=== PATIENT | female | born 1965 | race Caucasian/White ===

== ENCOUNTER → 2020-04-20 12:20 | Outpatient (CLI) | payer BC, SELFPAY ==
--- NOTE | ~2020-04-20 | MR_ITS ---
EXAMINATION: MR brain/brain stem wo/w con EXAM DATE: 04/20/2020 15:30 INDICATION: Multiple sclerosis. TECHNIQUE: Magnetic resonance imaging (MRI) of the brain/brain stem obtained without contrast. Sagit jorge T1, axial diffusion, gradient echo (T2*), T1, T2, FLAIR sequences obtained. Patient was then inj ected with 9 cc intravenous Multihance contrast. Axial and coronal postcontrast T1 weighted sequences obtained. Comparison is made to prior examination from 02/01/2018. FINDINGS: Again there are numerous white matter signal hyperintensities, some involving the corpus ca llosum, appearance consistent with multiple sclerosis. These do not appear significantly changed. The re are no enhancing lesions to suggest active disease. There are no areas of restricted diffusion to suggest acute infarction. There is no acute hemorrhage seen on the T2*, a hemosiderin sensitive sequ ence. No intraparenchymal brain mass. The ventricles are normal in size. There are no extra-axial c ollections. Flow voids are seen in the cerebral arteries on the T2-weighted sequences consistent wit h their expected patency. The orbits are unremarkable. Soft tissue is unremarkable. IMPRESSION: 1. Numerous white matter signal abnormalities consistent with quiescent multiple sclerosis, unchange d. Reviewed, dictated and finalized at location B. IMPRESSION: 1. Numerous white matter signal abnormalities consistent with quiescent multip le sclerosis, unchanged.
--- NOTE | ~2020-04-20 | MR_ITS ---
EXAMINATION: MR cervical spine wo/w con EXAM DATE: 04/20/2020 15:30 INDICATION: Multiple sclerosis follow-up. TECHNIQUE: Multi-sequential, multiplanar MR images of the cervical spine were obtained without contra st. Axial T2, axial T2 MERGE sequence. Sagittal T1, T2, T2 fat saturation images also obtained. Axi al T1 weighted sequence. Patient was then injected with 9 mL Multihance intravenous contrast and cy senthil. Postcontrast axial and sagittal T1-weighted fat saturation sequences were obtained. Compari son is made to prior examination from 02/01/2018. FINDINGS: Again there are several vague regions of increased T2 signal intensity within the cervical spinal cord, appearance and distribution not significantly changed. The most pronounced one is at th e C2-3 level, with small amount of decreased cord volume, chronic myelomalacia. Some limitations due to motion on the postcontrast sequences but no areas of abnormal enhancement suspected. There is moderate disc disease at C5-6 and 6-7, mild to moderate at C4-5. There is 2 mm retrolisthesi s C4 on C5 and C5 on C6. Slight progression in optimal moderate midcervical spondylosis. IMPRESSION: 1. Stable vague cervical spinal cord signal abnormalities consistent with quiescent multiple scleros is. 2. Overall moderate midcervical spondylosis and. Reviewed, dictated and finalized at location B. IMPRESSION: 1. Stable vague cervical spinal cord signal abnormalities consistent with quie scent multiple sclerosis. 2. Overall moderate midcervical spondylosis and.
[2020-04-20 13:12] LABS: Estimated Glomerular Filt Rate > 60
== END ==
PROVIDERS: Visit Provider Psychiatry & Neurology Neurology
DX: G35 Multiple sclerosis (principal); M47.892 Other spondylosis, cervical region; R93.0 Abnormal findings on diagnostic imaging of skull and head, not elsewhere classified
CPT/HCPCS: 70553; 72156; A9577

== ENCOUNTER 2020-11-08 11:14 | Observation (INO) | payer BC, SELFPAY ==
[2020-11-08] VITALS (10 sets, daily range): BP systolic 103–130; BP diastolic 47–81; PULSE 66–77; RESP 14–20; TEMP 36.3–37.1; O2SAT 95–98; BMI 18.8
--- NOTE | ~2020-11-08 | XR_ITS ---
EXAMINATION: XR abdomen/kub 1V DATE: 11/08/2020 22:31 INDICATION: Flank pain. Bladder infection. TECHNIQUE: A supine view of the abdomen on 2 radiographs was obtained. COMPARISON: None. FINDINGS: Moderate amount of gas and stool scattered throughout the colon. No dilated gas-filled loops of bowel to suggest obstruction. 2-3 mm calcific a comparison the left hemipelvis near the expected location of the left ureterovesicular junction which could represent a ureteral stone, phlebolith or atheroscl erotic calcification. Visualized lower lungs are clear. Heart size is normal. Chronic appearing avuls ion fracture of the cephalad tip of the right greater trochanter. IMPRESSION: 1. 2-3 mm possible distal left ureteral stone. Correlate with planned CT of the abdomen and pelvis. Reviewed, dictated and finalized at location A.
--- NOTE | ~2020-11-08 | US_ITS ---
US renal BI 11/09/2020 08:23 Procedure: Realtime transabdominal ultrasound of the kidneys and bladder. Indication: Evaluate for hydronephrosis. Comparison: CT dated 11/09/2020 Findings: Renal echotexture is normal bilaterally without hydronephrosis, contour deforming mass or r enal calculus. The right kidney measures 13.2 cm and left kidney measures 11.2 cm. Bilateral ureteral jets demonstrated. Butler catheter is not in the bladder. Impression: 1: Unremarkable renal ultrasound. No stones, masses or hydronephrosis. 2: Butler catheter demonstrated outside of the bladder, most likely in the vagina. Reviewed, dictated and finalized at location B. Impression: 1: Unremarkable renal ultrasound. No stones, masses or hydronephrosis. 2: Butler catheter demonstrated outside of the bladder, most likely in the vagin a.
--- NOTE | ~2020-11-08 | CT_ITS ---
EXAMINATION: CT abdomen pelvis wo con DATE: 11/09/2020 08:08 INDICATION: Flank pain TECHNIQUE: Computed tomography (CT) of the abdomen and pelvis was performed without intravenous contr ast. The dose-length product was 246.55 mGy-cm. Automated exposure control and iterative reconstructi on technique were employed. COMPARISON: None. FINDINGS: There is a Butler catheter in the vagina. The bladder is fairly distended. Heart size normal . Small pleural effusions. Bibasilar dependent atelectasis. The spleen, liver, pancreas, adrenal glands are unremarkable. There is bilateral perinephric edema. T here is mild bilateral hydronephrosis, although no definitive ureteral stone is identified. There are several pelvic phleboliths. There is atherosclerosis of the aorta without aneurysm. There is a punct ate amount of gas in the bladder, likely from instrumentation. Nonobstructive bowel gas pattern. No a cute osseous abnormality. IMPRESSION: 1. Butler catheter present in the vagina. Recommend repositioning. 2: Severely distended bladder containing a punctate focus of gas, likely from instrumentation. 3: Mild bilateral hydroureteronephrosis with perinephric edema. No definite obstructing stone is alejandra ntified. Cannot exclude ascending urinary tract infection. 4: Small pleural effusions with underlying compressive atelectasis. Reviewed, dictated and finalized at location B. IMPRESSION: 1. Butler catheter present in the vagina. Recommend repositioning. 2: Severely distended bladder containing a punctate focus of gas, likely from i nstrumentation. 3: Mild bilateral hydroureteronephrosis with perinephric edema. No definite ob structing stone is identified. Cannot exclude ascending urinary tract infection . 4: Small pleural effusions with underlying compressive atelectasis.
[2020-11-08 11:34] LABS: Basophils Absolute Auto 0.1 K/mm3 (0.0-0.1); Basophils Percent Auto 0.4 % (0.2-1.2); Eosinophils Percent Auto 0.1 % (0-4.4); Hematocrit 35.4 % (37.0-47.0); Hemoglobin 12.1 g/dL (12.0-15.0); Immature Granulocyte Absolute 0.26 K/mm3 (0.00-0.031); Immature Granulocyte Percent A 1.6 % (0-0.5); Lymphocytes Absolute Auto 0.73 K/mm3 (0.9-3.2); Lymphocytes Percent Auto 4.5 % (18.3-44.2); Mean Corpuscular HGB Conc 34.2 g/dl (32-36); Mean Corpuscular Hemoglobin 32.8 pg (26-34); Mean Corpuscular Volume 95.9 fl (80-100); Monocytes Absolute Auto 1.1 K/mm3 (0.1-0.6); Monocytes Percent Auto 6.9 % (2.6-8.5); Neutrophils Absolute Auto 14.1 K/mm3 (1.3-6.7); Neutrophils Percent Auto 86.5 % (45.5-73.1); Platelet Count Result 558 k/mm3 (150-375); Red Blood Count 3.69 M/mm3 (4.2-5.4); Red Cell Distribution Width 13.1 % (11.5-14.5); White Blood Count 16.3 K/mm3 (4.5-10.0)
[2020-11-08 11:48] LABS: Alanine Aminotransferase 17 U/L (4-35); Albumin Level 3.6 g/dL (3.5-5.1); Alkaline Phosphatase 95 U/L (38-126); Anion Gap 8 mmol/L (8-16); Aspartate Amino Transferase 26 U/L (14-36); Bilirubin,Total < 0.1 mg/dL (0.2-1.3); Blood Urea Nitrogen 39 mg/dL (7-17); Carbon Dioxide 20 mmol/L (22-30); Chloride 110 mmol/L (98-107); Estimated CRCL calculation 31 ml/min; Estimated Glomerular Filt Rate 39; Glucose 99 mg/dL (65-105); Potassium 3.1 mmol/L (3.4-5.0); Sodium 138 mmol/L (137-145)
--- NOTE | 2020-11-08 12:33 | ED.AMS ---
HPI - Altered Mental Status General Chief Complaint: Altered Mental Status Stated Complaint: weak Time Seen by Provider: 11/08/20 12:33 History of Present Illness HPI narrative: 55 yo female with h/o MS presents for weakness. Increasing weak and confused for the past few days. Started on PO antibiotics a few days ago for possible UTi. UA done today confirmed infection. She reports that she has mild abdominal and back pain. reports that he does not think that she has been eating. Related Data Home Medications Medication Instructions Recorded Confirmed acyclovir 400 mg PO DAILY 11/08/20 11/08/20 azelastine 1 spray INTRANASAL DAILY PRN 11/08/20 11/08/20 baclofen 10 mg PO HS 11/08/20 11/08/20 cholecalciferol (vitamin D3) 100 mcg PO DAILY 11/08/20 11/08/20 duloxetine 60 mg PO HS 11/08/20 11/08/20 fingolimod [Gilenya] 0.5 mg PO DAILY 11/08/20 11/08/20 lisinopril 10 mg PO DAILY 11/08/20 11/08/20 methylprednisolone 4 mg PO DAILY 11/08/20 11/08/20 Allergies Allergy/AdvReac Type Severity Reaction Status Date / Time Tetanus Vaccines and Toxoid Allergy Intermediate Rash Verified 11/08/20 16:28 codeine Allergy Mild Rash Verified 11/08/20 16:28 Review of Systems Review of Systems: All systems reviewed & are unremarkable except as noted in HPI and below Constitutional: Constitutional: Denies chills, Reports fatigue, Denies fever(s) and Reports weakness Eyes: Eyes: Reports no additional eye complaints ENT: Denies sore throat Cardiovascular: Cardiovascular: Denies chest pain Respiratory: Respiratory: Denies dyspnea Gastrointestinal: Gastrointestinal: Reports abdominal pain, Denies diarrhea, Reports nausea and Denies vomiting Genitourinary: Genitourinary: Denies hematuria and Reports nocturia Neurologic: Denies dizziness and Denies weakness [facility] Past Medical History Medical History (Updated 11/08/20 @ 21:05 by Demarco Palmer MD) Multiple sclerosis Social History Social History Smoking status: Never smoker Alcohol intake: current Drinks per week: 1 Substance use: never Spiritual care concerns: No Exam Const: General: no acute distress, alert and ill appearing Nutritional Appearance: thin Orientation/consciousness: patient oriented x3 HENMT: Head: normal to inspection Resp: Effort & Inspection: normal respiratory effort Auscultation: clear to auscultation bilaterally Cardio: Rate: regular rate Rhythm: regular rhythm GI: Inspection: non-distended GI Palp: Yes Soft to palpation, Yes Tenderness to palpation present (GI) (suprapubic), No Guarding due to palpation present (GI) and No Rebound tenderness present Back/Spine/Pelvis: Back: no CVA tenderness Skin: General skin exam: normal color Neuro: General: patient oriented x3, moves all extremities, no focal motor deficits and CN's II-XI intact bilaterally Speech: normal speech Extrem: General: normal to inspection Course Vital Signs Vital signs: Vital Signs Temperature 36.3 C L 11/08/20 11:18 Pulse Rate 71 11/08/20 11:18 Respiratory Rate 20 11/08/20 11:18 Blood Pressure 103/47 L 11/08/20 11:18 Pulse Oximetry 98 11/08/20 11:18 Temperature 36.3 C L 11/08/20 11:18 Pulse Rate 77 11/08/20 15:41 Respiratory Rate 18 11/08/20 15:41 Blood Pressure 130/77 11/08/20 15:41 Pulse Oximetry 97 11/08/20 15:41 MDM - Altered Mental Status MDM Narrative Medical decision making narrative: Will admit for UTI and ADRIÁN. Medical Records Attestation: I reviewed the patient's medical records. Lab Data Attestation: I reviewed the patient's lab results. Result diagrams: 11/08/20 11:23 11/08/20 11:23 Labs: Lab Results 11/08/20 11/08/20 11/08/20 Range/Units 11:23 11:23 12:40 WBC 16.3 H (4.5-10.0) K/mm3 RBC 3.69 L (4.2-5.4) M/mm3 Hgb 12.1 (12.0-15.0) g/dL Hct 35.4 L (37.0-47.0) % MCV 95.9 (80-100)
[2020-11-08 13:02] LABS: Add Urine Microscopic? YES; Appearance Urine Clear (Clear); Bilirubin Urine Negative (Negative); Color Urine Yellow (Yellow); Glucose Urine UA Negative (Negative); Ketones Urine Negative (Negative); Leukocyte Esterase Ur 1+ LEU/UL (Negative); Mucus Urine Rare /lpf; Nitrate Urine Negative (Negative); Protein Urine 1+ mg/dL (Negative); Specific Grav Ur 1.014 (1.001-1.035); Squamous Epithelial Cell Urine Rare /hpf (Few); Urobilinogen Urine Negative mg/dL (<2.0)
[2020-11-08 13:04] LABS: Blood Urine Negative (Negative)
[2020-11-08] MEDS: SODIUM CHLORIDE 0.9% IV 1,000 ML 999 ML IV CONT (13:50)
--- NOTE | 2020-11-08 15:50 | ADMGEN ---
This patient, Mary Cavanaugh, was admitted to [facility] Surg Room 331-01. Patient/family oriented to hospital policies and general routines including ID bracelet, bed and alarms, visiting hours, pain management, procedures, bathroom and other care routines, personal items, smoking policy, room service/diet, and visiting hours. Information on how to activate the Rapid Response Team has been discussed. Patient/Family are encouraged to report perceived risks to care and to ask questions if they do not understand what they are told or what they should do.
[2020-11-08] MEDS: LACTATED RINGERS 1,000 ML 125 ML IV CONT (17:05)
--- NOTE | 2020-11-08 18:10 | PM.IMHP ---
H&P: HPI History of Present Illness Date/Time: 11/08/20 18:10 CC:Urinary frequency HPI: 55 year old female admitted with urinary frequency and lower back pain. Pt has been nauseated at home. Not eating much, has been trying ibuprofen for back pain. Pt has a history of MS. Pt sees local PCP- , went to see her recently and was give oral steroids for a MS flare. Pt other doctors are Dr Garcia urology and DR Horner neurology in [facility]. Presently pt states her back pain is 10/10 and looks in distress from pain. Pt nose and hands are purplish blue, states she gets like that when she feels cold. Unsure if she is running a fever as she has been on ibuprofen. Denies diarrhea but has been constipated. Pt is having frequent urination and feels like it is burning when she passes urine. Chief Complaint: Urinary freqency Review of Systems Review of Systems: All systems reviewed & are unremarkable except as noted in HPI and below PMFSH Social History Social History Smoking status: Never smoker Alcohol intake: current Drinks per week: 1 Substance use: never Spiritual care concerns: No Meds Home Medications and Allergies Home Medications Medication Instructions Recorded Confirmed Type acyclovir 400 mg PO DAILY 11/08/20 11/08/20 History azelastine 1 spray INTRANASAL DAILY PRN 11/08/20 11/08/20 History baclofen 10 mg PO HS 11/08/20 11/08/20 History cholecalciferol (vitamin D3) 100 mcg PO DAILY 11/08/20 11/08/20 History duloxetine 60 mg PO HS 11/08/20 11/08/20 History fingolimod [Gilenya] 0.5 mg PO DAILY 11/08/20 11/08/20 History lisinopril 10 mg PO DAILY 11/08/20 11/08/20 History methylprednisolone 4 mg PO DAILY 11/08/20 11/08/20 History Allergies Allergy/AdvReac Type Severity Reaction Status Date / Time Tetanus Vaccines and Toxoid Allergy Intermediate Rash Verified 11/08/20 16:28 codeine Allergy Mild Rash Verified 11/08/20 16:28 Vital Signs Vital Signs - 24 hr 11/08/20 11:18 11/08/20 12:35 11/08/20 13:01 Temperature 36.3 C L Pulse Rate 71 71 67 Respiratory Rate 20 20 14 Blood Pressure 103/47 L 118/68 121/75 Pulse Oximetry 98 98 96 11/08/20 13:31 11/08/20 13:46 11/08/20 14:01 Temperature Pulse Rate 70 70 66 Respiratory Rate 14 17 15 Blood Pressure 122/75 130/81 123/72 Pulse Oximetry 95 98 96 11/08/20 14:16 11/08/20 14:46 11/08/20 15:41 Temperature Pulse Rate 71 69 77 Respiratory Rate 16 14 18 Blood Pressure 124/75 128/67 130/77 Pulse Oximetry 97 98 97 Exam Const: General: other (Thin appearing, tired and weak) HENMT: Head: normocephalic Eyes: General: appearance normal, both eyes and all related structures Pupils: Equal, round and reactive pupils present Neck: Neck: supple Chest: Chest palpation & inspection: normal inspection of the chest Resp: Effort & Inspection: normal respiratory effort Auscultation: clear to auscultation bilaterally Cardio: Jugular venous distension: no JVD Rhythm: regular rhythm Heart sounds: S1 normal heart sound present and S2 normal heart sound present GI: Inspection: normal to inspection GI Palp: No abdominal tenderness, Yes Soft to palpation and No Tenderness to palpation present (GI) Auscultation: normal bowel sounds Back/Spine/Pelvis: Back: CVA tenderness (Right more than left flank ) Skin: General skin exam: normal color and dry skin Neuro: Cranial nerves: Yes CN's II-XII intact bilaterally and Yes Equal, round and reactive pupils present Cognition (Neuro): normal cognition Speech: normal speech Motor exam (neuro): 5/5 motor strength present throughout Extrem: General: normal to inspection Psych: Appearance: grossly normal Mental Status: mental status grossly normal H&P: Results Labs Labs: Short CBC 11/08/20 Range/Units 11:23 WBC 16.3 H (4.5-10.0) K/mm3 Hgb 12.1 (12.0-15.0) g/dL Hct 35.4 L (37.0-47.0) % Plt Count 558 H (150-375) k/mm3
[2020-11-08] MEDS: KETOROLAC 10 MG TABLET PO (18:52)
--- NOTE | 2020-11-08 19:48 | PHAR ---
PT'S HOME MED CHALINO (FINGLOIMOD HCL) 0.5 MG VERIFIED BY PHARMACY
[2020-11-08] MEDS: BACLOFEN 10 MG TABLET PO (21:36)
[2020-11-08] MEDS: SENNA/DOCUSATE SODIUM TABLET 1 TAB PO (21:37)
[2020-11-09] MEDS: KETOROLAC 10 MG TABLET PO ×3 (02:17→13:37)
[2020-11-09 06:00] VITALS: BP 124/64; PULSE 69; RESP 18; TEMP 37.1; O2SAT 92
[2020-11-09 06:20] LABS: Hemoglobin 11.1 g/dL (12.0-15.0); Mean Corpuscular HGB Conc 34.7 g/dl (32-36); Mean Corpuscular Hemoglobin 32.6 pg (26-34); Mean Corpuscular Volume 94.1 fl (80-100); Mean Platelet Volume 9.1 fl (7.4-10.4); Platelet Count Result 554 k/mm3 (150-375); White Blood Count 11.2 K/mm3 (4.5-10.0)
[2020-11-09 06:47] LABS: Anion Gap 4 mmol/L (8-16); Blood Urea Nitrogen 28 mg/dL (7-17); Calcium 8.9 mg/dL (8.4-10.2); Carbon Dioxide 20 mmol/L (22-30); Chloride 115 mmol/L (98-107); Estimated CRCL calculation 43 ml/min; Estimated Glomerular Filt Rate 52; Glucose 92 mg/dL (65-105); Potassium 2.7 mmol/L (3.4-5.0); Sodium 139 mmol/L (137-145)
[2020-11-09 07:54] LABS: Potassium 2.7 mmol/L (3.4-5.0)
--- NOTE | 2020-11-09 08:24 | WPDURCON ---
Assessment and Plan Assessment and plan (1) UTI (urinary tract infection): Qualifiers: Encounter type: initial encounter Code(s): N39.0 - Urinary tract infection, site not specified Status: Acute Assessment and Plan: Await final cultures and treat appropriately. Does not require another cysto at this time. (2) Abdominal pain: Code(s): R10.9 - Unspecified abdominal pain Status: Acute Assessment and Plan: Stat renal CT KUB obtained. This is reviewed with Dr. Frost. Study limited due to no contrast but no obvious renal masses or hydro noted. No ureteral stones noted either. What is noted is a distended bladder with a Butler catheter that is in the vaginal vault. Have notified nursing staff to replace Butler into the bladder will see how she does clinically after that. Urology Consult Note HPI Date Seen: 11/09/20 Time Seen: 07:24 Requesting Physician: Karlie West PA-C Primary Care Provider: UNKNOWN,DOCTOR Consult Narrative Reason for consult: Abdominal pain and urinary tract infection with frequency Narrative: Mary Cavanaugh is a 55 year old female who had seen Dr. Garcia in October of 2019 with a normal cystoscopy. She then saw our nurse practitioner in July of this year for dysuria. Patient has MS and does do intermittent catheterization at home. She does state that she voids on her own. She denied any fever at home. She was admitted with weakness and abdominal pain and some frequency. [place] [address] with a creatinine of 1.4. Urinalysis had some leukocytes and 10-15 white cells present. Review of Systems Review of Systems: All systems reviewed & are unremarkable except as noted in HPI and below PMFSH Past Medical History Medical History Multiple sclerosis Social History Social History Smoking status: Never smoker Alcohol intake: current Drinks per week: 1 Substance use: never Spiritual care concerns: No Meds Home Medications and Allergies Home Medications Medication Instructions Recorded Confirmed Type acyclovir 400 mg PO DAILY 11/08/20 11/08/20 History azelastine 1 spray INTRANASAL DAILY PRN 11/08/20 11/08/20 History baclofen 10 mg PO HS 11/08/20 11/08/20 History cholecalciferol (vitamin D3) 100 mcg PO DAILY 11/08/20 11/08/20 History duloxetine 60 mg PO HS 11/08/20 11/08/20 History fingolimod [Gilenya] 0.5 mg PO DAILY 11/08/20 11/08/20 History lisinopril 10 mg PO DAILY 11/08/20 11/08/20 History methylprednisolone 4 mg PO DAILY 11/08/20 11/08/20 History Allergies Allergy/AdvReac Type Severity Reaction Status Date / Time Tetanus Vaccines and Toxoid Allergy Intermediate Rash Verified 11/08/20 16:28 codeine Allergy Mild Rash Verified 11/08/20 16:28 Vital Signs Vital Signs - 24 hr 11/08/20 11:18 11/08/20 12:35 11/08/20 13:01 Temperature 36.3 C L Pulse Rate 71 71 67 Respiratory Rate 20 20 14 Blood Pressure 103/47 L 118/68 121/75 Pulse Oximetry 98 98 96 11/08/20 13:31 11/08/20 13:46 11/08/20 14:01 Temperature Pulse Rate 70 70 66 Respiratory Rate 14 17 15 Blood Pressure 122/75 130/81 123/72 Pulse Oximetry 95 98 96 11/08/20 14:16 11/08/20 14:46 11/08/20 15:41 Temperature Pulse Rate 71 69 77 Respiratory Rate 16 14 18 Blood Pressure 124/75 128/67 130/77 Pulse Oximetry 97 98 97 11/08/20 21:35 11/09/20 06:00 Temperature 37.1 C 37.1 C Pulse Rate 77 69 Respiratory Rate 20 18 Blood Pressure 114/62 124/64 Pulse Oximetry 96 92 Exam Const: General: cooperative; No comfortable Resp: Effort & Inspection: normal respiratory effort GI: Inspection: distended GI Palp: Yes abdominal tenderness Urinary Catheter: Urinary Catheter: other (Catheter not draining) Results Labs CBC & Chem 7: 11/09/20 05:54 11/09/20 07:02 Labs: Short CB
[2020-11-09] MEDS: ACYCLOVIR 400 MG TABLET PO (08:52)
[2020-11-09] MEDS: POTASSIUM CHLORIDE 20 MEQ PACKET (FOR LIQUID) PO ×2 (08:52→16:50)
[2020-11-09] MEDS: POTASSIUM CHLORIDE 20 MEQ TABLET 40 MEQ PO (08:54)
[2020-11-09 10:15] VITALS: O2SAT 91
[2020-11-09] MEDS: LACTATED RINGERS 1,000 ML 125 ML IV CONT (10:24)
[2020-11-09 11:02] VITALS: BMI 18.8
--- NOTE | 2020-11-09 13:10 | PM.IMPN ---
Progress Note: A&P Assessment and Plan (1) Pyelonephritis: Code(s): N12 - Tubulo-interstitial nephritis, not specified as acute or chronic Status: Acute Assessment and Plan: Urinalysis grossly abnormal upon presentation. She does intermittent self catheterization at home due to MS. She presented with abdominal pain, flank pain and back pain with associated nausea and vomiting. White count was elevated at 16.3. She has remained afebrile. CT abdomen/pelvis showed mild bilateral hydroureteronephrosis with perinephric edema, concerning for ascending urinary tract infection. Leukocytosis is improving and her CVA tenderness and flank pain have alleviated. Continue IV ceftriaxone, started on 11/08/2020. Urine cultures pending. Await results and tailor antibiotics accordingly. Blood cultures pending. Continue gentle IV fluid hydration. Analgesics available as needed for pain Appreciate urology consultation and recommendations (2) Multiple sclerosis: Code(s): G35 - Multiple sclerosis Status: Chronic Assessment and Plan: She is established with neurologist Dr. Horner at [facility]. She was evaluated by per her PCP earlier this week for symptoms of acute MS flare and started on steroids. She was seen by her neurologist later in the week and steroids were continued. Her symptoms seem to be slowly improving. Neurology has been consulted for management of MS flare. Input is appreciated. Continue with PO Solu-Medrol pending further Neurology recommendations. (3) ARF (acute renal failure): Code(s): N17.9 - Acute kidney failure, unspecified Status: Acute Assessment and Plan: Creatinine was elevated upon presentation at 1.4. Baseline creatinine appears to be <1.0. Suspect multifactorial etiology to include prerenal cause from dehydration as well as obstructive etiology given urinary retention. It was noted on CT scan that Butler catheter was placed in the vagina and upon correction of this, she had >1000cc urine output. Renal ultrasound unremarkable without stones, masses, or hydronephrosis. Creatinine has improved at 1.1 today. Continue Butler catheter in appropriate position Continue gentle IV fluids as above Monitor urine output. Monitor renal function closely. (4) Acute hypokalemia: Code(s): E87.6 - Hypokalemia Status: Acute Assessment and Plan: Potassium low today at 2.7. Patient reports poor p.o. intake as well as nausea and vomiting. Total of 60 mEq given this morning with 20 mEq ordered this evening Repeat potassium this afternoon and supplement as needed (5) Constipation: Code(s): K59.00 - Constipation, unspecified Status: Acute Assessment and Plan: Reported constipation at presentation. Continue docusate-senna Consider suppository or enema if no improvement with above therapy (6) Malnutrition: Code(s): E46 - Unspecified protein-calorie malnutrition Status: Acute Assessment and Plan: She reports poor PO intake. Her BMI is 18. She noted minimal weight loss, likely due to poor intake. Protein and albumin levels sufficient. Appreciate RD eval. Continue dietary supplements. Subjective Date/time seen: 11/09/20 13:10 Interval history: Date of service: 11/09/2020 Mary Cavanaugh is a 55-year-old female with a history of multiple sclerosis in follow-up for urinary infection and management of MS flare. She is feeling much better today. She reports significant improvement in her weakness. She was able to ambulate using her walker today with much less difficulty. She is complaining of bilateral back and flank pain. No suprapubic pain. She felt bit nauseous this morning but this has improved and she has been able to tolerate her lunch. No episodes of emesis today. She reports overall a decreased appetite. Denies hematuria. Cannot state whether she has had dysuria as she
[2020-11-09 14:00] VITALS: BP 116/68; PULSE 69; RESP 16; TEMP 36.8; O2SAT 100
[2020-11-09 14:39] LABS: Potassium 3.3 mmol/L (3.4-5.0)
[2020-11-09] MEDS: methylPREDNISolone 4 MG TABLET PO ×3 (14:40→20:55)
[2020-11-09] MEDS: MORPHINE SULFATE (*CRX) 2 MG/ML INJ IV PUSH ×2 (16:50→21:10)
[2020-11-09 20:00] VITALS: PULSE 66; RESP 20; O2SAT 100
[2020-11-09] MEDS: SENNA/DOCUSATE SODIUM TABLET 1 TAB PO (20:53)
[2020-11-09] MEDS: BACLOFEN 10 MG TABLET PO (20:53)
[2020-11-09] MEDS: DULoxetine HCL 60 MG CAPSULE.DR PO (20:54)
[2020-11-09] MEDS: polyethylene glycoL 3350 17 GM POWD.PACK PO (21:19)
[2020-11-09 21:57] VITALS: BP 124/71; PULSE 66; RESP 20; TEMP 36.4; O2SAT 100
[2020-11-09] MEDS: LACTATED RINGERS 1,000 ML 60 ML IV CONT (23:13)
[2020-11-10 05:52] VITALS: BP 129/66; PULSE 70; RESP 20; TEMP 36.6; O2SAT 92
[2020-11-10 06:30] LABS: Hematocrit 33.5 % (37.0-47.0); Hemoglobin 11.3 g/dL (12.0-15.0); Mean Corpuscular HGB Conc 33.7 g/dl (32-36); Mean Corpuscular Hemoglobin 32.7 pg (26-34); Mean Corpuscular Volume 96.8 fl (80-100); Mean Platelet Volume 8.9 fl (7.4-10.4); Platelet Count Result 602 k/mm3 (150-375); Red Blood Count 3.46 M/mm3 (4.2-5.4); Red Cell Distribution Width 13.3 % (11.5-14.5); White Blood Count 12.5 K/mm3 (4.5-10.0)
[2020-11-10] MEDS: methylPREDNISolone 4 MG TABLET PO (06:33)
[2020-11-10 06:42] LABS: Anion Gap 4 mmol/L (8-16); Blood Urea Nitrogen 24 mg/dL (7-17); Carbon Dioxide 21 mmol/L (22-30); Chloride 115 mmol/L (98-107); Estimated CRCL calculation 52 ml/min; Estimated Glomerular Filt Rate > 60; Glucose 109 mg/dL (65-105); Potassium 3.9 mmol/L (3.4-5.0); Sodium 140 mmol/L (137-145)
[2020-11-10] MEDS: KETOROLAC 10 MG TABLET PO (09:20)
[2020-11-10] MEDS: ACYCLOVIR 400 MG TABLET PO (09:20)
[2020-11-10] MEDS: POTASSIUM CHLORIDE 20 MEQ PACKET (FOR LIQUID) PO (09:22)
[2020-11-10] MEDS: DOCUSATE SODIUM 100 MG CAPSULE PO (10:31)
[2020-11-10] MEDS: polyethylene glycoL 3350 17 GM POWD.PACK PO (10:31)
--- NOTE | 2020-11-10 12:28 | WPDUROPN2 ---
Progress Note: A&P Assessment and Plan (1) Pyelonephritis: Code(s): N12 - Tubulo-interstitial nephritis, not specified as acute or chronic Status: Acute Assessment and Plan: Urine Culture is negative, likely just hydronephrosis secondary to improper catheter placement. Patient will resume self catheterization when she is discharged home, remove calderon prior to discharge. No further evaluation needed. (2) Abdominal pain: Code(s): R10.9 - Unspecified abdominal pain Status: Acute Assessment and Plan: Resolved with correct catheter placement. (3) ADRIÁN (acute kidney injury): Code(s): N17.9 - Acute kidney failure, unspecified Status: Acute Assessment and Plan: Resolved, creatinine is now 0.90 and was secondary to improper catheter placement and known atonic bladder r/t MS. Subjective Subjective Date/Time Seen: 11/10/20 12:28 Patient was initially found to have her calderon placed in the vagina, which was causing hydronephrosis and abdominal pain for her. She normally self catheterizes. She was thought to have a UTI, however her urine culture came back negative. She is feeling much better since catheter was re-placed in the urethra. Review of Systems Cardiovascular: Cardiovascular: Denies chest pain Respiratory: Respiratory: Reports no additional respiratory complaints Gastrointestinal: Gastrointestinal: Denies abdominal pain, Denies nausea and Denies vomiting Genitourinary: Genitourinary: Denies hematuria Exam Resp: Effort & Inspection: normal respiratory effort Cardio: Rate: regular rate GI: GI Palp: Yes Soft to palpation and No Tenderness to palpation present (GI) : General: Yes no CVA tenderness Urinary Catheter: Urinary Catheter: patent and draining and urine clear Extrem: General: no edema Objective Data Vital Signs Vital Signs: Vital Signs - 24 hr 11/09/20 14:00 11/09/20 20:00 11/09/20 21:57 Temperature 98.2 F 97.6 F Pulse Rate 69 66 66 Respiratory Rate 16 20 20 Blood Pressure 116/68 124/71 Pulse Oximetry 100 100 100 11/10/20 05:52 Temperature 97.9 F Pulse Rate 70 Respiratory Rate 20 Blood Pressure 129/66 Pulse Oximetry 92 Intake/Output Intake/Output: Intake & Output 11/07/20 11/08/20 11/09/20 11/10/20 23:59 23:59 23:59 23:59 Intake Total 1840 3830 830 Output Total 3094 9910 1800 Balance -235 1380 -970 Meds/Results Medications: Active Medications Generic Name Dose Route Start Last Admin Trade Name Elvia PRN Reason Stop Dose Admin Acetaminophen 650 mg 11/09/20 13:20 Acetaminophen 325 Mg Tablet PO Q4H PRN Pain 1-3 Acyclovir 400 mg 11/09/20 09:00 11/10/20 09:20 Acyclovir 400 Mg Tablet PO 400 mg DAILY WARREN Administration Azelastine HCl 1 spray 11/08/20 18:27 Azelastine Hcl Nasal 0.1% 137 Mcg/Spr 30 Ml Btl NASAL DAILY PRN Congestion Baclofen 10 mg 11/08/20 21:00 11/09/20 20:53 Baclofen 10 Mg Tablet PO 10 mg HS WARREN Administration Docusate Sodium 100 mg 11/08/20 18:29 11/10/20 10:31 Docusate Sodium 100 Mg Capsule PO 100 mg Q12H PRN Administration Constipation Duloxetine HCl 60 mg 11/08/20 21:00 11/09/20 20:54 Duloxetine Hcl 60 Mg Capsule.Dr PO 60 mg HS WARREN Administration Lactated Ringer's 1,000 mls @ 60 mls/hr 11/08/20 14:25 11/09/20 23:13 Lr - Lactated Ringers Iv IV CONT 60 mls/hr .[id number] WARREN Administration Ceftriaxone Sodium/Dextrose 1 gm in 50 mls @ 100 mls/hr 11/09/20 14:00 11/09/20 09:20 Rocephin 1 Gm/D5w 50 Ml IVPB Infused Q24H WARREN Infusion Ketorolac Tromethamine 10 mg 11/08/20 18:30 11/10/20 09:20 Ketorolac 10 Mg Tablet PO 10 mg Q6H PRN Administration Pain Rated 4-6 Methylprednisolone 4 mg 11/10/20 06:30 11/10/20 06:33 Methylprednisolone 4 Mg Tablet PO 11/10/20 21:01 4 mg 0630,2100 WARREN Administration Methylprednisolone 4 mg 11/11/20 06:30 Methylprednisolone 4 Mg Tab
[2020-11-10 13:44] VITALS: BP 106/67; PULSE 72; RESP 18; TEMP 36.7; O2SAT 97
--- NOTE | 2020-11-10 13:49 | PC.NURSE ---
On 11/10/20, the student, [ Griselda Barajas], provided care and completed [facility] documentation on this patient. I have reviewed the student's documentation and agree with the findings.
--- NOTE | 2020-11-10 16:09 | PM.DS ---
DS: Admitting Diagnosis Admitting Diagnosis Admitting Diagnosis: UTI, MS flare DS: Discharge Diagnosis Discharge Diagnosis (1) Pyelonephritis: Code(s): N12 - Tubulo-interstitial nephritis, not specified as acute or chronic Status: Acute Assessment and Plan: Urinalysis grossly abnormal upon presentation. She does intermittent self catheterization at home due to MS. She presented with abdominal pain, flank pain and back pain with associated nausea and vomiting. White count was elevated at 16.3. She remained afebrile. CT abdomen/pelvis showed mild bilateral hydroureteronephrosis with perinephric edema, concerning for ascending urinary tract infection. She received IV Rocephin. Her leukocytosis improved and she had significant symptomatic improvement. Urine culture collected on 11/08 was negative. However, she had an outpatient urine culture collected at her neurologist office on 11/06 with growth of 50-100,000 CFU Klebsiella. She had been taking Bactrim as an outpatient. Unfortunately, sensitivities are not yet available. I have been in contact with [email or web address] and with the ordering provider's office (Dr. Horner, neurology). We will plan to continue her on the DS Bactrim until sensitivities are reviewed. I expect these to be back tomorrow (11/11) and I have informed the patient I will call her. We will tailor antibiotics accordingly. She and her are comfortable with this plan. She was seen in consultation by Urology and has been prescribed self start antibiotics for future symptoms of UTI. She has outpatient urology follow-up on 11/16/2020. Preliminary blood cultures negative to date. (2) Multiple sclerosis: Code(s): G35 - Multiple sclerosis Status: Chronic Assessment and Plan: She is established with neurologist Dr. Horner at [facility]. She was evaluated by per her PCP earlier this week for symptoms of acute MS flare and started on steroids. This was likely due to her urinary tract infection. She was seen by her neurologist later in the week and steroids were continued. Her symptoms slightly improved with Medrol Dosepak which was continued. She will complete her course of steroids on 11/11/2020. She will need to continue follow-up with her neurologist. (3) ARF (acute renal failure): Code(s): N17.9 - Acute kidney failure, unspecified Status: Acute Assessment and Plan: Resolved. Creatinine was elevated upon presentation at 1.4. Baseline creatinine appears to be <1.0. Suspect multifactorial etiology to include prerenal cause from dehydration in light of nausea/vomiting as well as obstructive etiology given urinary retention. It was noted on CT scan that Butler catheter was placed in the vagina and upon correction of this, she had >1000cc urine output. Renal ultrasound unremarkable without stones, masses, or hydronephrosis. Butler catheter was continued throughout admission and she was rehydrated with IV fluids. Renal function improving creatinine was 0.9 at time of discharge. (4) Acute hypokalemia: Code(s): E87.6 - Hypokalemia Status: Acute Assessment and Plan: Potassium was low at presentation, likely due to poor p.o. intake, nausea, and vomiting. Potassium was supplemented and serum potassium levels improved. (5) Constipation: Code(s): K59.00 - Constipation, unspecified Status: Acute Assessment and Plan: Reported constipation at presentation. No evidence of obstruction based on abdominal imaging. Improved with docusate-senna. Recommended MiraLax and Colace bowel regimen for constipation as an outpatient (6) Malnutrition: Code(s): E46 - Unspecified protein-calorie malnutrition Status: Acute Assessment and Plan: She reports poor PO intake. Her BMI is 18. She noted minimal weight loss, likely due to poor intake. Protein and albumin levels sufficient. She was evaluated by the registered dietitian
== END 2020-11-10 16:40 | disposition home or self-care (01) ==
LOC: ANHED 13:20 → ANH3MEDSUR 15:24
PROVIDERS: Family Medicine; Nurse Practitioner; Physician Assistant; Admitting Provider Internal Medicine; Emergency Provider Emergency Medicine; Visit Provider Family Medicine
DX: N12 Tubulo-interstitial nephritis, not specified as acute or chronic (principal); G35 Multiple sclerosis; E87.6 Hypokalemia; K59.00 Constipation, unspecified; E46 Unspecified protein-calorie malnutrition
CPT/HCPCS: 36415; 51701; 74018; 74176; 76775; 80048; 80053; 81001; 81025; 83735; 84132; 85025; 85027; 87040; 87086; 87088; 96361; 96365; 96375; 96376; 97110; 97116; 97161; 97165; 97535; 99285; A9270; G0378; J0696; J2270; J7030; J7120

== ENCOUNTER → 2021-02-15 11:47 | Outpatient (CLI) | payer BC, SELFPAY ==
--- NOTE | ~2021-02-15 | XR_ITS ---
XR chest 2V DATE: 02/15/2021 12:04 INDICATION: Cough TECHNIQUE: 2 views COMPARISON: None FINDINGS: Prominent bilateral hyperinflation and flattening of the diaphragm, consistent with COPD. Normal heart size. No hilar or mediastinal enlargement is evident. No pulmonary infiltrate or consolidation, pleural effusion or pulmonary vascular congestion or pneumo thorax. Diffuse osteopenia. IMPRESSION: Severe bilateral pulmonary hyperinflation consistent with COPD Reviewed, dictated and finalized at location B.
== END ==
PROVIDERS: PCP Internal Medicine; Visit Provider Internal Medicine
DX: R05 Cough (principal); R91.8 Other nonspecific abnormal finding of lung field
CPT/HCPCS: 71046

== ENCOUNTER → 2021-03-23 11:01 | Outpatient (CLI) | payer BC, SELFPAY ==
--- NOTE | ~2021-03-23 | MM_ITS ---
EXAMINATION: MM screening mojgan BI w natanael HISTORY: Screening mammogram TECHNIQUE: Craniocaudal and mediolateral oblique 3-D tomosynthesis images were obtained and synthetic 2-D images were generated. CAD analysis was submitted and interpreted. COMPARISON: 03/18/2019 and 08/20/2018 bilateral diagnostic digital mammogram examinations 06/27/2018, 07/20/2015 bilateral digital screening mammogram examinations. BREAST PARENCHYMAL COMPOSITION: The breasts are heterogeneously dense, which may obscure small masses . FINDINGS: Occasional punctate benign calcifications are again noted. There is no evidence of suspicio us mass, calcification, or architectural distortion to suggest malignancy in either breast. There has been no suspicious interval change. IMPRESSION: 1. No mammographic evidence of malignancy. 2. Recommend routine screening mammography in one year. BI-RADS Category 2: Benign finding(s). Reviewed, dictated and finalized at location A.
--- NOTE | ~2021-03-23 | XR_ITS ---
EXAMINATION: XR knee LT 3V DATE: 03/23/2021 11:21 INDICATION: Left knee pain. Fall. TECHNIQUE: 3 views of left knee including standing views were obtained. COMPARISON: None. FINDINGS: Bone alignment is normal. No fracture. Joint spaces are well maintained. There is no knee j oint effusion. IMPRESSION: 1. No fracture. Reviewed, dictated and finalized at location A. IMPRESSION: 1. No fracture.
== END ==
PROVIDERS: PCP Nurse Practitioner Family; Visit Provider Nurse Practitioner Family
DX: S89.92XA Unspecified injury of left lower leg, initial encounter (principal); Z12.31 Encounter for screening mammogram for malignant neoplasm of breast
CPT/HCPCS: 73562; 77063; 77067

== ENCOUNTER → 2021-06-14 11:10 | Outpatient (CLI) | payer BC, SELFPAY ==
--- NOTE | ~2021-06-14 | XR_ITS ---
EXAMINATION: XR shoulder RT min 2V DATE: 06/14/2021 11:59 INDICATION: Right shoulder pain post fall TECHNIQUE: AP internally and externally rotated, AP oblique externally rotated and axillary views of the affected shoulder were obtained. COMPARISON: None FINDINGS: Oblique fracture of the lateral right clavicle which extends to the inferior margin of but does not a ppear to definitively involve the articular surface at the acromioclavicular joint. There is 3 mm cep halad subluxation of the lateral sided fragment. No widening of the coracoclavicular interval. Minima lly displaced acute-appearing anterior right fifth rib fracture. Alignment remains otherwise normal w ith no other fractures identified. Glenohumeral and acromioclavicular joint spaces are normal. Visual is portions of the lungs are clear. No evident right sided pneumothorax. Right lower lung zone is ex cluded from the [id number]. IMPRESSION: 1. 3 mm displacement of a likely extra articular fracture at the lateral right clavicle. 2. Minimally displaced fracture of the anterior right fifth rib. No evident pneumothorax but could co nsider dedicated PA and lateral chest radiograph for more definitive determination for pneumothorax o r hemothorax. Reviewed, dictated and finalized at location A. RMATION BROKER IMPRESSION: 1. 3 mm displacement of a likely extra articular fracture at the lateral right clavicle. 2. Minimally displaced fracture of the anterior right fifth rib. No evident pne umothorax but could consider dedicated PA and lateral chest radiograph for more definitive determination for pneumothorax or hemothorax.
== END ==
PROVIDERS: PCP Nurse Practitioner Family; Visit Provider Nurse Practitioner Family
DX: T14.90XA Injury, unspecified, initial encounter (principal); S22.31XA Fracture of one rib, right side, initial encounter for closed fracture
CPT/HCPCS: 73030

== ENCOUNTER → 2021-09-06 14:31 | Outpatient (CLI) | payer BC, SELFPAY ==
--- NOTE | ~2021-09-06 | CT_ITS ---
EXAMINATION: CT abdomen pelvis wo con DATE: 09/06/2021 14:58 INDICATION: Duplicated urinary tract infection TECHNIQUE: Computed tomography (CT) of the abdomen and pelvis was performed without intravenous contr ast. The dose-length product (DLP) was 247.72 mGy-cm. Automated exposure control and iterative recons truction technique were employed. COMPARISON: 11/09/2020 FINDINGS: There is severe emphysema of the visualized lung bases. Within the limitations of noncontra st examination, the liver, spleen, pancreas, gallbladder, and adrenal glands are normal. The kidneys are unremarkable. No stones are identified in the kidneys, ureters, or bladder. There is no hydroneph rosis or hydroureter. Phleboliths are noted in the pelvis. No pathologically enlarged abdominal or pe lvic lymph nodes are identified. There is no free intraperitoneal gas or evidence of bowel obstructio n. A moderate volume of colonic stool is present. There is mild lumbar spondylosis. IMPRESSION: 1. No CT correlate for the patient's symptoms. Reviewed, dictated and finalized at location F. T HEALTH CARE TECHNICIAN
--- NOTE | ~2021-09-06 | XR_ITS ---
EXAMINATION: XR abdomen/kub 1V INDICATION: Complicated urinary tract infection TECHNIQUE: Supine views of the abdomen were obtained on 2 radiographs. COMPARISON: 11/08/2020 FINDINGS: There are phleboliths of the pelvis. No urolithiasis is identified. There is a moderate vol ume of colonic stool. Mild osteoarthritis is noted in the hips. IMPRESSION: 1. No urolithiasis identified. Reviewed, dictated and finalized at location F. OTIC FITTER
== END ==
PROVIDERS: Visit Provider Urology
DX: N39.0 Urinary tract infection, site not specified (principal)
CPT/HCPCS: 74018; 74176

== ENCOUNTER → 2021-10-28 14:15 | Outpatient (CLI) | payer BC, SELFPAY ==
--- NOTE | ~2021-10-28 | MR_ITS ---
EXAMINATION: MR cervical spine wo/w con DATE: 10/28/2021 15:48 INDICATION: Multiple sclerosis. TECHNIQUE: Magnetic resonance imaging (MRI) of the cervical spine was performed without and with 9 mL MultiHance intravenous contrast. Sequences included sagittal and axial T2-weighted FSE, sagittal T2- weighted FS FSE, and sagittal and axial T1-weighted FSE. Postcontrast sequences included sagittal and axial T1-weighted FS FSE. COMPARISON: Cervical spine MRI 04/20/2020 FINDINGS: There is 2 mm retrolisthesis of C4 on C5 and C5 on C6. Vertebral body heights are normal. T here is moderately decreased disc height at C4-C5, C5-C6, and C6-C7. There are multiple ill-defined l esions of increased T2-weighted signal intensity in the cervical spinal cord. No abnormal contrast en hancement. The following disc levels are specifically discussed: C2-C3: The disc does not extend beyond the endplate margin. There is no uncovertebral joint osteoarth ritis. There is moderate bilateral facet joint osteoarthritis. There is no neural foraminal stenosis. There is no central canal stenosis. C3-C4: There is a central protrusion. There is moderate right and severe left uncovertebral joint ost eoarthritis. There is no facet joint osteoarthritis. There is no neural foraminal stenosis. There is no central canal stenosis. C4-C5: The disc is bulging. There is mild bilateral uncovertebral joint osteoarthritis. There is mild bilateral facet joint osteoarthritis. There is no neural foraminal stenosis. There is mild central c anal stenosis. C5-C6: The disc is bulging. There is severe bilateral uncovertebral joint osteoarthritis. There is mi ld bilateral facet joint osteoarthritis. There is moderate right and mild left neural foraminal steno sis. There is mild central canal stenosis. C6-C7: The disc is bulging and has an annular fissure. There is severe bilateral uncovertebral joint osteoarthritis. There is moderate right and severe left facet joint osteoarthritis. There is mild vickie ateral neural foraminal stenosis. There is mild central canal stenosis. C7-T1: The disc does not extend beyond the endplate margin. There is no uncovertebral joint osteoarth ritis. There is mild bilateral facet joint osteoarthritis. There is no neural foraminal stenosis. The re is no central canal stenosis. IMPRESSION: 1. Stable spinal cord lesions, consistent with multiple sclerosis. 2. Stable moderate cervical spondylosis. Reviewed, dictated and finalized at location A.
--- NOTE | ~2021-10-28 | MR_ITS ---
EXAMINATION: MR brain/brain stem wo/w con DATE: 10/28/2021 15:48 INDICATION: Multiple sclerosis. TECHNIQUE: Multisequence magnetic resonance imaging (MRI) of the brain and brainstem was performed wi thout and with 9 mL MultiHance intravenous contrast. COMPARISON: Brain MRI 04/20/2022 FINDINGS: There are many lesions of increased T2-weighted signal intensity in the brain. Of these les ions, many are periventricular and confluent with areas of cystic encephalomalacia, a few are juxtaco rtical, and 3 are infratentorial. None of the lesions enhance. There is no acute ischemic infarct or intracranial hemorrhage. The ventricles are normal in size. The orbits are normal. The paranasal sinu ses are clear. There is a small left mastoid effusion. IMPRESSION: 1. Brain lesions with slight worsening in right frontal lobe, consistent with multiple sclerosis. Reviewed, dictated and finalized at location A. IMPRESSION: 1. Brain lesions with slight worsening in right frontal lobe, consistent with m ultiple sclerosis.
[2021-10-28 14:44] LABS: Estimated Glomerular Filt Rate 57
== END ==
PROVIDERS: PCP Nurse Practitioner Family
DX: G35 Multiple sclerosis (principal); M47.812 Spondylosis without myelopathy or radiculopathy, cervical region
CPT/HCPCS: 70553; 72156; A9577

== ENCOUNTER 2022-05-05 01:03 | Day surgery (SDC) | payer BC, SELFPAY ==
[2022-04-28 14:42] VITALS: BMI 18.6
--- NOTE | 2022-04-28 14:52 | PC.NURSE ---
Report to the Outpatient Waiting Room, entrance under the green pavilion located off [facility], at time 0700 on date 05/05/22. OR Time: 0900. Time changes happen often and if your time is changed the preop area will call you the afternoon before. - You and your visitor will be asked to self-screen and do not enter if you have any COVID symptoms. - We encourage only one visitor and NO visitors under age 16 are allowed at this time. Your visitor will receive communication by the phone number that is given day of service. - The patient visitor is requested to social distance or may leave the building when not with patient due to restrictions. - A mask is required within the hospital. Patients may have clear liquids (water, carbonated beverages, clear teas, apple juice) until 3 hours prior to surgery with a maximum of 20 ounces. - No food from midnight until time of surgery Take the following medications with a SIP of water the morning of surgery: ACYCLOVIR, DULOXETINE, GILENYA Medications to discontinue per physician: VITAMINS Date to take last dose: 05/01/22 Please no make-up, nail nepali, hairspray, perfume, deodorant, or body powder the day of surgery. No jewelry (including any body piercings) or valuables the day of surgery, leave them at home. Please take a shower or bath the night before, or the morning of, surgery with an antibacterial soap. Wear comfortable, loose fitting clothing. - Jewelry must be removed prior to entering the operating room. Rings and piercings that are not removed may be cut off. - The hospital will not accept responsibility for valuables. - Please leave all valuables, including medications, at home the day of surgery. If you are going home after surgery, a licensed local [place] truck driver must drive you home. - NO public transportation without another adult. - We recommend that an adult stay with you for 24 hours following discharge. - We also recommend that you do not drive, make important decision, drink alcoholic beverages, or take any drugs that were not prescribed by your health care provider for at least 24 hours after your discharge time. Follow any additional instructions given to you from your surgeon. If you or anyone in your household have experienced Covid symptoms in the past week, please notify your surgeon or the nurse liaison at the phone number below for possible testing. Telephone instructions given to RUBI HOWE and asked if any additional questions and then verbalized understanding. Patient advised to call surgeon office or pre surgery nurse liaison [phone] if any additional questions.
--- NOTE | 2022-05-04 13:50 | WPDANESEPPF ---
Anes - Initial Pre Proc Eval Procedure: Operation Date: 05/05/22 09:00 Proposed Procedures p Hammer Toe Repair Second Digit Right Foot - Nitin Spivey JR, MD Date/Time: 05/04/22 13:50 Surgeon: Nitin Spivey JR, MD Pre Op Diagnosis: hammer toe 2nd digit right foot Patient Data Age: 56 Gender: F Height: 1.65 m Weight: 50.8 kg Allergies Allergy/AdvReac Type Severity Reaction Status Date / Time Tetanus Vaccines and Toxoid Allergy Intermediate Rash Verified 04/28/22 14:40 codeine Allergy Mild Rash Verified 04/28/22 14:40 Home Medications Medication Instructions Recorded Confirmed Type acyclovir 400 mg tablet 400 mg PO DAILY 11/08/20 04/28/22 History azelastine 137 mcg (0.1 %) nasal 1 spray intranasal DAILY PRN 11/08/20 04/28/22 History spray aerosol Congestion baclofen 10 mg tablet 10 mg PO HS 11/08/20 04/28/22 History cholecalciferol (vitamin D3) 100 100 mcg PO DAILY 11/08/20 04/28/22 History mcg (4,000 unit) tablet fingolimod 0.5 mg capsule (Gilenya) 0.5 mg PO DAILY 11/08/20 04/28/22 History lisinopril 10 mg tablet 10 mg PO DAILY 11/08/20 04/28/22 History duloxetine 60 mg capsule,delayed 60 mg PO BID 04/28/22 04/28/22 History release Patient hx anesthesia problems: none Family hx anesthesia problems: none Results Review: All pre-operative results and documents have been reviewed as part of the pre-operative evaluation. [facility] Past Medical History Medical History (Updated 05/04/22 @ 13:51 by Kirby Almaraz DO) Anxiety Hypertension Multiple sclerosis Surgical History Surgical History (Updated 05/04/22 @ 13:51 by Kirby Almaraz DO) History of appendectomy Social History Social History Years smoked: 42 Smoking status: Former smoker Tobacco type: cigarettes and e-cigarettes/vaping Smoking end date: 10/14/21 Additional smoking assessment comments: QUIT CIGARETTES OCTOBER, THEN VAPING, SINCE QUIT Alcohol intake: current Drinks per week: 1 Substance use: current Substance use type: marijuana Living arrangements: with family Spiritual care concerns: No Anes - Eval Final PreProcedure Day of Procedure 05/04/22 13:50 Patient weight: normal Heart: regular rate and rhythm Lungs: clear to auscultation and normal air movement Airway: Mallampati scale class II Neurological: alert and oriented Last oral intake: >/= 8 hours ASA classification: III Emergent: no Anesthetic plan: proceed Anesthesia type and monitoring: general GIVS and standard monitoring Results Review: All pre-operative results and documents have been reviewed as part of the pre-operative evaluation. Informed Consent: The patient's anesthetic plan and its attendant risks and benefits were discussed with the patient/family/POA. Questions were solicited and answers provided to the satisfaction of the patient/family/POA.
--- NOTE | ~2022-05-05 | XR_ITS ---
EXAMINATION: XR surgery orthopedic DATE: 05/05/2022 08:42 INDICATION: Right second toe hammertoe repair TECHNIQUE: 2 fluoroscopic images of the right forefoot were obtained during procedure performed by Dr Shira Spivey. Radiologist was not present for the imaging or procedure. The amount of fluoroscopy time used during this procedure was 0.1 minutes. COMPARISON: None. FINDINGS: Initial image demonstrates the tip of a metallic instrument projecting over the central aspect of the distal tuft of the right second toe. There is also hallux valgus with a small bunion. Mild osteoarth ritis at the first metatarsophalangeal and a few interphalangeal joints. Subsequent image demonstrate s second proximal interphalangeal joint arthrodesis with osteotomies at both sides of the second prox imal interphalangeal joint space and placement of a compression screw with an axially directed percut aneous guide wire. No fractures. IMPRESSION: 1. Fluoroscopy utilized during second proximal interphalangeal joint arthrodesis. See procedure note for further detail. Reviewed, dictated and finalized at location A. IMPRESSION: 1. Fluoroscopy utilized during second proximal interphalangeal joint arthrodesi s. See procedure note for further detail.
--- NOTE | 2022-05-05 07:13 | WPDHPUPDATE1 ---
History and Physical Update Update Date/Time: 05/05/22 07:13 History and Physical has been reviewed, including an updated exam of the patient. There are NO changes in the patient's condition. Risks, benefits, and alternatives have been discussed and questions answered. Patient agrees to proceed with procedure.
[2022-05-05 07:18] VITALS: BP 120/65; PULSE 81; RESP 18; TEMP 36.5; O2SAT 99
[2022-05-05] MEDS: LACTATED RINGERS 1,000 ML 30 ML IV CONT (07:35)
[2022-05-05] MEDS: ceFAZolin 2 GM/D5W 50 ML 2 GM/50 ML BAG IVPB (07:44)
[2022-05-05] MEDS: LIDOCAINE HCL 2% PF INJ 5 ML VIAL 20 ML INFILTRATE (08:12)
[2022-05-05 08:40] VITALS: BP 132/71; PULSE 78; RESP 14; O2SAT 93
--- NOTE | 2022-05-05 08:46 | W.PM.PROC2 ---
Procedure Note - Detailed Date of Procedure 05/05/22 Pre-op Diagnosis Hammer toe 2nd digit right foot Post-op Diagnosis Same Procedure Performed Hammertoe repair 2nd digit right foot Surgeon Nitin Spivey JR, DPYovani Indications Painful 2nd digit hammertoe deformity with a recurrent hyperkeratotic lesion Description of Procedure Under mild sedation, the patient was brought in to the operating room, placed on the operating table in the supine position. A pneumatic ankle tourniquet was placed about the patient's ankle. Following monitored anesthesia care, local anesthesia was obtained about the foot utilizing 20 mL of a 1:1 mixture of 2% Lidocaine plain and 0.5% Marcaine plain with a modified proximal Lawrence block proximal to each corresponding digit. The foot was then scrubbed, prepped, and draped in the usual aseptic manner. An Esmarch bandage was then used to exsanguinate the patient's foot and the pneumatic ankle tourniquet was then inflated. Attention was directed to the second digit of the right foot where a 3cm incision was made from the distal interphlangeal joint extending to the 2nd metatarsal head. A transverse tenotomy was created dorsal to the proximal interphalangeal joint, next the head of the proximal phalanx was resected with an oscillating saw blade. I also made a transverse tenotomy at the distal interphalangeal joint and resected the head of the middle phalanx and cartilage from the base of the distal phalanx, the [employer] hammertoe planer was used to denude and prepare the joint for the hammertoe implant from the base of the middle phalanx and distal proximal phalanx. Next, I implanted the [employer] Phalinx size small hammertoe implant in a cannulated fashion using standard technique. Fluoroscopy was used to make sure that the digit and implant were appropriately positioned. I also used the K wire to hold the 2nd digit in a rectus position by driving the K wire into the 2nd metatarsal. I reapproximated the subcutaneous structures with 4.0 Vicryl and the skin with 4-0 Monocryl. Upon completion of the procedure, the incisions were dressed with Steri-Strips, Adaptic, 4x4s, Kerlix, and Coban. The pneumatic ankle tourniquet was then deflated and a prompt hyperemic response was noted to all digits of the right foot. A surgical shoe was then applied. The patient did very well with the procedure and the anesthesia. The patient was transferred to the recovery room with vital signs stable and vascular status intact to all toes of the right foot. Following a period of postoperative monitoring, the patient will be discharged home on the following written and oral postoperative instructions: 1. The patient should keep the dressing clean, dry, and intact. Use a cast protector bag with showers. 2. The patient will be protected with surgical shoe. 3. Patient should ice and elevate the affected foot when at rest. 4. The patient is to contact Dr. Spivey for all postop care and if any problems arise. 5. Prescriptions were written for Percocet 5/325 to be taken 1 p.o. q.4-6 hours as needed for severe pain. Implants [employer] size small hammertoe implant Estimated Blood Loss 1 Drains No Packing No Pathology None sent Complications No immediate complications Condition Stable
[2022-05-05 09:00] VITALS: BP 142/71; PULSE 74; RESP 16; O2SAT 96
[2022-05-05 09:10] VITALS: BP 142/71; PULSE 74; RESP 16
[2022-05-05 09:15] VITALS: BP 138/71; PULSE 73; RESP 16
== END 2022-05-05 09:37 | disposition home or self-care (01) ==
PROVIDERS: PCP Nurse Practitioner Family; Visit Provider Podiatrist Foot & Ankle Surgery
PROC: (CPT 28285; principal; 2022-05-05 09:00)
DX: M20.41 Other hammer toe(s) (acquired), right foot (principal); G35 Multiple sclerosis; F41.9 Anxiety disorder, unspecified; I10 Essential (primary) hypertension; F17.290 Nicotine dependence, other tobacco product, uncomplicated; F12.90 Cannabis use, unspecified, uncomplicated
CPT/HCPCS: 28285; 99199; C1713; J0690; J1100; J2250; J2405; J2704; J3010; J7120

== ENCOUNTER 2022-06-15 10:24 | Emergency (ER) | payer BC, SELFPAY ==
[2022-06-15 10:30] VITALS: O2SAT 84
[2022-06-15 10:37] VITALS: BP 124/69; PULSE 95; RESP 28; TEMP 36.6; O2SAT 84
--- NOTE | 2022-06-15 10:46 | ED.URI ---
HPI - URI/Sore Throat General Chief Complaint: Upper Respiratory Infection Stated Complaint: Shortness of Breath Time Seen by Provider: 06/15/22 10:30 Source: patient and family Mode of arrival: ambulatory Limitations: no limitations History of Present Illness HPI Narrative: Family presents patient today complaining of approximately 10 day history of cold symptoms with cough. Denies fever. Shortness of breath for the past 2 days. Patient started prednisone and azithromycin 6 days ago, and states it initially helped with her symptoms. She has been taking Mucinex as well. History of MS. States she has been around her grandchildren that have been ill with cold symptoms. Denies history of asthma or COPD. Related Data Home Medications Medication Instructions Recorded Confirmed azelastine 137 mcg (0.1 %) nasal 1 spray intranasal DAILY PRN 11/08/20 05/05/22 spray aerosol Congestion baclofen 10 mg tablet 10 mg PO HS 11/08/20 05/05/22 cholecalciferol (vitamin D3) 100 100 mcg PO DAILY 11/08/20 05/05/22 mcg (4,000 unit) tablet fingolimod 0.5 mg capsule (luma-idenZeto) 0.5 mg PO DAILY 11/08/20 05/05/22 lisinopril 10 mg tablet 10 mg PO DAILY 11/08/20 05/05/22 duloxetine 60 mg capsule,delayed 60 mg PO BID 04/28/22 05/05/22 release Allergies Allergy/AdvReac Type Severity Reaction Status Date / Time Tetanus Vaccines and Toxoid Allergy Intermediate Rash Verified 06/15/22 10:54 codeine Allergy Mild Rash Verified 06/15/22 10:54 Review of Systems Review of Systems: CONSTITUTIONAL: Denies body aches, fever, chills, or sweats. EYES: Denies visual changes, redness, or discharge. ENT: Denies rhinorrhea, sore throat, or otalgia.+ Congestion CARDIOVASCULAR: Denies chest pain, palpitations, or edema. RESPIRATORY: + cough, shortness of breath GASTROINTESTINAL: Denies abdominal pain, nausea, vomiting, or diarrhea. GENITOURINARY: Denies dysuria or hematuria. SKIN: Denies rash, itching, or wounds. MUSCULOSKELETAL: Denies back pain, joint pain, or myalgia. NEUROLOGIC: Denies headache, numbness, tingling, or weakness. PSYCH: Denies depression or anxiety. [facility] Past Medical History Medical History Anxiety Hypertension Multiple sclerosis Surgical History Surgical History History of appendectomy Social History Social History Years smoked: 42 Smoking status: Former smoker Tobacco type: cigarettes and e-cigarettes/vaping Smoking end date: 10/14/21 Additional smoking assessment comments: QUIT CIGARETTES OCTOBER, THEN VAPING, SINCE QUIT Alcohol intake: current Drinks per week: 1 Substance use: current Substance use type: marijuana Spiritual care concerns: No Comments At time of signature, I have reviewed and agree with nursing past medical, surgical, social and family history unless otherwise noted. Please see nursing chart for further information. There is no relevant family history pertinent to the presenting complaint Exam Narrative: GENERAL: ill-appearing, well-nourished HEAD: Normocephalic, atraumatic. EYES: EOMI. No redness or drainage. Conjunctivae normal. ENT: Mucous membranes pink and moist. Nares congested. NECK: Normal AROM. Supple. No lymphadenopathy. CHEST: labored breathing. Breath sounds coarse throughout. Diminished in bilateral bases. Patient's oxygen drops to the mid 70s when she speaks. HEART: Regular rate and rhythm. No murmur appreciated. Normal peripheral pulses. ABDOMEN: Soft, nontender, nondistended, normal active bowel sounds. MUSCULOSKELETAL: No bony tenderness. EXTREMITIES: Normal range of motion. No edema. SKIN: Warm, dry, no rash. Capillary refill normal. Normal skin turgor. NEURO: No focal deficits. Alert and oriented x3. Walks with cane. PSYCH: Normal affect. No signs of depression or a
[2022-06-15 11:09] VITALS: O2SAT 96
--- NOTE | 2022-06-15 11:56 | PC.NURSE ---
Patient presents with shortness of breath and labored breathing. Patient's spouse states that she needs a breathing treatment. Patient's O2 on arrival is 84 on Room air. Patient denies wearing oxygen at home. Patient was placed in triage room 1 and placed on 3 Liters of O2. After being on 3L NC the patient's O2 came up to 96. Patient's oxygen sats decrease with ambulation and talking. Patient consents to EMS transfer to [facility]. Report called to Jeaneth at [facility]. Report also given to EMS upon arrival. Patient's valuables sent with her spouse.
== END 2022-06-15 11:09 | disposition short-term general hospital (02) ==
PROVIDERS: Emergency Provider Nurse Practitioner; PCP Nurse Practitioner Family
DX: R09.02 Hypoxemia (principal); R06.02 Shortness of breath; I10 Essential (primary) hypertension; G35 Multiple sclerosis; Z87.891 Personal history of nicotine dependence
CPT/HCPCS: 99215; G0463

== ENCOUNTER 2022-06-15 11:29 | Inpatient (IN) | payer BC, SELFPAY ==
[2022-06-15] VITALS (66 sets, daily range): BP systolic 82–118; BP diastolic 58–88; PULSE 80–103; RESP 15–30; TEMP 36.9; O2SAT 62–100
--- NOTE | ~2022-06-15 | US_ITS ---
EXAMINATION:US venous doppler LE BI INDICATION:Left foot surgery. Hypoxia. TECHNIQUE: Multiple grayscale, color flow and Doppler images of the bilateral lower extremity deep ve nous systems were obtained and reviewed. COMPARISON:No prior studies for comparison. FINDINGS: The common femoral, superficial femoral and popliteal veins demonstrate normal respiratory variation, augmentation and compressibility. Color flow is also seen within the posterior tibial, pe roneal, greater saphenous and profunda veins. IMPRESSION: 1: No lower extremity deep venous thrombosis. Reviewed, dictated and finalized at location A. OBIOLOGY LAB ASSISTANT
--- NOTE | ~2022-06-15 | CT_ITS ---
EXAMINATION: CTA chest PE protocol DATE: 06/16/2022 14:10 PR[employer]ER COTTON [employer]NING INDICATION: Hypoxia. TECHNIQUE: Computed tomographic angiography (CTA) of the chest was performed with 100 mL Omnipaque-35 0 intravenous contrast. The dose-length product was 171.99 mGy-cm. Maximum intensity projection 3D-re constructions of the aorta and other arteries were constructed by the technologist on a separate work station. Automated exposure control and iterative reconstruction technique were employed. COMPARISON: CT dated 06/16/2022. FINDINGS: Heart size is normal. Study is technically inadequate for evaluation of pulmonary embolism, although filling defects are identified in right upper lobe segmental and subsegmental pulmonary art eries, consistent with pulmonary embolism. Trace left pleural effusion. Heart size normal. No thoraci c lymph node enlargement. There is atherosclerosis of the aorta and coronary arteries. Severe emphyse ma. There is patchy bilateral areas of consolidation, most confluent in the left lower lobe, consiste nt with pneumonia. There is a part solid nodule in the right upper lobe measuring up to 11 mm with a solid component measuring 7 mm. No endobronchial lesions. IMPRESSION: 1. Pulmonary embolism right upper lobe segmental and subsegmental arteries, small thrombus burden. St udy technically limited due to contrast bolus timing. 2: Patchy bilateral airspace consolidation and groundglass opacities, consistent with pneumonia. 3: Part solid right upper lobe nodule with solid component measuring 7 mm. This is suspicious for bro nchogenic carcinoma. Follow-up low dose CT chest or pet/CT recommended. Dr. Kody Mcgee discussed with Juanita Pereyra at 06/16/2022 14:18 [employer] COTTON [employer]. Reviewed, dictated and finalized at location A. SER COTTON GINNING IMPRESSION: 1. Pulmonary embolism right upper lobe segmental and subsegmental arteries, sma ll thrombus burden. Study technically limited due to contrast bolus timing. 2: Patchy bilateral airspace consolidation and groundglass opacities, consisten t with pneumonia. 3: Part solid right upper lobe nodule with solid component measuring 7 mm. This is suspicious for bronchogenic carcinoma. Follow-up low dose CT chest or pet/C T recommended. Dr. Kody Mcgee discussed with Juanita Pereyra at 06/16/2022 14:18 C .
--- NOTE | ~2022-06-15 | XR_ITS ---
XR chest 1V portable DATE: 06/15/2022 12:41 INDICATION: Shortness of breath. COPD TECHNIQUE: Portable upright AP chest on 06/15/2022 1237 hours COMPARISON: 02/15/2021 2 view chest FINDINGS: There is bilateral hyperinflation with relative flattening the diaphragm, consistent with C OPD. There is patchy consolidation at the left lung base suggesting pneumonia. The lung garland otherw ise appear clear of infiltrate or consolidation. Normal heart size. Mild aortic calcification. Diffuse osteopenia. IMPRESSION: Patchy consolidation of the left lung base suggesting pneumonia COPD Osteopenia Reviewed, dictated and finalized at location B. CLERK
--- NOTE | 2022-06-15 11:35 | PC.NURSE ---
edp called to room due to pts sob, use of accessory muscles and head bobbing. upd finished. placed 4 l nc. pulse ox 96%
--- NOTE | 2022-06-15 11:35 | ECG_ITS ---
Measurements Intervals [place] Rate: 95 P: 85 W[place]: 173 QRS: 91 QRSD: 81 T: 90 QT: 339 QTc: 427 Interpretive Statements SINUS RHYTHM LEFT ATRIAL ENLARGEMENT INCOMPLETE RIGHT BUNDLE BRANCH BLOCK ANTEROSEPTAL MYOCARDIAL INFARCTION , OF INDETERMINATE AGE [40+ ms Q WAVE IN V1-V4] NO PREVIOUS ECG AVAILABLE FOR COMPARISON Electronically Signed On 06-16-2022 10:16:57 CLINICAL INFORMATICS STRATEGIST by Rocio Escoto M.D.
[2022-06-15 11:59] LABS: Alveolar/Arterial O2 Gradient 156.1 mmHg; Base Excess ABG -3.3 mEq/l (+/-2.0); Carboxyhemoglobin 1.6 % THb (0-2.0); Fractional Inspired Oxygen 36 %; HCO3 ABG 21.1 mEq/l (22.0-26.0); Methemoglobin ABG 0.2 %THb (0-1.5); Oxygen Content ABG 17.4 %vol (16.0-22.0); Oxygen Saturation ABG 90.6 % (95.0-100.0); Oxyhemoglobin 88.4 % THb (90.0-100.0); PCO2 ABG 35.8 mmHg (35.0-45.0); PO2 ABG 59.1 mmHg (80.0-100.0); PO2 FiO2 Ratio Arterial Blood 1.64 %; Reduced Hemoglobin 9.8 %THb (0-5.0); pH ABG 7.388 (7.350-7.450)
[2022-06-15 12:00] LABS: Device NASAL CANNULA; Modified Allen's Test Pass; Site Drawn RIGHT RADIAL
--- NOTE | 2022-06-15 12:03 | PC.NURSE ---
pt tolerating bipap well. states is breathing better. pulse ox 100%. less use of accessory muscles noted. pt able to lay head back against stretcher.
[2022-06-15] MEDS: IPRATROPIUM BR 0.02% INH SOLN 0.5 MG/2.5 ML VIAL 1 MG INHALATION (12:08)
[2022-06-15] MEDS: ALBUTEROL SULFATE NEB 2.5 MG/3 ML INH 10 MG INHALATION (12:08)
[2022-06-15 12:28] LABS: Hematocrit 41.4 % (37.0-47.0); Hemoglobin 13.4 g/dL (12.0-15.0); Mean Corpuscular HGB Conc 32.4 g/dl (32-36); Mean Corpuscular Hemoglobin 32.4 pg (26-34); Mean Platelet Volume 9.5 fl (7.4-10.4); Platelet Count Result 442 k/mm3 (150-375); Red Blood Count 4.14 M/mm3 (4.2-5.4); Red Cell Distribution Width 13.5 % (11.5-14.5)
[2022-06-15 12:38] LABS: Alanine Aminotransferase 24 U/L (6-35); Albumin Level 4.5 g/dL (3.5-5.1); Alkaline Phosphatase 77 U/L (38-126); Anion Gap 8 mmol/L (8-16); Aspartate Amino Transferase 27 U/L (14-36); Bilirubin,Total 0.6 mg/dL (0.2-1.3); Blood Urea Nitrogen 27 mg/dL (7-17); Calcium 9.4 mg/dL (8.4-10.2); Carbon Dioxide 25 mmol/L (22-30); Chloride 99 mmol/L (98-107); Estimated CRCL calculation 43 ml/min; Estimated Glomerular Filt Rate 57; Glucose 113 mg/dL (65-110); Potassium 3.8 mmol/L (3.4-5.0); Sodium 132 mmol/L (137-145)
[2022-06-15 12:40] LABS: Anisocytosis 1+ (NORMAL); Atypical Lymphocytes Present; Band Neutrophils Percent 28 % (0-6); Monocytes Absolute Manual 1.02 K/mm3 (0.1-0.90); Monocytes Percent Manual 6 % (3-9); Neutrophils Absolute Manual 12.58 K/mm3 (1.7-7.2); Neutrophils Percent Manual 46 % (46-73); Platelet Estimate Adequate (Adequate); Schistocytes None Seen (NORMAL); Total Cells Counted 100
[2022-06-15 12:47] LABS: Influenza A QL RT-PCR Positive (Negative); Influenza B QL RT-PCR Negative (Negative); SARS-CoV-2 RNA PCR Negative
[2022-06-15 12:47] LABS: NT Pro B Type Natriuretic Pept 541 pg/mL (5-100)
[2022-06-15] MEDS: SODIUM CHLORIDE 0.9% IV 1,000 ML 999 ML IV CONT (13:14)
--- NOTE | 2022-06-15 13:21 | ED.SOB ---
HPI - SOB/Dyspnea General Chief Complaint: Shortness of Breath/Dyspnea Stated Complaint: SOB Time Seen by Provider: 06/15/22 11:37 History of Present Illness HPI Narrative: Patient is a 56-year-old female who presents ER with shortness of breath. Reports she has had cough and dyspnea for 2 weeks. She was placed on azithromycin as well as prednisone and is not improving. Hypoxic for EMS even on nasal cannula oxygen. Was satting 70% for PCP. No chest pain or chest pressure. Patient reports she quit smoking several years ago. Related Data Home Medications Medication Instructions Recorded Confirmed azelastine 137 mcg (0.1 %) nasal 1 spray intranasal DAILY PRN 11/08/20 06/15/22 spray aerosol Congestion baclofen 10 mg tablet 10 mg PO HS 11/08/20 06/15/22 cholecalciferol (vitamin D3) 100 100 mcg PO DAILY 11/08/20 06/15/22 mcg (4,000 unit) tablet fingolimod 0.5 mg capsule ([employer]) 0.5 mg PO DAILY 11/08/20 06/15/22 lisinopril 10 mg tablet 10 mg PO DAILY 11/08/20 06/15/22 duloxetine 60 mg capsule,delayed 60 mg PO BID 04/28/22 06/15/22 release Allergies Allergy/AdvReac Type Severity Reaction Status Date / Time Tetanus Vaccines and Toxoid Allergy Intermediate Rash Verified 06/15/22 10:54 codeine Allergy Mild Rash Verified 06/15/22 10:54 Review of Systems Review of Systems: All systems reviewed & are unremarkable except as noted in HPI and below Constitutional: Constitutional: Denies chills, Reports fatigue and Denies fever(s) ENT: Denies nasal congestion and Denies sore throat Cardiovascular: Cardiovascular: Denies chest pain, Denies rapid heart rate and Denies radiating jaw, neck or arm pain Respiratory: Respiratory: Reports cough, Reports dyspnea and Reports wheezing Gastrointestinal: Gastrointestinal: Denies abdominal pain, Denies nausea and Denies vomiting PMF Past Medical History Medical History Anxiety Hypertension Multiple sclerosis Surgical History Surgical History History of appendectomy Social History Social History (Updated 06/15/22 @ 18:01 by Yoselin Rodriguez PA-C) Social History: Surrogate medical decision maker: Ramu Cavanaugh, spouse. Code status: Full code. Years smoked: 42 Smoking status: Former smoker Tobacco type: cigarettes and e-cigarettes/vaping Smoking end date: 10/14/21 Additional smoking assessment comments: Vapes since quit smoking in October 2021. Alcohol intake: current Drinks per week: 1 Substance use: current Substance use type: marijuana Spiritual care concerns: No Exam Narrative: GENERAL: Ill-appearing, well-nourished, and in no acute distress. HEAD: Normocephalic, atraumatic. EYES: PERRL and EOMI. ENT: Mucous membranes moist. CHEST: Increased respiratory rate with diffuse instrument expiratory wheezing. HEART: Tachycardic and regular. Normal peripheral pulses. ABDOMEN: Soft, nontender, nondistended. EXTREMITIES: Normal range of motion. No edema. SKIN: Warm, dry, no rash. NEURO: Alert and oriented x3. PSYCH: Normal mood and affect. Course Course Emergency Course: Patient tolerating BiPAP well and feels improved. Admit to hospitalist service for further treatment evaluation. Antibiotics ordered for pneumonia and patient also received Tamiflu. Vital Signs Vital signs: Vital Signs Temperature 98.4 F 06/15/22 11:29 Pulse Rate 103 H 06/15/22 11:29 Respiratory Rate 24 H 06/15/22 11:29 Blood Pressure 104/61 06/15/22 11:29 Pulse Oximetry 97 06/15/22 11:29 Oxygen Delivery High Flow Therapy with Fa 06/15/22 11:29 Oxygen Flow Rate 10 06/15/22 11:29 Temperature 98.4 F 06/15/22 11:29 Pulse Rate 80 06/15/22 15:40 Respiratory Rate 28 H 06/15/22 15:40 Blood Pressure 102/65 06/15/22 14:31 Pulse Oximetry 96 06/15/22 16:36 Oxygen Delivery Nasal Cannula 06/15/22 16:36 Oxygen Flow R
--- NOTE | 2022-06-15 13:30 | PC.NURSE ---
pt tolerating bipap well. getting in line upd. waiting admission orders. at bedside.
[2022-06-15 14:07] LABS: Lactic Acid Reflex 1.6 mmol/L (0.7-2.0)
--- NOTE | 2022-06-15 16:00 | PM.IMHP ---
H&P: HPI History of Present Illness Date/Time: 06/15/22 18:00 Chief Complaint: Shortness of breath. Narrative: This is pleasant 56-year-old female with COPD, hypertension, and multiple sclerosis on immunotherapy (Gilenya) who presented to the emergency department from urgent care for evaluation of shortness of breath. She has not been feeling well for 10+ days with congestion, nonproductive cough, shortness of breath, and generalized malaise. She was prescribed a Z-Jones and short course of prednisone on 06/09/2022 and felt better for several days before her symptoms returned. More specifically she has had increasing shortness of breath and she presented to urgent care for evaluation. Due to work of breathing and hypoxia, emergency services were summoned and on EMS arrival her SpO2 was 88% on 4 liters nasal cannula. She was given a nebulizer in route to the hospital with improvement in her oxygen saturations. On arrival to the ED she was using accessory muscles and was immediately placed on BiPAP. She was afebrile and vital signs were stable. After a few hours, she felt better and was trialed off of BiPAP however within about 15 minutes she was put back on the BiPAP due to increasing shortness of breath and hypoxia. Her labs were significant for a WBC count of 17.0 (46 neutrophils, 28 bands, 20 lymphocytes, 6 monocytes), sodium 132, potassium 3.8, BUN 27, creatinine 1.00, lactic acid 1.6, proBNP 541. ABG showed a pH of 7.38 , pCO2 35.8, PO2 59.1, bicarb 21.1. She tested positive for influenza A and a chest x-ray showed patchy consolidation of the left lung base suggesting pneumonia. She has been started on Tamiflu and broad-spectrum antibiotics and is being admitted to the IMU. Review of Systems Review of Systems: Twelve systems were reviewed. She denies chest pain, pleuritic pain, palpitations, and sensations of racing heart. Appetite has been okay. No nausea, vomiting, or diarrhea. She does endorse dysuria and is worried that she may have a urinary tract infection as well. Except as documented, all other systems were reviewed and are negative. [facility] Past Medical History Medical History (Updated 06/15/22 @ 22:09 by Yoselin Rodriguez PA-C) Anxiety Chronic obstructive pulmonary disease Hypertension Immunosuppressed status Multiple sclerosis Nicotine dependence Surgical History Surgical History (Updated 06/15/22 @ 21:21 by Yoselin Rodriguez PA-C) History of appendectomy History of benign breast biopsy History of hammertoe correction (04/2022) History of tonsillectomy Family History Family History (Updated 06/15/22 @ 21:20 by Yoselin Rodriguez PA-C) Other Hypertension Social History Social History Social History: Surrogate medical decision maker: Ramu Cavanaugh, spouse. Code status: Full code. Years smoked: 42 Smoking status: Former smoker Tobacco type: cigarettes and e-cigarettes/vaping Smoking end date: 10/14/21 Additional smoking assessment comments: Vapes since quit smoking in October 2021. Alcohol intake: current Drinks per week: 1 Substance use: current Substance use type: marijuana Spiritual care concerns: No Meds Home Medications and Allergies Home Medications Medication Instructions Recorded Confirmed Type azelastine 137 mcg (0.1 %) nasal 1 spray intranasal DAILY PRN 11/08/20 06/15/22 History spray aerosol Congestion baclofen 10 mg tablet 10 mg PO HS 11/08/20 06/15/22 History cholecalciferol (vitamin D3) 100 100 mcg PO DAILY 11/08/20 06/15/22 History mcg (4,000 unit) tablet fingolimod 0.5 mg capsule ([employer]) 0.5 mg PO DAILY 11/08/20 06/15/22 History lisinopril 10 mg tablet 10 mg PO DAILY 11/08/20 06/15/22 History duloxetine 60 mg capsule,delayed 60 mg PO BID 04/28/22 06/15/22 History release Allergies Allergy/AdvReac Type Severity Reaction Status Date / Time Tetanus Vaccines and Toxoid Allergy Intermedia
[2022-06-15] MEDS: HYDROcodone/acetaminophen (*CRX) 5-325 MG TABLET 1 TAB PO (19:16)
[2022-06-15] MEDS: SODIUM CHLORIDE 0.9% IV 1,000 ML 125 ML IV CONT (19:19)
--- NOTE | 2022-06-15 20:32 | PC.NURSE ---
bipap removed so patient can eat patient is on6 l nasal canula oxygen saturation 97% resting comfortably
[2022-06-15] MEDS: IPRATROPIUM BR 0.02% INH SOLN 0.5 MG/2.5 ML VIAL INHALATION (20:36)
[2022-06-15] MEDS: ALBUTEROL SULFATE NEB 2.5 MG/3 ML INH 5 MG INHALATION (20:36)
--- NOTE | 2022-06-15 21:52 | PC.NURSE ---
patient remains off bipap with o2 sats 95-98% on 6 no sob no labored breathing
--- NOTE | 2022-06-15 22:55 | PC.NURSE ---
lovenox order clarified also updated on respiratory status and no longer on bipap
[2022-06-15] MEDS: ENOXAPARIN 60 MG/0.6 ML SYRINGE 50 MG SUB-Q (22:58)
[2022-06-15 23:24] LABS: Add Urine Microscopic? YES; Appearance Urine Clear (Clear); Bilirubin Urine Negative (Negative); Blood Urine Negative (Negative); Color Urine Yellow (Yellow); Glucose Urine UA Negative (Negative); Ketones Urine Negative (Negative); Leukocyte Esterase Ur Negative LEU/UL (Negative); Nitrate Urine Positive (Negative); Protein Urine 1+ mg/dL (Negative); Specific Grav Ur 1.015 (1.001-1.035); Urobilinogen Urine 0.2 mg/dL (<2.0); pH Urine 5.5 (5.0-9.0)
[2022-06-15 23:26] LABS: Bacteria Urine Trace /hpf; Mucus Urine Rare /lpf; RBC Urine 0-2 /hpf (0-2); Squamous Epithelial Cell Urine Rare /hpf (Few)
[2022-06-16] VITALS (20 sets, daily range): BP systolic 90–120; BP diastolic 51–64; PULSE 82–109; RESP 18–25; TEMP 36.3–37.1; O2SAT 93–100; BMI 17.9; BMI 17.6
--- NOTE | 2022-06-16 00:13 | ADMGEN ---
This patient, Mary Cavanaugh, was admitted to IMU Room 201-01. Patient/family oriented to hospital policies and general routines including ID bracelet, bed and alarms, visiting hours, pain management, procedures, bathroom and other care routines, personal items, smoking policy, room service/diet, and visiting hours. Information on how to activate the Rapid Response Team has been discussed. Patient/Family are encouraged to report perceived risks to care and to ask questions if they do not understand what they are told or what they should do.
[2022-06-16] MEDS: OSELTAMIVIR PHOSPHATE 30 MG CAPSULE PO ×3 (00:17→20:44)
[2022-06-16] MEDS: SODIUM CHLORIDE 0.9% IV 1,000 ML 75 ML IV CONT ×2 (00:18→18:49)
[2022-06-16 01:31] LABS: Hematocrit 38.4 % (37.0-47.0); Hemoglobin 12.5 g/dL (12.0-15.0); Mean Corpuscular HGB Conc 32.6 g/dl (32-36); Mean Corpuscular Hemoglobin 32.4 pg (26-34); Mean Corpuscular Volume 99.5 fl (80-100); Mean Platelet Volume 9.3 fl (7.4-10.4); Platelet Count Result 399 k/mm3 (150-375); Red Blood Count 3.86 M/mm3 (4.2-5.4); Red Cell Distribution Width 13.5 % (11.5-14.5); White Blood Count 10.5 K/mm3 (4.5-10.0)
[2022-06-16] MEDS: BACLOFEN 10 MG TABLET PO ×2 (01:42→20:43)
[2022-06-16 01:47] LABS: Band Neutrophils Percent 41 % (0-6); Neutrophils Percent Manual 39 % (46-73); Total Cells Counted 100
[2022-06-16 01:48] LABS: Atypical Lymphocytes Present; Lymphocytes Absolute Manual 1.57 K/mm3 (1.1-4.5); Lymphocytes Percent Manual 15 % (18-44); Monocytes Absolute Manual 0.52 K/mm3 (0.1-0.90); Monocytes Percent Manual 5 % (3-9); Schistocytes None Seen (NORMAL)
[2022-06-16] MEDS: ALBUTEROL SULFATE NEB 2.5 MG/3 ML INH INHALATION ×4 (01:59→19:40)
[2022-06-16] MEDS: IPRATROPIUM BR 0.02% INH SOLN 0.5 MG/2.5 ML VIAL INHALATION ×4 (01:59→19:40)
[2022-06-16 02:22] LABS: Anion Gap 9 mmol/L (8-16); Blood Urea Nitrogen 25 mg/dL (7-17); Calcium 9.1 mg/dL (8.4-10.2); Carbon Dioxide 24 mmol/L (22-30); Chloride 101 mmol/L (98-107); Estimated CRCL calculation 43 ml/min; Estimated Glomerular Filt Rate 57; Glucose 112 mg/dL (65-110); Magnesium 1.7 mg/dL (1.6-2.3); Potassium 3.8 mmol/L (3.4-5.0); Sodium 134 mmol/L (137-145)
[2022-06-16 02:59] LABS: Procalcitonin 3.5 ng/mL
[2022-06-16] MEDS: guaiFENesin 12 HR 600 MG TABCR PO ×2 (09:30→20:44)
[2022-06-16] MEDS: DULoxetine HCL 60 MG CAPSULE.DR PO ×2 (09:30→20:44)
[2022-06-16] MEDS: CHOLECALCIFEROL 1,000 UNITS TABLET 4000 UNITS PO (09:30)
[2022-06-16] MEDS: ENOXAPARIN 40 MG/0.4 ML SYRINGE SUB-Q (09:30)
[2022-06-16] MEDS: ACETAMINOPHEN 325 MG TABLET 650 MG PO ×2 (09:34→14:53)
[2022-06-16] MEDS: PERFLUTREN LIPID MICROSPHERES 1.5 ML VIAL DILUTED TO 10 ML TOTAL VOLUME IV PUSH (10:20)
--- NOTE | 2022-06-16 12:14 | PM.IMPN ---
Progress Note: A&P Assessment and Plan (1) Acute respiratory failure with hypoxia: Code(s): J96.01 - Acute respiratory failure with hypoxia Status: Acute Assessment and Plan: Multifactorial in etiology to include influenza, pneumonia, and COPD. Pulmonary embolism is a consideration as she had surgery (hammertoe correction) last month but seems somewhat less likely by history and exam. She has reportedly been using E cigarettes since quitting tobacco in October and EVALI is also a possibility. Currently on BiPAP Continue BiPAP p.r.n. Taper to oxygen supplementation via nasal cannula as needed Consider CTA Echo EF on 70% grade 1 diastolic dysfunction RVSP is normal no significant valvular disease BNP 541 Influenza positive COVID negative Check RSV CT and ultrasound legs pending (2) Left lower lobe pneumonia: Code(s): J18.9 - Pneumonia, unspecified organism Status: Acute Assessment and Plan: She has been started on broad-spectrum antibiotics including azithromycin, ceftriaxone, and vancomycin for presumed concomitant bacterial pneumonia in addition to influenza A. Sputum to be attempted for culture. Check urinary antigens. Procalcitonin is high WBC count improves with antibiotic therapy (3) Influenza A: Code(s): J10.1 - Influenza due to other identified influenza virus with other respiratory manifestations Status: Acute Assessment and Plan: She has been started on Tamiflu per CDC recommendations despite the fact that she has had symptoms for nearly 10 days. (4) Immunosuppressed status: Code(s): D84.9 - Immunodeficiency, unspecified Status: Acute Assessment and Plan: She is on immunotherapy (Gilenya). I spoke with her neurologist at [facility], Dr. Michael Horner ([phone]), and he would like the drug to be continued and uninterrupted. He requests that we keep him apprised of her hospital course and would like to be informed of any change in condition. (5) Chronic obstructive pulmonary disease: Code(s): J44.9 - Chronic obstructive pulmonary disease, unspecified Status: Acute Assessment and Plan: Continue scheduled bronchodilators. While she continues to have end expiratory wheezing, she has improved and steroids will not be initiated at this time as she is immunosuppressed on immunotherapy for her MS and she was on steroids last week. (6) Multiple sclerosis: Code(s): G35 - Multiple sclerosis Status: Chronic Assessment and Plan: Continue Gilenya as above. (7) Hypertension: Code(s): I10 - Essential (primary) hypertension Status: Acute Assessment and Plan: Blood pressures were reviewed and they have been stable aside from a brief period of time where she was in the high 80s to low 90 systolic. Antihypertensives on hold for now. Continue to monitor blood pressures closely. (8) Nicotine dependence: Code(s): F17.200 - Nicotine dependence, unspecified, uncomplicated Status: Acute Assessment and Plan: Patient reportedly quit smoking in October 2021 but is my understanding that she still vapes. Cessation of all nicotine products is imperative. No need for nicotine patch at this time. Plan influenza a on oseltamivir Subjective Date/time seen: 06/16/22 12:14 Interval history: This is pleasant 56-year-old female with COPD, hypertension, and multiple sclerosis on immunotherapy (Gilenya) who presented to the emergency department from urgent care for evaluation of shortness of breath. She has not been feeling well for 10+ days with congestion, nonproductive cough, shortness of breath, and generalized malaise. She was prescribed a Z-Jones and short course of prednisone on 06/09/2022 and felt better for several days before her symptoms returned. More specifically she has had increasing shortness of breath and she presented to urgent care for evaluation. Due to work
--- NOTE | 2022-06-16 12:31 | IVDEFINITY ---
Prior to administration of IV Definity the patient was educated on the risks and benefits of the imaging enhancing agent including potential adverse side effects. The patient verbalized understanding. Allergies were verified. No exclusion criteria were identified and at least one of the following inclusion criteria were met: 1) physician request, 2) patient technically difficult to image (per the [place] [employer] guidelines of two or more segments not discernable within the apical view), or 3) questionable left ventricular function. ?
[2022-06-16 13:06] LABS: RSV RNA, RT-PCR Negative (Negative)
--- NOTE | 2022-06-16 14:00 | PHAR ---
PT'S HOME MED GILENYA 0.5 MG CAPSULES VERIFIED BY PHARMACY
[2022-06-16] MEDS: ENOXAPARIN 60 MG/0.6 ML SYRINGE 10 MG SUB-Q (14:53)
[2022-06-16] MEDS: ENOXAPARIN 60 MG/0.6 ML SYRINGE 50 MG SUB-Q (20:43)
--- NOTE | 2022-06-16 22:24 | ECHO_ITS ---
Patient Info Name: Mary Cavanaugh Age: 56 years : 1965 Gender: Female Ht: 61 in Wt: 108 lbs BSA: 1.45 m2 HR: 88 bpm BP: 120 / 64 mmHg Heart Rhythm: Sinus Rhythm Technical Quality: Fair Exam Date: 06/16/2022 9:42 AM Exam Location: [facility] Patient Status: Inpatient Admit Date: 06/15/2022 Staff Ordering Physician: Yoselin Rodriguez PA-C Sleep Tech: Trinity Posadas RDCS Attending Provider: Milan Oliva MD Referring Physician: Jennifer VAZQUEZ; Exam Type: CA echo dop color flow w con Study Info Indications - htn - hypoxis, copd, Complete two-dimensional, color flow and Doppler transthoracic echocardiogram is performed with contrast to opacify the left ventricle and to improve the deliniation of the left ventricle endocardial borders. Contrast/Agitated Saline Contrast/Ag. Saline: Definity Amount: 3.00 ml Administered By: Trinity Posadas RDCS Existing IV Access: Yes IV Access Condition: patent with no signs of infiltration Summary 1. Left ventricular systolic function is hyperdynamic, estimated at >70%. 2. The left ventricular diastolic function is grade I diastolic dysfunction. 3. Right ventricular systolic function is normal. 4. Normal inferior vena cava with >50% collapse upon inspiration consistent with normal right atrial pressure, 3 mmHg. 5. No significant valvular disease. Left Ventricle Left ventricular chamber dimension is normal. Left ventricular systolic function is hyperdynamic, estimated at >70%. There is no increased left ventricular wall thickness. The left ventricular diastolic function is grade I diastolic dysfunction. Right Ventricle Right ventricular chamber dimension is normal. Right ventricular systolic function is normal. Left Atria Left atrial chamber dimension is normal. Right Atria Right atrial chamber dimension is normal. Atrial Septum Intact interatrial septum visualized by color flow imaging. Aortic Valve The aortic valve is not well visualized. There is no aortic valve stenosis. There is no aortic valve regurgitation. Pulmonic Valve The pulmonic valve is not well visualized. Mitral Valve There is no mitral valve stenosis. There is trace mitral valve regurgitation. Tricuspid Valve There is no significant tricuspid valve stenosis. There is trace tricuspid valve regurgitation. Pericardium/Pleural There is no pericardial effusion. Inferior Vena Cava Normal inferior vena cava with >50% collapse upon inspiration consistent with normal right atrial pressure, 3 mmHg. Aorta The aortic root size at the sinus of Valsalva is normal. Left Ventricular Outflow Tract Name Value Normal LVOT 2D LVOT Diameter 2.03 cm LVOT Doppler LVOT Peak Gradient 7 mmHg LVOT Mean Gradient 4 mmHg LVOT VTI 22.25 cm LVOT VTI/AV VTI Ratio 1.09 LVOT Stroke Volume 72.25 ml LVOT CO 6.35 l/min LV
[2022-06-17] VITALS (18 sets, daily range): BP systolic 100–174; BP diastolic 58–69; PULSE 76–97; RESP 16–21; TEMP 36.4–36.9; O2SAT 93–100
[2022-06-17] MEDS: ACETAMINOPHEN 325 MG TABLET 650 MG PO ×2 (00:58→08:30)
[2022-06-17] MEDS: IPRATROPIUM BR 0.02% INH SOLN 0.5 MG/2.5 ML VIAL INHALATION ×3 (02:07→20:32)
[2022-06-17] MEDS: ALBUTEROL SULFATE NEB 2.5 MG/3 ML INH INHALATION ×3 (02:07→20:34)
[2022-06-17 05:11] LABS: Hematocrit 31.7 % (37.0-47.0); Hemoglobin 10.5 g/dL (12.0-15.0); Mean Corpuscular HGB Conc 33.1 g/dl (32-36); Mean Corpuscular Hemoglobin 32.7 pg (26-34); Mean Corpuscular Volume 98.8 fl (80-100); Mean Platelet Volume 10.1 fl (7.4-10.4); Platelet Count Result 375 k/mm3 (150-375); Red Blood Count 3.21 M/mm3 (4.2-5.4); Red Cell Distribution Width 13.4 % (11.5-14.5); White Blood Count 14.4 K/mm3 (4.5-10.0)
[2022-06-17 05:28] LABS: Alanine Aminotransferase 17 U/L (6-35); Albumin Level 3.1 g/dL (3.5-5.1); Alkaline Phosphatase 67 U/L (38-126); Anion Gap 5 mmol/L (8-16); Aspartate Amino Transferase 24 U/L (14-36); Bilirubin,Total 0.3 mg/dL (0.2-1.3); Blood Urea Nitrogen 20 mg/dL (7-17); Calcium 8.8 mg/dL (8.4-10.2); Carbon Dioxide 24 mmol/L (22-30); Chloride 105 mmol/L (98-107); Estimated CRCL calculation 55 ml/min; Estimated Glomerular Filt Rate > 60; Glucose 102 mg/dL (65-110); Magnesium 1.8 mg/dL (1.6-2.3); Potassium 3.6 mmol/L (3.4-5.0); Sodium 134 mmol/L (137-145)
[2022-06-17 05:37] LABS: Band Neutrophils Percent 19 % (0-6); Lymphocytes Absolute Manual 0.57 K/mm3 (1.1-4.5); Monocytes Absolute Manual 0.72 K/mm3 (0.1-0.90); Monocytes Percent Manual 5 % (3-9); Neutrophils Percent Manual 72 % (46-73); Platelet Estimate Adequate (Adequate); Total Cells Counted 100
[2022-06-17] MEDS: ENOXAPARIN 60 MG/0.6 ML SYRINGE 50 MG SUB-Q ×2 (08:31→20:14)
[2022-06-17] MEDS: CHOLECALCIFEROL 1,000 UNITS TABLET 4000 UNITS PO (08:31)
[2022-06-17] MEDS: OSELTAMIVIR PHOSPHATE 30 MG CAPSULE PO (08:31)
[2022-06-17] MEDS: guaiFENesin 12 HR 600 MG TABCR PO ×2 (08:31→20:14)
[2022-06-17] MEDS: DULoxetine HCL 60 MG CAPSULE.DR PO ×2 (08:31→20:14)
--- NOTE | 2022-06-17 11:05 | PCRCNOTE ---
Window of time for administration has passed. See next scheduled administration.
--- NOTE | 2022-06-17 12:12 | PM.IMPN ---
Progress Note: A&P Assessment and Plan (1) Acute respiratory failure with hypoxia: Code(s): J96.01 - Acute respiratory failure with hypoxia Status: Acute Assessment and Plan: Multifactorial in etiology to include influenza, pneumonia, and COPD. CTA done yesterday positive for subsegmental PE as well. Started on Lovenox 1 milligram/kilogram b.i.d.. Required BiPAP on admission. Uses last night. She is more for workup breathing and hypoxia. Will switch BiPAP to p.r.n.. Continue oxygen supplementation via nasal cannula to keep SpO2 more than 90%. Echo EF on 70% grade 1 diastolic dysfunction RVSP is normal no significant valvular disease BNP 541 Influenza positive COVID negative RSV was negative ultrasound of legs venous duplex came back negative was (2) Left lower lobe pneumonia: Code(s): J18.9 - Pneumonia, unspecified organism Status: Acute Assessment and Plan: She has been started on broad-spectrum antibiotics including azithromycin, ceftriaxone, and vancomycin for presumed concomitant bacterial pneumonia in addition to influenza A. Sputum to be attempted for culture. Check urinary antigens. Procalcitonin is high WBC count improves with antibiotic therapy (3) Influenza A: Code(s): J10.1 - Influenza due to other identified influenza virus with other respiratory manifestations Status: Acute Assessment and Plan: She has been started on Tamiflu per CDC recommendations despite the fact that she has had symptoms for nearly 10 days. (4) Immunosuppressed status: Code(s): D84.9 - Immunodeficiency, unspecified Status: Acute Assessment and Plan: She is on immunotherapy (Gilenya). admitting provider spoke with her neurologist at [facility], Dr. Michael Horner ([phone]), and he would like the drug to be continued and uninterrupted. He requests that we keep him apprised of her hospital course and would like to be informed of any change in condition. (5) Chronic obstructive pulmonary disease: Code(s): J44.9 - Chronic obstructive pulmonary disease, unspecified Status: Acute Assessment and Plan: Continue scheduled bronchodilators. While she continues to have end expiratory wheezing, she has improved and steroids will not be initiated at this time as she is immunosuppressed on immunotherapy for her MS and she was on steroids last week. (6) Multiple sclerosis: Code(s): G35 - Multiple sclerosis Status: Chronic Assessment and Plan: Continue Gilenya as above. (7) Hypertension: Code(s): I10 - Essential (primary) hypertension Status: Acute Assessment and Plan: Blood pressures were reviewed and they have been stable aside from a brief period of time where she was in the high 80s to low 90 systolic. Antihypertensives on hold for now. Continue to monitor blood pressures closely. (8) Nicotine dependence: Code(s): F17.200 - Nicotine dependence, unspecified, uncomplicated Status: Acute Assessment and Plan: Patient reportedly quit smoking in October 2021 but is my understanding that she still vapes. Cessation of all nicotine products is imperative. No need for nicotine patch at this time. Plan influenza a on oseltamivir 06/17/2022 get off BiPAP and continue nasal cannula oxygen supplementation and wean as tolerated. Ambulate will order PT OT. Up to chair increase activity. Continue bronchodilators. Continue IV antibiotics follow cultures. Will stop her IV fluids. Will attempt to get sputum culture. Will remove catheter Subjective Date/time seen: 06/17/22 12:12 Interval history: This is pleasant 56-year-old female with COPD, hypertension, and multiple sclerosis on immunotherapy (Gilenya) who presented to the emergency department from urgent care for evaluation of shortness of breath. She has not been feeling well for 10+ days with congestion, nonproductive cou
[2022-06-17] MEDS: BACLOFEN 10 MG TABLET PO (20:14)
[2022-06-17] MEDS: OSELTAMIVIR PHOSPHATE ORAL SUSP 30 MG/5 ML SYRINGE PO (20:15)
[2022-06-18] VITALS (21 sets, daily range): BP systolic 95–155; BP diastolic 56–81; PULSE 77–106; RESP 14–20; TEMP 36.1–36.9; O2SAT 93–100
[2022-06-18] MEDS: ACETAMINOPHEN 325 MG TABLET 650 MG PO ×2 (02:13→08:37)
[2022-06-18] MEDS: ALBUTEROL SULFATE NEB 2.5 MG/3 ML INH INHALATION ×4 (03:05→20:30)
[2022-06-18] MEDS: IPRATROPIUM BR 0.02% INH SOLN 0.5 MG/2.5 ML VIAL INHALATION ×4 (03:05→20:30)
[2022-06-18 04:55] LABS: Basophils Percent Auto 0.2 % (0.2-1.2); Eosinophils Absolute Auto 0.1 K/mm3 (0-0.3); Eosinophils Percent Auto 0.6 % (0-4.4); Hematocrit 31.3 % (37.0-47.0); Hemoglobin 10.1 g/dL (12.0-15.0); Immature Granulocyte Absolute 0.05 K/mm3 (0.00-0.031); Immature Granulocyte Percent A 0.4 % (0-0.5); Lymphocytes Absolute Auto 1.02 K/mm3 (0.9-3.2); Lymphocytes Percent Auto 8.7 % (18.3-44.2); Mean Corpuscular HGB Conc 32.3 g/dl (32-36); Mean Corpuscular Hemoglobin 31.8 pg (26-34); Mean Corpuscular Volume 98.4 fl (80-100); Mean Platelet Volume 9.5 fl (7.4-10.4); Monocytes Absolute Auto 0.7 K/mm3 (0.1-0.6); Monocytes Percent Auto 6.2 % (2.6-8.5); Neutrophils Absolute Auto 9.9 K/mm3 (1.3-6.7); Neutrophils Percent Auto 83.9 % (45.5-73.1); Platelet Count Result 426 k/mm3 (150-375); Red Blood Count 3.18 M/mm3 (4.2-5.4); Red Cell Distribution Width 13.3 % (11.5-14.5); White Blood Count 11.7 K/mm3 (4.5-10.0)
[2022-06-18 05:08] LABS: Alanine Aminotransferase 15 U/L (6-35); Albumin Level 3.1 g/dL (3.5-5.1); Alkaline Phosphatase 68 U/L (38-126); Anion Gap 4 mmol/L (8-16); Aspartate Amino Transferase 19 U/L (14-36); Bilirubin,Total 0.2 mg/dL (0.2-1.3); Blood Urea Nitrogen 20 mg/dL (7-17); Calcium 8.7 mg/dL (8.4-10.2); Carbon Dioxide 26 mmol/L (22-30); Chloride 102 mmol/L (98-107); Estimated CRCL calculation 62 ml/min; Estimated Glomerular Filt Rate > 60; Glucose 97 mg/dL (65-110); Magnesium 1.8 mg/dL (1.6-2.3); Potassium 3.3 mmol/L (3.4-5.0); Sodium 132 mmol/L (137-145)
--- NOTE | 2022-06-18 07:43 | PM.IMPN ---
Progress Note: A&P Assessment and Plan (1) Acute respiratory failure with hypoxia: Code(s): J96.01 - Acute respiratory failure with hypoxia Status: Acute Assessment and Plan: Multifactorial in etiology to include influenza, pneumonia, and COPD. CTA done yesterday positive for subsegmental PE as well. Started on Lovenox 1 milligram/kilogram b.i.d.. Required BiPAP on admission. Now tapered off. She is more for workup breathing and hypoxia. Will switch BiPAP to p.r.n.. Continue oxygen supplementation via nasal cannula to keep SpO2 more than 90%. Echo EF on 70% grade 1 diastolic dysfunction RVSP is normal no significant valvular disease BNP 541 Influenza positive COVID negative RSV was negative ultrasound of legs venous duplex came back negative continue to taper oxygen. need home oxygen evaluation (2) Left lower lobe pneumonia: Code(s): J18.9 - Pneumonia, unspecified organism Status: Acute Assessment and Plan: She has been started on broad-spectrum antibiotics including azithromycin, ceftriaxone, and vancomycin for presumed concomitant bacterial pneumonia in addition to influenza A. Sputum to be attempted for culture. Check urinary antigens. Procalcitonin is high suggestive of concomitant bacterial pneumonia. Sputum culture has not been obtained WBC count improves with antibiotic therapy with ceftriaxone and azithromycin along with vancomycin. Will get MRSA screen. recheck procalcitonin (3) Influenza A: Code(s): J10.1 - Influenza due to other identified influenza virus with other respiratory manifestations Status: Acute Assessment and Plan: She has been started on Tamiflu per CDC recommendations despite the fact that she has had symptoms for nearly 10 days. (4) Immunosuppressed status: Code(s): D84.9 - Immunodeficiency, unspecified Status: Acute Assessment and Plan: She is on immunotherapy (Gilenya). admitting provider spoke with her neurologist at [facility], Dr. Michael Horner ([phone]), and he would like the drug to be continued and uninterrupted. He requests that we keep him apprised of her hospital course and would like to be informed of any change in condition. (5) Chronic obstructive pulmonary disease: Code(s): J44.9 - Chronic obstructive pulmonary disease, unspecified Status: Acute Assessment and Plan: Continue scheduled bronchodilators. While she continues to have end expiratory wheezing, she has improved and steroids will not be initiated at this time as she is immunosuppressed on immunotherapy for her MS and she was on steroids last week. (6) Multiple sclerosis: Code(s): G35 - Multiple sclerosis Status: Chronic Assessment and Plan: Continue Gilenya as above. (7) Hypertension: Code(s): I10 - Essential (primary) hypertension Status: Acute Assessment and Plan: Blood pressures were reviewed and they have been stable aside from a brief period of time where she was in the high 80s to low 90 systolic. Antihypertensives on hold for now. Continue to monitor blood pressures closely. (8) Nicotine dependence: Code(s): F17.200 - Nicotine dependence, unspecified, uncomplicated Status: Acute Assessment and Plan: Patient reportedly quit smoking in October 2021 but is my understanding that she still vapes. Cessation of all nicotine products is imperative. No need for nicotine patch at this time. Plan influenza a on oseltamivir 06/17/2022 get off BiPAP and continue nasal cannula oxygen supplementation and wean as tolerated. Ambulate will order PT OT. Up to chair increase activity. Continue bronchodilators. Continue IV antibiotics follow cultures. Will stop her IV fluids. Will attempt to get sputum culture. Will remove catheter Disposition: Continues to require oxygen supplementation. Have tapered off BiPAP which was primary for hypoxia and wo
[2022-06-18] MEDS: guaiFENesin 12 HR 600 MG TABCR PO ×2 (08:39→21:29)
[2022-06-18] MEDS: CHOLECALCIFEROL 1,000 UNITS TABLET 4000 UNITS PO (08:39)
[2022-06-18] MEDS: POTASSIUM CHLORIDE 20 MEQ TABLET 40 MEQ PO (08:39)
[2022-06-18] MEDS: DULoxetine HCL 60 MG CAPSULE.DR PO ×2 (08:39→21:31)
[2022-06-18] MEDS: ENOXAPARIN 60 MG/0.6 ML SYRINGE 50 MG SUB-Q ×2 (08:39→21:28)
[2022-06-18] MEDS: OSELTAMIVIR PHOSPHATE ORAL SUSP 30 MG/5 ML SYRINGE PO ×2 (10:10→21:27)
[2022-06-18 12:28] LABS: Procalcitonin 0.9 ng/mL
[2022-06-18] MEDS: IBUPROFEN 600 MG TABLET PO (15:51)
[2022-06-18 20:05] LABS: Vancomycin Trough < 5.0 ug/mL (10.0-20.0)
[2022-06-18] MEDS: BACLOFEN 10 MG TABLET PO (21:37)
[2022-06-19] VITALS (14 sets, daily range): BP systolic 109–116; BP diastolic 61–73; PULSE 78–90; RESP 12–20; TEMP 36.1–36.8; O2SAT 90–98
[2022-06-19] MEDS: IBUPROFEN 600 MG TABLET PO ×2 (01:24→13:06)
[2022-06-19] MEDS: IPRATROPIUM BR 0.02% INH SOLN 0.5 MG/2.5 ML VIAL INHALATION ×3 (01:35→20:37)
[2022-06-19] MEDS: ALBUTEROL SULFATE NEB 2.5 MG/3 ML INH INHALATION ×3 (01:35→20:37)
[2022-06-19 05:35] LABS: Basophils Percent Auto 0.3 % (0.2-1.2); Eosinophils Absolute Auto 0.2 K/mm3 (0-0.3); Eosinophils Percent Auto 1.7 % (0-4.4); Hematocrit 30.9 % (37.0-47.0); Hemoglobin 10.1 g/dL (12.0-15.0); Immature Granulocyte Absolute 0.07 K/mm3 (0.00-0.031); Immature Granulocyte Percent A 0.8 % (0-0.5); Lymphocytes Percent Auto 7.9 % (18.3-44.2); Mean Corpuscular HGB Conc 32.7 g/dl (32-36); Mean Corpuscular Volume 97.8 fl (80-100); Mean Platelet Volume 9.2 fl (7.4-10.4); Monocytes Absolute Auto 0.9 K/mm3 (0.1-0.6); Monocytes Percent Auto 10.5 % (2.6-8.5); Neutrophils Percent Auto 78.8 % (45.5-73.1); Platelet Count Result 420 k/mm3 (150-375); Red Blood Count 3.16 M/mm3 (4.2-5.4); Red Cell Distribution Width 13.4 % (11.5-14.5); White Blood Count 8.9 K/mm3 (4.5-10.0)
[2022-06-19 05:46] LABS: Alanine Aminotransferase 16 U/L (6-35); Albumin Level 3.1 g/dL (3.5-5.1); Alkaline Phosphatase 92 U/L (38-126); Anion Gap 5 mmol/L (8-16); Aspartate Amino Transferase 22 U/L (14-36); Bilirubin,Total 0.2 mg/dL (0.2-1.3); Blood Urea Nitrogen 17 mg/dL (7-17); Calcium 8.9 mg/dL (8.4-10.2); Carbon Dioxide 27 mmol/L (22-30); Chloride 101 mmol/L (98-107); Estimated CRCL calculation 62 ml/min; Estimated Glomerular Filt Rate > 60; Glucose 95 mg/dL (65-110); Magnesium 1.8 mg/dL (1.6-2.3); Potassium 3.6 mmol/L (3.4-5.0); Sodium 133 mmol/L (137-145)
[2022-06-19] MEDS: OSELTAMIVIR PHOSPHATE ORAL SUSP 30 MG/5 ML SYRINGE PO (09:13)
[2022-06-19] MEDS: CHOLECALCIFEROL 1,000 UNITS TABLET 4000 UNITS PO (09:14)
[2022-06-19] MEDS: guaiFENesin 12 HR 600 MG TABCR PO ×2 (09:14→21:01)
[2022-06-19] MEDS: DULoxetine HCL 60 MG CAPSULE.DR PO ×2 (09:14→21:01)
[2022-06-19] MEDS: ENOXAPARIN 60 MG/0.6 ML SYRINGE 50 MG SUB-Q (09:14)
--- NOTE | 2022-06-19 11:02 | P.CDI_ITS ---
CDI Query Clarified Diagnosis Clarified Diagnosis: Patient with scheduled nebulizer treatments Patient with noted expiratory wheezing Acute respiratory failure with hypoxia noted multifactorial in etiology to include influenza, Pneumonia and COPD Please specify status of COPD, if known. * Exacerbation of COPD * No exacerbation/stable COPD * Other * Unable to determine
[2022-06-19] MEDS: predniSONE 20 MG TABLET 40 MG PO (12:51)
[2022-06-19 13:56] LABS: Mycoplasma IgM Antibody Titer 105 U/mL (<770)
--- NOTE | 2022-06-19 18:08 | PM.IMPN ---
Progress Note: A&P Assessment and Plan (1) Acute respiratory failure with hypoxia: Code(s): J96.01 - Acute respiratory failure with hypoxia Status: Acute Assessment and Plan: Multifactorial in etiology to include influenza, pneumonia, and COPD. CTA done yesterday positive for subsegmental PE as well. Started on Lovenox 1 milligram/kilogram b.i.d.. Required BiPAP on admission. Now tapered off. She is more for workup breathing and hypoxia. Will switch BiPAP to p.r.n. Continue oxygen supplementation via nasal cannula to keep SpO2 more than 90%. Echo EF on 70% grade 1 diastolic dysfunction RVSP is normal no significant valvular disease BNP 541 Influenza positive COVID negative RSV was negative ultrasound of legs venous duplex came back negative continue to taper oxygen. need home oxygen evaluation (2) Left lower lobe pneumonia: Code(s): J18.9 - Pneumonia, unspecified organism Status: Acute Assessment and Plan: She has been started on broad-spectrum antibiotics including azithromycin, ceftriaxone, and vancomycin for presumed concomitant bacterial pneumonia in addition to influenza A. Sputum to be attempted for culture. Check urinary antigens. Procalcitonin is high suggestive of concomitant bacterial pneumonia. Sputum culture has not been obtained WBC count improves with antibiotic therapy with ceftriaxone and azithromycin along with vancomycin. Will get MRSA screen which is pending. recheck procalcitonin with improvement. will switch antiboics to oral. discussed ID pharmacist (3) Influenza A: Code(s): J10.1 - Influenza due to other identified influenza virus with other respiratory manifestations Status: Acute Assessment and Plan: She has been started on Tamiflu per CDC recommendations despite the fact that she has had symptoms for nearly 10 days. (4) Immunosuppressed status: Code(s): D84.9 - Immunodeficiency, unspecified Status: Acute Assessment and Plan: She is on immunotherapy (Gilenya). admitting provider spoke with her neurologist at [facility], Dr. Michael Horner ([phone]), and he would like the drug to be continued and uninterrupted. He requests that we keep him apprised of her hospital course and would like to be informed of any change in condition. (5) Chronic obstructive pulmonary disease: Code(s): J44.9 - Chronic obstructive pulmonary disease, unspecified Status: Acute Assessment and Plan: Continue scheduled bronchodilators. While she continues to have end expiratory wheezing, she has improved and steroids will not be initiated at this time as she is immunosuppressed on immunotherapy for her MS and she was on steroids last week. still quite coarse and rhonchorous. will add prednisone and see if we can get her off oxygen today. (6) Multiple sclerosis: Code(s): G35 - Multiple sclerosis Status: Chronic Assessment and Plan: Continue Gilenya as above. (7) Hypertension: Code(s): I10 - Essential (primary) hypertension Status: Acute Assessment and Plan: Blood pressures were reviewed and they have been stable aside from a brief period of time where she was in the high 80s to low 90 systolic. Antihypertensives on hold for now. Continue to monitor blood pressures closely. (8) Nicotine dependence: Code(s): F17.200 - Nicotine dependence, unspecified, uncomplicated Status: Acute Assessment and Plan: Patient reportedly quit smoking in October 2021 but is my understanding that she still vapes. Cessation of all nicotine products is imperative. No need for nicotine patch at this time. Plan influenza a on oseltamivir 06/17/2022 get off BiPAP and continue nasal cannula oxygen supplementation and wean as tolerated. Ambulate will order PT OT. Up to chair increase activity. Continue bronchodilators. Continue IV antibiotics follow cultures. Will stop her
[2022-06-19] MEDS: CEFDINIR 300 MG CAPSULE PO (21:00)
[2022-06-19] MEDS: OSELTAMIVIR PHOSPHATE 75 MG CAPSULE PO (21:00)
[2022-06-19] MEDS: BACLOFEN 10 MG TABLET PO (21:00)
[2022-06-19] MEDS: DOXYCYCLINE HYCLATE 100 MG TABLET PO (21:00)
[2022-06-19] MEDS: APIXABAN 5 MG TABLET 10 MG PO (21:01)
[2022-06-20] VITALS (15 sets, daily range): BP systolic 99–136; BP diastolic 50–76; PULSE 74–95; RESP 14–20; TEMP 36.3–36.7; O2SAT 84–100
[2022-06-20] MEDS: ALBUTEROL SULFATE NEB 2.5 MG/3 ML INH INHALATION ×3 (02:44→14:28)
[2022-06-20] MEDS: IPRATROPIUM BR 0.02% INH SOLN 0.5 MG/2.5 ML VIAL INHALATION ×3 (02:44→14:28)
[2022-06-20] MEDS: ACETAMINOPHEN 325 MG TABLET 650 MG PO ×2 (05:23→13:07)
[2022-06-20 06:41] LABS: Basophils Percent Auto 0.4 % (0.2-1.2); Eosinophils Percent Auto 0.3 % (0-4.4); Hematocrit 32.4 % (37.0-47.0); Hemoglobin 10.7 g/dL (12.0-15.0); Immature Granulocyte Absolute 0.15 K/mm3 (0.00-0.031); Immature Granulocyte Percent A 2.2 % (0-0.5); Lymphocytes Percent Auto 11.5 % (18.3-44.2); Mean Corpuscular Hemoglobin 31.5 pg (26-34); Mean Corpuscular Volume 95.3 fl (80-100); Mean Platelet Volume 9.1 fl (7.4-10.4); Monocytes Absolute Auto 0.9 K/mm3 (0.1-0.6); Monocytes Percent Auto 13.5 % (2.6-8.5); Neutrophils Percent Auto 72.1 % (45.5-73.1); Platelet Count Result 502 k/mm3 (150-375); Red Cell Distribution Width 13.5 % (11.5-14.5)
[2022-06-20 07:05] LABS: Alanine Aminotransferase 22 U/L (6-35); Albumin Level 3.3 g/dL (3.5-5.1); Alkaline Phosphatase 100 U/L (38-126); Anion Gap 5 mmol/L (8-16); Aspartate Amino Transferase 28 U/L (14-36); Bilirubin,Total 0.2 mg/dL (0.2-1.3); Blood Urea Nitrogen 16 mg/dL (7-17); Calcium 9.2 mg/dL (8.4-10.2); Carbon Dioxide 29 mmol/L (22-30); Chloride 104 mmol/L (98-107); Estimated CRCL calculation 60 ml/min; Estimated Glomerular Filt Rate > 60; Glucose 96 mg/dL (65-110); Magnesium 2.1 mg/dL (1.6-2.3); Potassium 3.9 mmol/L (3.4-5.0); Sodium 138 mmol/L (137-145)
[2022-06-20] MEDS: AZELASTINE HCL NASAL 0.1% 137 MCG/SPR 30 ML BTL 1 SPRAY NASAL (08:29)
[2022-06-20] MEDS: predniSONE 20 MG TABLET 40 MG PO (08:30)
[2022-06-20] MEDS: APIXABAN 5 MG TABLET 10 MG PO (08:30)
[2022-06-20] MEDS: guaiFENesin 12 HR 600 MG TABCR PO (08:31)
[2022-06-20] MEDS: CHOLECALCIFEROL 1,000 UNITS TABLET 4000 UNITS PO (08:31)
[2022-06-20] MEDS: DULoxetine HCL 60 MG CAPSULE.DR PO (08:31)
[2022-06-20] MEDS: DOXYCYCLINE HYCLATE 100 MG TABLET PO (09:15)
[2022-06-20] MEDS: OSELTAMIVIR PHOSPHATE 75 MG CAPSULE PO (09:15)
[2022-06-20] MEDS: CEFDINIR 300 MG CAPSULE PO (10:02)
--- NOTE | 2022-06-20 13:30 | PM.DS ---
DS: Admitting Diagnosis Discharge Date 06/20/2020 Admitting Diagnosis shortness of breath DS: Discharge Diagnosis Discharge Diagnosis (1) Acute respiratory failure with hypoxia: Code(s): J96.01 - Acute respiratory failure with hypoxia Status: Acute (2) Left lower lobe pneumonia: Code(s): J18.9 - Pneumonia, unspecified organism Status: Acute (3) Influenza A: Code(s): J10.1 - Influenza due to other identified influenza virus with other respiratory manifestations Status: Acute (4) Immunosuppressed status: Code(s): D84.9 - Immunodeficiency, unspecified Status: Acute (5) Chronic obstructive pulmonary disease: Code(s): J44.9 - Chronic obstructive pulmonary disease, unspecified Status: Acute (6) Multiple sclerosis: Code(s): G35 - Multiple sclerosis Status: Chronic (7) Hypertension: Code(s): I10 - Essential (primary) hypertension Status: Acute (8) Nicotine dependence: Code(s): F17.200 - Nicotine dependence, unspecified, uncomplicated Status: Acute DS: Summary Hospital Course Reason for hospitalization: This is pleasant 56-year-old female with COPD, hypertension, and multiple sclerosis on immunotherapy (Gilenya) who presented to the emergency department from urgent care for evaluation of shortness of breath. She has not been feeling well for 10+ days with congestion, nonproductive cough, shortness of breath, and generalized malaise. She was prescribed a Z-Jones and short course of prednisone on 06/09/2022 and felt better for several days before her symptoms returned. More specifically she has had increasing shortness of breath and she presented to urgent care for evaluation. Due to work of breathing and hypoxia, emergency services were summoned and on EMS arrival her SpO2 was 88% on 4 liters nasal cannula. She was given a nebulizer in route to the hospital with improvement in her oxygen saturations. On arrival to the ED she was using accessory muscles and was immediately placed on BiPAP. She was afebrile and vital signs were stable. After a few hours, she felt better and was trialed off of BiPAP however within about 15 minutes she was put back on the BiPAP due to increasing shortness of breath and hypoxia. Her labs were significant for a WBC count of 17.0 (46 neutrophils, 28 bands, 20 lymphocytes, 6 monocytes), sodium 132, potassium 3.8, BUN 27, creatinine 1.00, lactic acid 1.6, proBNP 541. ABG showed a pH of 7.38 , pCO2 35.8, PO2 59.1, bicarb 21.1. She tested positive for influenza A and a chest x-ray showed patchy consolidation of the left lung base suggesting pneumonia. She has been started on Tamiflu and broad-spectrum antibiotics and is being admitted to the IMU. Hospital Course: # Acute respiratory failure with hypoxia: Multifactorial in etiology to include influenza, pneumonia, and COPD.? CTA done on admission positive for subsegmental PE as well.? Started on Lovenox 1 milligram/kilogram b.i.d. she Required BiPAP on admission.? Now tapered off.? it was more for workup breathing and hypoxia.? was switched to BiPAP to p.r.n. which he did not require any further. She is continued on oxygen supplementation via nasal cannula on slowly tapered off. home oxygen evaluation was done at the time of discharge.And required oxygen with activity which was arranged at the time of discharge. Echo EF on 70% grade 1 diastolic dysfunction RVSP is normal no significant valvular disease ?BNP 541 Influenza positive COVID negative RSV was negative ultrasound of legs venous duplex came back negative # left lower lobe pneumonia: She has been started on broad-spectrum antibiotics including azithromycin, ceftriaxone, and vancomycin for presumed concomitant bacterial pneumonia in addition to influenza A. Sputum to be attempted for culture. Urinary antigens were also sent. Procalcitonin is high suggestive of concomitant bacterial pneumonia.? Sputum culture has not been
--- NOTE | 2022-06-20 15:00 | HOMEO2EVAL ---
Evaluation was performed at [facility] Home Oxygen Evaluation RC: Home Oxygen (O2) Evaluation Start: 06/20/22 12:07 Freq: ONCE Status: Active Protocol: RPE Activity Type Activity Date Activity User E-sign Co-sign Detail Recorded Client Recorded Date Recorded By Document 06/20/22 14:50 KRM [email or web address] 06/20/22 15:00 KRM Document 06/20/22 14:51 KRM [email or web address] 06/20/22 15:00 KRM Document 06/20/22 14:52 KRM [email or web address] 06/20/22 15:00 KRM Document 06/20/22 14:53 KRM [email or web address] 06/20/22 15:00 KRM Document 06/20/22 14:54 KRM [email or web address] 06/20/22 15:00 KRM 06/20/22 06/20/22 06/20/22 14:50 14:51 14:52 Home O2 Evaluation [Oxygen] -Test Phase Resting Exercise Exercise -Oxygen Delivery Room Air Room Air Nasal Cannula -Oxygen Flow Rate (L/min) 1 [Pulse Oximetry] -Pulse Oximetry (90-100 %) 90 84 L 86 L [Pulse Rate] -Pulse Rate (60-100 beats/min) 85 93 94 [Evaluation] -Activity Tolerance Good Good [Exercise] -Ambulation Distance (feet) -Ambulation Distance (meters) [Comments] -Home Oxygen Evaluation Comments [Charges] -Treatment Charges 06/20/22 06/20/22 14:53 14:54 Home O2 Evaluation [Oxygen] -Test Phase Exercise Exercise -Oxygen Delivery Nasal Cannula Nasal Cannula -Oxygen Flow Rate (L/min) 2 3 [Pulse Oximetry] -Pulse Oximetry (90-100 %) 87 L 90 [Pulse Rate] -Pulse Rate (60-100 beats/min) 95 94 [Evaluation] -Activity Tolerance Good Good [Exercise] -Ambulation Distance (feet) 100 -Ambulation Distance (meters) 30.47 [Comments] -Home Oxygen Evaluation Comments 3 WITH ACTIVITY . [Charges] -Treatment Charges O2 Evaluation - Inpatient
--- NOTE | 2022-06-20 15:07 | PCRCNOTE ---
PT. QUALIFIES FOR 3LPM O2 WITH ACTIVITY AT HOME. SET PT. UP WITH [facility]. PT. REQUESTED POC. TANK IN ROOM. JOSEF WILL HAVE POC DELIVERED DAO.
[2022-06-21 19:13] LABS: Legionella pneumophila Ag Ur Not Detected (Not Detected)
== END 2022-06-20 16:00 | disposition home health service (06) | DRG 193 ==
LOC: ANHED 18:45 → ANHIMU 23:18 → ANH3MEDSUR 06-19 17:05
PROVIDERS: Physician Assistant; Admitting Provider Internal Medicine; Emergency Provider Emergency Medicine; PCP Nurse Practitioner Family; Visit Provider Internal Medicine
DX: J10.00 Influenza due to other identified influenza virus with unspecified type of pneumonia (principal); J96.01 Acute respiratory failure with hypoxia; J44.0 Chronic obstructive pulmonary disease with (acute) lower respiratory infection; D84.9 Immunodeficiency, unspecified; G35 Multiple sclerosis; I10 Essential (primary) hypertension; F17.290 Nicotine dependence, other tobacco product, uncomplicated; F41.9 Anxiety disorder, unspecified; Z90.49 Acquired absence of other specified parts of digestive tract; Z20.822 Contact with and (suspected) exposure to COVID-19
CPT/HCPCS: 36415; 36600; 71045; 71275; 80048; 80053; 80202; 81001; 82375; 82805; 83050; 83605; 83735; 83880; 84145; 85025; 86140; 86738; 87040; 87070; 87081; 87205; 87449; 87634; 87636; 87899; 93005; 93970; 94002; 94003; 94618; 94640; 96361; 96365; 97110; 97161; 97165; 97530; 97535; 99215; 99291; A9270; C8929; G0463; J0456; J0696; J1650; J3370; J7030; J7512; Q9957; Q9967

== ENCOUNTER → 2022-07-11 09:16 | Outpatient (CLI) | payer BC, SELFPAY ==
--- NOTE | ~2022-07-11 | CT_ITS ---
EXAMINATION: CT diagnostic chest wo con DATE: 07/11/2022 09:39 INDICATION: Lung nodule TECHNIQUE: Computed tomography (CT) of the chest was performed without intravenous contrast. The dose -length product (DLP) was 37.66 mGy-cm. Automated exposure control and iterative reconstruction techn ique were employed. COMPARISON: 06/16/2022 FINDINGS: There is severe emphysema. An 11 mm x 8 mm nodule of the right upper lobe is stable. Airspa ce consolidation of the lower lobes has resolved. Bilateral dependent atelectasis has also resolved. No pleural effusion or pneumothorax. No pathologically enlarged thoracic lymph nodes are identified. The heart size is normal. Calcified coronary artery atherosclerosis is noted. IMPRESSION: 1. Stable right upper lobe nodule, possibly infectious or inflammatory. Follow-up low-dose CT in thre e months is recommended. 2. Resolved bilateral airspace opacities of the lungs, consistent with resolved pneumonia and atelect asis. Reviewed, dictated and finalized at location L. OMER SERVICE TECHNICIAN IMPRESSION: 1. Stable right upper lobe nodule, possibly infectious or inflammatory. Follow- up low-dose CT in three months is recommended. 2. Resolved bilateral airspace opacities of the lungs, consistent with resolved pneumonia and atelectasis.
== END ==
PROVIDERS: PCP Nurse Practitioner Family; Visit Provider Nurse Practitioner Family
DX: R91.1 Solitary pulmonary nodule (principal)
CPT/HCPCS: 71250

== ENCOUNTER 2022-12-05 11:22 | Outpatient (CLI) | payer BC, SELFPAY ==
--- NOTE | ~2022-12-05 | US_ITS ---
US thyroid INDICATION: Thyroid nodule. History of cancer. TECHNIQUE: Real-time sonographic images of the thyroid gland were obtained. COMPARISON: No prior studies for comparison. FINDINGS: The right thyroid lobe measures 4.9 x 1.5 x 1.4 cm. The left thyroid lobe measures 4.6 x 1 .5 x 1.6 cm. There is normal echotexture and echogenicity throughout the thyroid gland. There is a 5 mm cyst of the right thyroid lobe. No discrete nodules identified. Normal vascular flow is present. IMPRESSION: 1. Right thyroid cyst measuring 5 mm, benign. Reviewed, dictated and finalized at location L.
== END 2022-12-05 11:23 ==
PROVIDERS: PCP Nurse Practitioner Family; Visit Provider Nurse Practitioner Family
DX: E04.1 Nontoxic single thyroid nodule (principal)
CPT/HCPCS: 76536

== ENCOUNTER → 2023-08-09 13:38 | Outpatient (CLI) | payer BC, SELFPAY ==
--- NOTE | ~2023-08-09 | XR_ITS ---
XR chest 2V 08/09/2023 13:50 Indication: Cough Procedure: 2 view chest Comparison: 06/15/2022 Findings: The lungs are hyperinflated which is consistent with, but not diagnostic of chronic obstruc tive pulmonary disease. Heart size normal. There is bibasilar atelectasis/scarring. No focal pneumoni a, edema, significant effusion or pneumothorax. No acute osseous abnormality. Impression: 1: No acute cardiopulmonary disease. Reviewed, dictated and finalized at location L. TH CLINICIAN Impression: 1: No acute cardiopulmonary disease.
== END ==
PROVIDERS: PCP Nurse Practitioner Family; Visit Provider Nurse Practitioner Family
DX: R05.1 Acute cough (principal)
CPT/HCPCS: 71046

== ENCOUNTER 2025-01-22 20:47 | Emergency (ER) | payer BC, SELFPAY ==
--- NOTE | ~2025-01-22 | XR_ITS ---
XR chest 1V portable Ordering provider: Anna Pond MD History: 59 years Female with . syncope . Comparison: August 09, 2023 FINDINGS: MEDIASTINUM: The cardiac silhouette is not enlarged. LUNGS: No infiltrates, effusions or pneumothorax. OTHER: Multiple rib fractures seen in the left hemithorax involving the fifth, 6, seventh and eighth ribs. No free air under the diaphragm. Degenerative changes of the spine. Vertebroplasty seen in T12 and L1. Air seen in the subcutaneous tissues on the left hemithorax. IMPRESSION: Multiple left hemithorax fractures. No acute cardiopulmonary pathology. Reviewed, dictated and finalized at location A.
--- NOTE | ~2025-01-22 | CT_ITS ---
CT brain wo con Ordering provider: Anna Pond MD History: 59 years Female with . syncope vs seizure . Comparison: None. Technique: CT of the head without contrast. Radiation reduction technique utilized. The dose-length p roduct was 681 mGy-cm. FINDINGS: BRAIN PARENCHYMA AND CSF SPACES: 2 adjacent masses with hemorrhagic changes are seen in the right fro ntal lobe which measures 1.4 x 2.3x 3.2 cm and 0.9 x 2.5 x 1 cm. Surrounding vasogenic edema is noted . MRI with contrast is advised. Mild leukoaraiosis and diffuse cortical atrophy. Mild atheromatous di sease. No midline shift, or mass effect.. The brain parenchyma and CSF spaces are otherwise normal. VISUALIZED PARANASAL SINUSES: Well aerated. MASTOIDS: Well aerated. BONES: The bones appear intact. SOFT TISSUES: Visualized nasopharynx is normal. Superficial soft tissues are normal. IMPRESSION: Masses in the right upper frontal lobe with hemorrhagic changes and surrounding vasogenic edema. Cont rast-enhanced MRI is advised. Reviewed, dictated and finalized at location A. IMPRESSION: Masses in the right upper frontal lobe with hemorrhagic changes and surrounding vasogenic edema. Contrast-enhanced MRI is advised.
--- NOTE | ~2025-01-22 | CT_ITS ---
CTA chest PE protocol Ordering provider: Anna Pond MD History: 59 years Female with . syncope, hypoxia . Comparison: July 11, 2022 Technique: CT angiogram chest was performed following timed intravenous injection of contrast. Thin s lice axial images and reformatted coronal images were obtained. Three dimensional reformatted images of the chest were also obtained using a [employer] workstation. . Automated exposure control and iterati ve reconstruction technique were employed. The dose-length product was 176.07 mGy-cm. 100 mL Omnipaqu e 350 was given IV. Findings: PULMONARY ARTERIES: No pulmonary embolus. VISUALIZED THORACIC INLET: Normal. MEDIASTINUM: Aorta/coronary arteries: Mild atheromatous disease. Ascending aorta measures 3.5 cm. Heart/other: The heart is not enlarged. Lymph nodes: No mediastinal or hilar adenopathy. Fluid seen in the esophagus which may indicate reflux esophagitis. LUNGS: Dependent atelectatic changes. No pulmonary nodules or masses. No infiltrates or effusions. No pneumo thorax. Underlying emphysematous changes. Atelectatic changes seen in the right apical area. VISUALIZED UPPER ABDOMEN: Right adrenal mass is seen which is not demonstrated in the previous study measuring 1.7 x 2.8 cm. Further evaluation advised. Small adrenal nodule is seen in the left adrenal gland measuring 1.1 cm. Fecal material is loaded in the colon suggestive of constipation. Fullness of the left renal pelvis. Small left renal cyst. Otherwise, the visualized upper abdomen is normal. MUSCULOSKELETAL: Soft tissues: The superficial soft tissues are normal. Bones: Age appropriate degenerative changes of the spine. Nonunited fractures in the left sixth, alana nth and eighth ribs is seen. Vertebroplasty seen in T12 and L1. IMPRESSION: 1. No pulmonary embolism or aortic dissection. Ascending aorta measures 3.5 cm.. 2. No acute cardiopulmonary pathology. 3. Right adrenal mass. Further evaluation advised. Small left adrenal adenoma or metastatic lesion. 4. Fullness of the left renal pelvis. Further evaluation advised. Small left renal cyst. 5. Constipation. 6. Nonhealed rib fractures seen in the left hemithorax. 7. Possible reflux esophagitis. . Reviewed, dictated and finalized at location A. IMPRESSION: 1. No pulmonary embolism or aortic dissection. Ascending aorta measures 3.5 cm .. 2. No acute cardiopulmonary pathology. 3. Right adrenal mass. Further evaluation advised. Small left adrenal adenoma or metastatic lesion. 4. Fullness of the left renal pelvis. Further evaluation advised. Small left r enal cyst. 5. Constipation. 6. Nonhealed rib fractures seen in the left hemithorax. 7. Possible reflux esophagitis. .
--- NOTE | 2025-01-22 20:50 | ECG_ITS ---
Test Date: 2025-01-22 20:52:09 Measurements Intervals Hyrum Rate: 80 P: 57 CT: 168 QRS: 55 QRSD: 82 T: 55 QT: 361 QTc: 417 Interpretive Statements SINUS RHYTHM POSSIBLE RIGHT VENTRICULAR CONDUCTION DELAY [RSR (QR) IN V1/V2] No previous ECG available for comparison Electronically Signed On 01-23-2025 07:08:31 CDT by Lucian Mclaughlin M.D.
[2025-01-22 20:51] VITALS: BP 154/83; PULSE 81; RESP 14; TEMP 36.6; O2SAT 96
[2025-01-22 20:56] VITALS: PULSE 81; O2SAT 97
[2025-01-22 21:08] LABS: Hematocrit 37.2 % (37.0-47.0); Hemoglobin 11.7 g/dL (12.0-15.0); Immature Granulocyte Percent A 0.3 % (0-0.5); Lymphocytes Absolute Auto 1.78 K/mm3 (0.9-3.2); Mean Corpuscular HGB Conc 31.5 g/dl (32-36); Mean Corpuscular Hemoglobin 30.5 pg (26-34); Mean Corpuscular Volume 97.1 fl (80-100); Nucleated Red Blood Cells Absolute Auto 0.000 K/mm3 (0.0-0.012); Nucleated Red Blood Cells Perc 0.0 % (0.0-0.2); Platelet Count Result 384 k/mm3 (150-375); Red Blood Count 3.83 M/mm3 (4.2-5.4); White Blood Count 8.9 K/mm3 (4.5-10.0)
--- OUTSIDE RECORDS SUMMARY | 2025-01-22 21:09 | XMS_ITS | Encounter Summary ---
Author Organization [facility] Address [address] [place] [address] Phone Care Team Providers Care Top Bottom Attaching Machine Operator Name Role Phone Provider, Unknown Primary Care Provider Unavaila Sarah Mcdowell MD Unavailable + [phone] Pamela Cavanaugh APRN, BRICKLAYER'S ASSISTANT Unavailable + [phone] Michael Horner MD Unavailable [phone] Fazal Mcneal DO Unavailable [phone] Encounter Details Date Type Department Care Team (Late st Contact Info) Description 09/25/2023 Telephone [facility] [address] [place] [address] Fazal Mcneal, DO [address] [place] [address] Social History Tobacco Use Types Packs/Day Years Used Date Smoking Tobacco: Former Cigarettes Smokeless Tobacco: Never Alcohol Use Standard Drinks/Week Comments Yes 4 (1 standard drink = 0.6 oz pur e alcohol) Comments Unknown Sex and Gender Information Value Date Recorded Sex Assigned at Not on file Legal Sex Female 10:36 AM INSPECTOR EYEGLASS FRAMES Gender Identity Not on file Sexual Orientation Not on file documented as of this encounter Functional Status * Question Answer Date of Assessment Author Little interest or pleasure in doing things Not at all 09/25/2023 9:24 AM CDT Saima Mooney , SENIOR CUSTOMER SERVICE REPRESENTATIVE Feeling down, depressed, or hopeless Not at all 09/25/2023 9:24 AM CDT Saima Mooney CMA * Over the past 2 weeks, how often have you been bothered by any of the following problems? Question Answer Date of Assessment Author Patient Health Questionnaire -2 Score 0 09/25/2023 9:24 AM CDT Saima Mooney CMA documented as of this encounter Miscellaneous Notes * Telephone Encounter - Alyssa Elizalde - 09/25/2023 10:07 AM CDT Pt is scheduled with Dr Alvarenga 09/26 @ 10am documented in this encounter Plan of Treatment Upcoming Encounters Date Type Department Care Team (Late st Contact Info) Description 03/27/2025 9:00 AM CDT Office [facility] [address] [phone] Fazal Mcneal, [address] [place] [phone] 03/27/2025 9:00 AM CDT Lab [facility] [address] [phone] Lab, [facility]c [facility] 03/27/2025 9:30 AM CDT Ancillary Procedure [facility] [address] [phone] 03/27/2025 9:45 AM CDT Ancillary Procedure [facility] [address] [phone] documented as of this encounter Visit Diagnoses Not on filedocumented in this encounter Care Teams Top Bottom Attaching Machine Operator Relationship Specialty Start Date End Date Provider, Unknown UNKNOWN PCP - General 06/30/22 Sarah Rich MD UNKNOWN Pulmonary Disease 10/31/22 Pamela Cavanaugh, MOTOR COACH DRIVER, BRICKLAYER'S ASSISTANT UNKNOWN Internal Medicine 10/31/22 Michael Horner MD [address] [facility] [address] [place] [address] Neurology 10/31/22 Fazal Mcneal DO [address] [place] [phone] Consulting Physician Oncology 10/31/22 documented as of this encounter
--- OUTSIDE RECORDS SUMMARY | 2025-01-22 21:09 | XMS_ITS | Clinical Summary ---
Author Organization [facility] Address [address] [facility] [place] [address] Care Team Providers Care Supervisor Wash House Name Role Phone Unknown, Provider Primary Care Provider Unavaila ble Source Comments [facility],non-owned Affiliates and Associated Physician Practices is amultiple site organization consisting of ambulatory clinics and hospital sitesin [place], [place], [place] and [place]. This disclosure is being madepursuant to the Care Everywhere program and may not contain all information available regarding this patient. Last updated 18.[facility] Allergies No known active allergies Encounters Date Type Department Care Team Description 01/16/2025 11:00 AM CDT - 01/16/2025 11:59 PM CDT Hospital Encounter [facility] MRI [address] [place] [address] Arben Alvarenga MD Discharge Disposition: Home or Self Care from Last 3 Months Social History Tobacco Use Types Packs/Day Years Used Date Smoking Tobacco: Never Assessed Comments Unknown Sex and Gender Information Value Date Recorded Sex Assigned at Not on file Legal Sex Female 12:31 PM CDT Gender Identity Not on file Sexual Orientation Not on file Plan of Treatment Health Maintenance Due Date Last Done Comments COLOGUARD (AGES 45-75) - COLON CA SCREENING 1965 CT COLONOGRAPHY - COLON CA SCREENING 1965 FIT - COLON CA SCREENING 1965 FLEX SIG - COLON CA SCREENING 1965 LIPID TESTING 1965 MAMMOGRAM 1965 HIV SCREENING 1980 HEPATITIS C SCREENING 06/27/1983 DTAP/TDAP/TD VACCINES (1 - Tdap) 1984 HEPATITIS B VACCINE (1 of 3 - 19+ 3-dose series) 1984 PAP SMEAR 1986 PNEUMOCOCCAL VACCINE 50+ (1 of 1 - PCV) 2015 ZOSTER VACCINE (1 of 2) 2015 COVID-19 VACCINE ( season) 2024 10/04/2020, 09/14/2020 DEPRESSION SCREENING 07/16/2024 INFLUENZA VACCINE (#1) 2025 , 05/07/2023, 04/20/2022, Additional history exists COLON MONITORING 04/11/2029 04/11/2019 COLONOSCOPY - COLON CA SCREENING 04/11/2029 04/11/2019 Colorectal Cancer Screening 04/11/2029 HIB VACCINE Aged Out No longer eligi ble based on patient's age to complete this topic HPV VACCINE Aged Out No longer eligi ble based on patient's age to complete this topic MENINGOCOCCAL (Group B) VACCINE SHARED DECISION-MAKING Aged Out No longer eligible based on patient's age to complete this topic MENINGOCOCCAL GROUPS A/C/Y/W VACCINE Aged Out No longer eligible based on patient's age to complete this topic Procedures Procedure Name Priority Date/Time Associated Diagnosis Comments MRI BRAIN WWO CONTRAST Routine 01/16/2025 12:11 PM CDT Metastasis to brain (HCC) from Last 3 Months Results * MRI Brain Wwo Contrast (01/16/2025 12:11 PM CDT) Anatomical Region Laterality Modality Head Magnetic Resonan ce 01/20/2025 10:4 1 AM CDT Impressions 01/20/2025 12:01 PM CDT IMPRESSION: 1.Large, hemorrhagic lesion with subtle heterogenous enhancement located in the superior parasagittal right frontal lobe, measuring approximately 3.9 x 2.5 x 2.7 cm in the transaxial and craniocaudal dimensions, previously reported at 2.3 cm on the prior MRI from outside facility from 12/29/2024, perhaps mildly increased in size compared to the prior, however, direct comparison is not possible due to lack of the prior images at the time of interpretation. 2.The lesion abuts the superior frontal dura and adjacent falx and abuts the adjacent superior sagittal sinus without direct intraluminal invasion. 3.Extensive surrounding vasogenic edema and mild local mass effect as well as approximately 2-3 mm of nqsxg-fr-kkmj midline shift at the supraventricular level, as outlined. 4.Continued attention problems recommended. > Interpreting Provider: Lisa Heller MD on 01/20/2025 12:01 PM Narrative 01/20/2025 12:01 PM CDT PROCEDURE: MRI BRAIN WWO CONTRAST, DATE/TIME OF EXAM: 01/16/2025 12:11 PM, LOCATION [facility] INDICATION: C79.31: Metastasis to brain (HCC) ADDITIONAL CLINICAL INFORMATION: Ordering Provider Reason For Exam: Metastasis to brain Technologist Note: Order in Media Does the patient have a pacemaker or defibrillator?->No Does the patient have metal implants or stents?->No Additional: None. EXAMINATION: Magnetic resonance imaging (MRI) of the brain without and with contrast CONTRAST: GADOBUTROL 1 MMOL/ML IV SSM SO:5 mL TECHNIQUE: MRI of the brain was performed prior to and following the uneventful administration of 5 mL intravenous GADAVIST contrast according to a tumor protocol. COMPARISON: No prior study is available for comparison at the time of this dictation. Outside facility MRI of the brain report from 12/29/2024. No images are available on the digital archives at the time of interpretation for direct comparison. FINDINGS: Redemonstration of a large, heterogeneously enhancing lesion in the superior right frontal lobe measuring approximately 3.9 x 2.5 x 2.7 cm in the transaxial and craniocaudal dimensions, (series 15, image 142, and series 18, image 16), previously reported at 2.3 cm on the prior MRI from 12/29/2024, perhaps mildly increased compared to the prior, however, direct comparison is limited due to lack of image availability at the time of interpretation. Since satellite lesions abutting the above-mentioned main lesion appear similar to description on the prior report. There is extensive surrounding T2/FLAIR hyperintensity, compatible with vasogenic edema. There is local mass effect with effacement of the overlaying sulci and effacement of the right lateral ventricle as well as minimal, approximately 2-3 mm of kmget-jg-rpcr midline shift at the supraventricular level, (series 17, image 18). The lesion abuts the dura along the superior right frontal lobe and adjacent falx. The lesion also abuts the superior sagittal sinus without visible direct intraluminal invasion. There is associated susceptibility artifacts within the lesion, as well as intrinsic T1 hyperintensity compatible with evolving hemorrhage. The previously mentioned additional enhancing lesions are not well seen on the current study. There is however scattered areas of vasogenic edema in the supratentorial and infratentorial compartments, predominantly in the supratentorial periventricular white matter which are nonspecific. Continued attention on follow-up is recommended. Otherwise, no evidence of acute intracranial hemorrhage is identified. No evidence of acute cerebral infarction is seen. There is mild cerebral volume loss with associated ex vacuo ventricular dilatation. Periventricular, subcortical, and pontine white matter FLAIR hyperintensities likely represent sequelae of chronic small vessel ischemic disease. No additional enhancing lesions are identified. There is thinning and subtle foci of encephalomalacia involving the corpus callosum. The corpus callosum and sella appear otherwise grossly unremarkable. There is also mild cerebellar vermian volume loss. The posterior fossa, brainstem, and craniocervical junction appear otherwise grossly unremarkable. The visualized portions of the orbits appear grossly unremarkable. There is minimal paranasal sinus disease. There is mild opacification in the left mastoid air cells. Normal flow voids are demonstrated in the carotid arteries and basilar artery. The calvarium and visualized cervical spine appear grossly stable. Procedure Note Lisa Heller MD - 01/20/2025 PROCEDURE: MRI BRAIN WWO CONTRAST, DATE/TIME OF EXAM: 01/16/2025 12:11PM, LOCATION [facility] INDICATION: C79.31: Metastasis to brain (HCC) ADDITIONAL CLINICAL INFORMATION: Ordering Provider Reason For Exam: Metastasis to brain Technologist Note: Order in Media Does the patient have a pacemaker or defibrillator?->No Does the patient have metal implants or stents?->No Additional: None. EXAMINATION: Magnetic resonance imaging (MRI) of the brain without andwith contrast CONTRAST: GADOBUTROL 1 MMOL/ML IV SSM SO:5 mL TECHNIQUE: MRI of the brain was performed prior to and following the uneventful administration of 5 mL intravenous GADAVIST contrastaccording to a tumor protocol. COMPARISON: No prior study is available for comparison at the time ofthis dictation. Outside facility MRI of the brain report from 12/29/2024. No images are available on the digital archives at the time ofinterpretation for direct comparison. FINDINGS: Redemonstration of a large, heterogeneously enhancing lesion in the superior right frontal lobe measuring approximately 3.9 x 2.5 x 2.7 cmin the transaxial and craniocaudal dimensions, (series 15, image 142, and series 18, image 16), previously reported at 2.3 cm on the prior MRIfrom 12/29/2024, perhaps mildly increased compared to the prior, however,direct comparison is limited due to lack of image availability at the time of interpretation. Since satellite lesions abutting the above-mentionedmain lesion appear similar to description on the prior report. There is extensive surrounding T2/FLAIR hyperintensity, compatible with vasogenic edema. There is local mass effect with effacement of the overlayingsulci and effacement of the right lateral ventricle as well as minimal, approximately 2-3 mm of fwkua-ok-hbcf midline shift at thesupraventricular level, (series 17, image 18). The lesion abuts the dura along thesuperior right frontal lobe and adjacent falx. The lesion also abuts the superior sagittal sinus without visible direct intraluminal invasion. There is associated susceptibility artifacts within the lesion, as well asintrinsic T1 hyperintensity compatible with evolving hemorrhage. The previously mentioned additional enhancing lesions are not well seenon the current study. There is however scattered areas of vasogenic edemain the supratentorial and infratentorial compartments, predominantly in the supratentorial periventricular white matter which are nonspecific. Continued attention on follow-up is recommended. Otherwise, no evidence of acute intracranial hemorrhage is identified.No evidence of acute cerebral infarction is seen. There is mild cerebral volume loss with associated ex vacuo ventricular dilatation. Periventricular, subcortical, and pontine white matter FLAIR hyperintensities likely represent sequelae of chronic small vesselischemic disease. No additional enhancing lesions are identified. There isthinning and subtle foci of encephalomalacia involving the corpus callosum. The corpus callosum and sella appear otherwise grossly unremarkable. Thereis also mild cerebellar vermian volume loss. The posterior fossa,brainstem, and craniocervical junction appear otherwise grossly unremarkable. The visualized portions of the orbits appear grossly unremarkable. Thereis minimal paranasal sinus disease. There is mild opacification in the left mastoid air cells. Normal flow voids are demonstrated in the carotid arteries and basilar artery. The calvarium and visualized cervical spine appear grossly stable. IMPRESSION: 1.Large, hemorrhagic lesion with subtle heterogenous enhancement locatedin the superior parasagittal right frontal lobe, measuring approximately 3.9x 2.5 x 2.7 cm in the transaxial and craniocaudal dimensions, previously reported at 2.3 cm on the prior MRI from outside facility from12/29/2024, perhaps mildly increased in size compared to the prior, however, direct comparison is not possible due to lack of the prior images at the timeof interpretation. 2.The lesion abuts the superior frontal dura and adjacent falx and abuts the adjacent superior sagittal sinus without direct intraluminalinvasion. 3.Extensive surrounding vasogenic edema and mild local mass effect aswell as approximately 2-3 mm of qmlwx-ka-[id number] midline shift at the supraventricular level, as outlined. 4.Continued attention problems recommended. > Interpreting Provider: Lisa Heller MD on 01/20/2025 12:01 PM Arben Alvarenga MD MR ORDERABLES Final Result from Last 3 Months Insurance ANTHEM Care Teams Supervisor Wash House Relationship Specialty Start Date End Date Unknown, Provider PCP - General 01/15/25
--- OUTSIDE RECORDS SUMMARY | 2025-01-22 21:09 | XMS_ITS | Encounter Summary ---
Author Organization [facility] Address [address] [place] [address] Phone Care Team Providers Care System Technologist Name Role Phone Provider, Unknown Primary Care Provider Unavaila Sarah Mcdowell MD Unavailable [phone] Pamela Cavanaugh APRN, SALES PROJECT ENGINEER Unavailable [phone] Michael Horner MD Unavailable Fazal Mcneal DO Unavailable [phone] Reason for Visit * Reason Comments Medication Refill Encounter Details Date Type Department Care Team (Late st Contact Info) Description 06/09/2023 Refill [facility] [address] [place] [address] Belen Pham, SUPPORT ANALYST, SALES PROJECT ENGINEER [address] [place] [address] Medication Refill Social History Tobacco Use Types Packs/Day Years Used Date Smoking Tobacco: Some Days Cigarettes Smokeless Tobacco: Never Alcohol Use Standard Drinks/Week Comments Yes 4 (1 standard drink = 0.6 oz pur e alcohol) Comments Unknown Sex and Gender Information Value Date Recorded Sex Assigned at Not on file Legal Sex Female 10:36 AM TAX ASSOCIATE ATTORNEY Gender Identity Not on file Sexual Orientation Not on file documented as of this encounter Miscellaneous Notes * Telephone Encounter - Dana Quintana RN - 06/11/2023 7:56 AM CST Refill request from pharmacy. Please fill if appropriate. ASSOCIATE ATTORNEY documented in this encounter Plan of Treatment Upcoming Encounters Date Type Department Care Team (Late st Contact Info) Description 03/27/2025 9:00 AM CDT Office Visit [facility] [address] [phone] Fazal Mcneal DO [address] [place] [phone] 03/27/2025 9:00 AM CDT Lab [facility] [address] [phone] Lab, [facility]c [facility] 03/27/2025 9:30 AM CDT Ancillary Procedure [facility] [address] [phone] 03/27/2025 9:45 AM CDT Ancillary Procedure [facility] [address] [phone] documented as of this encounter Visit Diagnoses Not on filedocumented in this encounter Care Teams System Technologist Relationship Specialty Start Date End Date Provider, Unknown UNKNOWN PCP - General 06/30/22 Sarah Rich MD UNKNOWN Pulmonary Disease 10/31/22 Pamela Cavanaugh, SUPPORT ANALYST, SALES PROJECT ENGINEER UNKNOWN Internal Medicine 10/31/22 Michael Horner MD [address] [facility] [address] [place] [address] Neurology 10/31/22 Fazal Mcneal DO [address] [place] [phone] Consulting Physician Oncology 10/31/22 documented as of this encounter
--- OUTSIDE RECORDS SUMMARY | 2025-01-22 21:09 | XMS_ITS | Referral Summary ---
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 Unavailable [phone] Pamela Howe NP Primary Care Provider Fazal Mcneal DO Unavailable [phone] Naya Valdez MD Unavailable [phone] Sarah Rich MD Unavailable [phone] Arben Alvarenga MD Unavailable [phone] Lloyd Anderson MD Unavailable Encounters Date Type Department Care Team Description 01/13/2025 7:52 AM CDT - 01/13/2025 11:59 PM CDT Hospital Encounter [facility] Pain Mgmt [address] [place] [address] Lloyd Anderson MD Facet arthropathy, lumbar (Primary Dx); Pain of lumbar facet joint; Bulge of lumbar disc without myelopathy Discharge Disposition: Discharge to home or self care 01/08/2025 3:45 PM CDT Office Visit [facility] Infectious Disease [address] [place] [address] Spencer Oneill MD Dysuria (Primary Dx); Multiple sclerosis (HCC) 01/07/2025 Orders Only [facility] Medicine [address] [place] [address] Pamela Howe NP 12/30/2024 Results Follow-Up [facility] Medicine [address] [place] [address] Pamela Howe NP Urinalysis reflex to microscopic and culture Urine, clean voided, REFLEXIVE URINE CULTURE, Urine culture 12/26/2024 8:46 AM CDT - 12/26/2024 11:59 PM CDT Hospital Encounter [facility] Pain Mg[facility] [address] [address] Lloyd Anderson MD Compression fracture of T12 vertebra, initial encounter (HCC) (Primary Dx); Compression fracture of L1 vertebra, initial encounter (HCC); Age-related osteoporosis with current pathological fracture, initial encounter; Intractable back pain Discharge Disposition: Discharge to home or self care 12/23/2024 3:35 PM CDT Lab [facility] Lab [address] [place] [id number] Compression fracture of body of thoracic vertebra (HCC); Compression fracture of L1 vertebra, initial encounter ([facility]); Pre-op testing 12/19/2024 8:00 AM CDT Office Visit [facility] Obstetrics and Gynecology [address] [place] [address] Outpatient Health 7th Floor [address] [place] [address] Adeline Bennett NP Recurrent UTI (Primary Dx); Pelvic floor dysfunction in female; Vaginal atrophy 12/18/2024 Documentation [facility] Pain [facility] [address] [address] Marcela García RN 12/18/2024 Documentation [facility] Pain [facility] [address] [address] Marcela García RN 12/18/2024 Orders Only [facility] Pain [facility] [address] [address] Marcela García, FLOYD Compression fracture of T12 vertebra, initial encounter (HCC) (Primary Dx); Compression fracture of L1 vertebra, initial encounter (HCC) 12/18/2024 Orders Only [facility] Pain Mg[facility] [address] [address] Mary Hoffman, RN 12/18/2024 Orders Only [facility] Pain Mg[facility] [address] [address] Mary Hoffman RN 12/18/2024 Documentation [facility] Pain [facility] [address] [address] Marcela García, FLOYD 12/16/2024 Orders Only [address] [place] [phone] Pamela Howe NP Frequent UTI (Primary Dx) 12/15/2024 9:00 AM CDT Office Visit [facility] [address] [address] Michael Horner MD Multiple sclerosis (HCC) (Primary Dx); Paraparesis (HCC); Neurogenic bladder; Metastasis to brain (HCC); Wedge compression fracture of T11-T12 vertebra, initial encounter for closed fracture (HCC); Wedge compression fracture of first lumbar vertebra, initial encounter for closed fracture (HCC); Mild recurrent major depression 12/12/2024 Orders Only [address] [place] [phone] Pamela Howe NP Hypertension, essential 12/05/[address] [place] [address] Pamela Howe NP 12/03/2024 11:19 AM CDT - 12/03/2024 11:59 PM CDT Hospital Encounter [facility] Pain [facility] [address] [place] [address] Lloyd Anderson MD Age-related osteoporosis with current pathological fracture, initial encounter (Primary Dx); T12 compression fracture, initial encounter (HCC); Wedge compression fracture of first lumbar vertebra, initial encounter for closed fracture (HCC); Intractable back pain Discharge Disposition: Discharge to home or self care 12/01/2024 9:05 AM CDT - 12/01/2024 11:59 PM CDT Hospital Encounter [facility] Imaging [address] [place] [address] Closed wedge compression fracture of T12 vertebra, initial encounter (HCC); Closed wedge compression fracture of T11 vertebra, initial encounter (HCC); Closed wedge compression fracture of L1 vertebra, initial encounter (HCC) Discharge Disposition: Discharge to home or self care 12/01/2024 9:15 AM CDT Office Visit [facility] [address] [place] [address], [address] [place] [phone] Israel Chou PA Wedge compression fracture of T11-T12 vertebra, initial encounter for closed fracture (HCC) (Primary Dx); Wedge compression fracture of first lumbar vertebra, initial encounter for closed fracture (HCC) 11/26/2024 Telephone [facility] Pulmonology [address] [place] [phone] Spencer Oneill MD 11/21/2024 Telephone [facility] Obstetrics and Gynecology [address] [facility] Outpatient Health 7th Floor [address] [place] [address] Argenis Jacobson RN UTI 11/20/2024 9:45 AM CDT Office Visit [facility] Pulmonary [place] [address] [place] [address] Sarah Rich MD Single subsegmental pulmonary embolism without acute cor pulmonale (HCC) (Primary Dx); Mixed simple and mucopurulent chronic bronchitis (HCC); 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); Smoking greater than 20 pack years 11/19/2024 Orders Only [facility] Family Medicine [address] [place] [address] Pamela Howe NP 11/13/2024 3:15 PM CDT Office Visit [facility] Infectious Disease [address] [place] [address] Spencer Oneill MD Urinary tract infection without hematuria, site unspecified (Primary Dx); Metastasis to brain (HCC) 11/11/2024 Telephone [facility] Obstetrics and Gynecology [address] [facility] 7th [address] [place] [address] Dee Bergeron RN 11/11/2024 Telephone [facility] Pulmonology [address] [place] [address] Spencer Oneill MD 11/05/2024 Telephone [facility] Orthopedics and Sports Medicine [facility] [place] [address] Alyssa Ledezma NP 11/05/2024 Orders Only [facility] Orthopedics and Sports Medicine [address] [place] [address] [address] [place] [address] Marilia Cummings MD 11/04/2024 10:30 AM CDT Office Visit [facility] Internal Medicine at [place] [address] [facility] [address] [place] [address] Pamela Howe NP Single subsegmental pulmonary embolism without acute cor pulmonale (HCC) (Primary Dx); Body mass index (BMI) less than 18.5 10/31/2024 12:05 AM CDT - 10/31/2024 11:59 PM CDT Hospital Encounter [facility] [phone] Discharge Disposition: Discharge to home or self care 10/31/2024 - 10/31/2024 11:59 PM CDT Hospital Encounter [facility] [phone] Discharge Disposition: Discharge to home or self care 10/30/2024 Telephone [facility] Pulmonology [address] [place] [address] Spencer Oneill MD 10/27/2024 Orders Only [facility] Family Medicine [address] [facility] [address] [place] [address] Pamela Howe NP from Last 3 Months Allergies Active Allergy Reactions Criticality Noted Date Comments Codeine Rash Medium 04/04/2019 Tetanus Vaccines And Toxoid Medications cyanocobalamin (vitamin B-12) 1,000 mcg tablet 1,000 mcg. 0 0 02/18/20 14 Active guaiFENesin-pseud oephedrine (MUCINEX D) 600-60 mg per 12 hr tablet 1 tablet by oral route as needed 0 0 02/18/20 14 Active Additional Information Patient not taking.Reported on 01/13/2025 multivitamin tablet tablet take 1 tablet by oral route every day with food 0 0 02/18/20 14 Active cholecalciferol (VITAMIN D-3) 5,000 unit tablet Take 1 tablet (5,000 Units total) by mouth daily Active HYDROcodone-aceta minophen (NORCO) 5-325 mg per tablet Take 1 tablet by mouth every 6 (six) hours as needed for pain 04/30/20 23 Active guaiFENesin ER (MUCINEX) 600 mg 12 hr tablet Take 1 tablet (600 mg total) by mouth nightly Active ipratropium-albut Shanika (DUO-NEB) 0.5-2.5 mg/3 mL nebulizer solutionIndicatio ns:Chronic Obstructive Pulmonary Disease with Bronchospasms Take 3 mL by nebulization 4 (four) times a day as needed for wheezing or shortness of breath 90 mL 1 08/21/19 24 Active Eliquis 5 mg tabletIndications :Single subsegmental pulmonary embolism without acute cor pulmonale (HCC) TAKE 1 TABLET(5 MG) BY MOUTH TWICE DAILY 180 tablet 1 10/30/19 24 Active cyanocobalamin (Vitamin B-12) 1,000 mcg/mL injection Inject 1 mL (1,000 mcg total) under the skin every 30 (thirty) days Active azelastine (ASTELIN) 137 mcg (0.1 %) nasal spray Administer 1 spray into each nostril 2 (two) times a day Use in each nostril as directed 30 mL 02/06/20 24 Active Additional Information Patient taking differently:1 spray each nostril2 times daily PRN, Use in each nostril as directed, Reported on 01/13/2025 baclofen (LIORESAL) 10 mg tabletIndications :Multiple sclerosis (HCC) TAKE 1 TABLET(10 MG) BY MOUTH FOUR TIMES DAILY 360 tablet 3 07/07/20 24 Active Additional Information Patient not taking.Reported on 01/13/2025 estradioL (Estrace) 0.01 % (0.1 mg/gram) vaginal creamIndications: Recurrent UTI Insert one gram vaginally daily at bedtime for 2 weeks and then DECREASE to 2 times per week (such as Sunday/ ) 42.5 g 08/07/[address] (CYMBALTA) 60 mg capsuleIndication s:Multiple sclerosis (HCC),Moderate recurrent major depression (HCC) Take 1 capsule (60 mg total) by mouth 2 (two) times a day 60 capsule 5 11/06/19 25 Active budesonide-glycop yr-formoterol (Breztri Aerosphere) 160-9-4.8 mcg/actuation inhaler Inhale 2 puffs 2 (two) times a day 10.7 g 11/21/19 25 Active albuterol HFA (PROVENTIL HFA,VENTOLIN HFA,PROAIR HFA) 90 mcg/actuation inhalerIndication s:Mixed simple and mucopurulent chronic bronchitis (HCC) Inhale 2 puffs every 4 (four) hours as needed for wheezing or shortness of breath 8.5 g 11/21/19 25 Active acyclovir (ZOVIRAX) 800 mg tabletIndications :Herpes zoster without complication TAKE 1 TABLET(800 MG) BY MOUTH FIVE TIMES DAILY FOR 7 DAYS 35 tablet 11/26/19 25 Active Additional Information Patient not taking.Reported on 01/13/2025 teriflunomide (Aubagio) 14 mg tabletIndications :Multiple sclerosis (HCC) Take 1 tablet (14 mg total) by mouth daily 90 tablet 3 12/05/19 25 Active modafiniL (PROVIGIL) 200 mg tabletIndications :Multiple sclerosis (HCC) Take 1 tablet (200 mg total) by mouth daily TAKE 1/2 TO 1 TABLET BY MOUTH DAILY NEEDED 30 tablet 5 12/13/19 25 Active amLODIPine (NORVASC) 2.5 mg tabletIndications :Hypertension, essential Take 1 tablet (2.5 mg total) by mouth daily 90 tablet 1 12/13/19 25 Active ondansetron ODT (ZOFRAN-ODT) 4 mg disintegrating tablet Take 1 tablet (4 mg total) by mouth every 8 (eight) hours as needed for nausea 20 tablet 11 01/08/20 25 Active dexAMETHasone (DECADRON) 2 mg tablet 01/03/20 25 Active ondansetron ODT (ZOFRAN-ODT) 4 mg disintegrating tablet Take 1 tablet (4 mg total) by mouth every 8 (eight) hours as needed for nausea 20 tablet 11 11/20/19 25 025 Discontinu ed(Reorder ) sulfamethoxazole- trimethoprim (BACTRIM DS) 800-160 mg per tablet Take 1 tablet by mouth 2 (two) times a day for 7 days 14 tablet 01/09/20 25 025 Active Problems Problem Noted Date Diagnosed Date Wedge compression fracture o f first lumbar vertebra, initial encounter for closed fracture 12/01/2024 Wedge compression fracture o f T11-T12 vertebra, initial encounter for closed fracture 12/01/2024 Multiple sclerosis 11/13/2024 Chronic pain syndrome 05/06/2024 Herpes zoster without complication 05/06/2024 Dysuria 05/06/2024 BMI 20.0-20.9, adult 01/01/2024 Metastasis to brain 12/07/2023 Assessment & Plan (06/05/2024 9:18 AM SIX PACK PACKER): 3 right frontal brain metastases Treated with stereotactic radiosurgery Follow-up with radiation oncologist Dr. Arben Alvarenga Assessment & Plan (12/07/2023 7:52 AM CDT): Right frontal brain metastasis. Solitary radiation treatment earlier today Follow-up with Radiation oncologist Dr. Arben Alvarenga November 2023 MRI of the brain requested. Neck pain 11/08/2023 History of left shoulder fracture 11/08/2023 COPD exacerbation 08/17/2023 History of pulmonary embolism 08/17/2023 Hypoxia 08/17/2023 Shortness of breath 08/15/2023 Acute cough 08/09/2023 Primary osteoarthritis of left shoulder 07/06/20 23 Body mass index (BMI) less than 18.5 06/20/2023 Acute cystitis without hematuria 06/20/2023 Simple chronic bronchitis 02/23/2023 Thyroid nodule 11/28/2022 Malignant neoplasm metastati c to rib with unknown primary site 10/11/2022 Assessment & Plan (06/05/2024 9:08 AM SIX PACK PACKER): Diagnosed with poorly differentiated adenocarcinoma consistent with lung primary based on rib biopsy in October 2022. PET/CT demonstrated hypermetabolic destructive left 7th rib lesion and 1 cm nodule density in the right upper lobe non PET avid. Completed radiation to her left 7th rib and right adrenal gland. Oncology follow-up with Dr. Fazal Mcneal Assessment & Plan (12/07/2023 7:49 AM CDT): Diagnosed with poorly differentiated adenocarcinoma consistent with lung primary based on rib biopsy in October 2022. PET/CT demonstrated hypermetabolic destructive left 7th rib lesion and 1 cm nodule density in the right upper lobe non PET avid. Completed radiation to her left 7th rib and right adrenal gland. Oncology follow-up with Dr. Fazal Mcneal Assessment & Plan (03/28/2023 7:46 AM CDT): Diagnosed with poorly differentiated adenocarcinoma consistent with lung primary based on rib biopsy in October 2022. PET/CT demonstrated hypermetabolic destructive left 7th rib lesion and 1 cm nodule density in the right upper lobe non PET avid. Completed radiation to her left 7th rib. Repeat PET scan scheduled in a week. Repeat MRI scan of the brain May 2023 with 1 mm cuts on 3 leeann magnet. Oncology follow-up with Dr. Fazal Mcneal Radiation oncology follow-up with Dr. 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 PET/CT demonstrated hypermetabolic destructive left 7th rib lesion and 1 cm nodule density in the right upper lobe non PET avid. Completed radiation to her left 7th rib. Oncology follow-up with Dr. Fazal Mcneal Smoking greater than 20 pack years 08/06/2022 Mixed hyperlipidemia 08/01/2022 Centrilobular emphysema 07/31/2022 Lung nodule, solitary 06/30/2022 Single subsegmental pulmonar y embolism without acute cor pulmonale 06/30/2022 Statin intolerance 05/23/2022 Paraparesis 11/19/2021 Assessment & Plan (06/05/2024 9:12 AM SIX PACK PACKER): Exercise encouraged Fall prevention discussed Baclofen 10 mg at night regularly and 5 mg 1-2 times per day as needed Will avoid dalfampridine due to seizure risk. Assessment & Plan (12/07/2023 7:50 AM CDT): Exercise encouraged: Yoga video Fall prevention discussed Option dalfampridine previously reviewed including the potential risk of seizures. Assessment & Plan (03/28/2023 7:46 AM CDT): Exercise encouraged: Yoga video Fall prevention discussed Option dalfampridine previously reviewed including the potential risk of seizures. Assessment & Plan (12/04/2022 8:38 AM CDT): Exercise encouraged: Yoga video Fall prevention discussed Option dalfampridine previously reviewed including the potential risk of seizures. Assessment & Plan (05/23/2022 9:50 AM SIX PACK PACKER): Exercise encouraged: Yoga video Fall prevention discussed Option dalfampridine previously reviewed including the potential risk of seizures. Assessment & Plan (11/19/2021 9:13 AM CDT): Con't exercise: Yoga video Fall prevention discussed Option dalfampridine reviewed the potential risk of seizures. B12 deficiency 11/04/2021 Physical exam, annual 11/04/2021 Hypertension, essential 09/23/2020 Elevated cholesterol 09/23/2020 Osteopenia 04/22/2019 Osteoarthritis of lower back 03/25/2018 Osteoarthritis of sacroiliac joint 03/25/2018 High risk medication use 01/22/2018 Neurogenic bladder 07/10/2017 Assessment & Plan (06/05/2024 9:12 AM SIX PACK PACKER): Straight cath 3-4 times a day Follow-up with Dr. Kendrick Garcia Assessment & Plan (12/07/2023 7:50 AM CDT): Straight cath TID or QID Follow-up with Dr. Kendrick Garcia Assessment & Plan (03/28/2023 7:46 AM CDT): Straight cath TID or QID Follow-up with Dr. Kendrick Garcia Assessment & Plan (12/04/2022 8:38 AM CDT): Straight cath TID or QID Follow-up with Dr. Kendrick Garcia Assessment & Plan (05/23/2022 9:51 AM SIX PACK PACKER): Straight cath TID or QID Follow-up with Dr. Kendrick Garcia Assessment & Plan (11/19/2021 9:14 AM CDT): Straight cath TID or QID Keflex nightly for recurrent UTIs. Scheduled for cystoscopy with Dr. Kendrick Garcia Assessment & Plan (10/13/2020 7:03 AM CDT): Straight cath TID or QID Follow-up with urologist Dr. Kendrick Garcia Assessment & Plan (02/17/2020 9:07 AM CDT): Straight cath TID or QID Follow-up with urologist Dr. Kendrick Garcia Assessment & Plan (08/15/2019 9:08 AM SIX PACK PACKER): Straight cath TID or QID Urology follow-up. Current urologist now out of network so will refer to Dr. Kendrick Garcia. Assessment & Plan (02/07/2019 9:03 AM CDT): Straight cath TID or QID Assessment & Plan (08/01/2018 9:23 AM SIX PACK PACKER): Straight cath TID or QID Assessment & Plan (01/22/2018 9:30 AM CDT): Straight cath and monitor UTI's. Recommended to call us if urologist needed Assessment & Plan (07/10/2017 5:38 PM SIX PACK PACKER): Straight cath TID or QID Mild recurrent major depression 07/10/2017 Assessment & Plan (06/05/2024 9:13 AM SIX PACK PACKER): Duloxetine 60 mg twice a day Assessment & Plan (12/07/2023 7:32 AM CDT): Cymbalta 60 mg twice a day Assessment & Plan (03/28/2023 7:47 AM CDT): Cymbalta 60 mg twice a day Assessment & Plan (12/04/2022 8:39 AM CDT): Cymbalta 60 mg twice a day Assessment & Plan (05/23/2022 9:53 AM SIX PACK PACKER): Cymbalta 60 mg twice a day Assessment & Plan (11/19/2021 9:14 AM CDT): Cymbalta 60 mg twice a day Assessment & Plan (10/13/2020 7:03 AM CDT): Cymbalta 60 mg daily Assessment & Plan (02/17/2020 9:08 AM CDT): Increase Cymbalta 60 mg twice a day. Moderate depression on sertraline 100 mg daily Assessment & Plan (08/15/2019 9:08 AM SIX PACK PACKER): Sertraline 100 mg daily not controlling depression. Will start Cymbalta 30 mg at night for 1 week, then 60 mg at night. Risks discussed including nausea and drowsiness. Decrease sertraline to 50 mg at night for 1 week, then discontinue. 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 Teriflunomide 14 mg daily. Risks and benefits of teriflunomide were discussed again with the patient and her including hypertension, hepatotoxicity and potential serious infection. Potential impact of teriflunomide on immunosurveillance discussed. Increased risk of serious complications including pneumonia and possibly if she develops COVID-19 infection discussed. Last COVID-19 vaccine 1 month ago. She understands teriflunomide may reduce the efficacy of a COVID-19 vaccine and potentially she may not be protected. Molnupiravir advised if she develops COVID-19 again; avoid Paxlovid on Eliquis. Vitamin D3 5000 IU daily No longer smoking. 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 Teriflunomide 14 mg daily. Risks and benefits of teriflunomide were discussed again with the patient and her including hypertension, hepatotoxicity and potential serious infection. Potential impact of teriflunomide on immunosurveillance discussed. Increased risk of serious complications including pneumonia and possibly if develops COVID-19 infection discussed. Last COVID-19 vaccine May 15, 2023. She understands teriflunomide may reduce the efficacy of a COVID-19 vaccine and potentially she may not be protected. Paxlovid advised if she develops COVID-19. Baclofen 10 mg at night regularly and 5 mg 1-2 times per day as needed Vitamin D3 5000 IU daily No longer smoking. 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 Never started teriflunomide due to insurance issues as planned. Risk of rebound disease activity off Gilenya reviewed. She will enroll in [email or web address] [facility] website so teriflunomide can be prescribed immediately. Risks and benefits of teriflunomide were discussed again with the patient and her including low white count/potential serious infection, hypertension, hepatotoxicity, alopecia and diarrhea. Potential impact of teriflunomide on immunosurveillance discussed. Monthly liver function tests for 6 months on teriflunomide. Increased risk of serious complications including pneumonia and possibly if develops COVID-19 infection discussed. She received her last COVID-19 on February 09, 2022. Booster vaccination advised. She understands Gilenya and teriflunomide may reduce the efficacy of a COVID-19 vaccine and potentially she may not be protected. Paxlovid advised if she develops COVID-19. Baclofen 10 mg at night regularly and 5 mg 1-2 times per day as needed Vitamin D3 5000 IU daily No longer smoking. Provigil 100 mg once a day as needed Persistently enhancing right thalamic since October 2022 (1st visualized on Gilenya) and new right cerebellar vermis lesion concerning for metastatic disease and atypical for multiple sclerosis, despite off disease-modifying therapy now. Repeat MRI scan of the brain with contrast May 2023 with 1 mm cuts on 3 leeann magnet. 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 After discussing options, will switch to teriflunomide 14 mg daily in 3 weeks if her absolute lymphocyte count remains 0.7 or higher. Risks and benefits of teriflunomide were discussed with the patient and her including low white count/potential serious infection, hypertension, hepatotoxicity, alopecia and diarrhea. Potential impact of teriflunomide on immunosurveillance discussed. Risk of rebound activity off Gilenya discussed. Will treat with 2 days of intravenous Solu-Medrol 4 weeks off Gilenya. Increased risk of serious complications including pneumonia and possibly if develops COVID-19 infection discussed. She received her last COVID-19 on February 09, 2022. Bivalent booster vaccination advised. She understands Gilenya and teriflunomide may reduce the efficacy of a COVID-19 vaccine and potentially she may not be protected. Paxlovid advised if she develops COVID-19. Baclofen 10 mg at night regularly and 5 mg 1-2 times per day as needed Vit D3 5000 IU daily No longer smoking. Provigil 100 mg once a day as needed Repeat MRI scan of the brain the 1st week in January to reassess right thalamic lesion. Right thalamus is an unusual location for a multiple sclerosis lesion and metastasis concerning. If the lesion is due to multiple sclerosis, the lesion should not be enhancing in January. Assessment & Plan (05/23/2022 9:56 AM SIX PACK PACKER): Gilenya. Risks discussed including cryptococcal meningitis and PML. Increased risk of serious complications if develops coronavirus infection (COVID-19) discussed including pneumonia and possible reviewed. Patient wants to continue Gilenya. She received her 4th COVID-19 on February 09, 2022. She understands Gilenya may reduce the efficacy of a COVID-19 vaccine and potentially she may not be protected. Paxlovid advised if she develops COVID-19. Baclofen 10 mg at night regularly and 5 mg 1-2 times per day as needed Vit D3 5000 IU daily Stopped smoking and vaping. Provigil 100 mg once a day as needed MRI brain and cervical spine October 2023 Assessment & Plan (11/19/2021 9:12 AM CDT): Gilenya. Risks discussed including cryptococcal meningitis and PML. Increased risk of serious complications if develops coronavirus infection (COVID-19) discussed including pneumonia and possible reviewed. Patient wants to continue Gilenya. She received her 2nd COVID-19 Pfizer vaccine on October 09, 2020 and a Moderna booster May 12, 2021. A 2nd booster vaccination was recommended. She understands Gilenya may reduce the efficacy of a COVID-19 vaccine and potentially she may not be protected. Paxlovid advised if she develops COVID-19. Baclofen 10 mg at night regularly and 5 mg 1-2 times per day as needed Vit D3 5000 IU daily Stopped smoking and vaping. Provigil 100 mg once a day as needed Assessment & Plan (10/13/2020 7:03 AM CDT): Gilenya. Risks discussed including cryptococcal meningitis and PML Increased risk of serious complications if develops coronavirus infection (COVID-19) discussed including pneumonia and possible reviewed. Patient wants to continue Gilenya. She is maintaining social distancing and wearing a mask. She received her 2nd COVID-19 Pfizer vaccine on October 09, 2020. She understands Gilenya may reduce the efficacy of a COVID-19 vaccine and potentially she may not be protected. Baclofen 10 mg at night regularly and 5 mg 1-2 times per day as needed Con't exercise: Yoga video Vit D3 5000 IU daily Fall prevention discussed Stopped smoking and vaping. Provigil 100 mg daily Assessment & Plan (02/17/2020 9:07 AM CDT): Gilenya. Risks discussed including bronchitis/pneumonia, cryptococcal meningitis and PML Increased risk of serious complications if develops coronavirus infection (COVID-19) discussed including pneumonia and possible reviewed. Patient wants to continue Gilenya. She is maintaining social distancing and wearing a mask. Baclofen 10 mg at night Con't exercise: Yoga video Vit D3 5000 IU daily Fall prevention discussed Using occasional vaping pen Provigil 100 mg daily Assessment & Plan (08/15/2019 9:06 AM SIX PACK PACKER): Viji. Risks discussed including bronchitis/pneumonia, cryptococcal meningitis and PML (28 cases; likely higher risk based on age over 50). Pt wants to continue. Baclofen 10 mg at night Con't exercise Vit D3 5000 IU daily Fall prevention discussed Discontinue minimal tobacco use Provigil 100 mg daily MRI of the brain and cervical spine January 2020 Assessment & Plan (02/07/2019 9:20 AM CDT): Viji. Risks discussed including bronchitis/pneumonia, cryptococcal meningitis and PML (26 cases; likely higher risk based on age over 50). Pt wants to continue. Baclofen prn Con't exercise Vit D3 4000 IU daily Fall prevention discussed Discontinue minimal tobacco use Start Provigil 100-200 mg for fatigue. Risks discussed including headache. MRI of the brain and cervical spine January 2020 Assessment & Plan (08/01/2018 9:22 AM SIX PACK PACKER): Viji. Risks discussed including bronchitis/pneumonia, cryptococcal meningitis and PML (21 cases; likely higher risk based on age over 50). Pt wants to continue. Baclofen prn Con't exercise Vit D3 4000 IU daily Fall prevention discussed Assessment & Plan (01/22/2018 9:31 AM CDT): Continue Arjunenya. Risks reviewed including PML and hepatotoxicity. Lab work orders given. Discussed Vitamin D and importance in MS. Suggested to try the oral drops and to take about 4,000IU daily, will recheck level at next visit. MRI of brain and cspine ordered, if you don't hear from someone regarding scheduling in the next week please contact us Follow up with Dr. Horner in 6 months, or contact us sooner if needed. Assessment & Plan (07/10/2017 5:42 PM SIX PACK PACKER): Viji. Risks discussed including bronchitis/pneumonia, cryptococcal meningitis and PML (13 cases; likely higher risk based on age over 50). Pt wants to continue. Baclofen prn Con't exercise Vit D3 1000 IU daily MRI brain and cervical spine Mar 2018 Pain of foot 11/21/2013 Resolved Problems Problem Noted Date Diagnosed Date Resolved Date Adult body mass index less than 19 11/28/2022 01/01/2024 Adult BMI <19 kg/sq m 06/30/20222022 BMI less than 19,adult 11/04/202112/31 Elevated MCV 10/13/2020 12/15/2024 Assessment & Plan (06/05/2024 9:13 AM SIX PACK PACKER): 04/09/20 hemoglobin 12.2, MCV 101.3 12/01/20 B12 1487 12/06/21 folate 20.2 Assessment & Plan (12/07/2023 7:32 AM CDT): 04/09/20 hemoglobin 12.2, MCV 101.3 12/01/20 B12 1487 12/06/21 folate 20.2 Assessment & Plan (03/28/2023 7:47 AM CDT): 04/09/20 hemoglobin 12.2, MCV 101.3 12/01/20 B12 1487 12/06/21 folate 20.2 Assessment & Plan (12/04/2022 8:39 AM CDT): 04/09/20 hemoglobin 12.2, MCV 101.3 12/01/20 B12 1487 12/06/21 folate 20.2 Assessment & Plan (05/23/2022 9:54 AM SIX PACK PACKER): 04/09/20 hemoglobin 12.2, MCV 101.3 12/01/20 B12 1487 12/06/21 folate 20.2 Assessment & Plan (11/19/2021 9:15 AM CDT): 04/09/20 hemoglobin 12.2, MCV 101.3 12/01/20 B12 1487, folate 23 Assessment & Plan (10/13/2020 7:12 AM CDT): 04/09/20 hemoglobin 12.2, MCV 101.3 Will check B12 and folate levels. Multiple sclerosis 11/29/2013 11/28/2022 3 Overview (11/28/2022): MULTIPLE SCLEROSIS DMT history Rebif 22 mcg 01/2011-03/2011, elevated LFTs Copaxone [id number] stopped due to out of pocket costs Gilenya 03/03/2014- Last Assessment & Plan: Gilenya. Risks discussed including cryptococcal meningitis and PML. Increased risk of serious complications if develops coronavirus infection (COVID-19) discussed including pneumonia and possible reviewed. Patient wants to continue Gilenya. She received her 4th COVID-19 on February 09, 2022. She understands Gilenya may reduce the efficacy of a COVID-19 vaccine and potentially she may not be protected. Paxlovid advised if she develops COVID-19. Baclofen 10 mg at night regularly and 5 mg 1-2 times per day as needed Vit D3 5000 IU daily Stopped smoking and vaping. Provigil 100 mg once a day as needed MRI brain and cervical spine October 2023 Immunizations Immunization Administration Dates Next Due COVID-19 MRNA (MODERNA) .5 M L (50 MCG) VACCINE (12 YEARS AND UP) 05/15/2023 Influenza, Quadrivalent, Laura l Culture-based MDCK, Preservative Free, Antibiotic Free, Intramuscular 05/07/2023,04/20/2022 Influenza, Quadrivalent, Spl it, Preservative Free, Intramuscular 05/12/2021,04/13/2020,05/21/2019 Influenza, Trivalent, Cell C ulture-based MDCK, Preservative Free, Antibiotic Free, Intramuscular 04/20/2022 Influenza, Unspecified 05/02/2024 Pfizer SARS-CoV-2 Monovalent Vaccination (12+ Yrs) PURPLE 10/04/2020,09/14/2020 Pneumococcal Conjugate Pcv20 04/20/2022 Sars-CoV-2, Unspecified 05/02/2024 Social History Tobacco Use Types Packs/Day Years Used Date Smoking Tobacco: Former Cigarettes 0.6 30 1 08/14/1988 - 06/14/2019 Vaping Smokeless Tobacco: Never Tobacco Cessation:Counseling Given: Not Answered Alcohol Use Standard Drinks/Week Comments Yes 0 (1 standard drink = 0.6 oz pur e alcohol) [facility] Utilities Answer Date Recorded In the past 12 months has th e electric, gas, oil, or water company threatened to shut off services in your home? No 08/20/2023 Social Connection and Isolat ion Panel [NHANES] Answer Date Recorded In a typical week, how many times do you talk on the phone with family, friends, or neighbors? Three times a week 08/20/2023 How often do you get togethe r with friends or relatives? Once a week 08/20/2023 How often do you attend chur ch or episcopalian services? More than 4 times per year 08/20/2023 Do you belong to any clubs o r organizations such as religious groups, unions, fraternal or athletic groups, or school groups? Yes 08/20/2023 How often do you attend meet ings of the clubs or organizations you belong to? 1 to 4 times per year 08/20/2023 Are you , , di vorced, , never , or living with a partner? 08/20/2023 AUDIT-C Answer Date Recorded Q1: How often do you have a drink containing alc ohol? 2-4 times a month 12/01/2024 Q2: How many drinks containi ng alcohol do you have on a typical day when you are drinking? 1 or 2 12/01/2024 Q3: How often do you have si x or more drinks on one occasion? Never 12/01/2024 Overall Financial Resource Strain (CARDIA) Answe r Date Recorded How hard is it for you to pa y for the very basics like food, housing, medical care, and heating? Not hard at all 08/20/2023 PHQ-2 Answer Date Recorded PHQ-2 Total Score (If total score is 3 or more points, staff should administer the PHQ-9) 0 11/04/2024 Hunger Vital Sign Answer Date Recorded Within the past 12 months, y ou worried that your food would run out before you got the money to buy more. Never true 08/20/19 24 Within the past 12 months, t he food you bought just didn't last and you didn't have money to get more. Never true 08/20/2023 PRAPARE - Transportation Answer Date Re corded In the past 12 months, has l ack of transportation kept you from medical appointments or from getting medications? No 11/2023 In the past 12 months, has l ack of transportation kept you from meetings, work, or from getting things needed for daily living? No 08/20/2023 Housing Stability Vital Sign Answer Teofilo e Recorded In the last 12 months, was t here a time when you were not able to pay the mortgage or rent on time? No 08/20/2023 In the last 12 months, how many places have you lived? 1 08/20/2023 In the last 12 months, was t here a time when you did not have a steady place to sleep or slept in a snf (including now)? No 08/20/2023 Personal Safety Answer Date Recorded Have you ever been in or are you currently in a harmful physical or emotional relationship or is someone making you feel afraid or unsafe? 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 Sex Female 10:02 AM SIX PACK PACKER Gender Identity Female 10/11/2020 12:34 PM CDT Sexual Orientation Not on file Occupation Industry Job Start Date Job End Date [employer] Not on file Not on file Not on file Last Filed Vital Signs Vital Sign Reading Time Taken Comments Blood Pressure 129/79 01/13/2025 8:02 AM CDT Pulse 80 01/13/2025 8:02 AM CDT Temperature 36.5 C (97.7 F) 01/13/2025 8:02 AM CDT Respiratory Rate 18 01/13/2025 8:02 AM CDT Oxygen Saturation 95% 01/13/2025 8:02 AM CDT Inhaled Oxygen Concentration - - Weight 49.5 kg (109 lb 3.2 oz) 01/13/2025 8:02 A M CDT Height 165.1 cm (5' 5) 01/13/2025 8:02 AM CDT Body Mass Index 18.17 01/13/2025 8:02 AM CDT Plan of Treatment Not on file Medical Devices Implanted Type Area Basin Cleaner Device Identifier Shelf Expiration Date Model / Serial / Lot Screw Screw Right: Toes Description:Rt foot 2nd toe BristolCryptonator Avamax Od13 Ga L10 Mm Balloon Tray Bone Cement [id number] - [id number] - [id number] Implanted:Qty: 1 on 12/26/2024 by Lloyd Anderson MD at [facility] Tod[employer]onator 03/15/2025 [id number] / [id number] / Description:Vertaplex HV hig h viscosity radiopaque bone cement Procedures Procedure Name Priority Date/Time Associated Diagnosis Comments PAIN MGMT IMAGING VEREBROPLASTY (VTP) THORACIC Schedule Routine, Read Routine (OP Routine) 12/26/2024 11:45 AM CDT Compression fracture of L1 vertebra, initial encounter ([facility]) APTT Routine 12/23/2024 3:40 PM CDT Compression fracture of body of thoracic vertebra (HCC) Compression fracture of L1 vertebra, initial encounter ([facility]) Pre-op testing PROTIME-INR Routine 12/23/2024 3:40 PM CDT Compression fracture of body of thoracic vertebra (HCC) Compression fracture of L1 vertebra, initial encounter ([facility]) Pre-op testing CBC WITHOUT DIFFERENTIAL Routine 12/23/2024 3:40 PM CDT Compression fracture of body of thoracic vertebra (HCC) Compression fracture of L1 vertebra, initial encounter ([facility]) Pre-op testing URINE CULTURE Routine 12/18/2024 7:34 AM CDT REFLEXIVE URINE CULTURE Routine 12/18/2024 7:34 AM CDT URINALYSIS AND REFLEX TO MICROSCOPIC AND CULTURE Routine 12/18/2024 7:34 AM CDT Frequent UTI XR SPINE THORACOLUMBAR JUNCTION 2 OR MORE VIEWS Schedule Routine, Read Routine (OP Routine) 12/01/2024 9:14 AM CDT Closed wedge compression fracture of T12 vertebra, initial encounter (HCC) Closed wedge compression fracture of T11 vertebra, initial encounter (HCC) Closed wedge compression fracture of L1 vertebra, initial encounter ([facility]) CT LUMBAR SPINE W WO CONTRAST Schedule Routine, Read Routine (OP Routine) 11/05/2024 11:[address] THORACIC SPINE W WO CONTRAST Schedule Routine, Read Routine (OP Routine) 11/05/2024 11:33 AM CDT NEURO MR OUTSIDE REFERENCE Routine 10/31/2024 12:05 AM CDT NEURO MR OUTSIDE REFERENCE Routine 10/31/2024 12:00 AM CDT SCREENING MAMMOGRAM Schedule Routine, Read Routine (OP Routine) 03/23/2021 HEPATITIS C ANTIBODY Routine 12/02/2020 7:15 AM CDT Encounter for hepatitis C screening test for low risk patient COLONOSCOPY Routine 04/11/2019 from Last 3 Months or Most Recently Relevant to Health Maintenance Results * Imaging Fluoro Vertebroplasty (VTP) Thoracic (75395) (12/26/2024 11:45 AM CDT) Narrative JACOB_DAT_SYLVIE_MHE - 12/26/2024 1:35 PM CDT The images from this study are not interpreted by Radiology. Please refer to the physician's procedure / OR operative note. Lloyd Anderson MD IMG PAIN MGMT PROCEDURES Final R esult RAD_CLARIO_MHB_MHE * aPTT (12/23/2024 3:40 PM CDT) aPTT 33 22 - 37 sec Comment: Interpretive data aPTT test has not been evaluated for monitoring heparin therapy. The anti-Xa is the preferred test. Current interpretive data was last revised on 2019. Testing performed by: [facility], [address] [place] [address]., [address] Blood 12/23/2024 3:40 PM CDT 12/23/2024 3:46 PM CDT Lloyd Anderson MD LAB BLOOD ORDERABLES Final Resul t Performing Organization Address [facility] de Phone Number [address] [address] * Protime-INR (12/23/2024 3:40 PM CDT) Pathologist [facility] [place] PT 13.6 12.0 - 14.6 sec Comment:Testing performed by : [address] [address] INR 1.1 0.9 - 1.2 TETE RODRÍGUEZ Comment: Ref Range High Interpretive data Oral anticoagulant therapeutic ranges: Venous thromboembolism prophylaxis or treatment: 2.0-3.0 CARDIOLOGY Standard range: 2.0-3.0 High-intensity range: 2.5-3.5 Refer to indication-specific guidelines for appropriate target ranges for prosthetic heart valve replacement. Current interpretive data was last revised on 2019. Testing performed by: [address] [address] Blood 12/23/2024 3:40 PM CDT 12/23/2024 3:46 PM CDT Lloyd Anderson MD LAB BLOOD ORDERABLES Final Resul t Performing Organization Address [facility] de Phone Number [address] [address] * (ABNORMAL) CBC without differential (12/23/2024 3:40 PM CDT) [facility] WBC 5.50 3.80 - 9.90 K/cumm Comment:Testing performed by : [address] [address] Hgb 12.4 11.9 - 15.5 g/dL TETE RODRÍGUEZ Comment:Testing performed by : [address] [address] Hct 38.6 35.6 - 45.5 % TETE Comment:Testing performed by : [address] [address] Plt 480(H) 150 - 400 K/cumm TETE RODRÍGUEZ Comment:Testing performed by : [address] [address] MPV 8.6(L) 9.1 - 12.3 fL TETE RODRÍGUEZ Comment:Testing performed by : [address] [address] RBC 4.05 3.90 - 5.20 M/cumm TETE RODRÍGUEZ Comment:Testing performed by : [address] [address] MCV 95.3 81.3 - 96.4 fL TETE Comment:Testing performed by : [address] [address] MCH 30.6 27.1 - 33.3 pg TETE Comment:Testing performed by : [address] [address] MCHC 32.1(L) 32.3 - 35.7 g/dL TETE Comment:Testing performed by : [address], [address] RDW CV 14.6 11.1 - 14.9 % TETE Comment:Testing performed by : [address], [address] RDW SD 50.9(H) 35.7 - 48.1 fL TETE Comment:Testing performed by : [address] [address] NRBC abs 0.00 0.00 - 0.01 K/cumm TETE Comment:Testing performed by : [address] [address] Blood 12/23/2024 3:40 PM CDT 12/23/2024 3:46 PM CDT us Llyod Anderson MD LAB BLOOD ORDERABLES Final Resul t TETE [address] [facility] [place] [address] * REFLEXIVE URINE CULTURE (12/18/2024 7:34 AM CDT) Urine culture [facility] Comment:CULTURE INDICATED - RESULTS TO FOLLOW 12/18/2024 7:34 AM CDT 12/18/2024 7:35 AM CDT Pamela Howe NP LAB MICROBIOLOGY - GENERAL OR DERABLES Final Result Performing Organization Address City/State/[facility] Co de Phone Number QUEST [facility] [address] [place] [address] * (ABNORMAL) Urinalysis reflex to microscopic and culture Urine, clean voided (12/18/2024 7:34 AM CDT) Color, ur YELLOW YELLOW [facility] Appearance, ur CLEAR CLEAR [facility] Specific gravity 1.017 1.001 - 1.035 [facility] pH, ur 6.5 5.0 - 8.0 [facility] Glucose, ur NEGATIVE NEGATIVE [facility] Bilirubin, ur NEGATIVE NEGATIVE [facility] Ketones, ur NEGATIVE NEGATIVE [facility] Blood, ur NEGATIVE NEGATIVE [facility] Protein, ur, quant NEGATIVE NEGATIVE [facility] Nitrites, ur NEGATIVE NEGATIVE [facility] Leukocyte esterase, ur 1+(A) NEGATIVE [facility] WBC, ur 0-5 < OR = 5 /HPF [facility] RBC, ur NONE SEEN < OR = 2 /HPF [facility] Epithelial cells, squamous, ur 0-5 < OR = 5 /HPF [facility] Bacteria, ur, quant NONE SEEN NONE SEEN /HPF [facility] Hyaline cast NONE SEEN NONE SEEN /LPF [facility] Note [facility] Comment: This urine was analyzed for the presence of WBC, RBC, bacteria, casts, and other formed elements. Only those elements seen were reported. Urine, clean voided 12/18/2024 7:34 AM CDT 12/18/2024 7:35 AM CDT Pamela Howe NP LAB MICROBIOLOGY - GENERAL OR DERABLES Final Result Performing Organization Address City/[facility] Co de Phone Number [facility] [address] [place] [address] * Urine culture (12/18/2024 7:34 AM CDT) [facility]rine [facility] Comment: CULTURE, URINE, ROUTINE Micro Number: [id number] Test Status: Final Specimen Source: Urine Specimen Quality: Adequate Result: No Growth 12/18/2024 7:34 AM CDT 12/18/2024 7:35 AM CDT Pamela Howe NP LAB MICROBIOLOGY - GENERAL OR DERABLES Final Result Performing Organization Address [facility] Co de Phone Number [facility] [address] [place] [address] * XR Spine Thoracic/Lumbar 2 View (12/01/2024 9:14 AM CDT) Anatomical Region Laterality Modality Spine N/A Computed Radiogr aphy 12/03/2024 3:45 PM CDT Narrative 12/03/2024 3:47 PM CDT EXAM DESCRIPTION: XR SPINE THORACOLUMBAR JUNCTION 2 OR MORE VIEWS REASON FOR STUDY: WEDGE COMPRESSION FRACTURE T-11-T12 VERTEBRA WEDGE COMPRESSION FRACTURE FINDINGS: Two views thoracolumbar spine submitted with comparison 10/14/2024. Redemonstrated are moderate T12 and L1 compression deformities. Associated kyphosis is present. No new fractures identified. Long segment dextroscoliosis of the thoracolumbar junction is noted. There is multilevel thoracic degenerative disc disease. IMPRESSION: Unchanged moderate T12 and L1 compression deformities with associated kyphosis. THIS IS AN ELECTRONICALLY VERIFIED FINAL REPORT 12/03/2024 3:47 PM - Electronically signed by Nam Michele M.D. T: Report ID: [id number] Reading Location: [id number] Procedure Note Nam Michele MD - 12/03/2024 EXAM DESCRIPTION: XR SPINE THORACOLUMBAR JUNCTION 2 OR MORE VIEWS REASON FOR STUDY: WEDGE COMPRESSION FRACTURE T-11-T12 VERTEBRA WEDGE COMPRESSION FRACTURE FINDINGS: Two views thoracolumbar spine submitted with helmdyouan05/01/2025. Redemonstrated are moderate T12 and L1 compression deformities.Associated kyphosis is present. No new fractures identified. Long segment dextroscoliosis of the thoracolumbar junction is noted. There ismultilevel thoracic degenerative disc disease. IMPRESSION: Unchanged moderate T12 and L1 compression deformities with associated kyphosis. THIS IS AN ELECTRONICALLY VERIFIED FINAL REPORT 12/03/2024 3:47 PM - Electronically signed by Nam Michele M.D. T: Report ID: [id number] Reading Location: [place] [address] Enrico Barragan MD IMG XR PROCEDURES Final Result * CT Lumbar Spine W WO Contrast (11/05/2024 11:34 AM CDT) Anatomical Region Laterality Modality Spine N/A Computed Tomogra phy Historical Provider MD IMG CT PROCEDURES Final R esult * CT Thoracic Spine W WO Contrast (11/05/2024 11:33 AM CDT) Anatomical Region Laterality Modality Spine N/A Computed Tomogra phy Result [facility] Historical Provider IMG CT PROCEDURES Final R esult * Neuro MR Outside Reference (10/31/2024 12:05 AM CDT) Narrative RAD_PACS_OUTSIDE_FILM_[facility] - 12/15/2024 9:57 AM CDT This order has been auto-finalized and does not contain a result. Provider Transcribed Order IMG MRI PROCEDURES Fi nal Result RAD_PACS_OUTSIDE_FILM_[facility] * Neuro MR Outside Reference (10/31/2024 12:00 AM CDT) Narrative RAD_PACS_OUTSIDE_FILM_[facility] - 12/15/2024 9:57 AM CDT This order has been auto-finalized and does not contain a result. Provider Transcribed Order IMG MRI PROCEDURES Fi nal Result RAD_PACS_OUTSIDE_FILM_[facility] * Screening Mammogram (03/23/2021) Anatomical Region Laterality Modality Breast N/A Mammography Historical Provider IMG MAMMO PROCEDURES Mariah l Result * Hepatitis C antibody (12/02/2020 7:15 AM CDT) Hep C Ab NON-REACTI VE NON-REACT CHET [facility] SIGNAL TO CUT-OFF 0.01 <1.00 [facility] Comment: HCV antibody was non-reactive. There is no laboratory evidence of HCV infection. In most cases, no further action is required. However, if recent HCV exposure is suspected, a test for HCV RNA (test code 73322) is suggested. For additional information please refer to http://education.Apiary/faq/RTD53k2 (This link is being provided for informational/ educational purposes only.) Blood specimen (specimen) 12/02/2020 7:15 AM CDT 12/02/2020 7:16 AM CDT Narrative [facility] - 12/03/2020 12:18 PM CDT FASTING:YES FASTING: YES Pamela Howe AUTOMOTIVE SERVICE TECHNICIAN LAB MICROBIOLOGY - GENERAL OR DERABLES Final Result [facility] [address] [id number] * Colonoscopy (04/11/2019) Anatomical Region Laterality Modality Other Impressions 04/11/2019 Repeat 5 years Historical Provider ENDOSCOPY PROCEDURES Mariah l Result from Last 3 Months or Most Recently Relevant to Health Maintenance [place] For more information, please contact: [phone] * Full Code (Latest Code Status on File) Date Activated Date Inactivated Comments 08/17/2023 5:22 PM 08/21/2023 5:09 PM * Full Code Date Activated Date Inactivated Comments 10/20/2022 10:50 AM 10/21/2022 5:00 AM Care Teams Combination Man Relationship Specialty Start Date End Date Pamela Howe, DAVID [address] [facility] [address] [place], [place] [id number] PCP - General Internal Medicine 11/21/22 Vicki Bearden, DAVID Nurse Practitioner Urology 11/15/20 Fazal Mcneal DO [address] [place] [address] Referring Physician Medical Oncology 11/27/22 Naya Valdez MD [address] [place] [address] Radiation Oncology 11/27/22 Sarah Rich MD [address] [place] [phone] Consulting Physician Pulmonary Disease 11/27/22 Arben Alvarenga MD [address] [place] [phone] Radiation Oncology 12/07/23 Lloyd Anderson MD [address] [address] Consulting Physician Pain Management 12/26/24
--- OUTSIDE RECORDS SUMMARY | 2025-01-22 21:09 | XMS_ITS | Encounter Summary ---
Author Organization [facility] Healthcare Address [address] [place] [address] Care Team Providers Care Vat Washer Name Role Phone Pamela Cavanaugh NP Primary Care Provider [phone] Vciki Bearden NP Unavailable [phone] Pamela Cavanaugh NP Primary Care Provider [phone] Fazal Mcneal DO Unavailable [phone] Naya Valdez MD Unavailable [phone] Sarah Rich MD Unavailable [phone] Arben Alvarenga MD Unavailable [phone] Lloyd Anderson MD Unavailable Encounter Details Date Type Department Care Team (Late st Contact Info) Description 10/23/2022 Telephone [facility] [address] [place] [address] Rula Ramos, FLOYD Social History Tobacco Use Types Packs/Day Years Used Date Smoking Tobacco: Former Cigarettes 0.6 30 1 08/14/1988 - 06/14/2019 Vaping Smokeless Tobacco: Never Alcohol Use Standard Drinks/Week Comments Yes 0 (1 standard drink = 0.6 oz pur e alcohol) AUDIT-C Answer Date Recorded Q1: How often do you have a drink containing alc ohol? 2-4 times a month 10/20/2022 Q2: How many drinks containi ng alcohol do you have on a typical day when you are drinking? 1 or 2 10/20/2022 Q3: How often do you have si x or more drinks on one occasion? 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 Not on file Not on file Not on file documented as of this encounter Plan of Treatment Not on file documented as of this encounter Visit Diagnoses Not on filedocumented in this encounter Additional Health Concerns Infection Onset Date Last Indicated Resolved Time COVID: Suspected 08/09/2023 08/09/2023 08/09/2023 10:20 AM [employer]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 COVID: Suspected 08/17/2023 08/17/2023 08/17/2023 1:59 PM [employer]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 documented as of this encounter Care Teams Vat Washer Relationship Specialty Start Date End Date Pamela Cavanaugh NP PCP - General Internal Medicine 09/22/20 11/20/22 [place] [address] [place] [address] PCP - General Internal Medicine 11/21/22 Vikci Bearden NP Nurse Practitioner Urology 11/15/20 Fazal Mcneal DO [address] [place] [phone] Referring Physician Medical Oncology 11/27/22 Naya Valdez MD [address] [place] [address] Radiation Oncology 11/27/22 Sarah Rcih MD [address] [place] [phone] Consulting Physician Pulmonary Disease 11/27/22 Arben Alvarenga MD [address] [place] [phone] Radiation Oncology 12/07/23 [place] [address] [place] [phone] Consulting Physician Pain Management 12/26/24 documented as of this encounter
--- OUTSIDE RECORDS SUMMARY | 2025-01-22 21:09 | XMS_ITS ---
Author Organization [facility] [address] Address [address] [place] [address] Care Team Providers Care Federal Judge Name Role Phone Vicki Bearden MORTGAGE CLOSER Unavailable Pamela Cavanaugh NP Primary Care Provider Fazal Mcneal DO Unavailable [phone] Naya Valdez MD Unavailable [phone] Sarah Rich MD Unavailable Arben Alvarenga MD Unavailable [phone] Lloyd Anderson MD Unavailable Active Problems Problem Noted Date Diagnosed Date Wedge compression fracture o f first lumbar vertebra, initial encounter for closed fracture 12/01/2024 Wedge compression fracture o f T11-T12 vertebra, initial encounter for closed fracture 12/01/2024 Multiple sclerosis 11/13/2024 Chronic pain syndrome 05/06/2024 Herpes zoster without complication 05/06/2024 Dysuria 05/06/2024 BMI 20.0-20.9, adult 01/01/2024 Metastasis to brain 12/07/2023 Assessment & Plan (06/05/2024 9:18 AM SWATCH CHECKER): 3 right frontal brain metastases Treated with [...] 08/09/2023 Primary osteoarthritis of left shoulder 07/06/20 Body mass index (BMI) less than 18.5 06/20/2023 Acute cystitis without hematuria 06/20/2023 Simple chronic bronchitis 02/23/2023 Thyroid nodule 11/28/2022 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 Assessment & Plan (05/23/2022 9:50 AM SWATCH CHECKER): Exercise encouraged: Yoga video Fall prevention discussed [...] 07/10/2017 Assessment & Plan (06/05/2024 9:12 AM SWATCH CHECKER): Straight cath 3-4 times a day Follow-up [...] Garcia Assessment & Plan (05/23/2022 9:51 AM SWATCH CHECKER): Straight cath TID or QID Follow-up with [...] Garcia Assessment & Plan (08/15/2019 9:08 AM SWATCH CHECKER): Straight cath TID or QID Urology follow-up. Current urologist now out of network so will refer to Dr. Kendrick Garcia. Assessment & Plan (02/07/2019 9:03 AM CDT): Straight cath TID or QID Assessment & Plan (08/01/2018 9:23 AM SWATCH CHECKER): Straight cath TID or QID Assessment & Plan (01/22/2018 9:30 AM CDT): Straight cath and monitor UTI's. Recommended to call us if urologist needed Assessment & Plan (07/10/2017 5:38 PM SWATCH CHECKER): Straight cath TID or QID Mild recurrent major depression 07/10/2017 Assessment & Plan (06/05/2024 9:13 AM SWATCH CHECKER): Duloxetine 60 mg twice a day Assessment & Plan (12/07/2023 7:32 AM CDT): Cymbalta 60 mg twice a day Assessment & Plan (03/28/2023 7:47 AM CDT): Cymbalta 60 mg twice a day Assessment & Plan (12/04/2022 8:39 AM CDT): Cymbalta 60 mg twice a day Assessment & Plan (05/23/2022 9:53 AM SWATCH CHECKER): Cymbalta 60 mg twice a day Assessment & Plan (11/19/2021 9:14 AM CDT): Cymbalta 60 mg twice a day Assessment & Plan (10/13/2020 7:03 AM CDT): Cymbalta 60 mg daily Assessment & Plan (02/17/2020 9:08 AM CDT): Increase Cymbalta 60 mg twice a day. Moderate depression on sertraline 100 mg daily Assessment & Plan (08/15/2019 9:08 AM SWATCH CHECKER): Sertraline 100 mg daily not controlling depression. Will start Cymbalta 30 mg at night for 1 week, then 60 mg at night. Risks discussed including nausea and drowsiness. Decrease sertraline to 50 mg at night for 1 week, then discontinue. Assessment & Plan (02/07/2019 9:03 AM CDT): Sertraline 100 mg daily Assessment & Plan (08/01/2018 9:23 AM SWATCH CHECKER): Sertraline 100 mg daily Assessment & Plan (01/22/2018 9:30 AM CDT): Sertraline 100mg HS Assessment & Plan (07/10/2017 5:39 PM SWATCH CHECKER): Sertraline 50 mg daily Pain in shoulder 04/17/2016 Multiple sclerosis 11/29/2013 Overview (01/27/2021): MULTIPLE SCLEROSIS DMT history Rebif 22 mcg 01/2011-03/2011, elevated LFTs Copaxone [id number] stopped due to out of pocket costs Gilenya 03/03/2014- Assessment & Plan (06/05/2024 9:11 AM SWATCH CHECKER): Since diagnosed with poorly differentiated adenocarcinoma of [...] off Gilenya reviewed. She will enroll in [employer] [facility] website so teriflunomide can be prescribed [...] pulmonary origin, alternative disease-modifying therapies discussed since may affect immunosurveillance. After discussing options, will [...] January. Assessment & Plan (05/23/2022 9:56 AM SWATCH CHECKER): Gilenya. Risks discussed including cryptococcal meningitis and [...] Assessment & Plan (02/17/2020 9:07 AM CDT): Gilpuneetya. Risks discussed including bronchitis/pneumonia, cryptococcal meningitis and [...] daily Assessment & Plan (08/15/2019 9:06 AM SWATCH CHECKER): Gilpuneetya. Risks discussed including bronchitis/pneumonia, cryptococcal meningitis and PML (28 cases; likely higher risk based on age over 50). Pt wants to continue. Baclofen 10 mg at night Con't exercise Vit D3 5000 IU daily Fall prevention discussed Discontinue minimal tobacco use Provigil 100 mg daily MRI of the brain and cervical spine January 2020 Assessment & Plan (02/07/2019 9:20 AM CDT): Gilpuneetya. Risks discussed including bronchitis/pneumonia, cryptococcal meningitis and PML (26 cases; likely higher risk based on age over 50). Pt wants to continue. Baclofen prn Con't exercise Vit D3 4000 IU daily Fall prevention discussed Discontinue minimal tobacco use Start Provigil 100-200 mg for fatigue. Risks discussed including headache. MRI of the brain and cervical spine January 2020 Assessment & Plan (08/01/2018 9:22 AM SWATCH CHECKER): Gilpuneetya. Risks discussed including bronchitis/pneumonia, cryptococcal meningitis and PML (21 cases; likely higher risk based on age over 50). Pt wants to continue. Baclofen prn Con't exercise Vit D3 4000 IU daily Fall prevention discussed Assessment & Plan (01/22/2018 9:31 AM CDT): Continue Gilenya. Risks reviewed including PML and hepatotoxicity. Lab [...] needed. Assessment & Plan (07/10/2017 5:42 PM SWATCH CHECKER): Viji. Risks discussed including bronchitis/pneumonia, cryptococcal meningitis and PML (13 cases; likely higher risk based on age over 50). Pt wants to continue. Baclofen prn Con't exercise Vit D3 1000 IU daily MRI brain and cervical spine Mar 2018 Pain of foot 11/21/2013 Current Treatment and Therapy Plans No current plan information found. Past Treatment and Therapy Plans No past plan information found. Lifetime Dose Tracking * Chemical Lifetime Dose Automatic Entry Manual Entr y Fluoro Time 2.8 minutes 2.8 minutes 0 minutes Air kerma at the reference point (Ka,r) 36.09 mGy 3 6.09 mGy 0 mGy Resolved Problems Problem Noted Date Diagnosed Date Resolved Date Adult body mass index less than 19 11/28/2022 01/01/2024 Adult BMI <19 kg/sq m 06/30/20222022 BMI less than 19,adult 11/04/202112/31 Elevated MCV 10/13/2020 12/15/2024 Assessment & Plan (06/05/2024 9:13 AM SWATCH CHECKER): 04/09/20 hemoglobin 12.2, MCV 101.3 12/01/20 B12 [...] 20.2 Assessment & Plan (05/23/2022 9:54 AM SWATCH CHECKER): 04/09/20 hemoglobin 12.2, MCV 101.3 12/01/20 B12 [...] Rebif 22 mcg 01/2011-03/2011, elevated LFTs Copaxone [id number] stopped due to out of pocket costs [...]
--- OUTSIDE RECORDS SUMMARY | 2025-01-22 21:09 | XMS_ITS | Encounter Summary ---
Author Organization [facility] Address [facility] [place] [address] Care Team Providers Care Varnisher Plasticoater Name Role Phone Pamela Cavanaugh [facility] Primary Care Provider [phone] Arben Alvarenga MD Unavailable Encounter Details Date Type Department Care Team (Late st Contact Info) Description 12/05/[address] [facility] [address] [place] [address] Michael Horner MD [address] [facility] [address] [address] Social History Tobacco Use Types Packs/Day Years Used Date Smoking Tobacco: Some Days Cigarettes 0.5 30 Smokeless Tobacco: Never Alcohol Use Standard Drinks/Week Comments Yes 1.7 (1 standard drink = 0.6 oz p ure alcohol) OCCAS AUDIT-C Answer Date Recorded Frequency of Alcohol Consumption Never 04/04/2019 Average Number of Drinks Not on file 019 Frequency of Binge Drinking Not on file 03/17 Comments No Sex and Gender Information Value Date Recorded Sex Assigned at Female 12/03/2024 2:48 PM CDT Legal Sex Female 5:40 PM CDT Gender Identity Not on file Sexual Orientation Not on file COVID-19 Exposure Response Date Recorded In the last 10 days, have yo u been in contact with someone who was confirmed or suspected to have Coronavirus/COVID-19? No / Unsure 11/15/2022 3:51 PM CDT documented as of this encounter Plan of Treatment Not on file documented as of this encounter Visit Diagnoses Diagnosis MS (multiple sclerosis) ([facility])- Primary Multiple sclerosis documented in this encounter Care Teams Varnisher Plasticoater Relationship Specialty Start Date End Date [facility] - General 11/02/22 Arben Alvarenga MD [address] [place] [address] Consulting Physician RADIATION ONCOLOGY 09/27/23 documented as of this encounter
--- OUTSIDE RECORDS SUMMARY | 2025-01-22 21:09 | XMS_ITS | Clinical Summary ---
Author Organization [facility] Address [facility] [place] [address] Care Team Providers Care Mental Health Specialist Name Role Phone Pamela Cavanaugh [facility] Primary Care Provider [phone] Arben Boswell MD Unavailable Allergies Active Allergy Reactions Criticality Noted Date Comments Codeine Rash Low 04/04/2019 Tetanus Immune Globulin Rash Low 06/23/2019 Medications acyclovir 400 MG tablet TK 1 TABLET PO DAILY 2 9 Active PROAIR HFA 108 (90 Base) MCG/ACT inhaler Inhale 2 puffs into the lungs every 4 (four) hours as needed. 5 9 Active azelastine 0.1 % nasal spray U 1 TO 2 SPRAYS IEN BID 6 9 Active baclofen 10 MG tablet DAILY 1 9 Active modafinil 200 MG tablet TK 1/2 TO 1 T PO D PRN 4 9 Active Cholecalciferol 50 MCG (1999 UT) Tab take 1 tablet by oral route every day 7 Active mulitvitamin tablet Take 1 tablet by mouth daily. Active Cyanocobalamin (VITAMIN B 12) 500 MCG Tab Take 5,000 mcg by mouth daily. Active cyanocobalamin 1000 MCG/ML injection Inject into the muscle monthly. Active HYDROcodone-howard taminophen (NORCO) 5-325 MG tabletIndicatio ns:Acute Pain < 7 Day Supply Take 1 tablet by mouth every 6 (six) hours as needed. Indications: Acute Pain < 7 Day Supply 20 tablet 3 Active dexamethasone (DECADRON) 2 MG tablet Take 2 tablets (4 mg total) by mouth daily with breakfast for 30 days. 15 tablet 1 5 02/09/20 25 Active dexamethasone (DECADRON) 2 MG tablet Take 1 tablet (2 mg total) by mouth daily with breakfast for 30 days. 15 tablet 1 5 01/10/20 25 Discontinu ed(Reorder ) Active Problems Problem Noted Date Diagnosed Date MS (multiple sclerosis) ([facility]) 2022 Encounters Date Type Department Care Team Description 01/09/2025 Orders Only [facility] Radiation Oncology [address] [place] [address] [place] [address] Arben Boswell MD 01/09/2025 Telephone [facility] Radiation Oncology [address] [place] [address] [place] [address] Arben Boswell MD Medication 01/01/2025 9:15 AM CDT - 01/01/2025 11:59 PM CDT Hospital Encounter [facility]iation Oncology [address] [place] [address] [place] [address] Arben Boswell MD Consult Discharge Disposition: Home or Self Care (Routine Discharge) 01/01/2025 Travel 12/29/2024 7:49 AM CDT - 12/29/2024 11:59 PM CDT Hospital Encounter [address] [address] Arben Boswell MD Discharge Disposition: Home or Self Care (Routine Discharge) 12/29/2024 Travel 12/03/2024 2:45 PM CDT - 12/03/2024 5:16 PM CDT Emergency [facility] Emergency Room [address] [place] [id number] Michelle Rodriguez MD Urinary Symptoms Discharge Disposition: Home or Self Care (Routine Discharge) 12/03/2024 Travel 10/31/2024 7:48 AM CDT - 10/31/2024 11:59 PM CDT Hospital Encounter [address] [address] Bernardo Cox NP Discharge Disposition: Home or Self Care (Routine Discharge) 10/31/2024 Travel 10/29/2024 Telephone [facility]iation [facility]cology [address] [place] [address] [place] [address] Arben Boswell MD Medication (Patient called asking about supplement that dr boswell recommended. She stated she could not find 1500 mg, only 1200 or 5000. He stated for her to take 1200 mg four times per day instead of 1500 three times per day. ABB) 10/28/2024 9:00 AM CDT - 10/28/2024 11:59 PM CDT Hospital Encounter [facility] Radiation [facility]cology [address] [place] [address] [place] [address] Arben Boswell MD Follow Up Discharge Disposition: Home or Self Care (Routine Discharge) 10/28/2024 Travel from Last 3 Months Family History Medical History Relation Comments Hypertension Father Diabetes Mother Relation Status Comments Father Mother Social History Tobacco Use Types Packs/Day Years Used Date Smoking Tobacco: Some Days Cigarettes 0.5 30 Smokeless Tobacco: Never Tobacco Cessation:Ready to Q uit: Not Asked; Counseling Given: Not Answered Alcohol Use Standard Drinks/Week Comments Yes 1.7 [...] on file Sexual Orientation Not on file Last Filed Vital Signs Vital Sign Reading Time Taken Comments Blood Pressure 143/71 01/01/2025 10:25 AM CDT Pulse 88 01/01/2025 10:25 AM CDT Temperature 37.2 C (99 F) 12/03/2024 5:15 PM CDT Respiratory Rate 16 12/03/2024 5:15 PM CDT Oxygen Saturation 94% 01/01/2025 10:25 AM CDT Inhaled Oxygen Concentration - - Weight 49 kg (108 lb) 01/01/2025 10:25 AM CDT Height 165.1 cm (5' 5) 12/03/2024 2:49 PM CDT Body Mass Index 17.97 12/03/2024 2:49 PM CDT Plan of Treatment Health Maintenance Due Date Last Done Comments Cervical Cancer Screening Pap Smear (Age 30 to 64) Every 3 Years 1965 Annual Physical 1968 Hepatitis C 1983 DTaP, Tdap and Td Vaccines (1 - Tdap) 1984 Cervical Cancer Screening Pap with HPV Testing (Age 30 to 64) Every 5 Years 1995 Cervical Cancer Screening with HPV 1995 Mammogram Screening 2005 Zoster Vaccines (1 of 2) 2015 Colorectal Cancer Screening Colonoscopy (10 Years) 04/11/2029 04/11/2019 Pneumococcal Vaccine: 50+ Years Completed 04/20/2022 COVID-19 Vaccine Completed 05/02/2024, , 02/09/2022, Additional history exists Meningococcal B Vaccine Aged Out No l onger eligible based on patient's age to complete this topic Meningococcal Vaccine Aged Out No guzman fred eligible based on patient's age to complete this topic RSV Immunizations Under 20 Months Aged Out No longer eligible based on patient's age to complete this topic Procedures Procedure Name Priority Date/Time Associated Diagnosis Comments MRI BRAIN WWO CON Routine 12/29/2024 9:3 9 AM CDT Metastasis to brain ([facility]) URINE BACTERIA CULTURE STAT 12/03/2024 3:12 PM CDT URINALYSIS, AUTO, COMPLETE STAT 12/03/2024 3:12 PM CDT MRI THOR SPINE WWO CON Routine 10/31/2024 9:35 AM CDT Closed wedge compression fracture of T12 vertebra, initial encounter ([facility]) MRI LUMB SPINE WWO CON Routine 10/31/2024 9:34 AM CDT Compression fracture of L1 vertebra, initial encounter ([facility]) from Last 3 Months Results * MRI BRAIN WWO CON (12/29/2024 9:39 AM CDT) Anatomical Region Laterality Modality Head Magnetic Resonan ce 01/02/2025 8:11 AM CDT Impressions 01/02/2025 8:22 AM CDT IMPRESSION: 1. 2.3 cm peripherally enhancing intra-axial lesion within the upper paramedian right frontal lobe, increased in size compared to the prior MRI 10/21/2024, compatible with metastasis. The lesion demonstrates hyperintense T1 signal and prominent susceptibility artifact compatible with mineralization and/or hemosiderin staining from prior hemorrhage. An 8 mm peripherally enhancing satellite nodule along the lateral margin of the mass within the upper right frontal lobe is also mildly increased in size. There is a larger surrounding area nonenhancing hyperintense T2/FLAIR signal within the upper right frontal and parietal lobes, increased in size compared to the prior MRI, compatible with a vasogenic edema and/or post therapeutic changes. No new enhancing lesions, mass effect or midline shift. 2. Moderate to severe nonspecific FLAIR signal abnormalities of the osmany and supratentorial white matter are similar to the prior MRI, compatible with chronic small vessel ischemic changes and/or post therapeutic changes. 3. Mild to moderate cerebral atrophy with concordant prominence of the ventricles. Referred By: Interpreted By: Aristides Velez MD, 01/02/2025 8:11 AM Narrative 01/02/2025 8:22 AM CDT [facility] [address] [facility] [place] [address] EXAMINATION:Brain MRI with and without contrast 12/29/2024 INDICATION:Metastasis, surveillance following radiation. The TECHNIQUE: Multiplanar multisequence MR imaging of the head was performed prior to and following the administration of the 10 mL of Dotarem contrast intravenously. COMPARISON: Brain MRI 10/21/2024 FINDINGS:There is a peripherally enhancing intra-axial lesion within the upper paramedian right frontal lobe measuring 1.6 x 2.2 x 2.3 cm in the CC, AP and transverse dimensions, increased in size compared to the prior MRI. This lesion demonstrates central increased in T2 and FLAIR signal with the peripheral increased T1 signal and prominent susceptibility artifact. Just lateral to this lesion is a smaller enhancing satellite nodule measuring 0.8 cm, increased in size. There is a larger surrounding area of nonenhancing hyperintense T2/FLAIR signal within the upper right frontal and parietal subcortical and periventricular white matter, increased in size compared to the prior MRI. No new areas of abnormal enhancement. No midline shift or extra-axial fluid collection There is a mild to moderate atrophy with concordant prominence of the ventricles. Moderate to severe patchy confluent areas of increased FLAIR signal within the osmany and periventricular white matter not significantly changed. Expected flow voids are noted within the intracranial internal carotid, vertebral basilar is. Cerebellopontine angles and internal auditory canals are unremarkable. The pituitary gland midline structures are unremarkable. Bone marrow signal is within normal limits. The orbits and globes are unremarkable. Expected sigmoids are seen within the paranasal sinuses. No restricted diffusion. Procedure Note Aristides Velez MD - 01/02/2025 [facility] [id number] [facility] [place] [place] [id number] EXAMINATION:Brain MRI with and without contrast 12/29/2024 INDICATION:Metastasis, surveillance following radiation. The TECHNIQUE: Multiplanar multisequence MR imaging of the head was performedprior to and following the administration of the 10 mL of Dotarem contrastintravenously. COMPARISON: Brain MRI 10/21/2024 FINDINGS:There is a peripherally enhancing intra-axial lesion within theupper paramedian right frontal lobe measuring 1.6 x 2.2 x 2.3 cm in theCC, AP and transverse dimensions, increased in size compared to the priorMRI. This lesion demonstrates central increased in T2 and FLAIR signalwith the peripheral increased T1 signal and prominent susceptibilityartifact. Just lateral to this lesion is a smaller enhancing satellitenodule measuring 0.8 cm, increased in size. There is a larger surroundingarea of nonenhancing hyperintense T2/FLAIR signal within the upper rightfrontal and parietal subcortical and periventricular white matter,increased in size compared to the prior MRI. No new areas of abnormal enhancement. No midline shift or extra-axialfluid collection There is a mild to moderate atrophy with concordant prominence of theventricles. Moderate to severe patchy confluent areas of increased FLAIRsignal within the osmany and periventricular white matter not significantlychanged. Expected flow voids are noted within the intracranial internal carotid,vertebral basilar is. Cerebellopontine angles and internal auditorycanals are unremarkable. The pituitary gland midline structures areunremarkable. Bone marrow signal is within normal limits. The orbits andglobes are unremarkable. Expected sigmoids are seen within the paranasalsinuses. No restricted diffusion. IMPRESSION: 1. 2.3 cm peripherally enhancing intra-axial lesion within the upperparamedian right frontal lobe, increased in size compared to the prior MRI10/21/2024, compatible with metastasis. The lesion demonstrateshyperintense T1 signal and prominent susceptibility artifact compatiblewith mineralization and/or hemosiderin staining from prior hemorrhage.An 8 mm peripherally enhancing satellite nodule along the lateral marginof the mass within the upper right frontal lobe is also mildly increasedin size. There is a larger surrounding area nonenhancing hyperintenseT2/FLAIR signal within the upper right frontal and parietal lobes,increased in size compared to the prior MRI, compatible with a vasogenicedema and/or post therapeutic changes. No new enhancing lesions, masseffect or midline shift. 2. Moderate to severe nonspecific FLAIR signal abnormalities of the ponsand supratentorial white matter are similar to the prior MRI, compatiblewith chronic small vessel ischemic changes and/or post therapeuticchanges. 3. Mild to moderate cerebral atrophy with concordant prominence of theventricles. Referred By: Interpreted By: Aristides Velez MD, 01/02/2025 8:11 AM Arben Boswell MD MRI Final Result * (ABNORMAL) URINE BACTERIA CULTURE (12/03/2024 3:12 PM CDT) SPEC DESCRIPTION URINE STRAIGHT CATH 12/03/2024 3:12 PM CDT [facility] SPECIAL REQUESTS NO SPECIAL REQUEST 12/03/2024 3:12 PM CDT [facility] CULTURE RESULT >100,000 COL/ML KLEBSIELLA PNEUMONIAE (A) 12/05/2024 7:45 AM CDT [facility] URINE SPECIMEN OBTAINED BY SINGLE CATHETERIZATION OF URINARY BLADDER / Unknown 12/03/2024 3:12 PM CDT 12/03/2024 3:19 PM CDT Narrative Organism Antibiotic Method Susceptibility Klebsiella pneumoniae AMPICILLIN AMAYA (VITEK) 16: Resistant Klebsiella pneumoniae AMPICILLIN/SULBACTAM AMAYA (VITEK) 4: Sensitive Klebsiella pneumoniae CEFTRIAXONE AMAYA (VITEK) <=1: Sensitive Klebsiella pneumoniae CEFTAZIDIME AMAYA (VITEK) <=1: Sensitive Klebsiella pneumoniae CEFAZOLIN AMAYA (VITEK) <=4: Sensitive Klebsiella pneumoniae ESBL AMAYA (VITEK) NEG: Sensitive Klebsiella pneumoniae NITROFURANTOIN AMAYA (VITEK) 64: Intermediate Comment:INTERMEDIATE Klebsiella pneumoniae GENTAMICIN AMAYA (VITEK) <=1: Sensitive Klebsiella pneumoniae LEVOFLOXACIN AMAYA (VITEK) <=0.12: Sensitive Klebsiella pneumoniae PIPRACIL/TAZO AMAYA (VITEK) <=4: Sensitive Klebsiella pneumoniae TRIMETH-SULFAMETH. AMAYA (VITEK) <=20: Sensitive Michelle Rodriguez MD MICROBIOLOGY - GENERAL ORDERABL ES Final Result [facility] [address] [place] [address], [place] [phone] [facility] [address] [place] [address], [place] [phone] * (ABNORMAL) URINALYSIS, AUTO, COMPLETE (12/03/2024 3:12 PM CDT) COLOR (U) YELLOW 12/03/2024 3:30 PM CDT [facility] TRANSPARENCY HAZY 12/03/2024 3:30 PM CDT [facility] SPECIFIC GRAVITY (U) 1.020 1.000 - 1.030 12/03/2024 3:30 PM CDT [facility] U PH 6.0 5.0 - 9.0 12/03/2024 3:30 PM CDT [facility] LEUKOCYTES (U) 1+(A) NEGATIVE 12/03/2024 3:30 PM CDT [facility] NITRITES NEGATIVE NEGATIVE 12/03/2024 3:30 PM CDT [facility] PROTEIN RANDOM (U) NEGATIVE NEGATIVE 12/03/2024 3:30 PM CDT [facility] GLUCOSE (U) NEGATIVE NEGATIVE 12/03/2024 3:30 PM CDT [facility] KETONES MG/DL (U) TRACE(A) NEGATIVE 12/03/2024 3:30 PM CDT [facility] BILIRUBIN (U) NEGATIVE NEGATIVE 12/03/2024 3:30 PM CDT [facility] BLOOD (U) NEGATIVE NEGATIVE 12/03/2024 3:30 PM CDT [facility] WBC/HPF 5-10 0 - 5 /HPF 12/03/2024 3:30 PM CDT [facility] RBC/HPF NONE SEEN 0 - 5 /HPF 12/03/2024 3:30 PM CDT [facility] EPI/HPF FEW /HPF 12/03/2024 3:30 PM CDT [facility] BACTERIA (U) MODERATE /HPF 12/03/2024 3:30 PM CDT [facility] URINE, STRAIGHT CATH 12/03/2024 3:12 PM CDT us Michelle Rodriguez MD URINE ORDERABLES Final Result [facility] [address] [place] [address], [place] [phone] * MRI THOR SPINE WWO CON (10/31/2024 9:35 AM CDT) Anatomical Region Laterality Modality Spine Magnetic Resonan ce 11/04/2024 4:03 PM CDT Impressions 11/04/2024 4:07 PM CDT IMPRESSION: 1) Mild superior endplate compression deformities at T12 and L1 have MRI appearance favoring benign traumatic or osteoporotic insufficiency fractures. There is no MRI evidence suggest metastatic disease to the thoracic spine. Ordered By: BERNARDO COX Interpreted By: Timo Batres MD, 11/04/2024 4:03 PM Narrative 11/04/2024 4:07 PM CDT [facility] [address] [place] [address] Examination: MRI THOR SPINE WWO CON Exam time: 10/31/2024 8:08 AM Clinical history: History of lung cancer, indeterminate mild fracture deformity at T12 and L1, further evaluation. Comparison: PET/CT 10/08/2024 Technique: Sagittal T1, T2 FSE and STIR images of the thoracic spine obtained. Axial T1 and T2 FSE images. Following intravenous injection of 10 mL Dotarem gadolinium contrast sagittal and axial T1-weighted images obtained. Findings: The images demonstrate mild superior endplate fracture deformities at T12 and L1. There is mild loss of height with minimal bony retropulsion of L1. There is minimal marrow signal abnormality along the superior endplates at these levels. Large amount of normal marrow noted in the vertebral bodies and posterior elements at both these levels. The MRI appearance favors benign traumatic or osteoporotic insufficiency fractures. Thoracic vertebral body heights are otherwise well-maintained. There are no marrow replacing mass lesions to suggest metastatic disease to the thoracic spine. There is no evidence of significant acute paraspinous soft tissue abnormality. The thoracic spinal cord and conus have normal morphology. No focal thoracic spinal cord lesions are demonstrated. There is no evidence of significant central stenosis nor cord compression. No significant abnormal enhancement is demonstrated in the thoracic spine. Right adrenal nodule again demonstrated similar to previous PET/CT. Procedure Note Timo Batres MD - 11/04/2024 [facility] [address] [place] [address] Examination: MRI THOR SPINE WWO CON Exam time: 10/31/2024 8:08 AM Clinical history: History of lung cancer, indeterminate mild fracturedeformity at T12 and L1, further evaluation. Comparison: PET/CT 10/08/2024 Technique: Sagittal T1, T2 FSE and STIR images of the thoracic spineobtained. Axial T1 and T2 FSE images. Following intravenous injection of10 mL Dotarem gadolinium contrast sagittal and axial T1-weighted imagesobtained. Findings: The images demonstrate mild superior endplate fracturedeformities at T12 and L1. There is mild loss of height with minimal bonyretropulsion of L1. There is minimal marrow signal abnormality along thesuperior endplates at these levels. Large amount of normal marrow noted inthe vertebral bodies and posterior elements at both these levels. The MRIappearance favors benign traumatic or osteoporotic insufficiencyfractures. Thoracic vertebral body heights are otherwise well-maintained. There areno marrow replacing mass lesions to suggest metastatic disease to thethoracic spine. There is no evidence of significant acute paraspinous softtissue abnormality. The thoracic spinal cord and conus have normalmorphology. No focal thoracic spinal cord lesions are demonstrated. Thereis no evidence of significant central stenosis nor cord compression. Nosignificant abnormal enhancement is demonstrated in the thoracic spine. Right adrenal nodule again demonstrated similar to previous PET/CT. IMPRESSION: 1) Mild superior endplate compression deformities at T12 and L1 have MRIappearance favoring benign traumatic or osteoporotic insufficiencyfractures. There is no MRI evidence suggest metastatic disease to thethoracic spine. Ordered By: BERNARDO COX Interpreted By: Timo Batres MD, 11/04/2024 4:03 PM Bernardo Cox [employer] MRI Final Result * MRI LUMB SPINE WWO CON (10/31/2024 9:34 AM CDT) Anatomical Region Laterality Modality Spine Magnetic Resonan ce 11/04/2024 3:57 PM CDT Impressions 11/04/2024 4:02 PM CDT IMPRESSION: 1) Mild superior endplate fracture deformities at T12 and L1 have an MRI appearance favoring benign traumatic or insufficiency fractures. There is no definite evidence of metastatic disease to bone involving lumbar spine. Ordered By: BERNARDO COX Interpreted By: Timo Batres MD, 11/04/2024 3:57 PM Narrative 11/04/2024 4:02 PM CDT [facility] [address] [place] [address] Examination: MRI LUMB SPINE WWO CON Exam time: 10/31/2024 8:08 AM Clinical history: History of lung cancer, indeterminate mild compression fractures at T12 and L1, further evaluation. Comparison: PET/CT 10/08/2024 Technique: Sagittal T1, T2 FSE and STIR images of the lumbar spine. Axial T1 and T2-weighted images. Following intravenous injection of 10 mL Dotarem gadolinium contrast sagittal and axial T1-weighted images were obtained along with sagittal fat-suppressed T1-weighted images. Findings: Lumbar vertebral bodies are in good alignment. There are mild superior endplate fracture deformities at T12 and L1. These are associated with some minimal marrow signal abnormality along the superior endplates, however there is a large amount of normal marrow signal within both vertebral bodies and posterior elements at both levels. There is mild loss of height with no significant bony retropulsion. The appearance of these superior endplate compression fractures favor benign insufficiency or traumatic fractures. There are no marrow replacing mass lesions noted in the lumbar spine to suggest metastatic disease. No significant spondylolisthesis. The conus is normal in appearance with the tip the conus at T12-L1. T12-L1 level demonstrates minimal diffuse disc bulge and minimal bony retropulsion from the superior endplate of L1. No significant central stenosis or foraminal narrowing. L1-2 disc level is unremarkable. L2-3 demonstrates diffuse disc bulge and facet degenerative change causing mild central stenosis and mild narrowing of left neural foramen. L3-4 demonstrates minimal disc bulge and facet degenerative change. No significant central stenosis or foraminal narrowing. L4-5 demonstrates chronic degenerative disc disease with diffuse disc bulge and facet degenerative change causing minimal central stenosis and minimal foraminal narrowing bilaterally. L5-S1 disc level is unremarkable. Following intravenous injection of gadolinium contrast there is no significant abnormal enhancement in the lumbar region. An indeterminate right adrenal nodule is again demonstrated similar to previous PET/CT. Minimal renal collecting system dilatation. Procedure Note Timo Batres MD - 11/04/2024 [facility] [address] [place] [address] Examination: MRI LUMB SPINE MISTY MCLEAN Exam time: 10/31/2024 8:08 AM Clinical history: History of lung cancer, indeterminate mild compressionfractures at T12 and L1, further evaluation. Comparison: PET/CT 10/08/2024 Technique: Sagittal T1, T2 FSE and STIR images of the lumbar spine. AxialT1 and T2-weighted images. Following intravenous injection of 10 mLDotarem gadolinium contrast sagittal and axial T1-weighted images wereobtained along with sagittal fat-suppressed T1-weighted images. Findings: Lumbar vertebral bodies are in good alignment. There are mildsuperior endplate fracture deformities at T12 and L1. These are associatedwith some minimal marrow signal abnormality along the superior endplates,however there is a large amount of normal marrow signal within bothvertebral bodies and posterior elements at both levels. There is mild lossof height with no significant bony retropulsion. The appearance of thesesuperior endplate compression fractures favor benign insufficiency ortraumatic fractures. There are no marrow replacing mass lesions noted in the lumbar spine tosuggest metastatic disease. No significant spondylolisthesis. The conus isnormal in appearance with the tip the conus at T12-L1. T12-L1 level demonstrates minimal diffuse disc bulge and minimal bonyretropulsion from the superior endplate of L1. No significant centralstenosis or foraminal narrowing. L1-2 disc level is unremarkable. L2-3 demonstrates diffuse disc bulge and facet degenerative change causingmild central stenosis and mild narrowing of left neural foramen. L3-4 demonstrates minimal disc bulge and facet degenerative change. Nosignificant central stenosis or foraminal narrowing. L4-5 demonstrates chronic degenerative disc disease with diffuse discbulge and facet degenerative change causing minimal central stenosis andminimal foraminal narrowing bilaterally. L5-S1 disc level is unremarkable. Following intravenous injection of gadolinium contrast there is nosignificant abnormal enhancement in the lumbar region. An indeterminateright adrenal nodule is again demonstrated similar to previous PET/CT.Minimal renal collecting system dilatation. IMPRESSION: 1) Mild superior endplate fracture deformities at T12 and L1 have an MRIappearance favoring benign traumatic or insufficiency fractures. There isno definite evidence of metastatic disease to bone involving lumbarspine. Ordered By: BERNARDO COX Interpreted By: Timo Batres MD, 11/04/2024 3:57 PM Bernardo Cox [employer] MRI Final Result from Last 3 Months Insurance [facility] Care Teams Mental Health Specialist Relationship Specialty Start Date End Date Pamela Cavanaugh, EDUCATION DIRECTOR- PCP - General 11/02/22 Arben Boswell MD [address] [place] [address] Consulting Physician RADIATION ONCOLOGY 09/27/23
--- OUTSIDE RECORDS SUMMARY | 2025-01-22 21:09 | XMS_ITS | Clinical Summary ---
Author Organization [facility] Building B Address [address] [place] [address] Care Team Providers Care Consultant Technology Name Role Phone Vicki Bearden NP Unavailable + [phone] Pamela Howe NP Primary Care Provider Fazal Mcneal DO Unavailable [phone] Naya Valdez MD Unavailable [phone] Sarah Rich MD Unavailable + [phone] Arben Alvarenga MD Unavailable [phone] Lloyd Anderson MD Unavailable Allergies Active Allergy Reactions Criticality [...] (six) hours as needed for pain 04/30/20 Active guaiFENesin ER (MUCINEX) 600 mg 12 [...] in each nostril as directed 30 mL 11 02/06/20 24 Active Additional Information Patient taking [...] week (such as Sunday/ ) 42.5 g 1 08/07/[address] (CYMBALTA) 60 [...] 12/07/2023 Assessment & Plan (06/05/2024 9:18 AM REMEDIAL TEACHER): 3 right frontal brain metastases Treated with [...] 10/11/2022 Assessment & Plan (06/05/2024 9:08 AM REMEDIAL TEACHER): Diagnosed with poorly differentiated adenocarcinoma consistent with [...] 11/19/2021 Assessment & Plan (06/05/2024 9:12 AM REMEDIAL TEACHER): Exercise encouraged Fall prevention discussed Baclofen 10 [...] seizures. Assessment & Plan (05/23/2022 9:50 AM REMEDIAL TEACHER): Exercise encouraged: Yoga video Fall prevention discussed [...] 07/10/2017 Assessment & Plan (06/05/2024 9:12 AM REMEDIAL TEACHER): Straight cath 3-4 times a day Follow-up [...] Garcia Assessment & Plan (05/23/2022 9:51 AM REMEDIAL TEACHER): Straight cath TID or QID Follow-up with [...] Garcia Assessment & Plan (08/15/2019 9:08 AM REMEDIAL TEACHER): Straight cath TID or QID Urology follow-up. Current urologist now out of network so will refer to Dr. Kendrick Garcia. Assessment & Plan (02/07/2019 9:03 AM CDT): Straight cath TID or QID Assessment & Plan (08/01/2018 9:23 AM REMEDIAL TEACHER): Straight cath TID or QID Assessment & Plan (01/22/2018 9:30 AM CDT): Straight cath and monitor UTI's. Recommended to call us if urologist needed Assessment & Plan (07/10/2017 5:38 PM REMEDIAL TEACHER): Straight cath TID or QID Mild recurrent major depression 07/10/2017 Assessment & Plan (06/05/2024 9:13 AM REMEDIAL TEACHER): Duloxetine 60 mg twice a day Assessment & Plan (12/07/2023 7:32 AM CDT): Cymbalta 60 mg twice a day Assessment & Plan (03/28/2023 7:47 AM CDT): Cymbalta 60 mg twice a day Assessment & Plan (12/04/2022 8:39 AM CDT): Cymbalta 60 mg twice a day Assessment & Plan (05/23/2022 9:53 AM REMEDIAL TEACHER): Cymbalta 60 mg twice a day Assessment & Plan (11/19/2021 9:14 AM CDT): Cymbalta 60 mg twice a day Assessment & Plan (10/13/2020 7:03 AM CDT): Cymbalta 60 mg daily Assessment & Plan (02/17/2020 9:08 AM CDT): Increase Cymbalta 60 mg twice a day. Moderate depression on sertraline 100 mg daily Assessment & Plan (08/15/2019 9:08 AM REMEDIAL TEACHER): Sertraline 100 mg daily not controlling depression. Will start Cymbalta 30 mg at night for 1 week, then 60 mg at night. Risks discussed including nausea and drowsiness. Decrease sertraline to 50 mg at night for 1 week, then discontinue. Assessment & Plan (02/07/2019 9:03 AM CDT): Sertraline 100 mg daily Assessment & Plan (08/01/2018 9:23 AM REMEDIAL TEACHER): Sertraline 100 mg daily Assessment & Plan (01/22/2018 9:30 AM CDT): Sertraline 100mg HS Assessment & Plan (07/10/2017 5:39 PM REMEDIAL TEACHER): Sertraline 50 mg daily Pain in shoulder 04/17/2016 Multiple sclerosis 11/29/2013 Overview (01/27/2021): MULTIPLE SCLEROSIS DMT history Rebif 22 mcg 01/2011-03/2011, elevated LFTs Copaxone [id number] stopped due to out of pocket costs Viji 03/03/2014- Assessment & Plan (06/05/2024 9:11 AM REMEDIAL TEACHER): Since diagnosed with poorly differentiated adenocarcinoma of [...] off Gilenya reviewed. She will enroll in [facility] website so teriflunomide can be prescribed [...] January. Assessment & Plan (05/23/2022 9:56 AM REMEDIAL TEACHER): Gilenya. Risks discussed including cryptococcal meningitis and [...] Assessment & Plan (10/13/2020 7:03 AM CDT): Viji. Risks discussed including cryptococcal meningitis and PML [...] Assessment & Plan (02/17/2020 9:07 AM CDT): Viji. Risks discussed including bronchitis/pneumonia, [...] daily Assessment & Plan (08/15/2019 9:06 AM REMEDIAL TEACHER): Viji. Risks discussed including bronchitis/pneumonia, cryptococcal meningitis [...] 2020 Assessment & Plan (08/01/2018 9:22 AM REMEDIAL TEACHER): Viji. Risks discussed including bronchitis/pneumonia, cryptococcal meningitis [...] needed. Assessment & Plan (07/10/2017 5:42 PM REMEDIAL TEACHER): Viji. Risks discussed including bronchitis/pneumonia, cryptococcal meningitis [...] 12/15/2024 Assessment & Plan (06/05/2024 9:13 AM REMEDIAL TEACHER): 04/09/20 hemoglobin 12.2, MCV 101.3 12/01/20 B12 [...] 20.2 Assessment & Plan (05/23/2022 9:54 AM REMEDIAL TEACHER): 04/09/20 hemoglobin 12.2, MCV 101.3 12/01/20 B12 [...] Rebif 22 mcg 01/2011-03/2011, elevated LFTs Copaxone [id number] stopped due to out of pocket costs [...] MRI brain and cervical spine October 2023 Encounters Date Type Department Care Team Description 01/13/2025 7:52 AM CDT - 01/13/2025 11:59 PM CDT Hospital Encounter [facility] [address] [place] [address] Lloyd Anderson MD Facet arthropathy, lumbar (Primary Dx); Pain of lumbar facet joint; Bulge of lumbar disc without myelopathy Discharge Disposition: Discharge to home or self care 01/08/2025 3:45 PM CDT Office Visit [facility] Infectious Disease [address] [place] [address] Spencer Oneill MD Dysuria (Primary Dx); Multiple sclerosis (HCC) 01/07/2025 Orders Only [facility] Family Medicine [address] [place] [address] [address] [place] [address] Pamela Howe NP 12/30/2024 Results Follow-Up [facility] Family Medicine [address] [place] [address] [address] [place] [address] Pamela Howe, DAVID Urinalysis reflex to microscopic and culture Urine, clean voided, REFLEXIVE URINE CULTURE, Urine culture 12/26/2024 8:46 AM CDT - 12/26/2024 11:59 PM CDT Hospital Encounter [facility] [address] [address] Lloyd Anderson MD Compression fracture of T12 vertebra, initial encounter (HCC) (Primary Dx); Compression fracture of L1 vertebra, initial encounter (HCC); Age-related osteoporosis with current pathological fracture, initial encounter; Intractable back pain Discharge Disposition: Discharge to home or self care 12/23/2024 3:35 PM CDT Lab [facility] [address] [place] [address] Compression fracture of body of thoracic vertebra (HCC); Compression fracture of L1 vertebra, initial encounter (HCC); Pre-op testing 12/19/2024 8:00 AM CDT Office Visit [facility] [address] 7th [address] [place] [address] Adeline Bennett NP Recurrent UTI (Primary Dx); Pelvic floor dysfunction in female; Vaginal atrophy 12/18/2024 Documentation [facility] [address] [address] Marcela García RN 12/18/2024 Documentation [facility] [address] [address] Marcela García RN 12/18/2024 Orders Only [facility] [address] [address] Marcela García RN Compression fracture of T12 vertebra, initial encounter ([facility]) (Primary Dx); Compression fracture of L1 vertebra, initial encounter ([facility]) 12/18/2024 Orders Only [facility] [address] [address] Mary Hoffman RN 12/18/2024 Orders Only [facility] [address] [address] Mary Hoffman RN 12/18/2024 Documentation [facility] [address] [address] Marcela García RN 12/16/2024 Orders Only [facility] Family Medicine [address] [place] [address] Pamela Howe NP Frequent UTI (Primary Dx) 12/15/2024 9:00 AM CDT Office Visit [facility] [address] [place] [address] Michael Horner MD Multiple sclerosis (HCC) (Primary Dx); Paraparesis (HCC); Neurogenic bladder; Metastasis to brain (HCC); Wedge compression fracture of T11-T12 vertebra, initial encounter for closed fracture (HCC); Wedge compression fracture of first lumbar vertebra, initial encounter for closed fracture (HCC); Mild recurrent major depression 12/12/2024 Orders Only [facility] [address] [place] [address] Pamela Howe NP Hypertension, essential 12/05/2024 Telephone [facility] [address] [place] [address] Pamela Howe NP 12/03/2024 11:19 AM CDT - 12/03/2024 11:59 PM CDT Hospital Encounter [facility] [address] [place] [address] [address] [place] [address] Lloyd Anderson MD Age-related osteoporosis with current pathological fracture, initial encounter (Primary Dx); T12 compression fracture, initial encounter (HCC); Wedge compression fracture of first lumbar vertebra, initial encounter for closed fracture (HCC); Intractable back pain Discharge Disposition: Discharge to home or self care 12/01/2024 9:15 AM CDT Office Visit [facility] [address] [place] [address] [address], [address] [place] [address] Israel Chou PA Wedge compression fracture of T11-T12 vertebra, initial encounter for closed fracture (HCC) (Primary Dx); Wedge compression fracture of first lumbar vertebra, initial encounter for closed fracture (HCC) 12/01/2024 9:05 AM CDT - 12/01/2024 11:59 PM CDT Hospital Encounter [facility] Di[facility] Imaging [address] [place] [address] Closed wedge compression fracture of T12 vertebra, initial encounter (HCC); Closed wedge compression fracture of T11 vertebra, initial encounter (HCC); Closed wedge compression fracture of L1 vertebra, initial encounter (HCC) Discharge Disposition: Discharge to home or self care 11/26/2024 Telephone [facility] Pulmonology [address] [place] [address] Spencer Oneill MD 11/21/[address] 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 [address] 7[address] [place] [address] Dee Bergeron RN 11/11/2024 Telephone [facility] Pulmonology [address] [place] [address] Spencer Oneill MD 11/05/2024 Telephone [facility] Orthopedics and Sports Medicine [facility] [place] [address] Alyssa Ledezma NP 11/05/2024 Orders Only [facility] Sports Medicine [facility] [place] [address] Marilia Cummings MD 11/04/2024 10:30 AM CDT Office Visit [facility] Internal Medicine at [place] [address] [facility] [address] [place] [address] Pamela Howe NP Single subsegmental pulmonary embolism without acute cor pulmonale (HCC) (Primary Dx); Body mass index (BMI) less than 18.5 10/31/2024 12:05 AM CDT - 10/31/2024 11:59 PM CDT Hospital Encounter [facility] [phone] Discharge Disposition: Discharge to home or self care 10/31/2024 - 10/31/2024 11:59 PM CDT Hospital Encounter [facility] [phone] Discharge Disposition: Discharge to home or self care 10/30/2024 Telephone [facility] Pulmonology [address] [place] [address] Spencer Oneill MD 10/27/2024 Orders Only [facility] Family Medicine [address] [place] [address] Pamela Howe NP from Last 3 Months Immunizations Immunization Administration Dates Next Due COVID-19 [...] Pneumococcal Conjugate Pcv20 04/20/2022 Sars-CoV-2, Unspecified 05/02/2024 Surgical History Surgery Date Site/Laterality Comments TONSILLECTOMY 07/16/1983 - 07/15/1984 APPENDECTOMY 07/16/1981 - 07/15/1982 BREAST LUMPECTOMY 07/16/1990 - 07/15/1991 Right TOE SURGERY 05/05/2022 Right hammertoe 2nd toe rt foot SUPERFICIAL BONE BIOPSY 10/20/2022 N/A FOOT SURGERY VERTEBRAL AUGMENTATION 12/26/2024 N/A T12,L1 Medical History Medical History Date Comments Hx Other Medical tonsilectomy Hx Other Medical Appendectomy Hx Other Medical r breast cyst r emoval MS (multiple sclerosis) (HCC) Anemia B12 anemia Hypertension Urinary tract infection Pneumonia PE (pulmonary thromboembolism) (HCC) Lung cancer (HCC) lung cancer le ft lung and rib COPD (chronic obstructive pulmonary disease) (HC C) Neuromuscular disorder (HCC) 1989 Depression 2018 Abnormal Pap smear of cervix 1993 Breast mass 1992 Family History Medical History Relation Name Comments Depression Brother Kristopher Mental illness Brother Kristopher Alcohol abuse Father Aly Hypertension Father Aly Hypertension; Stroke Father Aly Alzheimer's disease Maternal Grandfather Redd Memory loss Maternal Grandfather Redd Vision loss Maternal Grandfather Redd Diabetes Maternal Grandmother Kenzie Alcohol abuse Mother Miranda Depression Mother Miranda Diabetes Mother Miranda Diabetes mellit us; Hypertension Mother Miranda Diabetes Mother's Brother Aly Diabetes Mother's Sister Vickie Hypertension Paternal Grandfather Mickey Stroke Paternal Grandfather Mickey Arthritis Paternal Grandmother Kenzie Hypertension Paternal Grandmother Kenzie Diabetes Sister Mar Early Sister Mar Relation Name Status Comments Brother Kristopher Alive Father Aly Maternal Grandfather Redd Alive Maternal Grandmother Kenzie Alive Mother Miranda Mother's Brother Aly Alive Mother's Sister Vickie Alive Paternal Grandfather Mickey Alive Paternal Grandmother Kenzie Alive Sister Mar Social History Tobacco Use Types Packs/Day Years Used Date Smoking Tobacco: Former Cigarettes 0.6 30 1 08/14/1988 - 06/14/2019 Vaping Smokeless Tobacco: Never Tobacco Cessation:Counseling Given: Not Answered Alcohol Use Standard Drinks/Week Comments Yes 0 (1 standard drink = 0.6 oz pur e alcohol) [facility] Utilities Answer Date Recorded In the past 12 months has e electric, gas, oil, or water company [...] 08/20/2023 How often do you attend chur or adventism services? More than 4 times per year 08/20/2023 Do you belong to any clubs o r organizations such as taoism groups, unions, fraternal or athletic groups, or [...] place to sleep or slept in a long-term (including now)? No 08/20/2023 Personal Safety Answer Date Recorded Have you ever been in or are you currently in a harmful physical or emotional relationship or is someone making you feel afraid or unsafe? 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 Not on file Not on file Obstetrics History Last Filed Vital Signs Vital Sign Reading [...] 01/13/2025 8:02 AM CDT Plan of Treatment Health Maintenance Due Date Last Done Comments Cervical Cancer Screening 1965 DTaP/Tdap/Td Vaccine (1 - Tdap) 1976 Hepatitis B Screening 1983 Zoster Vaccine (1 of 2) 1984 Breast Cancer Screening-Mammogram 03/23/2022 021 Covid-19 Vaccine (8 - Mixed Product risk season) 2024 05/02/2024, 05/15/2023, 11/28/2022, Additional history exists Regular Well Visit/Exam 18-64 12/31/2024 01/01/2024, 05/23/2022 Influenza Vaccine (#1) 2025 , 05/07/2023, 04/20/2022, Additional history exists Depression Screening 11/04/2025 11/04/2024, 05/06/2024, 01/01/2024, Additional history exists Colon Cancer Screening-Colonoscopy 04/11/2029 04/11/2019 Colon Cancer Screening-CT Colonography Discontinued 04/11/2019 Colon Cancer Screening-DNA Stool Discontinued 04/11/20 Colon Cancer Screening-FIT Discontinued 04/11/2019 Colon Cancer Screening-Sigmoidoscopy Discontinued 04/11/2019 Hepatitis C Screening Completed 12/02/2020 Pneumococcal vaccine <65 Completed 04/20/2022 Medical Devices Implanted Type Area Radiology Resident Device Identifier Shelf Expiration Date Model / Serial / Lot Screw Screw Right: Toes Description:Rt foot 2nd toe [employer] Avamax Od13 Ga L10 Mm Balloon Tray Bone Cement [id number] - [id number] - [id number] Implanted:Qty: 1 on 12/26/2024 by Lloyd Anderson MD at [facility] [employer] 03/15/2025 [id number] / [id number] / Description:Vertaplex HV hig h viscosity radiopaque bone cement Procedures Procedure Name Priority Date/Time Associated Diagnosis Comments PAIN MGMT IMAGING VEREBROPLASTY (VTP) THORACIC Schedule Routine, Read Routine (OP Routine) 12/26/2024 11:45 AM CDT Compression fracture of L1 vertebra, initial encounter (HCC) APTT Routine 12/23/2024 3:40 PM CDT Compression fracture of body of thoracic vertebra (HCC) Compression fracture of L1 vertebra, initial encounter (HCC) Pre-op testing PROTIME-INR Routine 12/23/2024 3:40 PM CDT Compression fracture of body of thoracic vertebra (HCC) Compression fracture of L1 vertebra, initial encounter (HCC) Pre-op testing CBC WITHOUT DIFFERENTIAL Routine 12/23/2024 3:40 PM CDT Compression fracture of body of thoracic vertebra (HCC) Compression fracture of L1 vertebra, initial encounter (HCC) Pre-op testing URINE CULTURE Routine 12/18/2024 7:34 [...] fracture of L1 vertebra, initial encounter (HCC) CT LUMBAR SPINE W WO CONTRAST Schedule [...] Results * Imaging Fluoro Vertebroplasty (VTP) Thoracic (90259) (12/26/2024 11:45 AM CDT) Narrative [email or web address] - 12/26/2024 1:35 PM CDT The images from this study are not interpreted by Radiology. Please refer to the physician's procedure / OR operative note. Lloyd Anderson MD IMG PAIN MGMT PROCEDURES Final R esult Performing Organization Address [facility] Co de Phone Number [email or web address] * aPTT (12/23/2024 3:40 PM CDT) aPTT 33 22 - 37 sec Comment: Interpretive data aPTT test has not been evaluated for monitoring heparin therapy. The anti-Xa is the preferred test. Current interpretive data was last revised on 2019. Testing performed by: [address] [address] Blood 12/23/2024 3:40 PM CDT 12/23/2024 3:46 PM CDT Lloyd Anderson MD LAB BLOOD ORDERABLES Final Resul t Performing Organization Address [facility] de Phone Number [facility] [address] Department [place] [address] * Protime-INR (12/23/2024 3:40 PM CDT) PT 13.6 12.0 - 14.6 sec Comment:Testing performed by : [address] [address] INR 1.1 0.9 - 1.2 [facility] Comment: Ref Range High Interpretive data Oral anticoagulant therapeutic ranges: Venous thromboembolism prophylaxis or treatment: 2.0-3.0 CARDIOLOGY Standard range: 2.0-3.0 High-intensity range: 2.5-3.5 Refer to indication-specific guidelines for appropriate target ranges for prosthetic heart valve replacement. Current interpretive data was last revised on 2019. Testing performed by: [address] [address] Blood 12/23/2024 3:40 PM CDT 12/23/2024 3:46 PM CDT Lloyd Anderson MD LAB BLOOD ORDERABLES Final Resul t Performing Organization Address [facility] Co de Phone Number [facility] [address] [facility] Department [place] [address] * (ABNORMAL) CBC without differential (12/23/2024 3:40 PM CDT) [facility] WBC 5.50 3.80 - 9.90 K/cumm Comment:Testing performed by : [address] [address] Hgb 12.4 11.9 - 15.5 g/dL TETE Comment:Testing performed by : [address] [address] Hct 38.6 35.6 - 45.5 % TETE Comment:Testing performed by : [address] [address] Plt 480(H) 150 - 400 K/cumm TETE Comment:Testing performed by : [address] [address] MPV 8.6(L) 9.1 - 12.3 fL TETE Comment:Testing performed by : [address], [address] RBC 4.05 3.90 - 5.20 M/cumm TETE Comment:Testing performed by : [address] [address] MCV 95.3 81.3 - 96.4 fL TETE Comment:Testing performed by : [address] [address] MCH 30.6 27.1 - 33.3 pg TETE Comment:Testing performed by : [address] [address] MCHC 32.1(L) 32.3 - 35.7 g/dL TETE Comment:Testing performed by : [address] [address] RDW CV 14.6 11.1 - 14.9 % TETE Comment:Testing performed by : [address] [address] RDW SD 50.9(H) 35.7 - 48.1 fL TETE Comment:Testing performed by : [facility], [address] [place] [address]., [address] NRBC abs 0.00 0.00 - 0.01 K/cumm TETE Comment:Testing performed by : [facility], [address] [place] [address]., [address] Blood 12/23/2024 3:40 PM CDT 12/23/2024 3:46 PM CDT Lloyd Anderson MD LAB BLOOD ORDERABLES Final Resul t Performing Organization Address City/[facility]/ZIP Co de Phone Number [place] [phone] [facility] Department [place] [address] * REFLEXIVE URINE CULTURE (12/18/2024 7:34 AM CDT) Urine culture [employer] [facility] Comment:CULTURE INDICATED - RESULTS TO FOLLOW 12/18/2024 7:34 AM CDT 12/18/2024 7:35 AM CDT Pamela Howe NP LAB MICROBIOLOGY - GENERAL OR DERABLES Final Result Performing Organization Address City/[facility] Co de Phone Number [facility] [address] [place] [address] * (ABNORMAL) Urinalysis reflex to microscopic and [...] 0-5 < OR = 5 /HPF [facility] RBC, ur NONE SEEN < OR = 2 /HPF [facility] Epithelial cells, squamous, ur 0-5 < OR = 5 /HPF [facility] Bacteria, ur, quant NONE SEEN NONE SEEN /HPF [facility] Hyaline cast NONE SEEN NONE SEEN /LPF [facility] Note [facility] Comment: This urine was analyzed for the presence of WBC, RBC, bacteria, casts, and other formed elements. Only those elements seen were reported. Urine, clean voided 12/18/2024 7:34 AM CDT 12/18/2024 7:35 AM CDT Pamela Howe TRUCK CATERER LAB MICROBIOLOGY - GENERAL OR DERABLES Final Result Performing Organization Address [facility] de Phone Number [facility] [address] [place] [address] * Urine culture (12/18/2024 7:34 AM CDT) Urine culture [facility] Comment: CULTURE, URINE, ROUTINE Micro Number: [id number] Test Status: Final Specimen Source: Urine Specimen Quality: Adequate Result: No Growth 12/18/2024 7:34 AM CDT 12/18/2024 7:35 AM CDT Pamela Howe [employer] LAB MICROBIOLOGY - GENERAL OR DERABLES Final Result Performing Organization Address [facility] de Phone Number [facility] [address] [place] [address] * XR Spine Thoracic/Lumbar 2 View (12/01/2024 [...] by Nam Michele M.D. T: Report ID: [id number] Reading Location: [place] [address] Procedure Note Nam Michele MD - 12/03/2024 EXAM DESCRIPTION: XR SPINE THORACOLUMBAR JUNCTION 2 OR MORE VIEWS REASON FOR STUDY: WEDGE COMPRESSION FRACTURE T-11-T12 VERTEBRA WEDGE COMPRESSION FRACTURE FINDINGS: Two views thoracolumbar spine submitted with [id number]/01/2025. Redemonstrated are moderate T12 and L1 compression deformities.Associated kyphosis is present. No new fractures identified. Long segment dextroscoliosis of the thoracolumbar junction is noted. There ismultilevel thoracic degenerative disc disease. IMPRESSION: Unchanged moderate T12 and L1 compression deformities with associated kyphosis. THIS IS AN ELECTRONICALLY VERIFIED FINAL REPORT 12/03/2024 3:47 PM - Electronically signed by Nam Michele M.D. T: Report ID: [id number] Reading Location: [place] [address] Enrico Barragan MD IMG XR PROCEDURES Final Result * CT Lumbar Spine W WO Contrast (11/05/2024 11:34 AM CDT) Anatomical Region Laterality Modality Spine N/A Computed Tomogra phy Historical Provider MD MEJIA CT PROCEDURES Final R esult * CT Thoracic Spine W WO Contrast (11/05/2024 11:33 AM CDT) Anatomical Region Laterality Modality Spine N/A Computed Tomogra phy Historical Provider MD IMG CT PROCEDURES Final R esult * Neuro MR Outside Reference (10/31/2024 12:05 AM CDT) Narrative RAD_PACS_OUTSIDE_FILM_[facility] - 12/15/2024 9:57 AM CDT This order has been auto-finalized and does not contain a result. Provider Transcribed Order IMG MRI PROCEDURES Fi nal Result Performing Organization Address [facility] de Phone Number RAD_PACS_OUTSIDE_FILM_[facility] * Neuro MR Outside Reference (10/31/2024 12:00 AM CDT) Narrative RAD_PACS_OUTSIDE_FILM_[facility] - 12/15/2024 9:57 AM CDT This order has been auto-finalized and does not contain a result. Provider Transcribed Order IMG MRI PROCEDURES Fi nal Result Performing Organization Address [facility] de Phone Number RAD_PACS_OUTSIDE_FILM_[facility] * Screening Mammogram (03/23/2021) Anatomical Region Laterality Modality Breast N/A Mammography [facility] Provider IMG MAMMO PROCEDURES Mariah l Result [...] a test for HCV RNA (test code 11622) is suggested. For additional information please refer to http://education.Movaya/faq/LGP06f7 (This link is being provided for informational/ educational purposes only.) Blood specimen (specimen) 12/02/2020 7:15 AM CDT 12/02/2020 7:16 AM CDT Narrative [facility] - 12/03/2020 12:18 PM CDT FASTING:YES FASTING: YES Pamela Howe NP LAB MICROBIOLOGY - GENERAL OR DERABLES Final Result [facility] [address] [address] * Colonoscopy (04/11/2019) Anatomical Region Laterality Modality Other Impressions 04/11/2019 Repeat 5 years Historical Provider MD ENDOSCOPY PROCEDURES Mariah l Result from Last 3 Months or Most Recently Relevant to Health Maintenance [place] For more information, please contact: [phone] * Full Code (Latest Code Status on File) Date Activated Date Inactivated Comments 08/17/2023 5:22 PM 08/21/2023 5:09 PM * Full Code Date Activated Date Inactivated Comments 10/20/2022 10:50 AM 10/21/2022 5:00 AM Care Teams Consultant Technology Relationship Specialty Start Date End Date Pamela Howe NP [address] [facility] [address] [place], [place] [id number] PCP - General Internal Medicine 11/21/22 Vicki Bearden NP Nurse Practitioner Urology 11/15/20 Fazal Mcneal, [address] [place] [address] Referring Physician Medical Oncology 11/27/22 Naya Valdez MD [address] [place] [address] Radiation Oncology 11/27/22 Sarah Rich MD [address] [place] [address] Consulting Physician Pulmonary Disease 11/27/22 Arben Alvarenga MD [address] [address] Radiation Oncology 12/07/23 Lloyd Anderson MD [address] [address] Consulting Physician Pain Management 12/26/24
--- OUTSIDE RECORDS SUMMARY | 2025-01-22 21:10 | XMS_ITS | Clinical Summary ---
Author Organization [facility] Address [address], [address] [place] [address] Phone Care Team Providers Care Production Support Manager Name Role Phone Provider, Unknown Primary Care Provider Unavaila Sarah Mcdowell MD Unavailable [phone] Pamela Cavanaugh APRN, JIG HAND Unavailable [phone] Michael Horner MD Unavailable [phone] Fazal Mcneal DO Unavailable [phone] Allergies Active Allergy Reactions Criticality Noted Date Comments Codeine Rash Medium 04/04/2019 Tetanus Immune Globulin Rash Low 06/23/2019 Medications DULoxetine (CYMBALTA) [address] Particles 07/26/19 23 Active baclofen (LIORESAL) 10 MG Tablet 06/01/20 22 Active albuterol 108 (90 Base) MCG/ACT Aerosol Solution take 2 Puffs by inhalation every 4 hours as needed. 07/15/20 22 Active pseudoephedrine- guaiFENesin (MUCINEX D) 60-600 MG TABLET SR 12 HR 02/18/20 14 Active multi-vitamins Tablet Take 1 Tablet by mouth daily. Active Vitamin D3 (CHOLECALCIFEROL ) 125 MCG Tablet Take by mouth. Active TURMERIC CURCUMIN PO Take 1,500 Units by mouth daily. Active cyanocobalamin (VITAMIN B-12) 1000 MCG/ML Solution 1,000 mcg by Intramuscular route. 08/01/19 23 Active Breztri Aerosphere 160-9-4.8 MCG/ACT Aerosol 10/12/19 Active amLODIPine (NORVASC) 2.5 MG Tablet 03/06/20 23 Active Teriflunomide 14 MG Tablet Take 14 mg by mouth. 03/29/20 23 Active acyclovir (ZOVIRAX) 800 MG Tablet TAKE 1 TABLET(800 MG) BY MOUTH FIVE TIMES DAILY FOR 7 DAYS 12/11/19 24 Active dexamethasone (DECADRON) 2 MG Tablet 11/29/19 24 Active azelastine (ASTELIN) 0.1 % Solution 1 [place] by Nasal route. 02/06/20 24 Active modafinil (PROVIGIL) 200 MG Tablet Take 200 mg by mouth. 06/04/20 24 Active estradiol (ESTRACE) 0.1 MG/GM Cream Insert one gram vaginally daily at bedtime for 2 weeks and then DECREASE to 2 times per week (such as Sunday/) 08/07/19 25 Active Eliquis 5 MG TabletIndication s:Single subsegmental pulmonary embolism without acute cor pulmonale (HCC) TAKE 1 TABLET BY MOUTH TWICE DAILY FOR BLOOD CLOT IN VEINS 180 Tablet 12/05/19 25 Active HYDROcodone-acet aminophen (NORCO) 5-325 MG TabletIndication s:Malignant neoplasm of left lung, unspecified part of lung (HCC) Take 1 Tablet by mouth every 6 hours as needed for Moderate or more severe pain. 30 Tablet 01/16/20 25 Active gabapentin (NEURONTIN) 100 MG Capsule Take 1 Capsule by mouth 2 times daily. 60 Capsule 11/04/19 25 025 Discontin ued(Med List Clean Up) HYDROcodone-acet aminophen (NORCO) 5-325 MG TabletIndication s:Malignant neoplasm of left lung, unspecified part of lung (HCC) Take 1 Tablet by mouth every 6 hours as needed for Moderate or more severe pain. 30 Tablet 12/20/19 25 025 Discontin ued(Reord er) HYDROcodone-acet aminophen (NORCO) 5-325 MG TabletIndication s:Malignant neoplasm of left lung, unspecified part of lung (HCC) Take 1 Tablet by mouth every 6 hours as needed for Moderate or more severe pain. 30 Tablet 12/31/19 25 025 Discontin ued(Reord er) HYDROcodone-acet aminophen (NORCO) 5-325 MG TabletIndication s:Malignant neoplasm of left lung, unspecified part of lung (HCC) Take 1 Tablet by mouth every 6 hours as needed for Moderate or more severe pain. 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 Hypertension 09/23/2020 Elevated cholesterol 09/23/2020 Osteoarthritis of sacroiliac joint 03/25/2018 Osteoarthritis of lower back 03/25/2018 Mild recurrent major depression 07/10/2017 Overview (08/17/2022): Last Assessment & Plan: Cymbalta 60 mg twice a day Multiple sclerosis 11/29/2013 Overview (08/17/2022): MULTIPLE SCLEROSIS DMT history Rebif 22 mcg 01/2011-03/2011, elevated LFTs Copaxone 0401-5514 stopped due to out of pocket costs [...] Encounters Date Type Department Care Team Description 01/14/2025 Refill [facility] [address] [address] Fazal Mcneal, DO Medication Refill; canopy call/ med refill 01/07/2025 Refill [facility] [address] [address] Fazal Mcneal, DO 01/02/2025 9:45 AM CDT Office Visit [facility] [address] [address] Elena Dempsey, WEB SITE DESIGNER, JIG HAND Malignant neoplasm of left lung, unspecified part of lung (HCC) (Primary Dx); 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); 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; 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); Metastasis to brain (HCC); MS (multiple sclerosis) (HCC) 12/31/2024 8:30 AM CDT Ancillary Procedure [facility] [address] [address] Malignant neoplasm of left lung, unspecified part of lung (HCC) 12/31/2024 8:15 AM CDT Lab [facility] [address] [address] [facility] neoplasm of left lung, unspecified part of lung (HCC); 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) 12/31/2024 Travel 12/29/2024 Refill [facility] [address] [address] Fazal Mcneal, DO Medication Refill 12/19/2024 Refill [facility] [address] [address] Fazal Mcneal, DO Medication Refill 12/12/2024 9:00 AM CDT Office Visit [facility] [address] [phone] Fazal Mcneal, DO Malignant neoplasm of left lung, unspecified part of lung (HCC) (Primary Dx) 12/12/2024 Travel 12/11/2024 Refill [facility] [address] [address] Fazal Mcneal, DO Medication Refill 12/09/2024 Telephone [facility] [address] [address] Fazal Mcneal, DO 12/09/2024 Telephone [facility] [address] [address] Fazal Mcneal, DO 12/04/2024 Refill [facility] [address] [phone] Fazal Mcneal, DO Medication Refill 12/01/2024 Refill [facility] [address] [phone] Fazal Mcneal, DO Medication Refill 11/25/2024 Telephone [facility] [address] [address] Fazal Mcneal, DO Canopy Call / UTI 11/21/2024 Refill [facility] [address] [address] Fazal Mcneal, DO Medication Refill; canopy call/ refill medication 11/13/2024 Refill [facility] [address] [phone] Fazal Mcneal, DO Medication Refill 11/04/2024 Refill [facility] [address] [address] Fazal Mcneal, DO Medication Refill 10/31/2024 Refill [facility] [address] [address] Fazal Mcneal, DO Medication Refill 10/24/2024 Refill [facility] [address] [phone] Fazal Mcneal, DO Medication Refill from Last 3 Months Immunizations Immunization Administration Dates Next Due Influenza Vaccine, MDCK,quad rivalent, pres free 04/20/2022 Influenza Vaccine, Quadrivalent, PF 05/12/2021,0 04/13/2020,05/21/2019 Influenza,Split Virus,Trivalent,Injectable,PF 05/02/2024 Pneumococcal conjugate PCV20 , polysaccharide [id number] conjugate, adjuvant, PF 04/20/2022 Sars-cov-2 (Covid-19) Vaccine, Unspecified 05/02 Family History Medical History Relation Name Comments Diabetes Maternal Grandfather Hypertension Maternal Grandfather Diabetes Maternal Grandmother Hypertension Maternal Grandmother Diabetes Mother Diabetes Paternal Grandfather Hypertension Paternal Grandfather Diabetes Paternal Grandmother Hypertension Paternal Grandmother Diabetes Sister Relation Name Status Comments Maternal Grandfather Maternal Grandmother Mother Paternal Grandfather Paternal Grandmother Sister Social History Tobacco Use Types Packs/Day Years Used Date Smoking Tobacco: Former Cigarettes Smokeless Tobacco: Never Tobacco Cessation:Counseling Given: Not Answered Alcohol Use Standard Drinks/Week Comments Yes 4 (1 standard drink = 0.6 oz pur e alcohol) Comments Unknown Sex and Gender Information Value Date Recorded Sex Assigned at Not on file 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 Gender Identity Not on file Sexual Orientation Not on file Last Filed Vital Signs Vital Sign Reading Time Taken Comments Blood Pressure 126/86 01/02/2025 9:57 AM CDT Pulse 84 01/02/2025 9:57 AM CDT Temperature 36.8 C (98.3 F) 01/02/2025 9:57 AM CDT Respiratory Rate 18 01/02/2025 9:57 AM CDT Oxygen Saturation 94% 12/12/2024 9:05 AM CDT Inhaled Oxygen Concentration - - Weight 49 kg (108 lb) 01/02/2025 9:57 AM CDT Height 165.1 cm (5' 5) 01/02/2025 9:57 AM CDT Body Mass Index 17.97 01/02/2025 9:57 AM CDT Plan of Treatment Upcoming Encounters Date Type Department Care Team (Late st Contact Info) Description 03/27/2025 9:00 AM CDT Office Visit [facility] [address] [phone] Fazal Mcneal, [address] [place] [phone] 03/27/2025 9:00 AM CDT Lab [facility] [address] [address] Lab, Cc [facility] 03/27/2025 9:30 AM CDT Ancillary Procedure [facility] [address] [phone] 03/27/2025 9:45 AM CDT Ancillary Procedure [facility] [address] [phone] Health Maintenance Due Date Last Done Comments Hepatitis C Virus (HCV) Screening 1965 Mammogram 1965 TdaP Immunization 1965 Hepatitis B Immunization (1 of 3 - 19+ 3-dose series) 1984 Zoster Immunization (1 of 2) 1984 Pap Smear 1986 Cervical Cancer Screening (CCS) 1995 HPV/Cotest 1995 Cologuard 2010 Immunochemical Fecal Occult Blood 2010 SARS-COV-2 Immunization (8 - Mixed Product risk season) 2024 05/02/2024, 05/15/2023, 11/28/2022, Additional history exists Influenza Immunization (#1) 03/16/202504/15, 05/07/2023, 04/20/2022, Additional history exists Colonoscopy 04/11/2029 04/11/2019 Colorectal Cancer Screening 04/11/2029 Respiratory Syncytial Virus (RSV) Immunization (Adult) (1 - 1-dose 75+ series) 2040 Pneumococcal Immunization (50+ years) Completed 04/20/2022 Pneumococcal Immunization Combined Discontinued 04/20/2022 Human Papillomavirus (HPV) Immunization Aged Out No longer eligible based on patient's age to complete this topic Meningococcal Immunization (ACWY) Aged Out No longer eligible based on patient's age to complete this topic Rotavirus Immunization Aged Out No lo nger eligible based on patient's age to complete this topic Procedures Procedure Name Priority Date/Time Associated Diagnosis Comments CT CHEST ABDOMEN AND PELVIS W CONTRAST Routine 12/31/2024 8:57 AM CDT Malignant neoplasm of left lung, unspecified part of lung (HCC) CMP (COMPREHENSIVE METABOLIC PANEL) Routine 12/31/2024 8:24 AM CDT Malignant neoplasm of left lung, unspecified part of lung (HCC) 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 Patient has undergone treatment. Restaging. COMPARISON: Prior pertinent studies TECHNIQUE: Helical imaging of the chest abdomen and pelvis obtained with the intravenous administration of contrast. A dose lowering technique was used for this procedure, which may include, but is not limited to, dose reduction techniques, automated exposure controlled techniques, use of iterative reconstruction techniques, and ALARA or ALARA gently techniques. FINDINGS: CARDIOVASCULAR: Cardia is unchanged in size. No developing pericardial fluid is seen. The aorta is tortuous. No aneurysm is seen. The pulmonary vasculature is intact without evidence of pulmonary embolism. Coronary calcification:Severe LYMPHATICS: No developing lymphadenopathy is identified PULMONARY: Scarring and pleural thickening is seen along the lateral chest wall of the left lower lobe. Small nodular density in the right apex is demonstrated and is unchanged. No new pulmonary nodules are appreciated. Severe emphysema is present. Mild diffuse bronchial wall thickening is seen. No pleural fluid is appreciated MUSCULOSKELETAL: Compression fractures of the T12 and L1 vertebrae demonstrated status post vertebroplasty/kyphoplasty. The chest wall metastasis with rib destruction which has been treated is re-identified and is unchanged. No new fractures are identified. No new metastasis are seen. IMPRESSION: No significant change in the appearance of the chest RECOMMENDATION: NONE. FINDINGS: HEPATOBILIARY: The liver is homogeneous in attenuation. No suspicious hepatic lesions are seen. The pancreas is intact without pancreatic mass or peripancreatic inflammation. The gallbladder is distended. The extrahepatic bile duct is prominent :Adrenal glands reveal a left adrenal nodule unchanged from previous exams. This was mildly hypermetabolic on prior PET imaging. The left adrenal gland is borderline in size. These are unchanged. The kidneys are symmetric in size. They are unchanged. Diffuse bladder wall thickening is present. The uterus is unremarkable GI: No obstruction is seen. No free air or free fluid is identified. No fluid collections are seen. LYMPHATICS: The spleen is normal in size and morphology. No adenopathy is seen VASCULAR: Severe atherosclerotic calcific plaquing is present without aneurysm MUSCULOSKELETAL: No lytic or blastic lesions are seen. No destructive lesions identified IMPRESSION No significant change in the CT appearance of the abdomen and pelvis Electronically signed by: MICHOACANO ARGUETA MD Date of Signature: 12/31/2024 09:10:35 Procedure Note Michoacano Argueta MD - 12/31/2024 EXAMINATION: CT CHEST ABDOMEN AND PELVIS W CONTRAST 12/31/2024 HPI: 59-year-old female with [id number] lung carcinoma with bone metastasisand brain metastasis. Patient has undergone treatment. Restaging. COMPARISON: Prior pertinent studies TECHNIQUE: Helical imaging of the chest abdomen and pelvis obtained with theintravenous administration of contrast. A dose lowering technique was used for this procedure, which mayinclude, but is not limited to, dose reduction techniques, automatedexposure controlled techniques, use of iterative reconstructiontechniques, and ALARA or ALARA gently techniques. FINDINGS: CARDIOVASCULAR: Cardia is unchanged in size. No developing pericardialfluid is seen. The aorta is tortuous. No aneurysm is seen. Thepulmonary vasculature is intact without evidence of pulmonary embolism. Coronary calcification:Severe LYMPHATICS: No developing lymphadenopathy is identified PULMONARY: Scarring and pleural thickening is seen along the lateral chestwall of the left lower lobe. Small nodular density in the right apex isdemonstrated and is unchanged. No new pulmonary nodules are appreciated.Severe emphysema is present. Mild diffuse bronchial wall thickening isseen. No pleural fluid is appreciated MUSCULOSKELETAL: Compression fractures of the T12 and L1 vertebraedemonstrated status post vertebroplasty/kyphoplasty. The chest wallmetastasis with rib destruction which has been treated is re-identifiedand is unchanged. No new fractures are identified. No new metastasis areseen. IMPRESSION: No significant change in the appearance of the chest RECOMMENDATION: NONE. FINDINGS: HEPATOBILIARY: The liver is homogeneous in attenuation. No suspicioushepatic lesions are seen. The pancreas is intact without pancreatic massor peripancreatic inflammation. The gallbladder is distended. Theextrahepatic bile duct is prominent :Adrenal glands reveal a left adrenal nodule unchanged from previousexams. This was mildly hypermetabolic on prior PET imaging. The leftadrenal gland is borderline in size. These are unchanged. The kidneysare symmetric in size. They are unchanged. Diffuse bladder wallthickening is present. The uterus is unremarkable GI: No obstruction is seen. No free air or free fluid is identified. Nofluid collections are seen. LYMPHATICS: The spleen is normal in size and morphology. No adenopathy isseen VASCULAR: Severe atherosclerotic calcific plaquing is present withoutaneurysm MUSCULOSKELETAL: No lytic or blastic lesions are seen. No destructivelesions identified IMPRESSION No significant change in the CT appearance of the abdomen and pelvis Electronically signed by: MICHOACANO ARGUETA MD Date of Signature: 12/31/2024 09:10:35 us Belen Pham APRN, JIG HAND IMG CT ORDERABLES Fin al Result * LACTATE DEHYDROGENASE (LD) (12/31/2024 8:24 AM CDT) LDH 172 140 - 271 U/L [facility] Blood 12/31/2024 8:24 AM CDT Narrative [facility] - 12/31/2024 9:46 AM CDT Release to patient->Immediate Belen Pham APRN, CNP CHEMISTRY ORDERABLES Final Result [facility] [place] [address], * (ABNORMAL) CMP (COMPREHENSIVE METABOLIC PANEL) (12/31/2024 8:24 AM CDT) Glucose 93 70 - 105 mg/dL [facility] Blood Urea Nitrogen 18 7 - 25 mg/dL [facility] Creatinine 0.7 0.6 - 1.2 mg/dL [facility] Sodium 139 136 - 145 mEq/L [facility] Potassium 4.0 3.5 - 5.1 mEq/L [facility] Chloride 100 98 - 107 mEq/L [facility] Bicarbonate 33(H) 21 - 31 mEq/L [facility] Total Bilirubin 0.4 0.3 - 1.0 mg/dL [facility] Alk. Phosphatase 90 34 - 104 U/L [facility] Aspartate Aminotransferase 21 13 - 39 U/L [facility] Alanine Aminotransferase 16 7 - 52 U/L [facility] Total Protein 6.7 6.4 - 8.9 g/dL [facility] Albumin 4.5 3.5 - 5.7 g/dL [facility] Calcium 10.0 8.6 - 10.3 mg/dL [facility] Anion Gap 10.0 7.0 - 15.0 mEq/L [facility] Globulin 2.2 2.0 - 3.5 g/dL [facility] BAKE ROOM WORKER [facility] EGFR 99 >60 ml/min/1. 73m2 [facility] BAKE ROOM WORKER [facility] Comment: This eGFR is calculated using 2020 CKD-EPI Creatinine equation without race modifier based on the NKF-ASN task force recommendations Equation: vYMX=402*min(SCr/k,1)a*max(SCr/k,1)-1.200*0.9938Age*1.012 (if female), where SCr is serum creatinine, k is 0.7 for females and 0.9 for males, and a is -0.241 for females and -0.302 for males Blood 12/31/2024 8:24 AM CDT Narrative [facility] - 12/31/2024 9:46 AM CDT Release to patient->Immediate IS THE PATIENT REQUIRED TO BE FASTING FOR 8 HOURS?->No Belen Pham WEB SITE DESIGNER, JIG HAND CHEMISTRY ORDERABLES Final Result [facility] [place] [address], from Last 3 Months Insurance [facility] Care Teams Production Support Manager Relationship Specialty Start Date End Date Provider, Unknown UNKNOWN PCP - General 06/30/22 Sarah Rich MD UNKNOWN Pulmonary Disease 10/31/22 Pamela Cavanaugh APRN, JIG HAND UNKNOWN Internal Medicine 10/31/22 Michael Horner MD [address] [facility] [address] [address] Neurology 10/31/22 Fazal Mcneal DO [address] [place] [phone] Consulting Physician Oncology 10/31/22
--- OUTSIDE RECORDS SUMMARY | 2025-01-22 21:10 | XMS_ITS | Encounter Summary ---
Author Organization [facility] Address [address] [place] [address] Care Team Providers Care Pharmaceutical Sales Name Role Phone Vicki Bearden NP Unavailable [phone] Pamela Cavanaugh NP Primary Care Provider [phone] Fazal Mcneal DO Unavailable [phone] Naya Valdez MD Unavailable [phone] Sarah Rich MD Unavailable [phone] Arben Alvarenga MD Unavailable [phone] Lloyd Anderson MD Unavailable Encounter Details Date Type Department Care Team (Late st Contact Info) Description 12/30/2024 Results Follow-Up [facility] Family Medicine [address] [place] [address] Pamela Cavanaugh NP [address] [place] [address] Urinalysis reflex to microscopic and culture Urine, clean voided, REFLEXIVE URINE CULTURE, Urine culture Social History Tobacco Use Types Packs/Day Years Used Date Smoking Tobacco: Former Cigarettes 0.6 30 1 08/14/1988 - 06/14/2019 Vaping Smokeless Tobacco: Never Alcohol Use Standard Drinks/Week Comments Yes 0 (1 standard drink = 0.6 oz pur e alcohol) [facility] Utilities Answer Date Recorded In the [...] often do you attend chur ch or congregational services? More than 4 times per year 08/20/2023 Do you belong to any clubs o r organizations such as nondenominational groups, unions, fraternal or athletic groups, or [...] place to sleep or slept in a penitentiary (including now)? No 08/20/2023 Personal Safety Answer Date Recorded Have you ever been in or are you currently in a harmful physical or emotional relationship or is someone making you feel afraid or unsafe? 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 on file Not on file Not on file documented as of this encounter Plan of Treatment Not on file documented as of this encounter Visit Diagnoses Not on filedocumented in this encounter Care Teams Pharmaceutical Sales Relationship Specialty Start Date End Date Pamela Cavanaugh NP [address] [place] [address] PCP - General Internal Medicine 11/21/22 Vicki Bearden NP Nurse Practitioner Urology 11/15/20 Fazal Mcneal DO [address] [place] [address] Referring Physician Medical Oncology 11/27/22 Naya Valdez MD [address] [place] [address] Radiation Oncology 11/27/22 Sarah Rich MD [address] [place] [address] Consulting Physician Pulmonary Disease 11/27/22 Arben Alvarenga MD [address] [place] [address] Radiation Oncology 12/07/23 Lloyd Anderson MD [facility] [address] [address] Consulting Physician Pain Management 12/26/24 documented as of this encounter
--- OUTSIDE RECORDS SUMMARY | 2025-01-22 21:10 | XMS_ITS | Encounter Summary ---
Author Organization [facility] Facility Care Team Providers Care Telescope Maintenance Name Role Phone Justin Esposito DO Primary Care Provider [phone] Pamela Cavanaugh PRECISION MACHINE OPERATOR Primary Care Provider [phone] Vicki Bearden PRECISION MACHINE OPERATOR Unavailable + [phone] Pamela Cavanaugh PRECISION MACHINE OPERATOR Primary Care Provider [phone] Fazal Mcneal DO Unavailable [phone] Naya Valdez MD Unavailable +[phone] Sarah Rich MD Unavailable + [phone] Arben Alvarenga MD Unavailable +[phone] Lloyd Anderson MD Unavailable Encounter Details Date Type Department Care Team (Latest Contact Info) Description 04/04/2018 Orders Only [facility] ProviderMarilia MD [address] [place] [address] Social History Tobacco Use Types Packs/Day Years Used Date Smoking Tobacco: Former Smokeless Tobacco: Never Alcohol Use Standard Drinks/Week Comments Yes 0 (1 standard drink = 0.6 oz pur e alcohol) Comments Unknown Sex and Gender Information Value Date Recorded Sex Assigned at Not on file Legal Sex Female 10:02 AM PIZZAMAKER Gender Identity Female 10/11/2020 12:34 PM CDT Sexual Orientation Not on file documented as of this encounter Plan of Treatment Not on file documented as of this encounter Procedures Procedure Name Priority Date/Time Associated Diagnosis Comments SCAN - LABS 05/28/2018 12:00 AM PIZZAMAKER documented in this encounter Results * SCAN - LABS (05/28/2018 12:00 AM PIZZAMAKER) Narrative 05/28/2018 12:00 AM PIZZAMAKER Ordered by an unspecified provider. us Historical Provider Final Res ult documented in this encounter Visit Diagnoses Not on filedocumented in this encounter Additional Health Concerns Infection Onset Date Last Indicated Resolved Time COVID: Suspected 08/09/2023 08/09/2023 08/09/2023 10:20 AM PIZZAMAKER COVID: Suspected 08/17/2023 08/17/2023 08/17/2023 1:59 PM PIZZAMAKER documented as of this encounter Care Teams Telescope Maintenance Relationship Specialty Start Date End Date Justin Esposito DO [address] [place] [address] PCP - General 10/13/16 09/21/20 Pamela Cavanaugh, DAVID [address] [place] [address] PCP - General Internal Medicine 09/22/20 11/20/22 Pamela Cavanaugh, PRECISION MACHINE OPERATOR [address] [facility] [address] [place] [address] PCP - General Internal Medicine 11/21/22 Vicki Bearden NP [address] [place], [place] [address] Nurse Practitioner Urology 11/15/20 Fazal Mcneal DO [address] [place] [phone] Referring Physician Medical Oncology 11/27/22 Naya Valdez MD [address] [place] [id number] Radiation Oncology 11/27/22 Sarah Rich MD [address] [place] [address] [phone] Consulting Physician Pulmonary Disease 11/27/22 Arben Alvarenga MD [address] [place] [address] Radiation Oncology 12/07/23 Lloyd Anderson MD [address] [address] Consulting Physician Pain Management 12/26/24 documented as of this encounter
--- OUTSIDE RECORDS SUMMARY | 2025-01-22 21:10 | XMS_ITS | Encounter Summary ---
Author Organization [facility] Healthcare Address [address] [place] [address] Care Team Providers Care Occupational Therapy Professor Name Role Phone Vicki Bearden NP Unavailable + [phone] Pamela Cavanaugh NP Primary Care Provider [phone] Fazal Mcneal DO Unavailable [phone] Naya Valdez MD Unavailable +[phone] Sarah Rich MD Unavailable + [phone] Arben Alvarenga MD Unavailable +[phone] Lloyd Anderson MD Unavailable Encounter Details Date Type Department Care Team (Late st Contact Info) Description 12/18/2024 Documentation [facility] Pain Mgmt [address] [place] [address] Marcela García, FLOYD Social History Tobacco Use Types Packs/Day Years Used Date Smoking Tobacco: Former Cigarettes 0.6 30 1 08/14/1988 - 06/14/2019 Vaping Smokeless Tobacco: Never Alcohol Use Standard Drinks/Week Comments Yes 0 (1 standard drink = 0.6 oz pur e alcohol) [facility] Utilities Answer Date Recorded In the [...] often do you attend chur ch or mandaen services? More than 4 times per year 08/20/2023 Do you belong to any clubs o r organizations such as baptism groups, unions, fraternal or athletic groups, or [...] place to sleep or slept in a mcfp (including now)? No 08/20/2023 Personal Safety Answer Date Recorded Have you ever been in or are you currently in a harmful physical or emotional relationship or is someone making you feel afraid or unsafe? 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 file Not on file documented as of this encounter Plan of Treatment Not on file documented as of this encounter Results * (ABNORMAL) CBC without differential (12/23/2024 3:40 PM CDT) WBC 5.50 3.80 - 9.90 K/cumm Comment:Testing performed by : [address] [address] Hgb 12.4 11.9 - 15.5 g/dL TETE Comment:Testing performed by : [address] [address] Hct 38.6 35.6 - 45.5 % TETE Comment:Testing performed by : [address] [address] Plt 480(H) 150 - 400 K/cumm TETE Comment:Testing performed by : [address] [address] MPV 8.6(L) 9.1 - 12.3 fL TETE Comment:Testing performed by : [address] [address] RBC 4.05 3.90 - 5.20 M/cumm TETE Comment:Testing performed by : [address] [address] MCV 95.3 81.3 - 96.4 fL TETE Comment:Testing performed by : [address] [address] MCH 30.6 27.1 - 33.3 pg TETE RODRÍGUEZ Comment:Testing performed by : [address] [address] MCHC 32.1(L) 32.3 - 35.7 g/dL TETE Comment:Testing performed by : [address] [address] RDW CV 14.6 11.1 - 14.9 % TETE Comment:Testing performed by : [address] [address] RDW SD 50.9(H) 35.7 - 48.1 fL TETE RODRÍGUEZ Comment:Testing performed by : [address] [address] NRBC abs 0.00 0.00 - 0.01 K/cumm TETE Comment:Testing performed by : [address] [address] Blood 12/23/2024 3:40 PM CDT 12/23/2024 3:46 PM CDT us Lloyd Anderson MD LAB BLOOD ORDERABLES Final Resul t TETE [address] [facility] Department of Laboratories [place], [place] [id number] * Protime-INR (12/23/2024 3:40 PM CDT) PT 13.6 12.0 - 14.6 sec Comment:Testing performed by : [address] [address] INR 1.1 0.9 - 1.2 TETE Comment: Ref Range High Interpretive data Oral anticoagulant therapeutic ranges: Venous thromboembolism prophylaxis or treatment: 2.0-3.0 CARDIOLOGY Standard range: 2.0-3.0 High-intensity range: 2.5-3.5 Refer to indication-specific guidelines for appropriate target ranges for prosthetic heart valve replacement. Current interpretive data was last revised on 2019. Testing performed by: [address] [address] Blood 12/23/2024 3:40 PM CDT 12/23/2024 3:46 PM CDT Lloyd Anderson MD LAB BLOOD ORDERABLES Final Resul t Performing Organization Address [facility] Co de Phone Number TETE [address] [address] * aPTT (12/23/2024 3:40 PM CDT) aPTT 33 22 - 37 sec Comment: Interpretive data aPTT test has not been evaluated for monitoring heparin therapy. The anti-Xa is the preferred test. Current interpretive data was last revised on 2019. Testing performed by: [address] [address] Blood 12/23/2024 3:40 PM CDT 12/23/2024 3:46 PM CDT Lloyd Anderson MD LAB BLOOD ORDERABLES Final Resul t Performing Organization Address [facility] de Phone Number [address] [address] documented in this encounter Visit Diagnoses Diagnosis Compression fracture of body of thoracic vertebra (HCC)- Primary Compression fracture of L1 vertebra, initial encounter (HCC) Pre-op testing Unspecified pre-operative examination documented in this encounter Care Teams Occupational Therapy Professor Relationship Specialty Start Date End Date Pamela Cavanaugh NP [address] [facility] [address] [place] [address] PCP - General Internal Medicine 11/21/22 Vicki Bearden NP Nurse Practitioner Urology 11/15/20 Fazal Mcneal DO [address] [place] [phone] Referring Physician Medical Oncology 11/27/22 Naya Valdez MD [address] [place] [address] Radiation Oncology 11/27/22 Sarah Rich MD [facility] [address] Consulting Physician Pulmonary Disease 11/27/22 Arben Alvarenga MD [address] [address] Radiation Oncology 12/07/23 Lloyd Anderson MD [facility] [address] [address] Consulting Physician Pain Management 12/26/24 documented as of this encounter
--- OUTSIDE RECORDS SUMMARY | 2025-01-22 21:10 | XMS_ITS | Encounter Summary ---
Author Organization [facility] Healthcare Address [address] [place] [address] Care Team Providers Care Airborne Operations Superintendent Name Role Phone Vicki Bearden NP Unavailable + [phone] Pamela Cavanaugh NP Primary Care Provider [phone] Fazal Mcneal DO Unavailable [phone] Naya Valdez MD Unavailable +[phone] Sarah Rich MD Unavailable + [phone] Arben Alvarenga MD Unavailable [phone] Lloyd Anderson MD Unavailable Encounter Details Date Type Department Care Team (Late st Contact Info) Description 10/20/2024 Documentation [facility] Neuroscience Ctr Pain Mgmt [address] [place] [address] Belen Emerson, RN Social History Tobacco Use Types Packs/Day Years Used Date Smoking Tobacco: Former Cigarettes 0.6 30 1 08/14/1988 - 06/14/2019 Vaping Smokeless Tobacco: Never Alcohol Use Standard Drinks/Week Comments Yes 0 (1 standard drink = 0.6 oz pur e alcohol) [facility] Utilities Answer Date Recorded In the past [...] often do you attend chur ch or sabianism services? More than 4 times per year 08/20/2023 Do you belong to any clubs o r organizations such as hoahaoism groups, unions, fraternal or athletic groups, or school groups? Yes 08/20/2023 How often do you attend meet ings of the clubs or organizations you belong to? 1 to 4 times per year 08/20/2023 Are you , , di vorced, , never , or living with a partner? 08/20/2023 AUDIT-C Answer Date Recorded Q1: How often do you have a drink containing alc ohol? 2-3 times a week 06/20/2023 Q2: How many drinks containi ng alcohol do you have on a typical day when you are drinking? 1 or 2 06/20/2023 Q3: How often do you have si x or more drinks on one occasion? Never 06/20/2023 Overall Financial Resource Strain (CARDIA) Answe r Date Recorded How hard is it for you to pa y for the very basics like food, housing, medical care, and heating? Not hard at all 08/20/2023 PHQ-2 Answer Date Recorded PHQ-2 Total Score (If total score is 3 or more points, staff should administer the PHQ-9) 1 05/06/2024 Hunger Vital Sign Answer Date Recorded Within [...] place to sleep or slept in a longterm (including now)? No 08/20/2023 Personal Safety Answer Date Recorded Have you ever been in or are you currently in a harmful physical or emotional relationship or is someone making you feel afraid or unsafe? 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 Not on file Not on file documented as of this encounter Plan of Treatment Not on file documented as of this encounter Visit Diagnoses Not on filedocumented in this encounter Care Teams Airborne Operations Superintendent Relationship Specialty Start Date End Date Pamela Cavanaugh NP [address] [facility] [address] [place] [address] PCP - General Internal Medicine 11/21/22 Vicki Bearden NP Nurse Practitioner Urology 11/15/20 Fazal Mcneal DO [address] [place] [address] Referring Physician Medical Oncology 11/27/22 Naya Valdez MD [address] [place] [address] Radiation Oncology 11/27/22 Sarah Rich MD [address] [place] [address] Consulting Physician Pulmonary Disease 11/27/22 Arben Alvarenga MD [address] [address] Radiation Oncology 12/07/23 Lloyd Anderson MD [facility] [address] [address] Consulting Physician Pain Management 12/26/24 documented as of this encounter
--- OUTSIDE RECORDS SUMMARY | 2025-01-22 21:10 | XMS_ITS | Encounter Summary ---
Author Organization [facility] Healthcare Address [address] [place] [address] Care Team Providers Care Head Boys Golf Coach Name Role Phone Vicki Bearden NP Unavailable + [phone] Pamela Cavanaugh NP Primary Care Provider [phone] Fazal Mcenal DO Unavailable [phone] Naya Valdez MD Unavailable +[phone] Sarah Rich MD Unavailable + [phone] Arben Alvarenga MD Unavailable [phone] Lloyd Anderson MD Unavailable Encounter Details Date Type Department Care Team (Late st Contact Info) Description 12/18/2024 Documentation [facility] C[facility] Pain Mgmt [address] [place] [address] Marcela García, FLOYD Social History Tobacco Use Types Packs/Day Years Used Date Smoking Tobacco: Former Cigarettes 0.6 30 1 08/14/1988 - 06/14/2019 Vaping Smokeless Tobacco: Never Alcohol Use Standard Drinks/Week Comments Yes 0 (1 standard drink = 0.6 oz pur e alcohol) [facility] Utilities Answer Date Recorded In the past [...] often do you attend chur ch or confucianism services? More than 4 times per year 08/20/2023 Do you belong to any clubs o r organizations such as jain groups, unions, fraternal or athletic groups, or [...] place to sleep or slept in a care home (including now)? No 08/20/2023 Personal Safety Answer Date Recorded Have you ever been in or are you currently in a harmful physical or emotional relationship or is someone making you feel afraid or unsafe? 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 Not on file documented as of this encounter Plan of Treatment Not on file documented as of this encounter Visit Diagnoses Not on filedocumented in this encounter Care Teams Head Boys Golf Coach Relationship Specialty Start Date End Date Pamela Cavanaugh NP [address] [facility] [address] [place] [address] PCP - General Internal Medicine 11/21/22 Vicki Bearden NP Nurse Practitioner Urology 11/15/20 Fazal Mcneal DO [address] [place] [phone] Referring Physician Medical Oncology 11/27/22 Naya Valdez MD [address] [place] [address] Radiation Oncology 11/27/22 Sarah Rich MD [address] [place] [address] Consulting Physician Pulmonary Disease 11/27/22 Arben Alvarenga MD [address] [address] Radiation Oncology 12/07/23 Lloyd Anderson MD [address] [address] Consulting Physician Pain Management 12/26/24 documented as of this encounter
--- OUTSIDE RECORDS SUMMARY | 2025-01-22 21:10 | XMS_ITS | Encounter Summary ---
Author Organization [facility] Healthcare Address [address] [place] [address] Care Team Providers Care Jet Wiper Name Role Phone Vicki Bearden NP Unavailable + [phone] Pamela Cavanaugh NP Primary Care Provider [phone] Fazal Mcneal DO Unavailable [phone] Naya Valdez MD Unavailable [phone] Sarah Rich MD Unavailable + [phone] Arben Alvarenga MD Unavailable [phone] Lloyd Anderson MD Unavailable Encounter Details Date Type Department Care Team (Late st Contact Info) Description 12/18/2024 Documentation [facility] Neuroscience Ctr Pain Mgmt [address] [place] [address] Marcela García, FLOYD Social History Tobacco Use Types Packs/Day Years Used Date Smoking Tobacco: Former Cigarettes 0.6 30 1 08/14/1988 - 06/14/2019 Vaping Smokeless Tobacco: Never Alcohol Use Standard Drinks/Week Comments Yes 0 (1 standard drink = 0.6 oz pur e alcohol) [facility] Utilities Answer Date Recorded In the [...] any clubs o r organizations such as episcopalian groups, unions, fraternal or athletic groups, or [...] on file Legal Sex Female 10:02 AM MAIL CLERK Gender Identity Female 10/11/2020 12:34 PM CDT Sexual Orientation Not on file 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 Not on file documented as of this encounter Plan of Treatment Not on file documented as of this encounter Visit Diagnoses Diagnosis Closed compression fracture of L1 vertebra, initial encounter (HCC)- Primary Closed wedge compression fracture of T12 vertebra, initial encounter (HCC) documented in this encounter Care Teams Jet Wiper Relationship Specialty Start Date End Date Pamela Cavanaugh NP [address] [place] [id number] PCP - General Internal Medicine 11/21/22 Vicki Bearden NP Nurse Practitioner Urology 11/15/20 Fazal Mcneal DO [address] [place] [address] Referring Physician Medical Oncology 11/27/22 Naya Valdez MD [address] [place] [address] Radiation Oncology 11/27/22 Sarah Rich MD [address] [address] Consulting Physician Pulmonary Disease 11/27/22 Arben Alvarenga MD [address] [address] Radiation Oncology 12/07/23 Lloyd Anderson MD [address] [address] Consulting Physician Pain Management 12/26/24 documented as of this encounter
--- OUTSIDE RECORDS SUMMARY | 2025-01-22 21:10 | XMS_ITS | Encounter Summary ---
Author Organization [facility] Address [address] [place] [address] Phone Care Team Providers Care Machine Gun Mechanic Name Role Phone Provider, Unknown Primary Care Provider Unavaila Sarah Mcdowell MD Unavailable + [phone] Pamela Cavanaugh APRN, DIEING OUT MACHINE OPERATOR Unavailable + [phone] Michael Horner MD Unavailable [phone] Fazal Mcneal DO Unavailable [phone] Encounter Details Date Type Department Care Team (Late st Contact Info) Description 12/09/2024 Telephone [facility] [address] [place] [address] Fazal Mcneal, DO [address] [place] [address] Social History Tobacco Use Types Packs/Day Years Used Date Smoking Tobacco: Former Cigarettes Smokeless Tobacco: Never Alcohol Use Standard Drinks/Week Comments Yes 4 (1 standard drink = 0.6 oz pur e alcohol) Comments Unknown Sex and Gender Information Value Date Recorded Sex Assigned at Not on file Legal Sex Female 10:36 AM TELEVISION ENGINEERING TEACHER Gender Identity Not on file Sexual Orientation Not on file documented as of this encounter Functional Status * Question Answer Date of Assessment Author Little interest or pleasure in doing things Not at all 12/12/2024 9:10 AM CDT Radha Garcia, ELECTRONIC PUBLISHING SPECIALIST Feeling down, depressed, or hopeless Not at all 12/12/2024 9:10 AM CDT Radha Garcia CMA * Over the past 2 weeks, how often have you been bothered by any of the following problems? Question Answer Date of Assessment Author Patient Health Questionnaire -2 Score 0 12/12/2024 9:10 AM CDT Radha Garcia CMA documented as of this encounter Plan of Treatment Upcoming Encounters Date Type Department Care Team (Late st Contact Info) Description 03/27/2025 9:00 AM CDT Office Visit [facility] [address] [address] Fazal Mcneal, [address] [place] [address] 03/27/2025 9:00 AM CDT Lab [facility] [address] [address] Lab, [facility] 03/27/2025 9:30 AM CDT Ancillary Procedure [facility] [address] [address] 03/27/2025 9:45 AM CDT Ancillary Procedure [facility] [address] [address] documented as of this encounter Visit Diagnoses Not on filedocumented in this encounter Care Teams Machine Gun Mechanic Relationship Specialty Start Date End Date Provider, Unknown UNKNOWN PCP - General 06/30/22 Sarah Rich MD UNKNOWN Pulmonary Disease 10/31/22 Pamela Cavanaugh, HIGH SCHOOL SOCIAL STUDIES TEACHER, DIEING OUT MACHINE OPERATOR UNKNOWN Internal Medicine 10/31/22 Michael Horner MD [address] [facility] [address] [place] [address] Neurology 10/31/22 Fazal Mcneal DO [address] [place] [address] Consulting Physician Oncology 10/31/22 documented as of this encounter
[2025-01-22 21:18] LABS: Alanine Aminotransferase 32 U/L (6-35); Albumin Level 4.3 g/dL (3.5-5.1); Alkaline Phosphatase 57 U/L (38-126); Anion Gap 7 mmol/L (4-12); Aspartate Amino Transferase 45 U/L (14-36); Bilirubin,Total 0.2 mg/dL (0.2-1.3); Blood Urea Nitrogen 30 mg/dL (7-17); Calcium 9.4 mg/dL (8.4-10.2); Carbon Dioxide 27 mmol/L (22-30); Chloride 102 mmol/L (98-107); Creatine Kinase 144 U/L (30-135); Estimated CRCL calculation 43 ml/min; Estimated Glomerular Filt Rate 58; Glucose 80 mg/dL (65-110); Magnesium 2.0 mg/dL (1.6-2.3); Potassium 4.0 mmol/L (3.4-5.0); Sodium 136 mmol/L (137-145); Total Protein 7.0 g/dL (6.3-8.2)
[2025-01-22 21:28] LABS: INR 1.0; Prothrombin Time 12.8 Seconds (11.1-14.7)
[2025-01-22 21:29] LABS: Partial Thromboplastin Time 25.6 Seconds (22.3-36.8)
[2025-01-22 21:30] LABS: Troponin I < 0.012 ng/mL (0.000-0.034)
[2025-01-22 21:39] LABS: Add Urine Microscopic? YES; Appearance Urine Clear (Clear); Glucose Urine UA Negative (Negative); Leukocyte Esterase Ur 2+ LEU/UL (Negative); Nitrate Urine Positive (Negative); Non Pathogenic Casts 0-2; Specific Grav Ur 1.018 (1.001-1.035)
[2025-01-22] MEDS: SODIUM CHLORIDE 0.9% IV 1,000 ML 999 ML IV CONT (22:00)
[2025-01-22] MEDS: cefTRIAXone 1 GM in SODIUM CHLORIDE 0.9% IV 50 ML 100 ML IVPB (22:01)
--- NOTE | 2025-01-22 22:49 | ED_ITS ---
HPI - Dizziness General Chief Complaint: Syncope Stated Complaint: SYNCOPE Time Seen by Provider: 01/22/25 20:58 History of Present Illness HPI Narrative: Patient is a 59-year-old female who presents emergency department this evening status post a syncopal versus seizure episode. found the patient on the floor when she was initially on the couch. Patient does not know if she fell, passed out or had a seizure. She does have superficial tongue lacerations to the left side. Per , he believes the patient was unconscious for approximately 5 minutes she was breathing normally during this period. Which she regained consciousness she was disoriented x1, however, upon arrival to the emergency department patient is no alert and oriented to person, place, time and situation. Was she has past medical history of lung cancer with brain metastasis and adrenal metastasis, MS, and hypertension. States that she has never had any seizures or was told that she has a seizure disorder. Denies any new medications. States that she recently was taken off of steroids. Admits that she has been drinking tonight and had some wine. Denies any additional symptoms or concerns at this time. Related Data Home Medications ?Medication ?Instructions ?Recorded ?Confirmed ?Last Taken ?Type azelastine 137 mcg (0.1 %) nasal 1 spray intranasal DAILY PRN 11/08/20 06/16/22 Unknown History spray Congestion baclofen 10 mg tablet 10 mg PO HS 11/08/20 06/16/22 06/14/22 21:00 History cholecalciferol (vitamin D3) 100 100 mcg PO DAILY 11/08/20 06/16/22 06/15/22 09:00 History mcg (4,000 unit) tablet fingolimod 0.5 mg capsule ([employer]) 0.5 mg PO DAILY 11/08/20 06/16/22 06/15/22 09:00 History duloxetine 60 mg capsule,delayed 60 mg PO BID 04/28/22 06/16/22 06/15/22 09:00 History release Allergies Allergy/AdvReac Type Severity Reaction Status Date / Time Tetanus Vaccines and Toxoid Allergy Intermediate Rash Verified 01/22/25 20:50 codeine Allergy Mild Rash Verified 01/22/25 20:50 Review of Systems 2 Review of Systems: All systems are reviewed and are negative unless stated otherwise in the HPI. [facility] Past Medical History Medical History Immunosuppressed status Nicotine dependence Chronic obstructive pulmonary disease Anxiety Hypertension Multiple sclerosis Surgical History Surgical History History of hammertoe correction (04/2022) History of tonsillectomy History of benign breast biopsy History of appendectomy Family History Family History Other Hypertension Social History Social History Social History: Surrogate medical decision maker: Ramu Cavanaugh, spouse. Code status: Full code. Years smoked: 42 Smoking status: Former smoker Tobacco type: cigarettes and e-cigarettes/vaping Smoking end date: 10/14/21 Additional smoking assessment comments: Vapes since quit smoking in October 2021. Alcohol intake: current Drinks per week: 1 Substance use: current Substance use type: marijuana Other substance usage details: Uses for MS Last use: 06/04/22 Lack of Transportation: No Lack of Food: Never True Current Housing: I Have Housing Concerned About Future Housing: No Difficulty Paying Gas/Electric Bills: No Difficulty Paying for Meds: No Currently Unemployed: No Education: High School Diploma/GED Difficulty w/ Childcare or Family Care: No Living arrangements: with family Spiritual care concerns: No Exam 2 Narrative: General: Alert, awake, afebrile, in no acute distress. HEENT: PERRL, no rhinorrhea, no post nasal drip, oropharynx clear. Neck: Trachea midline, no JVD, no lymphadenopathy. Cardiovascular: Regular rate and rhythm, no murmurs, rubs or gallops, no peripheral edema. Respiratory: Clear to auscultation bilaterally, no tachypnea, no wheezing, no rhonchi, no rubs, no respiratory distress. Abdomen: Soft, nontender, nondistended, no rebound, no guarding, no peritoneal signs. Musculoskeletal: No joint swelling or deformity, normal muscle tone. Skin: No rashes or petechia, no signs of infection. Psychiatric: Alert and oriented, normal behavior and judgment for situation. Neurological: Alert and oriented to person, place, and time. Follows all commands. No focal deficits, speech is clear and fluent. Course Vital Signs Vital signs: Vital Signs Temperature 97.9 F 01/22/25 20:51 Pulse Rate 81 01/22/25 20:51 Respiratory Rate 14 01/22/25 20:51 Blood Pressure 154/83 H 01/22/25 20:51 Pulse Oximetry 96 01/22/25 20:51 Oxygen Delivery Room Air 01/22/25 20:51 Temperature 97.9 F 01/22/25 20:51 Pulse Rate 94 01/23/25 04:02 Respiratory Rate 18 01/23/25 04:02 Blood Pressure 151/95 H 01/23/25 04:02 Pulse Oximetry 97 01/23/25 04:02 Oxygen Delivery Room Air 01/22/25 20:56 MDM - Dizziness MDM Narrative Medical decision making narrative: The patient was evaluated by myself in the emergency department. History is obtained from patient who is an independent historian and physical exam was performed. External medical records were reviewed at this time. IV was established and pertinent tests were ordered. Patient was administered 1 L IV fluid bolus with normal saline. EKG was obtained which revealed sinus rhythm rate of 80 beats per minute. No ST changes, T wave inversions or evidence of acute ischemia. EKG was independently interpreted by me and is currently pending official cardiology read. Laboratory results obtained revealing CPK of 144, otherwise unremarkable. Urinalysis did reveal a nitrite positive UTI. At this time patient was administered 1 g of IV Rocephin. Imaging studies obtained included CXR which was independently interpreted by me revealing: IMPRESSION: Multiple left hemithorax fractures. No acute cardiopulmonary pathology. CT brain without IV contrast was also obtained at this time and blood interpreted by me: IMPRESSION: Masses in the right upper frontal lobe with hemorrhagic changes and surrounding vasogenic edema. Contrast-enhanced MRI is advised. CT angiogram chest PE protocol was also obtained at this time and bloody interpreted by me revealing: IMPRESSION: 1. No pulmonary embolism or aortic dissection. Ascending aorta measures 3.5 cm.. 2. No acute cardiopulmonary pathology. 3. Right adrenal mass. Further evaluation advised. Small left adrenal adenoma or metastatic lesion. 4. Fullness of the left renal pelvis. Further evaluation advised. Small left renal cyst. 5. Constipation. 6. Nonhealed rib fractures seen in the left hemithorax. 7. Possible reflux esophagitis. Patient was informed of these findings at bedside. She is aware of the adrenal metastasis . This time, case was discussed with the on-call neurosurgeon Dr. Reynaga at [phone] and although he is the on-call neurosurgeon at [place] were patient receives oncology care, he is concerned that the patient did out seizure episode and unfortunately did not have Neurology or capacity to perform EEGs at [place] and therefore recommending transferring the patient either to [facility] or [facility]. [facility] transfer line was contacted at this time and I did speak with the on-call neurosurgeon Dr. Mooney at 0021 who accepted transfer. Transfer was accepted by the on-call hospitalist Dr. Abrams at 0028. Patient was administered 1.5 g of IV Keppra for seizure prophylaxis. Differential diagnosis considerations include pulmonary emboli, seizure, syncopal episode, dehydration, electrolyte derangements. Comorbidities impacting this visit include history of lung cancer with metastasis. I have evaluated and discussed social determinants of health with the patient that could potentially impact subsequent diagnosis and treatment plans. On repeat assessment of the patient, reevaluation revealed that the patient is doing well and is in no acute distress. Patient symptoms have improved since she arrived to our emergency department. Repeat vital signs were all reviewed and noted to be stable. Differential diagnosis and treatment plan were discussed with the patient at bedside. Patient agrees with discussion and after shared medical decision making agrees with transfer. All questions were answered to the patient's satisfaction. Patient is resting comfortably currently pending bed placement and [facility]. Lab Data 01/22/25 21:01 01/22/25 21:04 Labs: Lab Results 01/22/25 01/22/25 01/22/25 Range/Units 21:01 21:04 21:26 WBC 8.9 (4.5-10.0) K/mm3 RBC 3.83 L (4.2-5.4) M/mm3 Hgb 11.7 L (12.0-15.0) g/dL Hct 37.2 (37.0-47.0) % MCV 97.1 (80-100) fl MCH 30.5 (26-34) pg MCHC 31.5 L (32-36) g/dl RDW 14.3 (11.5-14.5) % Plt Count 384 H (150-375) k/mm3 MPV 8.8 (7.4-10.4) fl Immature Gran % (Auto) 0.3 (0-0.5) % Neut % (Auto) 71.0 (45.5-73.1) % Lymph % (Auto) 20.0 (18.3-44.2) % [place] % (Auto) 7.4 (2.6-8.5) % Eos % (Auto) 0.7 (0-4.4) % Baso % (Auto) 0.6 (0.2-1.2) % Lymph # (Auto) 1.78 (0.9-3.2) K/mm3 [place]ford # (Auto) 0.7 H (0.1-0.6) K/mm3 Eos # (Auto) 0.1 (0-0.3) K/mm3 Baso # (Auto) 0.1 (0.0-0.1) K/mm3 Abs Immat Gran (auto) 0.03 (0.00-0.031) K/mm3 Absolute Neuts (auto) 6.3 (1.3-6.7) K/mm3 Absolute Nucleated RBC 0.000 (0.0-0.012) K/mm3 Nucleated RBC % 0.0 (0.0-0.2) % PT 12.8 (11.1-14.7) Seconds INR 1.0 APTT 25.6 (22.3-36.8) Seconds Sodium 136 L (137-145) mmol/L Potassium 4.0 (3.4-5.0) mmol/L Chloride 102 (98-107) mmol/L Carbon Dioxide 27 (22-30) mmol/L Anion Gap 7 (4-12) mmol/L BUN 30 H D (7-17) mg/dL Creatinine 0.98 (0.7-1.0) mg/dL Estim Creat Clear Calc 43 ml/min Estimated GFR 58 L (59 - ) Glucose 80 (65-110) mg/dL Calcium 9.4 (8.4-10.2) mg/dL Magnesium 2.0 (1.6-2.3) mg/dL Total Bilirubin 0.2 (0.2-1.3) mg/dL AST 45 H (14-36) U/L ALT 32 (6-35) U/L Alkaline Phosphatase 57 (38-126) U/L Total Creatine Kinase 144 H (30-135) U/L Troponin I < 0.012 (0.000-0.034) ng/mL Total Protein 7.0 (6.3-8.2) g/dL Albumin 4.3 (3.5-5.1) g/dL Urine Color Yellow (Yellow) Urine Appearance Clear (Clear) Urine pH 6.5 (5.0-9.0) Ur Specific Lawn 1.018 (1.001-1.035) Urine Protein Negative (Negative) mg/dL Urine Glucose (UA) Negative (Negative) mg/dL Urine Ketones Negative (Negative) mg/dL Ur Blood (Man) Negative (Negative) Urine Nitrate Positive H (Negative) Urine Bilirubin Negative (Negative) Urine Urobilinogen 0.2 (<2.0) mg/dL Leukocyte Esterase Rfl 2+ H (Negative) MICHAEL/UL Urine RBC 0-2 (0-2) /hpf Urine WBC 6-10 H (0-3) /hpf Ur Squamous Epith Cells None seen (Few) /hpf Urine Bacteria 4+ H /hpf Urine Casts 0-2 Discharge Plan Discharge Clinical Impression: Metastasis to brain, Vasogenic cerebral edema, Seizure Patient Disposition: Acute Care Hospital Condition: Stable Patient Language: Danish Prescriptions: No Action baclofen 10 mg tablet 10 mg PO HS azelastine 137 mcg (0.1 %) aerosol,spray 1 spray INTRANASAL DAILY PRN (Reason: Congestion) Patient Comments: Patient uses PRN fingolimod [Gilenya] 0.5 mg Capsule 0.5 mg PO DAILY cholecalciferol (vitamin D3) 100 mcg (4,000 unit) Tablet 100 mcg PO DAILY prednisone 20 mg Tablet 40 mg PO DAILY@0800 Qty: 3 0RF oseltamivir [Tamiflu] 75 mg Capsule 75 mg PO Q12HR Qty: 1 0RF cefdinir 300 mg Capsule 300 mg PO Q12HR Qty: 4 0RF doxycycline hyclate 100 mg Tablet 100 mg PO Q12HR Qty: 4 0RF Eliquis 5 mg Tablet 5 mg PO Q12HR Qty: 60 0RF Rx Instructions: take 10 mg b.i.d. for 6 days then 5 mg b.i.d. to continue after that guaifenesin [Mucus Relief ER] 600 mg Tablet Extended Release 12hr 600 mg PO Q12HR Qty: 30 0RF duloxetine 60 mg capsule,delayed release(DR/EC) 60 mg PO BID Follow-up/Referrals: Afshan,DAVID Santiago [Primary Care Provider] - Time of Disposition: 00:32
[2025-01-23] VITALS (22 sets, daily range): BP systolic 116–151; BP diastolic 67–98; PULSE 74–94; RESP 13–25; O2SAT 92–98
[2025-01-23] MEDS: levETIRAcetam 1500MG/NACL100ML 1,500 MG/100 ML BAG 400 MG IVPB (00:03)
--- NOTE | 2025-01-23 04:03 | PC.NURSE ---
Pt moved from stretcher to hospital bed at this time. New pure wick place and depend changed. Night meds ordered at this time per [facility] EDP Dr. Pond.
[2025-01-23] MEDS: HYDROcodone/acetaminophen (*CRX) 5-325 MG TABLET 1 TAB PO (04:10)
[2025-01-23] MEDS: BACLOFEN 10 MG TABLET PO (04:35)
--- NOTE | 2025-01-23 09:35 | PC.NURSE ---
per [facility], it will be days before a bed is given. they have many people who has been waiting multiple days EDP made aware
[2025-01-23] MEDS: HYDROcodone/acetaminophen (*CRX) 5-325 MG TABLET 1 TAB (11:16)
--- NOTE | 2025-01-23 13:04 | PC.NURSE ---
reg diet dinner tray ordered
--- NOTE | 2025-01-23 13:29 | PC.NURSE ---
pt asking if we can seek placement at other facilities, would like to start with [facility] EDP made aware
== END 2025-01-23 16:15 | disposition short-term general hospital (02) ==
PROVIDERS: Emergency Provider Emergency Medicine; PCP Nurse Practitioner Family
DX: C79.31 Secondary malignant neoplasm of brain (principal); G93.6 Cerebral edema; R56.9 Unspecified convulsions; C34.90 Malignant neoplasm of unspecified part of unspecified bronchus or lung; C79.72 Secondary malignant neoplasm of left adrenal gland; C79.71 Secondary malignant neoplasm of right adrenal gland; I10 Essential (primary) hypertension; J44.9 Chronic obstructive pulmonary disease, unspecified; G35 Multiple sclerosis; F41.9 Anxiety disorder, unspecified; F17.290 Nicotine dependence, other tobacco product, uncomplicated; Z79.01 Long term (current) use of anticoagulants; Z79.69 Long term (current) use of other immunomodulators and immunosuppressants; R94.31 Abnormal electrocardiogram [ECG] [EKG]; N28.1 Cyst of kidney, acquired; K59.00 Constipation, unspecified
CPT/HCPCS: 36415; 70450; 71045; 71275; 80053; 81001; 82550; 83735; 84484; 85025; 85610; 85730; 93005; 96365; 96367; 99285; A9270; J0696; J1953; J7030; Q9967

== ENCOUNTER 2025-02-04 20:38 | Emergency (ER) | payer BC, SELFPAY ==
--- NOTE | ~2025-02-04 | CT_ITS ---
EXAMINATION: CT abdomen pelvis w con DATE: 02/05/2025 07:16 INDICATION: Difficulty catheterizing self. History of multiple sclerosis. TECHNIQUE: Computed tomography (CT) of the abdomen and pelvis was performed with 100 cc Omnipaque 350 intravenous contrast. The dose-length product was 187.54 mGy-cm. Automated exposure control and iter ative reconstruction technique were employed. COMPARISON: CT dated 09/06/2021. FINDINGS: Lung bases unremarkable. Heart size normal. There is a heterogeneous enhancing 3.5 x 1.9 cm mass in the right adrenal gland. There are low-density lesions in both kidneys, most likely benign c ysts. Fatty infiltration of the liver. Spleen is atrophic. Pancreas and left adrenal gland are unrema rkable. Gallbladder is present. Nonobstructive bowel gas pattern. Bladder wall is mildly thickened, s uspicious for cystitis. No free air or free fluid. There are burst fractures of T12 and L1 with verte broplasty changes. There is disc narrowing at L4-5. IMPRESSION: 1. Mild diffuse bladder wall thickening, suspicious for cystitis. Clinically correlate. 2: Heterogeneously enhancing 3.5 cm right adrenal mass. Statistically this most likely represents an adenoma, although imaging is indeterminate. Recommend correlation with MRI abdomen without and with contrast. Reviewed, dictated and finalized at location A. IMPRESSION: 1. Mild diffuse bladder wall thickening, suspicious for cystitis. Clinically co rrelate. 2: Heterogeneously enhancing 3.5 cm right adrenal mass. Statistically this mos t likely represents an adenoma, although imaging is indeterminate. Recommend co rrelation with MRI abdomen without and with contrast.
[2025-02-04 20:40] VITALS: BP 154/93; PULSE 73; RESP 16; TEMP 36.3; O2SAT 97
--- OUTSIDE RECORDS SUMMARY | 2025-02-04 20:41 | XMS_ITS | Clinical Summary ---
Author Organization [facility] Address [facility] [place] [address] Care Team Providers Care Manager Salt Name Role Phone Pamela Cavanaugh [facility] Primary Care Provider [phone] Arben Alvarenga MD Unavailable Allergies Active Allergy Reactions Criticality [...] Noted Date Diagnosed Date MS (multiple sclerosis) ([facility]) 2022 Encounters Date Type Department Care Team Description 01/26/2025 Telephone [facility] Radiation Oncology [address] [place] [address] [place] [address] Arben Alvarenga MD Cancer (/) 01/09/2025 Orders Only [facility] Radiation Oncology [address] [place] [address] [place] [address] Arben Alvarenga MD 01/09/2025 Telephone [facility] Radiation Oncology [address] [place] [address] [place] [address] Arben Alvarenga MD Medication 01/01/2025 9:15 AM CDT - 01/01/2025 11:59 PM CDT Hospital Encounter [facility] Radiation Oncology [address] [place] [address] [place] [address] Arben Alvarenga MD Consult Discharge Disposition: Home or Self Care (Routine Discharge) 01/01/2025 Travel 12/29/2024 7:49 AM CDT - 12/29/2024 11:59 PM CDT Hospital Encounter [address] [address] Arben Alvarenga MD Discharge Disposition: Home or Self Care (Routine Discharge) 12/29/2024 Travel 12/03/2024 2:45 PM CDT - 12/03/2024 5:16 PM CDT Emergency [facility] Emergency Room [address] [place] [id number] Michelle Rodriguez MD Urinary Symptoms Discharge Disposition: Home or Self Care (Routine Discharge) 12/03/2024 Travel from Last 3 Months Family History [...] 12/03/2024 2:49 PM CDT Plan of Treatment Upcoming Encounters Date Type Department Care Team (Late st Contact Info) Description 04/02/2025 1:00 PM CDT Appointment [facility] Radiation Oncology [address] [place] [address] [place] [address] Arben Alvarenga MD [address] [place] [address] [place] [id number] Health Maintenance Due Date Last Done Comments [...] 9:3 9 AM CDT Metastasis to brain ([facility]) URINE BACTERIA CULTURE STAT 12/03/2024 3:12 PM CDT URINALYSIS, AUTO, COMPLETE STAT 12/03/2024 3:12 PM CDT from Last 3 Months Results * MRI [...] 8:11 AM Narrative 01/02/2025 8:22 AM CDT [facility] [address] [facility] [place] [id number] EXAMINATION:Brain MRI with and without contrast 12/29/2024 [...] Procedure Note Aristides Velez MD - 01/02/2025 [facility] [address] [place] [address] EXAMINATION:Brain MRI with and without contrast 12/29/2024 [...] Aristides Velez MD, 01/02/2025 8:11 AM Arben Alvarenga MD MRI Final Result * (ABNORMAL) URINE BACTERIA CULTURE (12/03/2024 3:12 PM CDT) SPEC DESCRIPTION URINE STRAIGHT CATH 12/03/2024 3:12 PM CDT [facility] SPECIAL REQUESTS NO SPECIAL REQUEST 12/03/2024 3:12 PM CDT [facility] CULTURE RESULT >100,000 COL/ML KLEBSIELLA PNEUMONIAE (A) 12/05/2024 7:45 AM CDT [facility] URINE SPECIMEN OBTAINED BY SINGLE CATHETERIZATION [...] Klebsiella pneumoniae TRIMETH-SULFAMETH. AMAYA (VITEK) <=20: Sensitive us Michelle Rodriguez MD MICROBIOLOGY - GENERAL ORDERABL ES Final Result [facility] [address] [place] [address], [place] [phone] [facility] [address] [place] [address], [place] [phone] * (ABNORMAL) URINALYSIS, AUTO, COMPLETE (12/03/2024 3:12 PM CDT) COLOR (U) YELLOW 12/03/2024 3:30 PM CDT [facility] TRANSPARENCY HAZY 12/03/2024 3:30 PM CDT [facility] SPECIFIC GRAVITY (U) 1.020 1.000 - 1.030 12/03/2024 3:30 PM CDT [facility] U PH 6.0 5.0 - 9.0 12/03/2024 3:30 PM CDT [facility] LEUKOCYTES (U) 1+(A) NEGATIVE 12/03/2024 3:30 PM CDT [facility] NITRITES NEGATIVE NEGATIVE 12/03/2024 3:30 PM CDT [facility] PROTEIN RANDOM (U) NEGATIVE NEGATIVE 12/03/2024 3:30 PM CDT [facility] GLUCOSE (U) NEGATIVE NEGATIVE 12/03/2024 3:30 PM CDT [facility] KETONES MG/DL (U) TRACE(A) NEGATIVE 12/03/2024 3:30 PM CDT [facility] BILIRUBIN (U) NEGATIVE NEGATIVE 12/03/2024 3:30 PM CDT [facility] BLOOD (U) NEGATIVE NEGATIVE 12/03/2024 3:30 PM CDT [facility] WBC/HPF 5-10 0 - 5 /HPF 12/03/2024 3:30 PM CDT [facility] RBC/HPF NONE SEEN 0 - 5 /HPF 12/03/2024 3:30 PM CDT [facility] EPI/HPF FEW /HPF 12/03/2024 3:30 PM CDT [facility] BACTERIA (U) MODERATE /HPF 12/03/2024 3:30 PM CDT [facility] URINE, STRAIGHT CATH 12/03/2024 3:12 PM CDT us Michelle Rodriguez MD URINE ORDERABLES Final Result [facility] [address] [place] [address], from Last 3 Months Insurance [facility] Care Teams Manager Salt Relationship Specialty Start Date End Date Pamela Cavanaugh FNP- PCP - General 11/02/22 Arben Alvarenga MD [address] [place] [address] Consulting Physician RADIATION ONCOLOGY 09/27/23
--- OUTSIDE RECORDS SUMMARY | 2025-02-04 20:41 | XMS_ITS | Encounter Summary ---
Author Organization [facility] Address [facility] [place] [address] Care Team Providers Care Box Car Washer Name Role Phone Pamela Cavanaugh [facility] Primary Care Provider [phone] Abren Alvarenga MD Unavailable Encounter Details Date Type Department Care Team (Late Contact Info) Description 12/05/2022 Therapy Plan [facility] [address] [place] [address] Michael Horner MD [address] [address] Social History Tobacco Use Types Packs/Day Years [...] Encounters Date Type Department Care Team (Late Contact Info) Description 04/02/2025 1:00 PM CDT Appointment [facility] Radiation Oncology [address] [place] [address] Arben Alvarenga MD [address] [place] [address] [address] [place] [address] documented as of this encounter Visit Diagnoses Diagnosis MS (multiple sclerosis) ([facility])- Primary Multiple sclerosis MS (multiple sclerosis) ([facility]) Multiple sclerosis documented in this encounter Care Teams Box Car Washer Relationship Specialty Start Date End Date [facility] PCP - General 11/02/22 Arben Alvarenga MD [address] [place] [address] Consulting Physician RADIATION ONCOLOGY 09/27/23 documented as of this encounter
--- OUTSIDE RECORDS SUMMARY | 2025-02-04 20:41 | XMS_ITS | Encounter Summary ---
Author Organization [facility] Address [address] [place] [address] Phone Care Team Providers Care Barn Boss Name Role Phone Provider, Unknown Primary Care Provider Unavaila Sarah Mcdowell MD Unavailable + [phone] Pamela Cavanaugh APRN, PILE FABRIC KNITTER Unavailable + [phone] Michael Horner MD Unavailable [phone] Fazal Mcneal DO Unavailable [phone] Encounter Details Date Type Department Care Team (Late st Contact Info) Description 09/25/2023 Telephone [facility] [address] [place] [address] Fazal Mcneal, DO [address] [place] [address] Social History Tobacco Use Types Packs/Day Years Used Date Smoking Tobacco: Former Cigarettes Smokeless Tobacco: Never Alcohol Use Standard Drinks/Week Comments Yes 4 (1 standard drink = 0.6 oz pur e alcohol) Comments Unknown Sex and Gender Information Value Date Recorded Sex Assigned at Not on file 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 Gender Identity Not on file Sexual Orientation Not on file documented as of this encounter Functional Status * Question Answer Date of Assessment Author Little interest or pleasure in doing things Not at all 09/25/2023 9:24 AM CDT Saima Mooney , CONVENTION SERVICES MANAGER Feeling down, depressed, or hopeless Not at [...] AM CDT Office Visit [facility] [address] [phone] Fazal Mcneal, [address] [place] [phone] 03/27/2025 9:00 AM CDT Lab [facility] [address] [phone] Lab, [facility] 03/27/2025 9:30 AM CDT Ancillary Procedure [facility] [address] [phone] 03/27/2025 9:45 AM CDT Ancillary Procedure [facility] [address] [phone] documented as of this encounter Visit Diagnoses Not on filedocumented in this encounter Care Teams Barn Boss Relationship Specialty Start Date End Date Provider, Unknown UNKNOWN PCP - General 06/30/22 Sarah Rich MD UNKNOWN Pulmonary Disease 10/31/22 Pamela Cavanaugh, MANAGER INTENSIVE CARE, PILE FABRIC KNITTER UNKNOWN Internal Medicine 10/31/22 Michael Horner MD [address] [facility] [address] [place] [address] Neurology 10/31/22 Fazal Mcneal DO [address] [place] [phone] Consulting Physician Oncology 10/31/22 documented as of this encounter
--- OUTSIDE RECORDS SUMMARY | 2025-02-04 20:41 | XMS_ITS | Encounter Summary ---
Author Organization [facility] Healthcare Address [address] [place] [address] Care Team Providers Care Claims Coordinator Name Role Phone Pamela Cavanaugh NP Primary Care Provider [phone] Vicki Bearden NP Unavailable + [phone] Pamela Cavanaugh NP Primary Care Provider [phone] Fazal Mcneal DO Unavailable [phone] Naya Valdez MD Unavailable [phone] Sarah Rich MD Unavailable + [phone] Arben Alvarenga MD Unavailable [phone] Lloyd Anderson MD Unavailable Encounter Details Date Type Department Care Team (Late st Contact Info) Description 10/23/2022 Telephone [facility] [address] [place] [address] Rula Ramos, FLOYD Social History [...] on file Legal Sex Female 10:02 AM HAND WINDER Gender Identity Female 10/11/2020 12:34 PM CDT Sexual Orientation Not on file 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 Not on file Not on file documented as of this encounter Plan of Treatment Not on file documented as of this encounter Visit Diagnoses Not on filedocumented in this encounter Additional Health Concerns Infection Onset Date Last Indicated Resolved Time COVID: Suspected 08/09/2023 08/09/2023 08/09/2023 10:20 AM HAND WINDER COVID: Suspected 08/17/2023 08/17/2023 08/17/2023 1:59 PM HAND WINDER documented as of this encounter Care Teams Claims Coordinator Relationship Specialty Start Date End Date Pamela Cavanaugh NP PCP - General Internal Medicine 09/22/20 11/20/22 [place] [address] [place] [id number] PCP - General Internal Medicine 11/21/22 Vicki Bearden NP Nurse Practitioner Urology 11/15/20 Fazal Mcneal DO [address] [place] [phone] Referring Physician Medical Oncology 11/27/22 Naya Valdez MD [address] [place] [address] Radiation Oncology 11/27/22 Sarah Rich MD [address] [place] [address] [phone] Consulting Physician Pulmonary Disease 11/27/22 Arben Alvarenga MD [address] [place] [address] [phone] Radiation Oncology 12/07/23 [place] [address] [place] [phone] Consulting Physician Pain Management 12/26/24 documented as of this encounter
--- OUTSIDE RECORDS SUMMARY | 2025-02-04 20:41 | XMS_ITS | Clinical Summary ---
Author Organization [facility] Building B Address [address] [place] [address] Care Team Providers Care Cistern Room Working Supervisor Name Role Phone Vicki Bearden NP Unavailable + [phone] Pamela Howe NP Primary Care Provider [phone] Fazal Mcneal DO Unavailable [phone] Naya Valdez MD Unavailable [phone] Sarah Rich MD Unavailable + [phone] Arben Alvarenga MD Unavailable [phone] Lloyd Anderson MD Unavailable Allergies Active Allergy [...] 12/07/2023 Assessment & Plan (06/05/2024 9:18 AM ROUTE SALES DELIVERY DRIVER): 3 right frontal brain metastases Treated with [...] 10/11/2022 Assessment & Plan (06/05/2024 9:08 AM ROUTE SALES DELIVERY DRIVER): Diagnosed with poorly differentiated adenocarcinoma consistent with [...] 3 leeann magnet. Oncology follow-up with Dr. aFzal Mcneal Radiation oncology follow-up with Dr. Naya [...] 11/19/2021 Assessment & Plan (06/05/2024 9:12 AM ROUTE SALES DELIVERY DRIVER): Exercise encouraged Fall prevention discussed Baclofen 10 [...] seizures. Assessment & Plan (05/23/2022 9:50 AM ROUTE SALES DELIVERY DRIVER): Exercise encouraged: Yoga video Fall prevention discussed [...] 07/10/2017 Assessment & Plan (06/05/2024 9:12 AM ROUTE SALES DELIVERY DRIVER): Straight cath 3-4 times a day Follow-up [...] Garcia Assessment & Plan (05/23/2022 9:51 AM ROUTE SALES DELIVERY DRIVER): Straight cath TID or QID Follow-up with [...] Garcia Assessment & Plan (08/15/2019 9:08 AM ROUTE SALES DELIVERY DRIVER): Straight cath TID or QID Urology follow-up. Current urologist now out of network so will refer to Dr. Kendrick Garcia. Assessment & Plan (02/07/2019 9:03 AM CDT): Straight cath TID or QID Assessment & Plan (08/01/2018 9:23 AM ROUTE SALES DELIVERY DRIVER): Straight cath TID or QID Assessment & Plan (01/22/2018 9:30 AM CDT): Straight cath and monitor UTI's. Recommended to call us if urologist needed Assessment & Plan (07/10/2017 5:38 PM ROUTE SALES DELIVERY DRIVER): Straight cath TID or QID Mild recurrent major depression 07/10/2017 Assessment & Plan (06/05/2024 9:13 AM ROUTE SALES DELIVERY DRIVER): Duloxetine 60 mg twice a day Assessment & Plan (12/07/2023 7:32 AM CDT): Cymbalta 60 mg twice a day Assessment & Plan (03/28/2023 7:47 AM CDT): Cymbalta 60 mg twice a day Assessment & Plan (12/04/2022 8:39 AM CDT): Cymbalta 60 mg twice a day Assessment & Plan (05/23/2022 9:53 AM ROUTE SALES DELIVERY DRIVER): Cymbalta 60 mg twice a day Assessment & Plan (11/19/2021 9:14 AM CDT): Cymbalta 60 mg twice a day Assessment & Plan (10/13/2020 7:03 AM CDT): Cymbalta 60 mg daily Assessment & Plan (02/17/2020 9:08 AM CDT): Increase Cymbalta 60 mg twice a day. Moderate depression on sertraline 100 mg daily Assessment & Plan (08/15/2019 9:08 AM ROUTE SALES DELIVERY DRIVER): Sertraline 100 mg daily not controlling depression. Will start Cymbalta 30 mg at night for 1 week, then 60 mg at night. Risks discussed including nausea and drowsiness. Decrease sertraline to 50 mg at night for 1 week, then discontinue. Assessment & Plan (02/07/2019 9:03 AM CDT): Sertraline 100 mg daily Assessment & Plan (08/01/2018 9:23 AM ROUTE SALES DELIVERY DRIVER): Sertraline 100 mg daily Assessment & Plan (01/22/2018 9:30 AM CDT): Sertraline 100mg HS Assessment & Plan (07/10/2017 5:39 PM ROUTE SALES DELIVERY DRIVER): Sertraline 50 mg daily Pain in shoulder 04/17/2016 Multiple sclerosis 11/29/2013 Overview (01/27/2021): MULTIPLE SCLEROSIS DMT history Rebif 22 mcg 01/2011-03/2011, elevated LFTs Copaxone [id number] stopped due to out of pocket costs Viji 03/03/2014- Assessment & Plan (06/05/2024 9:11 AM ROUTE SALES DELIVERY DRIVER): Since diagnosed with poorly differentiated adenocarcinoma of [...] off Gilenya reviewed. She will enroll in [facility] website so teriflunomide can be prescribed [...] January. Assessment & Plan (05/23/2022 9:56 AM ROUTE SALES DELIVERY DRIVER): Gilenya. Risks discussed including cryptococcal meningitis and [...] daily Assessment & Plan (08/15/2019 9:06 AM ROUTE SALES DELIVERY DRIVER): Viji. Risks discussed including bronchitis/pneumonia, cryptococcal meningitis [...] 2020 Assessment & Plan (08/01/2018 9:22 AM ROUTE SALES DELIVERY DRIVER): Viji. Risks discussed including bronchitis/pneumonia, cryptococcal meningitis [...] needed. Assessment & Plan (07/10/2017 5:42 PM ROUTE SALES DELIVERY DRIVER): Viji. Risks discussed including bronchitis/pneumonia, cryptococcal meningitis [...] 12/15/2024 Assessment & Plan (06/05/2024 9:13 AM ROUTE SALES DELIVERY DRIVER): 04/09/20 hemoglobin 12.2, MCV 101.3 12/01/20 B12 [...] 20.2 Assessment & Plan (05/23/2022 9:54 AM ROUTE SALES DELIVERY DRIVER): 04/09/20 hemoglobin 12.2, MCV 101.3 12/01/20 B12 [...] Rebif 22 mcg 01/2011-03/2011, elevated LFTs Copaxone 1237-1349 stopped due to out of pocket costs [...] Encounters Date Type Department Care Team Description 01/22/2025 Orders Only [facility] Health Information Management [address] [place] [address] Pamela Howe NP 01/13/2025 7:52 AM CDT - 01/13/2025 11:59 PM CDT Hospital Encounter [facility] Pain Mgmt [address] [facility] [address] [place] [address] Lloyd Anderson MD Facet arthropathy, lumbar (Primary Dx); Pain of lumbar facet joint; Bulge of lumbar disc without myelopathy Discharge Disposition: Discharge to home or self care 01/08/2025 3:45 PM CDT Office Visit [facility] Infectious Disease [address] [place] [address] Spencer Oneill MD Dysuria (Primary Dx); Multiple sclerosis (HCC) 01/07/2025 Orders Only [facility] Family Medicine [address] [place] [address] Pamela Howe NP 12/30/2024 Results Follow-Up [facility] Family Medicine [address] [place] [address] [address] [place] [address] Pamela Howe NP Urinalysis reflex to microscopic and culture Urine, clean voided, REFLEXIVE URINE CULTURE, Urine culture 12/26/2024 8:46 AM CDT - 12/26/2024 11:59 PM CDT Hospital Encounter [facility] Pain [facility] [address] [facility] [address] [place] [address] Lloyd Anderson MD Compression fracture of T12 vertebra, initial encounter (HCC) (Primary Dx); Compression fracture of L1 vertebra, initial encounter (HCC); Age-related osteoporosis with current pathological fracture, initial encounter; Intractable back pain Discharge Disposition: Discharge to home or self care 12/23/2024 3:35 PM CDT Lab [facility] Lab [address] [place] [address] Compression fracture of body of thoracic vertebra (HCC); Compression fracture of L1 vertebra, initial encounter (HCC); Pre-op testing 12/19/2024 8:00 AM CDT Office Visit [facility] Obstetrics and Gynecology [address] [facility] 7th [address] [place] [address] Adeline Bennett NP Recurrent UTI (Primary Dx); Pelvic floor dysfunction in female; Vaginal atrophy 12/18/2024 Documentation [facility] Pain [facility] [address] [address] Marcela García, FLOYD 12/18/2024 Documentation [facility] Pain [facility] [address] [address] Marcela García RN 12/18/2024 Orders Only [facility] Pain [facility] [address] [address] Marcela García RN Compression fracture of T12 vertebra, initial encounter (HCC) (Primary Dx); Compression fracture of L1 vertebra, initial encounter (HCC) 12/18/2024 Orders Only [facility] Pain Mgmt [address] [address] Mary Hoffman RN 12/18/2024 Orders Only [facility] Pain [facility]mt [address] [address] Mary Hoffman RN 12/18/2024 Documentation [facility] Pain [facility] [address] [address] Marcela García RN 12/16/2024 Orders Only [facility] Family Medicine [address] [place] [address] Pamela Howe NP Frequent UTI (Primary Dx) 12/15/2024 9:00 AM CDT Office Visit [facility] [address] [facility] [address] [place] [address] Michael Horner MD Multiple sclerosis (HCC) (Primary Dx); Paraparesis (HCC); Neurogenic bladder; Metastasis to brain (HCC); Wedge compression fracture of T11-T12 vertebra, initial encounter for closed fracture (HCC); Wedge compression fracture of first lumbar vertebra, initial encounter for closed fracture (HCC); Mild recurrent major depression 12/12/2024 Orders Only [facility] [address] [place] [address] Pamela Howe NP Hypertension, essential 12/05/2024 Telephone [facility] [address] [place] [address] Pamela Howe NP 12/03/2024 11:19 AM CDT - 12/03/2024 11:59 PM CDT Hospital Encounter [facility] Pain Mgmt [address] [place] [address] Lloyd Anderson MD Age-related osteoporosis with current pathological fracture, initial encounter (Primary Dx); T12 compression fracture, initial encounter (HCC); Wedge compression fracture of first lumbar vertebra, initial encounter for closed fracture (HCC); Intractable back pain Discharge Disposition: Discharge to home or self care 12/01/2024 9:15 AM CDT Office Visit [facility] [address] [place] [address] [address], [address] [place] [address] Israel Chou PA Wedge compression fracture of T11-T12 vertebra, initial encounter for closed fracture (HCC) (Primary Dx); Wedge compression fracture of first lumbar vertebra, initial encounter for closed fracture (HCC) 12/01/2024 9:05 AM CDT - 12/01/2024 11:59 PM CDT Hospital Encounter [facility] Diag Imaging [address] [place] [address] Closed wedge compression fracture of T12 vertebra, initial encounter (HCC); Closed wedge compression fracture of T11 vertebra, initial encounter (HCC); Closed wedge compression fracture of L1 vertebra, initial encounter (HCC) Discharge Disposition: Discharge to home or self care 11/26/2024 Telephone [facility] Pulmonology [address] [place] [address] Spencer Oneill MD 11/21/2024 Telephone [facility] Obstetrics and Gynecology [address] [facility] 7[address] [place] [address] Argenis Jacobson RN UTI 11/20/2024 9:45 AM CDT Office Visit [facility] Pulmonary [place] [address] [facility] [address] [place] [address] Sarah Rich MD Single subsegmental pulmonary embolism without acute cor pulmonale (HCC) (Primary Dx); Mixed simple and mucopurulent chronic bronchitis (HCC); 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); Smoking greater than 20 pack years 11/19/2024 Orders Only [facility] Family Medicine [address] [place] [address] Pamela Howe NP 11/13/2024 3:15 PM CDT Office Visit [facility] Infectious Disease [address] [place] [address] Spencer Oneill MD Urinary tract infection without hematuria, site unspecified (Primary Dx); Metastasis to brain (HCC) 11/11/2024 Telephone [facility] Obstetrics and Gynecology [address] [facility] 7[address] [place] [address] Dee Bergeron RN 11/11/2024 Telephone [facility] Pulmonology [address] [place] [address] Spencer Oneill MD 11/05/2024 Telephone [facility] Orthopedics and Sports Medicine [address] [place] [address] Alyssa Ledezma NP 11/05/2024 Orders Only [facility] Orthopedics and Sports Medicine [facility] [place] [address] Provider, MD Marilia from Last 3 Months Immunizations Immunization Administration [...] (HC C) Neuromuscular disorder (HCC) 1989 Depression 2017 Abnormal Pap smear of cervix 1994 Breast mass 1993 Family History Medical History Relation Name Comments [...] drink = 0.6 oz pur e alcohol) [facility] Secure Command Answer Date Recorded In the past 12 months has e [employer], gas, oil, or water [employer] threatened to shut off services in your [...] How often do you attend chur or presybeterian services? More than 4 times per year 08/20/2023 Do you belong to any clubs o r organizations such as amish groups, unions, fraternal or athletic groups, or [...] place to sleep or slept in a nursing home (including now)? No 08/20/2023 Personal Safety Answer Date Recorded Have you ever been in or are you currently in a harmful physical or emotional relationship or is someone making you feel afraid or unsafe? 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 Not on file Not [...] Covid-19 Vaccine (8 - Mixed Product risk ) 10/31/2024 05/02/2024, 05/15/2023, 11/28/2022, Additional history exists Regular [...] Completed 04/20/2022 Medical Devices Implanted Type Area Dessert Cup Machine Feeder Device Identifier Shelf Expiration Date Model / Serial / Lot Screw Screw Right: Toes Description:Rt foot 2nd toe TodPerosphere Avamax Od13 Ga L10 Mm Balloon Tray Bone Cement [id number] - [id number] - [id number] Implanted:Qty: 1 on 12/26/2024 by Lloyd Anderson MD at [facility] 03/15/2025 [id number] / [id number] / Description:Vertaplex HV hig h viscosity radiopaque bone cement Procedures Procedure Name Priority Date/Time Associated Diagnosis Comments SCAN - RADIOLOGY/IMAGING 01/22/2025 PAIN MGMT IMAGING VEREBROPLASTY (VTP) THORACIC Schedule Routine, Read Routine (OP Routine) 12/26/2024 11:45 AM CDT Compression fracture of L1 vertebra, initial encounter (HCC) APTT Routine 12/23/2024 3:40 PM CDT Compression fracture of body of thoracic vertebra (HCC) Compression fracture of L1 vertebra, initial encounter ([facility]) Pre-op testing PROTIME-INR Routine 12/23/2024 3:40 PM CDT Compression fracture of body of thoracic vertebra (HCC) Compression fracture of L1 vertebra, initial encounter ([facility]) Pre-op testing CBC WITHOUT DIFFERENTIAL Routine 12/23/2024 3:40 PM CDT Compression fracture of body of thoracic vertebra (HCC) Compression fracture of L1 vertebra, initial encounter ([facility]) Pre-op testing URINE CULTURE Routine 12/18/2024 7:34 [...] Routine (OP Routine) 11/05/2024 11:33 AM CDT SCREENING MAMMOGRAM Schedule Routine, Read Routine (OP Routine) 03/23/2021 HEPATITIS C ANTIBODY Routine 12/02/2020 7:15 AM CDT Encounter for hepatitis C screening test for low risk patient COLONOSCOPY Routine 04/11/2019 from Last 3 Months or Most Recently Relevant to Health Maintenance Results * SCAN - RADIOLOGY/IMAGING (01/22/2025) Anatomical Region Laterality Modality Other Pamela Howe NP Final Result * Imaging Fluoro Vertebroplasty (VTP) Thoracic (09367) (12/26/2024 11:45 AM CDT) Narrative [id number] - 12/26/2024 1:35 PM CDT The images from this study are not interpreted by Radiology. Please refer to the physician's procedure / OR operative note. Lloyd Anderson MD IMG PAIN MGMT PROCEDURES Final R esult Performing Organization Address City/[facility]/ZIP Co de Phone Number [email or web address] * aPTT (12/23/2024 3:40 PM CDT) aPTT 33 22 - 37 sec Comment: Interpretive data aPTT test has not been evaluated for monitoring heparin therapy. The anti-Xa is the preferred test. Current interpretive data was last revised on 2019. Testing performed by: [facility], [address] [place] [address]., [address] Blood 12/23/2024 3:40 PM CDT 12/23/2024 3:46 PM CDT Lloyd Anderson MD LAB BLOOD ORDERABLES Final Resul t TETE [address] Department [place] [address] * Protime-INR (12/23/2024 3:40 PM CDT) Pathologist [facility] PT 13.6 12.0 - 14.6 sec Comment:Testing performed by : [address] [address] INR 1.1 0.9 - 1.2 TETE Comment: Ref Range High Interpretive data Oral anticoagulant therapeutic ranges: Venous thromboembolism prophylaxis or treatment: 2.0-3.0 CARDIOLOGY Standard range: 2.0-3.0 High-intensity range: 2.5-3.5 Refer to indication-specific guidelines for appropriate target ranges for prosthetic heart valve replacement. Current interpretive data was last revised on 2019. Testing performed by: [address] [address] Blood 12/23/2024 3:40 PM CDT 12/23/2024 3:46 PM CDT Lloyd Anderson MD LAB BLOOD ORDERABLES Final Resul t [facility] [address] Department [place] [address] * (ABNORMAL) CBC without differential (12/23/2024 3:40 PM CDT) Pathologist [facility] WBC 5.50 3.80 - 9.90 K/cumm Comment:Testing performed by : [address] [address] Hgb 12.4 11.9 - 15.5 g/dL TETE Comment:Testing performed by : [address] [address] Hct 38.6 35.6 - 45.5 % TETE Comment:Testing performed by : [address] [address] Plt 480(H) 150 - 400 K/cumm TETE Comment:Testing performed by : [address] [address] MPV 8.6(L) 9.1 - 12.3 fL TETE RODRÍGUEZ Comment:Testing performed by : [facility], [address] [place] [address]., [address] RBC 4.05 3.90 - 5.20 M/cumm TETE Comment:Testing performed by : [address] [address] MCV 95.3 81.3 - 96.4 fL TETE Comment:Testing performed by : [address] [address] MCH 30.6 27.1 - 33.3 pg TETE Comment:Testing performed by : [address] [address] MCHC 32.1(L) 32.3 - 35.7 g/dL TETE Comment:Testing performed by : [address] [address] RDW CV 14.6 11.1 - 14.9 % TETE Comment:Testing performed by : [address], [address] RDW SD 50.9(H) 35.7 - 48.1 fL TETE Comment:Testing performed by : [address] [address] NRBC abs 0.00 0.00 - 0.01 K/cumm TETE Comment:Testing performed by : [address] [address] Blood 12/23/2024 3:40 PM CDT 12/23/2024 3:46 PM CDT us Lloyd Anderson MD LAB BLOOD ORDERABLES Final Resul t [facility] [address] Department [place] [address] * REFLEXIVE URINE CULTURE (12/18/2024 7:34 AM CDT) [facility] Urine culture [facility] Comment:CULTURE INDICATED - RESULTS TO FOLLOW 12/18/2024 7:34 AM CDT 12/18/2024 7:35 AM CDT Pamela Howe NP LAB MICROBIOLOGY - GENERAL OR DERABLES Final Result Performing Organization Address City/[facility]/ZIP Co de Phone Number [facility] [address] [place] [address] * (ABNORMAL) Urinalysis reflex to microscopic and [...] OR DERABLES Final Result Performing Organization Address [facility]/ZIP Co de Phone Number JOSE DANIEL [facility] [address] [place] [address] * Urine culture (12/18/2024 7:34 AM CDT) Urine culture [facility] Comment: CULTURE, URINE, ROUTINE Micro Number: [id number] Test Status: Final Specimen Source: Urine Specimen Quality: Adequate Result: No Growth 12/18/2024 7:34 AM CDT 12/18/2024 7:35 AM CDT Pamela Howe [employer]ERCIAL [employer]CE[employer] LAB MICROBIOLOGY - GENERAL OR DERABLES Final Result [facility] [address] [place] [address] * XR Spine Thoracic/Lumbar 2 View (12/01/2024 [...] by Nam Michele M.D. T: Report ID: [id number] Reading Location: [id number] Procedure Note Nam Michele MD - 12/03/2024 EXAM DESCRIPTION: XR SPINE THORACOLUMBAR JUNCTION 2 OR MORE VIEWS REASON FOR STUDY: WEDGE COMPRESSION FRACTURE T-11-T12 VERTEBRA WEDGE COMPRESSION FRACTURE FINDINGS: Two views thoracolumbar spine submitted with reikyhbukg16/01/2025. Redemonstrated are moderate T12 and L1 compression deformities.Associated kyphosis is present. No new fractures identified. Long segment dextroscoliosis of the thoracolumbar junction is noted. There ismultilevel thoracic degenerative disc disease. IMPRESSION: Unchanged moderate T12 and L1 compression deformities with associated kyphosis. THIS IS AN ELECTRONICALLY VERIFIED FINAL REPORT 12/03/2024 3:47 PM - Electronically signed by Nam Michele M.D. T: Report ID: [id number] Reading Location: [id number] Enrico Barragan MD IMG XR PROCEDURES Final Result * CT Lumbar Spine W WO Contrast (11/05/2024 11:34 AM CDT) Anatomical Region Laterality Modality Spine N/A Computed Tomogra phy Historical Provider IMG CT PROCEDURES Final R esult * CT Thoracic Spine W WO Contrast (11/05/2024 11:33 AM CDT) Anatomical Region Laterality Modality Spine N/A Computed Tomogra phy [facility] Provider IMG CT PROCEDURES Final R esult * Screening Mammogram (03/23/2021) Anatomical Region Laterality [...] a test for HCV RNA (test code 33315) is suggested. For additional information please refer to http://education.norin.tv/faq/XNP68o7 (This link is being provided for informational/ educational purposes only.) Blood specimen (specimen) 12/02/2020 7:15 AM CDT 12/02/2020 7:16 AM CDT Narrative [facility] - 12/03/2020 12:18 PM CDT FASTING:YES FASTING: YES Pamela Howe [employer] LAB MICROBIOLOGY - GENERAL OR DERABLES Final Result JOSE DANIEL [facility] [address] [facility] [place] [id number] * Colonoscopy (04/11/2019) Anatomical Region Laterality Modality Other Impressions 04/11/2019 Repeat 5 years Historical Provider ENDOSCOPY PROCEDURES Mariah l Result from Last 3 Months or Most Recently Relevant to Health Maintenance [place] For more information, please contact: [phone] * Full Code (Latest Code Status on File) Date Activated Date Inactivated Comments 08/17/2023 5:22 PM 08/21/2023 5:09 PM * Full Code Date Activated Date Inactivated Comments 10/20/2022 10:50 AM 10/21/2022 5:00 AM Care Teams Cistern Room Working Supervisor Relationship Specialty [place] [address] [place] [address] [address] [place], [place] [id number] PCP - General Internal Medicine 11/21/22 Vicki Bearden NP Nurse Practitioner Urology 11/15/20 Fazal Mcneal DO [address] [place] [address] Referring Physician Medical Oncology 11/27/22 Naya Valdez MD [address] [place], [place] [id number] Radiation Oncology 11/27/22 Sarah Rich MD [address] [place] [id number] Consulting Physician Pulmonary Disease 11/27/22 Arben Alvarenga MD [facility] [address] Radiation Oncology 12/07/23 Lloyd Anderson MD [facility] [address] [address] Consulting Physician Pain Management 12/26/24
--- OUTSIDE RECORDS SUMMARY | 2025-02-04 20:41 | XMS_ITS ---
Author Organization [facility] Building B Address [address] [place] [address] Care Team Providers Care Electrical Maintenance Man Name Role Phone Vicki Bearden TELLER MANAGER Unavailable Pamela Cavanaugh NP Primary Care Provider [phone] Fazal Mcneal DO Unavailable [phone] Naya Valdez MD Unavailable [phone] Sarah Rich MD Unavailable [phone] Arben Alvarenga MD Unavailable [phone] Lloyd Anderson MD Unavailable Active Problems Problem [...] 12/07/2023 Assessment & Plan (06/05/2024 9:18 AM SPORTS TRAINER): 3 right frontal brain metastases Treated with [...] 10/11/2022 Assessment & Plan (06/05/2024 9:08 AM SPORTS TRAINER): Diagnosed with poorly differentiated adenocarcinoma consistent with [...] 11/19/2021 Assessment & Plan (06/05/2024 9:12 AM SPORTS TRAINER): Exercise encouraged Fall prevention discussed Baclofen 10 [...] seizures. Assessment & Plan (05/23/2022 9:50 AM SPORTS TRAINER): Exercise encouraged: Yoga video Fall prevention discussed [...] 07/10/2017 Assessment & Plan (06/05/2024 9:12 AM SPORTS TRAINER): Straight cath 3-4 times a day Follow-up [...] Garcia Assessment & Plan (05/23/2022 9:51 AM SPORTS TRAINER): Straight cath TID or QID Follow-up with [...] Garcia Assessment & Plan (08/15/2019 9:08 AM SPORTS TRAINER): Straight cath TID or QID Urology follow-up. Current urologist now out of network so will refer to Dr. Kendrick Garcia. Assessment & Plan (02/07/2019 9:03 AM CDT): Straight cath TID or QID Assessment & Plan (08/01/2018 9:23 AM SPORTS TRAINER): Straight cath TID or QID Assessment & Plan (01/22/2018 9:30 AM CDT): Straight cath and monitor UTI's. Recommended to call us if urologist needed Assessment & Plan (07/10/2017 5:38 PM SPORTS TRAINER): Straight cath TID or QID Mild recurrent major depression 07/10/2017 Assessment & Plan (06/05/2024 9:13 AM SPORTS TRAINER): Duloxetine 60 mg twice a day Assessment & Plan (12/07/2023 7:32 AM CDT): Cymbalta 60 mg twice a day Assessment & Plan (03/28/2023 7:47 AM CDT): Cymbalta 60 mg twice a day Assessment & Plan (12/04/2022 8:39 AM CDT): Cymbalta 60 mg twice a day Assessment & Plan (05/23/2022 9:53 AM SPORTS TRAINER): Cymbalta 60 mg twice a day Assessment & Plan (11/19/2021 9:14 AM CDT): Cymbalta 60 mg twice a day Assessment & Plan (10/13/2020 7:03 AM CDT): Cymbalta 60 mg daily Assessment & Plan (02/17/2020 9:08 AM CDT): Increase Cymbalta 60 mg twice a day. Moderate depression on sertraline 100 mg daily Assessment & Plan (08/15/2019 9:08 AM SPORTS TRAINER): Sertraline 100 mg daily not controlling depression. Will start Cymbalta 30 mg at night for 1 week, then 60 mg at night. Risks discussed including nausea and drowsiness. Decrease sertraline to 50 mg at night for 1 week, then discontinue. Assessment & Plan (02/07/2019 9:03 AM CDT): Sertraline 100 mg daily Assessment & Plan (08/01/2018 9:23 AM SPORTS TRAINER): Sertraline 100 mg daily Assessment & Plan (01/22/2018 9:30 AM CDT): Sertraline 100mg HS Assessment & Plan (07/10/2017 5:39 PM SPORTS TRAINER): Sertraline 50 mg daily Pain in shoulder 04/17/2016 Multiple sclerosis 11/29/2013 Overview (01/27/2021): MULTIPLE SCLEROSIS DMT history Rebif 22 mcg 01/2011-03/2011, elevated LFTs Copaxone [id number] stopped due to out of pocket costs Gilenya 03/03/2014- Assessment & Plan (06/05/2024 9:11 AM SPORTS TRAINER): Since diagnosed with poorly differentiated adenocarcinoma of [...] off Gilenya reviewed. She will enroll in [employer] [facility] website so teriflunomide can [...] January. Assessment & Plan (05/23/2022 9:56 AM SPORTS TRAINER): Gilenya. Risks discussed including cryptococcal meningitis and [...] daily Assessment & Plan (08/15/2019 9:06 AM SPORTS TRAINER): Gilpuneetya. Risks discussed including bronchitis/pneumonia, cryptococcal meningitis [...] 2020 Assessment & Plan (08/01/2018 9:22 AM SPORTS TRAINER): Gilpuneetya. Risks discussed including bronchitis/pneumonia, cryptococcal meningitis [...] needed. Assessment & Plan (07/10/2017 5:42 PM SPORTS TRAINER): Viji. Risks discussed including bronchitis/pneumonia, cryptococcal meningitis [...] 12/15/2024 Assessment & Plan (06/05/2024 9:13 AM SPORTS TRAINER): 04/09/20 hemoglobin 12.2, MCV 101.3 12/01/20 B12 [...] 20.2 Assessment & Plan (05/23/2022 9:54 AM SPORTS TRAINER): 04/09/20 hemoglobin 12.2, MCV 101.3 12/01/20 B12 [...] Rebif 22 mcg 01/2011-03/2011, elevated LFTs Copaxone [id number] stopped due to out of pocket costs [...]
--- OUTSIDE RECORDS SUMMARY | 2025-02-04 20:41 | XMS_ITS | Encounter Summary ---
Author Organization [facility] Address [address] [place] [address] Phone Care Team Providers Care Driver Salesman Name Role Phone Provider, Unknown Primary Care Provider Unavaila Sarah Mcdowell MD Unavailable [phone] Pamela Cavanaugh APRN, PULVI MIXER OPERATOR Unavailable [phone] Michael Horner MD Unavailable [phone] Fazal Mcneal DO Unavailable [phone] Reason for Visit * Reason Comments Medication Refill Encounter Details Date Type Department Care Team (Late st Contact Info) Description 06/09/2023 Refill [facility] [address] [place] [address] Belen Pham, AUTOMATIC CENTRIFUGAL STATION OPERATOR, PULVI MIXER OPERATOR [address] [place] [address] Medication Refill Social History Tobacco Use Types Packs/Day Years Used Date Smoking Tobacco: Some Days Cigarettes Smokeless Tobacco: Never Alcohol Use Standard Drinks/Week Comments Yes 4 (1 standard drink = 0.6 oz pur e alcohol) Comments Unknown Sex and Gender Information Value Date Recorded Sex Assigned at Not on file Legal Sex Female 10:36 AM SONOGRAPHY TECHNOLOGIST Gender Identity Not on file Sexual Orientation Not on file documented as of this encounter Miscellaneous Notes * Telephone Encounter - Dana Quintana RN - 06/11/2023 7:56 AM CST Refill request from pharmacy. Please fill if appropriate. GRAPHY TECHNOLOGIST documented in this encounter Plan of Treatment Upcoming Encounters Date Type Department Care Team (Late st Contact Info) Description 03/27/2025 9:00 AM CDT Office Visit [facility] [address] [address] Fazal Mcneal DO [address] [place] [phone] 03/27/2025 9:00 AM CDT Lab [facility] [address] [address] Lab, [facility] 03/27/2025 9:30 AM CDT Ancillary Procedure [facility] [address] [id number] 03/27/2025 9:45 AM CDT Ancillary Procedure [facility] [address] [id number] documented as of this encounter Visit Diagnoses Not on filedocumented in this encounter Care Teams Driver Salesman Relationship Specialty Start Date End Date Provider, Unknown UNKNOWN PCP - General 06/30/22 Sarah Rich MD UNKNOWN Pulmonary Disease 10/31/22 Pamela Cavanaugh, AUTOMATIC CENTRIFUGAL STATION OPERATOR, PULVI MIXER OPERATOR UNKNOWN Internal Medicine 10/31/22 Michael Horner MD [address] [facility] [address] [place] [address] Neurology 10/31/22 Fazal Mcneal DO [address] [place] [phone] Consulting Physician Oncology 10/31/22 documented as of this encounter
--- OUTSIDE RECORDS SUMMARY | 2025-02-04 20:41 | XMS_ITS | Referral Summary ---
Author Organization [facility] B Address [address] [place] [address] Care Team Providers Care Websphere Architect Name Role Phone Vicki Bearden Indy EARLY CHILDHOOD TEACHER Unavailable [phone] Pamela Howe NP Primary Care Provider [phone] Fazal Mcneal DO Unavailable [phone] Naya Valdez MD Unavailable [phone] Sarah Rich MD Unavailable [phone] Arben Alvarenga MD Unavailable [phone] Lloyd Anderson MD Unavailable Encounters Date Type Department Care Team Description 01/22/2025 Orders Only [facility] Health Information Management [address] [place] [address] Pamela Howe NP 01/13/2025 7:52 AM CDT - 01/13/2025 11:59 PM CDT Hospital Encounter [facility] Pain Mgmt [address] [phone] Lloyd Anderson MD Facet arthropathy, lumbar (Primary Dx); Pain of lumbar facet joint; Bulge of lumbar disc without myelopathy Discharge Disposition: Discharge to home or self care 01/08/2025 3:45 PM CDT Office Visit [facility] Infectious Disease [address] [facility] [address] [place] [address] Spencer Oneill MD Dysuria (Primary Dx); Multiple sclerosis (HCC) 01/07/2025 Orders Only [facility] Family Medicine [address] [facility] [address] [place] [address] Pamela Howe NP 12/30/2024 Results Follow-Up [facility] Medicine [address] [facility] [address] [place] [address] Pamela Howe NP Urinalysis reflex to microscopic and culture Urine, clean voided, REFLEXIVE URINE CULTURE, Urine culture 12/26/2024 8:46 AM CDT - 12/26/2024 11:59 PM CDT Hospital Encounter [facility] Pain [facility]mt [address] [address] Lloyd Anderson MD Compression fracture of T12 vertebra, initial encounter (HCC) (Primary Dx); Compression fracture of L1 vertebra, initial encounter (HCC); Age-related osteoporosis with current pathological fracture, initial encounter; Intractable back pain Discharge Disposition: Discharge to home or self care 12/23/2024 3:35 PM CDT Lab [facility] Lab [address] [place] [address] Compression fracture of body of thoracic vertebra (HCC); Compression fracture of L1 vertebra, initial encounter ([facility]); Pre-op testing 12/19/2024 8:00 AM CDT Office Visit [facility] Obstetrics and Gynecology [address] [place] [address] Outpatient Health 7th Floor [address] [place] [address] Adeline Bennett NP Recurrent UTI (Primary Dx); Pelvic floor dysfunction in female; Vaginal atrophy 12/18/2024 Documentation [facility] Pain [facility] [address] [address] Marcela García RN 12/18/2024 Documentation [facility] Pain [facility] [address] [address] Marcela García, FLOYD 12/18/2024 Orders Only [facility] Pain [facility] [address] [address] Marcela García, FLOYD Compression fracture of T12 vertebra, initial encounter (HCC) (Primary Dx); Compression fracture of L1 vertebra, initial encounter (HCC) 12/18/2024 Orders Only [facility] Pain Mgmt [address] [address] Mary Hoffman RN 12/18/2024 Orders Only [facility] Pain Mgmt [address] [address] Mary Hoffman RN 12/18/2024 Documentation [facility] Pain [facility]mt [address] [address] Marcela García, FLOYD 12/16/2024 Orders Only [address] [place] [address] Pamela Howe NP Frequent UTI (Primary Dx) 12/15/2024 9:00 AM CDT Office Visit [facility] [address] [address] Michael Horner MD Multiple sclerosis (HCC) (Primary Dx); Paraparesis (HCC); Neurogenic bladder; Metastasis to brain (HCC); Wedge compression fracture of T11-T12 vertebra, initial encounter for closed fracture (HCC); Wedge compression fracture of first lumbar vertebra, initial encounter for closed fracture (HCC); Mild recurrent major depression 12/12/2024 Orders Only [address] [place] [phone] Pamela Howe NP Hypertension, essential 12/05/[address] [place] [address] Pamela Howe NP 12/03/2024 11:19 AM CDT - 12/03/2024 11:59 PM CDT Hospital Encounter [facility] Pain Mgmt [address] [place] [address] [address] [place] [address] Lloyd Anderson MD Age-related osteoporosis with current pathological fracture, initial encounter (Primary Dx); T12 compression fracture, initial encounter (HCC); Wedge compression fracture of first lumbar vertebra, initial encounter for closed fracture (HCC); Intractable back pain Discharge Disposition: Discharge to home or self care 12/01/2024 9:05 AM CDT - 12/01/2024 11:59 PM CDT Hospital Encounter [facility] Diag Imaging [address] [place] [address] Closed wedge compression fracture of T12 vertebra, initial encounter (HCC); Closed wedge compression fracture of T11 vertebra, initial encounter (HCC); Closed wedge compression fracture of L1 vertebra, initial encounter (HCC) Discharge Disposition: Discharge to home or self care 12/01/2024 9:15 AM CDT Office Visit [facility] [address] [place] [address] [address] [place] [phone] Israel Chuo PA Wedge compression fracture of T11-T12 vertebra, initial encounter for closed fracture (HCC) (Primary Dx); Wedge compression fracture of first lumbar vertebra, initial encounter for closed fracture (HCC) 11/26/2024 Telephone [facility] Pulmonology [address] [place] [phone] Spencer Oneill MD 11/21/2024 Telephone [facility] Obstetrics and Gynecology [address] [facility] Outpatient Health 7th Floor [address] [place] [address] Argenis Jacobson RN UTI 11/20/2024 9:45 AM CDT Office Visit [facility] Pulmonary [place] [address] [place] [address] [address] [place] [address] Sarah Rich MD Single subsegmental pulmonary embolism without acute cor pulmonale (HCC) (Primary Dx); Mixed simple and mucopurulent chronic bronchitis (HCC); 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); Smoking greater than 20 pack years 11/19/2024 Orders Only [facility] Family Medicine [address] [place] [address] Pamela Howe NP 11/13/2024 3:15 PM CDT Office Visit [facility] Infectious Disease [address] [place] [address] Spencer Oneill MD Urinary tract infection without hematuria, site unspecified (Primary Dx); Metastasis to brain (HCC) 11/11/2024 Telephone [facility] Obstetrics and Gynecology [address] [facility] 7th Floor [address] [place] [address] Dee Bergeron RN 11/11/2024 Telephone [facility] Pulmonology [address] [place] [address] Spencer Oneill MD 11/05/2024 Telephone [facility] Orthopedics and Sports Medicine [address] [place] [address] [address] [place] [address] Alyssa Ledezma NP 11/05/2024 Orders Only [facility] Orthopedics and Sports Medicine [address] [place] [address] [address] [place] [address] ProviderMarilia MD from Last 3 Months Allergies Active Allergy [...] a day for 7 days 14 tablet 06/ 025 Active Problems Problem Noted Date Diagnosed Date Wedge compression fracture o f first lumbar vertebra, initial encounter for closed fracture 12/01/2024 Wedge compression fracture o f T11-T12 vertebra, initial encounter for closed fracture 12/01/2024 Multiple sclerosis 11/13/2024 Chronic pain syndrome 05/06/2024 Herpes zoster without complication 05/06/2024 Dysuria 05/06/2024 BMI 20.0-20.9, adult 01/01/2024 Metastasis to brain 12/07/2023 Assessment & Plan (06/05/2024 9:18 AM ACADEMIC AFFAIRS COORDINATOR): 3 right frontal brain metastases Treated with [...] 10/11/2022 Assessment & Plan (06/05/2024 9:08 AM ACADEMIC AFFAIRS COORDINATOR): Diagnosed with poorly differentiated adenocarcinoma consistent with [...] 11/19/2021 Assessment & Plan (06/05/2024 9:12 AM ACADEMIC AFFAIRS COORDINATOR): Exercise encouraged Fall prevention discussed Baclofen 10 [...] seizures. Assessment & Plan (05/23/2022 9:50 AM ACADEMIC AFFAIRS COORDINATOR): Exercise encouraged: Yoga video Fall prevention discussed [...] 07/10/2017 Assessment & Plan (06/05/2024 9:12 AM ACADEMIC AFFAIRS COORDINATOR): Straight cath 3-4 times a day Follow-up [...] Garcia Assessment & Plan (05/23/2022 9:51 AM ACADEMIC AFFAIRS COORDINATOR): Straight cath TID or QID Follow-up with [...] Garcia Assessment & Plan (08/15/2019 9:08 AM ACADEMIC AFFAIRS COORDINATOR): Straight cath TID or QID Urology follow-up. Current urologist now out of network so will refer to Dr. Kendrick Garcia. Assessment & Plan (02/07/2019 9:03 AM CDT): Straight cath TID or QID Assessment & Plan (08/01/2018 9:23 AM ACADEMIC AFFAIRS COORDINATOR): Straight cath TID or QID Assessment & Plan (01/22/2018 9:30 AM CDT): Straight cath and monitor UTI's. Recommended to call us if urologist needed Assessment & Plan (07/10/2017 5:38 PM ACADEMIC AFFAIRS COORDINATOR): Straight cath TID or QID Mild recurrent major depression 07/10/2017 Assessment & Plan (06/05/2024 9:13 AM ACADEMIC AFFAIRS COORDINATOR): Duloxetine 60 mg twice a day Assessment & Plan (12/07/2023 7:32 AM CDT): Cymbalta 60 mg twice a day Assessment & Plan (03/28/2023 7:47 AM CDT): Cymbalta 60 mg twice a day Assessment & Plan (12/04/2022 8:39 AM CDT): Cymbalta 60 mg twice a day Assessment & Plan (05/23/2022 9:53 AM ACADEMIC AFFAIRS COORDINATOR): Cymbalta 60 mg twice a day Assessment & Plan (11/19/2021 9:14 AM CDT): Cymbalta 60 mg twice a day Assessment & Plan (10/13/2020 7:03 AM CDT): Cymbalta 60 mg daily Assessment & Plan (02/17/2020 9:08 AM CDT): Increase Cymbalta 60 mg twice a day. Moderate depression on sertraline 100 mg daily Assessment & Plan (08/15/2019 9:08 AM ACADEMIC AFFAIRS COORDINATOR): Sertraline 100 mg daily not controlling depression. Will start Cymbalta 30 mg at night for 1 week, then 60 mg at night. Risks discussed including nausea and drowsiness. Decrease sertraline to 50 mg at night for 1 week, then discontinue. Assessment & Plan (02/07/2019 9:03 AM CDT): Sertraline 100 mg daily Assessment & Plan (08/01/2018 9:23 AM ACADEMIC AFFAIRS COORDINATOR): Sertraline 100 mg daily Assessment & Plan (01/22/2018 9:30 AM CDT): Sertraline 100mg HS Assessment & Plan (07/10/2017 5:39 PM ACADEMIC AFFAIRS COORDINATOR): Sertraline 50 mg daily Pain in shoulder 04/17/2016 Multiple sclerosis 11/29/2013 Overview (01/27/2021): MULTIPLE SCLEROSIS DMT history Rebif 22 mcg 01/2011-03/2011, elevated LFTs Copaxone [id number] stopped due to out of pocket costs Viji 03/03/2014- Assessment & Plan (06/05/2024 9:11 AM ACADEMIC AFFAIRS COORDINATOR): 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 Teriflunomide 14 mg [...] left 7th rib of likely pulmonary origin, Viji discontinued November 27, 2022. Teriflunomide 14 mg [...] left 7th rib of likely pulmonary origin, Viji discontinued November 27, 2022. Never started teriflunomide due to insurance issues as planned. Risk of rebound disease activity off Gilenya reviewed. She will enroll in [employer] website so teriflunomide can be prescribed immediately. [...] January. Assessment & Plan (05/23/2022 9:56 AM ACADEMIC AFFAIRS COORDINATOR): Gilenya. Risks discussed including cryptococcal meningitis and [...] daily Assessment & Plan (08/15/2019 9:06 AM ACADEMIC AFFAIRS COORDINATOR): Viji. Risks discussed including bronchitis/pneumonia, cryptococcal meningitis [...] 2020 Assessment & Plan (08/01/2018 9:22 AM ACADEMIC AFFAIRS COORDINATOR): Viji. Risks discussed including bronchitis/pneumonia, cryptococcal meningitis [...] needed. Assessment & Plan (07/10/2017 5:42 PM ACADEMIC AFFAIRS COORDINATOR): Viji. Risks discussed including bronchitis/pneumonia, cryptococcal meningitis [...] 12/15/2024 Assessment & Plan (06/05/2024 9:13 AM ACADEMIC AFFAIRS COORDINATOR): 04/09/20 hemoglobin 12.2, MCV 101.3 12/01/20 B12 [...] 20.2 Assessment & Plan (05/23/2022 9:54 AM ACADEMIC AFFAIRS COORDINATOR): 04/09/20 hemoglobin 12.2, MCV 101.3 12/01/20 B12 [...] Rebif 22 mcg 01/2011-03/2011, elevated LFTs Copaxone [id number] stopped due to out of pocket costs [...] drink = 0.6 oz pur e alcohol) [facility] [employer] Answer Date Recorded In the past 12 months has [employer], gas, oil, or water [employer] threatened to shut off services in your [...] How often do you attend chur or christianity services? More than 4 times per year 08/20/2023 Do you belong to any clubs o r organizations such as yazidi groups, unions, fraternal or athletic groups, or [...] place to sleep or slept in a prison (including now)? No 08/20/2023 Personal Safety Answer Date Recorded Have you ever been in or are you currently in a harmful physical or emotional relationship or is someone making you feel afraid or unsafe? 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 Not on file Not on file Not [...] on file Medical Devices Implanted Type Area Supervisor Prepress Device Identifier Shelf Expiration Date Model / Serial / Lot Screw Screw Right: Toes Description:Rt foot 2nd toe TodTempo AI Avamax Od13 Ga L10 Mm Balloon Tray Bone Cement [id number] - [id number] - [id number] Implanted:Qty: 1 on 12/26/2024 by Lloyd Anderson MD at [facility] [employer] 03/15/2025 [id number] / [id number] / Description:Vertaplex HV hig h viscosity radiopaque [...] Compression fracture of L1 vertebra, initial encounter ([facility]) Pre-op testing PROTIME-INR Routine 12/23/2024 3:40 PM [...] Result * Imaging Fluoro Vertebroplasty (VTP) Thoracic (12355) (12/26/2024 11:45 AM CDT) Narrative [id number] - 12/26/2024 1:35 PM CDT The images from this study are not interpreted by Radiology. Please refer to the physician's procedure / OR operative note. Lloyd Anderson MD IMG PAIN MGMT PROCEDURES Final R esult Performing Organization Address City/[facility]/ZIP Co de Phone Number [email or web address] * aPTT (12/23/2024 3:40 PM CDT) aPTT 33 22 - 37 sec Comment: Interpretive data aPTT test has not been evaluated for monitoring heparin therapy. The anti-Xa is the preferred test. Current interpretive data was last revised on 2019. Testing performed by: [address] [address] Blood 12/23/2024 3:40 PM CDT 12/23/2024 3:46 PM CDT Lloyd Anderson MD LAB BLOOD ORDERABLES Final Resul t Performing Organization Address City/[facility] Co de Phone Number TETE [address] [facility] [facility] Department [place] [address] * Protime-INR (12/23/2024 3:40 PM CDT) PT 13.6 12.0 - 14.6 sec Comment:Testing performed by : [address] [address] INR 1.1 0.9 - 1.2 TETE Comment: Ref Range High Interpretive data Oral anticoagulant therapeutic ranges: Venous thromboembolism prophylaxis or treatment: 2.0-3.0 CARDIOLOGY Standard range: 2.0-3.0 High-intensity range: 2.5-3.5 Refer to indication-specific guidelines for appropriate target ranges for prosthetic heart valve replacement. Current interpretive data was last revised on 2019. Testing performed by: [address] [address] Blood 12/23/2024 3:40 PM CDT 12/23/2024 3:46 PM CDT us Lloyd Anderson MD LAB BLOOD ORDERABLES Final Resul t TETE [address] [facility] [facility] Department [place] [address] * (ABNORMAL) CBC without differential (12/23/2024 3:40 PM CDT) Pathologist [facility] WBC 5.50 3.80 - 9.90 K/cumm Comment:Testing performed by : [address], [address] Hgb 12.4 11.9 - 15.5 g/dL TETE Comment:Testing performed by : [address], [address] Hct 38.6 35.6 - 45.5 % TETE Comment:Testing performed by : [address], [address] Plt 480(H) 150 - 400 K/cumm TETE Comment:Testing performed by : [address], [address] MPV 8.6(L) 9.1 - 12.3 fL TETE Comment:Testing performed by : [address], [address] RBC 4.05 3.90 - 5.20 M/cumm TETE Comment:Testing performed by : [address], [address] MCV 95.3 81.3 - 96.4 fL TETE Comment:Testing performed by : [address], [address] MCH 30.6 27.1 - 33.3 pg TETE Comment:Testing performed by : [address] [address] MCHC 32.1(L) 32.3 - 35.7 g/dL TETE Comment:Testing performed by : [address], [address] RDW CV 14.6 11.1 - 14.9 % TETE Comment:Testing performed by : [facility], [address] [place] [address]., [address] RDW SD 50.9(H) 35.7 - 48.1 fL TETE Comment:Testing performed by : [facility], [address] [place] [address]., [address] NRBC abs 0.00 0.00 - 0.01 K/cumm TETE Comment:Testing performed by : [facility], [address] [place] [address]., [address] Blood 12/23/2024 3:40 PM CDT 12/23/2024 3:46 PM CDT Lloyd Anderson MD LAB BLOOD ORDERABLES Final Resul t Performing Organization Address City/[facility]/ZIP Co de Phone Number TETE [facility] Department of Laboratories [place], [place] [id number] * REFLEXIVE URINE CULTURE (12/18/2024 7:34 AM CDT) Urine culture [facility] Comment:CULTURE INDICATED - RESULTS TO FOLLOW 12/18/2024 7:34 AM CDT 12/18/2024 7:35 AM CDT Pamela Howe NP LAB MICROBIOLOGY - GENERAL OR DERABLES Final Result [facility] [address] [place] [address] * (ABNORMAL) Urinalysis reflex to microscopic and [...] Mitch Ketones, ur NEGATIVE NEGATIVE [facility] Blood, ur NEGATIVE NEGATIVE [facility] Protein, ur, quant NEGATIVE NEGATIVE [facility] Nitrites, ur NEGATIVE NEGATIVE [facility] Leukocyte esterase, ur 1+(A) NEGATIVE [facility] WBC, ur 0-5 < OR = 5 /HPF [facility] RBC, ur NONE SEEN < OR = 2 /HPF [facility] Epithelial cells, squamous, ur 0-5 < OR = 5 /HPF [facility] Bacteria, ur, quant NONE SEEN NONE SEEN /HPF [facility] Hyaline cast NONE SEEN NONE SEEN /LPF [facility] Note [facility] Comment: This urine was analyzed for the presence of WBC, RBC, bacteria, casts, and other formed elements. Only those elements seen were reported. Urine, clean voided 12/18/2024 7:34 AM CDT 12/18/2024 7:35 AM CDT Pamela Howe NP LAB MICROBIOLOGY - GENERAL OR DERABLES Final Result Performing Organization Address [facility] Co de Phone Number [facility] [address] [place] [address] * Urine culture (12/18/2024 7:34 AM CDT) Urine culture [facility] Comment: CULTURE, URINE, ROUTINE Micro Number: [id number] Test Status: Final Specimen Source: Urine Specimen Quality: Adequate Result: No Growth 12/18/2024 7:34 AM CDT 12/18/2024 7:35 AM CDT Pamela Howe NP LAB MICROBIOLOGY - GENERAL OR DERABLES Final Result Performing Organization Address [facility] Co de Phone Number [facility] [address] [place] [address] * XR Spine Thoracic/Lumbar 2 View (12/01/2024 [...] by Nam Michele M.D. T: Report ID: [id number] [place] Location: [id number] Procedure Note Nam Michele MD - 12/03/2024 EXAM DESCRIPTION: XR SPINE THORACOLUMBAR JUNCTION 2 OR MORE VIEWS REASON FOR STUDY: WEDGE COMPRESSION FRACTURE T-11-T12 VERTEBRA WEDGE COMPRESSION FRACTURE FINDINGS: Two views thoracolumbar spine submitted with acvfyqexhe48/01/2025. Redemonstrated are moderate T12 and L1 compression deformities.Associated kyphosis is present. No new fractures identified. Long segment dextroscoliosis of the thoracolumbar junction is noted. There ismultilevel thoracic degenerative disc disease. IMPRESSION: Unchanged moderate T12 and L1 compression deformities with associated kyphosis. THIS IS AN ELECTRONICALLY VERIFIED FINAL REPORT 12/03/2024 3:47 PM - Electronically signed by Nam Michele M.D. T: Report ID: [id number] [place] Location: [id number] Enrico Barragan MD IMG XR PROCEDURES Final Result * CT Lumbar Spine W WO Contrast (11/05/2024 11:34 AM CDT) Anatomical Region Laterality Modality Spine N/A Computed Tomogra phy Historical Provider IMG CT PROCEDURES Final R esult * CT Thoracic Spine W WO Contrast (11/05/2024 11:33 AM CDT) Anatomical Region Laterality Modality Spine N/A Computed Tomogra phy Result [facility] Historical Provider IMG CT PROCEDURES Final R [...] a test for HCV RNA (test code 05153) is suggested. For additional information please refer to http://education.[employer]hor[employer]re/faq/NMZ53r4 (This link is being provided for informational/ educational purposes only.) Blood specimen (specimen) 12/02/2020 7:15 AM CDT 12/02/2020 7:16 AM CDT Narrative [facility] - 12/03/2020 12:18 PM CDT FASTING:YES FASTING: YES Pamela Howe EARLY CHILDHOOD TEACHER LAB MICROBIOLOGY - GENERAL OR DERABLES Final Result [facility] [address] [address] * Colonoscopy (04/11/2019) Anatomical Region Laterality Modality Other Impressions 04/11/2019 Repeat 5 years Result [facility] Historical Provider ENDOSCOPY PROCEDURES Mariah l Result from Last 3 Months or Most Recently Relevant to Health Maintenance [place] For more information, please contact: [phone] * Full Code (Latest Code Status on File) Date Activated Date Inactivated Comments 08/17/2023 5:22 PM 08/21/2023 5:09 PM * Full Code Date Activated Date Inactivated Comments 10/20/2022 10:50 AM 10/21/2022 5:00 AM Care Teams Websphere Architect Relationship Specialty Start Date End Date Pamela Howe, DAVID [address] [facility] [address] [place] [address] PCP - General Internal Medicine 11/21/22 Vicki Bearden NP Nurse Practitioner Urology 11/15/20 Fazal Mcneal, [address] [place] [address] Referring Physician Medical Oncology 11/27/22 Naya Valdez MD [address] [place], [place] [id number] Radiation Oncology 11/27/22 Sarah Rich MD [address] [place] [phone] Consulting Physician Pulmonary Disease 11/27/22 Arben Alvarenga MD [address] [place] [id number] Radiation Oncology 12/07/[address] [facility] [address] [address] Consulting Physician Pain Management 12/26/24
--- OUTSIDE RECORDS SUMMARY | 2025-02-04 20:41 | XMS_ITS | Clinical Summary ---
Author Organization [facility] Address 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 This disclosure is being madepursuant to the Care Everywhere program and may not contain all information available regarding this patient. Last updated 18.[facility] Allergies Active Allergy Reactions Criticality Noted Date Comments Codeine Rash Medium 01/30/2025 Tetanus Toxoid Rash Medium 01/30/2025 Medications * Be aware that medications may not be up to date on this document. Alwaysverify current medications with the patient. amLODIPine (Norvasc) 2.5 MG tablet Take 1 (one) tablet by mouth once daily Active apixaban (Eliquis) 5 MG tablet Take 1 (one) tablet by mouth 2 times daily Active azelastine (Astelin) 0.1 % nasal spray [place]appells 1 (one) spray into each nostril once daily as needed (congestion) Active baclofen (Lioresal) 10 MG tablet Take 1 (one) tablet to 2 (two) tablets by mouth at bedtime May cause drowsiness. Active budeson-glycop yrrol-formoter ol (Breztri Aerosphere) 160-9-4.8 MCG/ACT inhaler Inhale 2 (two) puffs by mouth 2 times daily Active DULoxetine (Cymbalta) 60 MG capsule Take 1 (one) capsule by mouth 2 times daily Active HYDROcodone-ac etaminophen (Bernie) 5-325 MG tablet Take 1 (one) tablet by mouth every 6 hours as needed for Pain Active modafinil (Provigil) 100 MG tablet Take 1 (one) tablet to 2 (two) tablets by mouth every morning Active TERIFLUNOMIDE PO Active acetaminophen (Tylenol) 325 MG tablet Take 2 (two) tablets by mouth every 6 hours as needed Maximum allowable Acetaminophen amount = 4 Grams (4000 mg) / 24 hours. 5 Active levETIRAcetam (Keppra) 500 MG tablet Take 1 (one) tablet by mouth 2 times daily 60 tablet 2 02/02/2025 10:38 AM CDT 5 Active dexAMETHasone (Decadron) 2 MG tablet Take 2 (two) tablets by mouth every 6 hours for 2 days, THEN 2 (two) tablets every 8 hours for 4 days, THEN 1 (one) tablet every 8 hours for 4 days, THEN 1 (one) tablet every 12 hours for 4 days. 60 tablet 02/02/2025 10:38 AM CDT 5 02/17/20 25 Active Active Problems Problem Noted Date Diagnosed Date Metabolic acidosis, normal anion gap (NAG) 01/28 Assessment & Plan (01/31/2025 6:03 PM CDT): -Continue to trend on labs, normal on today's BMP Assessment & Plan (01/30/2025 7:41 AM CDT): -Continue to trend on labs, normal on today's BMP Assessment & Plan (01/29/2025 11:28 AM CDT): -Continue to trend on labs, normal on today's BMP Assessment & Plan (01/28/2025 11:26 AM CDT): -Continue to trend on labs Preoperative cardiovascular examination 01/27/20 25 Assessment & Plan (01/30/2025 7:41 AM CDT): -See separate note for preop cardiac risk stratification Assessment & Plan (01/29/2025 7:29 AM CDT): -See separate note for preop cardiac risk stratification Assessment & Plan (01/28/2025 7:56 AM CDT): -See separate note for preop cardiac risk stratification Assessment & Plan (01/27/2025 2:15 PM CDT): -See separate note for preop cardiac risk stratification Seizure with provoking factor 01/24/2025 Assessment & Plan (02/02/2025 3:58 PM CDT): S/p right frontal craniotomy for tumor resection and gammatile placement 7/18 - Keppra 500 BID until f/u w/ NSGY - Decadron wean - 4mg q6h - 4mg q8h 7/23 - 2mg q8h 7/27 - 2mg q6h 02/12 - HOLD therapeutic anticoagulation and antiplatelets until f/u appointment with NSGY - OP appointment with Oncology Assessment & Plan (02/01/2025 1:19 PM CDT): S/p right frontal craniotomy for tumor resection and gammatile placement 7/18 - Keppra 500 BID until f/u - Decadron wean - 4mg q6h - 4mg q8h 7/23 - 2mg q8h 7/27 - 2mg q6h 02/12 - hold therapeutic anticoagulation and antiplatelets - rad onc c/s, following - oncology c/s, OP oncology - PT/OT eval Assessment & Plan (01/31/2025 6:38 PM CDT): S/p right frontal craniotomy for tumor resection and gammatile placement 7/18 - Keppra 500 BID until f/u - Decadron wean - 4mg q6h - 4mg q8h 7/23 - 2mg q8h 7/27 - 2mg q6h 02/12 - hold therapeutic anticoagulation and antiplatelets - rad onc c/s following - oncology c/s, recs appreciated - fall + seizure precautions Assessment & Plan (01/30/2025 10:47 AM CDT): - presenting to [facility] for further evaluation in the setting of a syncopal episode versus seizure in the setting of known brain metastasis with hemorrhagic component - CTH at [facility] notable for 2 adjacent masses with hemorrhagic changes in the right frontal lobe measuring 1.4 x 2.3 x 3.2 cm and 0.9 x 2.5 x 1.0 cm with surrounding vasogenic edema; no comparison on report to MRI performed 1 week prior - presentation concerning for either syncope or episode of seizure in setting of her brain metastasis; of note had been on dexamethasone up until the past week when medication was stopped, although she had not been having any issues prior to this episode - very likely did experience seizure given description of event, tongue bite lesions on exam, and witnessed post-ictal state PLAN: - neurosurgery consulted on arrival; appreciate assistance - OR today for right frontal craniotomy for tumor resection likely with gamma tile placement, will be transferred to ICU post-operatively - Decadron 4 mg every 6 hours - neurochecks every 4 hours - hold therapeutic anticoagulation and antiplatelets - rad onc c/s following - seizure ppx keppra 500mg BID - oncology c/s, recs appreciated - fall + seizure precautions - continue home Bernie and baclofen nightly for pain; per patient she has been told she can take 20 mg of baclofen at night if needed, we will start with 10 mg here and can give additional dose if needed - SSI while on steroids - miralax and senna qd Assessment & Plan (01/29/2025 11:27 AM CDT): - presenting to [facility] for further evaluation in the setting of a syncopal episode versus seizure in the setting of known brain metastasis with hemorrhagic component - CTH at [facility] notable for 2 adjacent masses with hemorrhagic changes in the right frontal lobe measuring 1.4 x 2.3 x 3.2 cm and 0.9 x 2.5 x 1.0 cm with surrounding vasogenic edema; no comparison on report to MRI performed 1 week prior - presentation concerning for either syncope or episode of seizure in setting of her brain metastasis; of note had been on dexamethasone up until the past week when medication was stopped, although she had not been having any issues prior to this episode - very likely did experience seizure given description of event, tongue bite lesions on exam, and witnessed post-ictal state PLAN: - neurosurgery consulted on arrival; appreciate assistance - OR on Sunday01/30/25 for right frontal craniotomy for tumor resection likely with gamma tile placement, will be transferred to ICU post-operatively - Decadron 4 mg every 6 hours - neurochecks every 4 hours - hold therapeutic anticoagulation and antiplatelets - rad onc c/s following - seizure ppx keppra 500mg BID - oncology c/s, recs appreciated - fall + seizure precautions - continue home Bernie and baclofen nightly for pain; per patient she has been told she can take 20 mg of baclofen at night if needed, we will start with 10 mg here and can give additional dose if needed - SSI while on steroids - miralax and senna qd Assessment & Plan (01/28/2025 7:56 AM CDT): - presenting to [facility] for further evaluation in the setting of a syncopal episode versus seizure in the setting of known brain metastasis with hemorrhagic component - CTH at [facility] notable for 2 adjacent masses with hemorrhagic changes in the right frontal lobe measuring 1.4 x 2.3 x 3.2 cm and 0.9 x 2.5 x 1.0 cm with surrounding vasogenic edema; no comparison on report to MRI performed 1 week prior - presentation concerning for either syncope or episode of seizure in setting of her brain metastasis; of note had been on dexamethasone up until the past week when medication was stopped, although she had not been having any issues prior to this episode - very likely did experience seizure given description of event, tongue bite lesions on exam, and witnessed post-ictal state PLAN: - neurosurgery consulted on arrival; appreciate assistance - OR on Sunday01/30/25 for right frontal craniotomy for tumor resection likely with gamma tile placement - Decadron 4 mg every 6 hours - neurochecks every 4 hours - hold therapeutic anticoagulation and antiplatelets - rad onc c/s following - seizure ppx keppra 500mg BID - oncology c/s, recs appreciated - fall + seizure precautions - continue home Bernie and baclofen nightly for pain; per patient she has been told she can take 20 mg of baclofen at night if needed, we will start with 10 mg here and can give additional dose if needed - SSI while on steroids - miralax and senna qd Assessment & Plan (01/27/2025 2:15 PM CDT): - [facility] in the setting of a syncopal episode versus seizure in the setting of known brain metastasis with hemorrhagic component - CTH at [facility] notable for 2 adjacent masses with hemorrhagic changes in the right frontal lobe measuring 1.4 x 2.3 x 3.2 cm and 0.9 x 2.5 x 1.0 cm with surrounding vasogenic edema; no comparison on report to MRI performed 1 week prior - presentation concerning for either syncope or episode of seizure in setting of her brain metastasis; of note had been on dexamethasone up until the past week when medication was stopped, although she had not been having any issues prior to this episode - very likely did experience seizure given description of event, tongue bite lesions on exam, and witnessed post-ictal state PLAN: - neurosurgery consulted on arrival; appreciate assistance - OR on Sunday01/30/25 for right frontal craniotomy for tumor resection likely with gamma tile placement - Decadron 4 mg every 6 hours - neurochecks every 4 hours - hold therapeutic anticoagulation and antiplatelets - rad onc c/s following - seizure ppx keppra 500mg BID - oncology c/s, recs appreciated - fall + seizure precautions - continue home Bernie and baclofen nightly for pain; per patient she has been told she can take 20 mg of baclofen at night if needed, we will start with 10 mg here and can give additional dose if needed - SSI while on steroids - miralax and senna qd Assessment & Plan (01/26/2025 2:14 PM CDT): - [facility] evaluation in the setting of a syncopal episode versus seizure in the setting of known brain metastasis with hemorrhagic component - CTH at [facility] notable for 2 adjacent masses with hemorrhagic changes in the right frontal lobe measuring 1.4 x 2.3 x 3.2 cm and 0.9 x 2.5 x 1.0 cm with surrounding vasogenic edema; no comparison on report to MRI performed 1 week prior - presentation concerning for either syncope or episode of seizure in setting of her brain metastasis; of note had been on dexamethasone up until the past week when medication was stopped, although she had not been having any issues prior to this episode - very likely did experience seizure given description of event, tongue bite lesions on exam, and witnessed post-ictal state PLAN: - neurosurgery consulted on arrival; appreciate assistance - OR on Sunday01/30/25 for right frontal craniotomy for tumor resection likely with gamma tile placement - Decadron 4 mg every 6 hours - neurochecks every 4 hours - hold therapeutic anticoagulation and antiplatelets - rad onc c/s following - seizure ppx keppra 500mg BID - oncology c/s, recs appreciated - discontinue tele monitoring s/p 72 hours as no evidence of arrhythmias - fall + seizure precautions - continue home Bernie and baclofen nightly for pain; per patient she has been told she can take 20 mg of baclofen at night if needed, we will start with 10 mg here and can give additional dose if needed - SSI while on steroids - miralax and senna qd Assessment & Plan (01/25/2025 1:24 PM CDT): - presenting to [facility] for further evaluation in the setting of a syncopal episode versus seizure in the setting of known brain metastasis with hemorrhagic component - CTH at [facility] notable for 2 adjacent masses with hemorrhagic changes in the right frontal lobe measuring 1.4 x 2.3 x 3.2 cm and 0.9 x 2.5 x 1.0 cm with surrounding vasogenic edema; no comparison on report to MRI performed 1 week prior - presentation concerning for either syncope or episode of seizure in setting of her brain metastasis; of note had been on dexamethasone up until the past week when medication was stopped, although she had not been having any issues prior to this episode - very likely did experience seizure given description of event, tongue bite lesions on exam, and witnessed post-ictal state PLAN: - neurosurgery consulted on arrival; appreciate assistance - Decadron 4 mg every 6 hours - neurochecks every 4 hours - hold therapeutic anticoagulation and antiplatelets - seizure ppx keppra 500mg BID - oncology c/s, recs appreciated - will need palliative c/s on Sunday - rad/onc c/s on Sunday - monitor on telemetry - fall + seizure precautions - continue home Bernie and baclofen nightly for pain; per patient she has been told she can take 20 mg of baclofen at night if needed, we will start with 10 mg here and can give additional dose if needed - SSI while on steroids - miralax and senna qd Assessment & Plan (01/24/2025 1:30 PM CDT): - presenting to [facility] for further evaluation in the setting of a syncopal episode versus seizure in the setting of known brain metastasis with hemorrhagic component - CTH at [facility] notable for 2 adjacent masses with hemorrhagic changes in the right frontal lobe measuring 1.4 x 2.3 x 3.2 cm and 0.9 x 2.5 x 1.0 cm with surrounding vasogenic edema; no comparison on report to MRI performed 1 week prior - presentation concerning for either syncope or episode of seizure in setting of her brain metastasis; of note had been on dexamethasone up until the past week when medication was stopped, although she had not been having any issues prior to this episode - very likely did experience seizure given description of event, tongue bite lesions on exam, and witnessed post-ictal state PLAN: - neurosurgery consulted on arrival; appreciate assistance - Decadron 4 mg every 6 hours - neurochecks every 4 hours - hold therapeutic anticoagulation and antiplatelets - pending nsgy recs on keppra ppx - oncology c/s, recs appreciated - will need palliative c/s on Sunday - monitor on telemetry - fall + seizure precautions - continue home Bernie and baclofen nightly for pain; per patient she has been told she can take 20 mg of baclofen at night if needed, we will start with 10 mg here and can give additional dose if needed Cerebral metastasis 01/23/2025 Assessment & Plan (02/02/2025 3:58 PM CDT): S/p right frontal craniotomy for tumor resection and gammatile placement 01/30 - Keppra 500 BID until f/u w/ NSGY - Decadron wean - 4mg q6h - 4mg q8h 02/04 - 2mg q8h 02/08 - 2mg q6h 02/12 - HOLD therapeutic anticoagulation and antiplatelets until f/u appointment with NSGY - OP appointment with Oncology Assessment & Plan (02/01/2025 1:19 PM CDT): S/p right frontal craniotomy for tumor resection and gammatile placement 01/30 - Keppra 500 BID until f/u - Decadron wean - 4mg q6h - 4mg q8h 02/04 - 2mg q8h 02/08 - 2mg q6h 02/12 - hold therapeutic anticoagulation and antiplatelets - rad onc c/s, following - oncology c/s, OP oncology - PT/OT eval Assessment & Plan (01/31/2025 6:38 PM CDT): S/p right frontal craniotomy for tumor resection and gammatile placement 01/30 - Keppra 500 BID until f/u - Decadron wean - 4mg q6h - 4mg q8h 02/04 - 2mg q8h 02/08 - 2mg q6h 02/12 - hold therapeutic anticoagulation and antiplatelets - rad onc c/s following - oncology c/s, recs appreciated - fall + seizure precautions Assessment & Plan (01/30/2025 10:47 AM CDT): - presenting to [facility] for further evaluation in the setting of a syncopal episode versus seizure in the setting of known brain metastasis with hemorrhagic component - CTH at [facility] notable for 2 adjacent masses with hemorrhagic changes in the right frontal lobe measuring 1.4 x 2.3 x 3.2 cm and 0.9 x 2.5 x 1.0 cm with surrounding vasogenic edema; no comparison on report to MRI performed 1 week prior - presentation concerning for either syncope or episode of seizure in setting of her brain metastasis; of note had been on dexamethasone up until the past week when medication was stopped, although she had not been having any issues prior to this episode - very likely did experience seizure given description of event, tongue bite lesions on exam, and witnessed post-ictal state PLAN: - neurosurgery consulted on arrival; appreciate assistance - OR today for right frontal craniotomy for tumor resection likely with gamma tile placement, will be transferred to ICU post-operatively - Decadron 4 mg every 6 hours - neurochecks every 4 hours - hold therapeutic anticoagulation and antiplatelets - rad onc c/s following - seizure ppx keppra 500mg BID - oncology c/s, recs appreciated - fall + seizure precautions - continue home Bernie and baclofen nightly for pain; per patient she has been told she can take 20 mg of baclofen at night if needed, we will start with 10 mg here and can give additional dose if needed - SSI while on steroids - miralax and senna qd Assessment & Plan (01/29/2025 11:27 AM CDT): - presenting to [facility] for further evaluation in the setting of a syncopal episode versus seizure in the setting of known brain metastasis with hemorrhagic component - CTH at [facility] notable for 2 adjacent masses with hemorrhagic changes in the right frontal lobe measuring 1.4 x 2.3 x 3.2 cm and 0.9 x 2.5 x 1.0 cm with surrounding vasogenic edema; no comparison on report to MRI performed 1 week prior - presentation concerning for either syncope or episode of seizure in setting of her brain metastasis; of note had been on dexamethasone up until the past week when medication was stopped, although she had not been having any issues prior to this episode - very likely did experience seizure given description of event, tongue bite lesions on exam, and witnessed post-ictal state PLAN: - neurosurgery consulted on arrival; appreciate assistance - OR on Sunday01/30/25 for right frontal craniotomy for tumor resection likely with gamma tile placement, will be transferred to ICU post-operatively - Decadron 4 mg every 6 hours - neurochecks every 4 hours - hold therapeutic anticoagulation and antiplatelets - rad onc c/s following - seizure ppx keppra 500mg BID - oncology c/s, recs appreciated - fall + seizure precautions - continue home Bernie and baclofen nightly for pain; per patient she has been told she can take 20 mg of baclofen at night if needed, we will start with 10 mg here and can give additional dose if needed - SSI while on steroids - miralax and senna qd Assessment & Plan (01/28/2025 7:56 AM CDT): - presenting to [facility] for further evaluation in the setting of a syncopal episode versus seizure in the setting of known brain metastasis with hemorrhagic component - CTH at [facility] notable for 2 adjacent masses with hemorrhagic changes in the right frontal lobe measuring 1.4 x 2.3 x 3.2 cm and 0.9 x 2.5 x 1.0 cm with surrounding vasogenic edema; no comparison on report to MRI performed 1 week prior - presentation concerning for either syncope or episode of seizure in setting of her brain metastasis; of note had been on dexamethasone up until the past week when medication was stopped, although she had not been having any issues prior to this episode - very likely did experience seizure given description of event, tongue bite lesions on exam, and witnessed post-ictal state PLAN: - neurosurgery consulted on arrival; appreciate assistance - OR on Sunday01/30/25 for right frontal craniotomy for tumor resection likely with gamma tile placement - Decadron 4 mg every 6 hours - neurochecks every 4 hours - hold therapeutic anticoagulation and antiplatelets - rad onc c/s following - seizure ppx keppra 500mg BID - oncology c/s, recs appreciated - fall + seizure precautions - continue home Bernie and baclofen nightly for pain; per patient she has been told she can take 20 mg of baclofen at night if needed, we will start with 10 mg here and can give additional dose if needed - SSI while on steroids - miralax and senna qd Assessment & Plan (01/27/2025 2:15 PM CDT): - presenting to [facility] for further evaluation in the setting of a syncopal episode versus seizure in the setting of known brain metastasis with hemorrhagic component - CTH at [facility] notable for 2 adjacent masses with hemorrhagic changes in the right frontal lobe measuring 1.4 x 2.3 x 3.2 cm and 0.9 x 2.5 x 1.0 cm with surrounding vasogenic edema; no comparison on report to MRI performed 1 week prior - presentation concerning for either syncope or episode of seizure in setting of her brain metastasis; of note had been on dexamethasone up until the past week when medication was stopped, although she had not been having any issues prior to this episode - very likely did experience seizure given description of event, tongue bite lesions on exam, and witnessed post-ictal state PLAN: - neurosurgery consulted on arrival; appreciate assistance - OR on Sunday01/30/25 for right frontal craniotomy for tumor resection likely with gamma tile placement - Decadron 4 mg every 6 hours - neurochecks every 4 hours - hold therapeutic anticoagulation and antiplatelets - rad onc c/s following - seizure ppx keppra 500mg BID - oncology c/s, recs appreciated - fall + seizure precautions - continue home Bernie and baclofen nightly for pain; per patient she has been told she can take 20 mg of baclofen at night if needed, we will start with 10 mg here and can give additional dose if needed - SSI while on steroids - miralax and senna qd Assessment & Plan (01/26/2025 2:14 PM CDT): - presenting to [facility] for further evaluation in the setting of a syncopal episode versus seizure in the setting of known brain metastasis with hemorrhagic component - CTH at [facility] notable for 2 adjacent masses with hemorrhagic changes in the right frontal lobe measuring 1.4 x 2.3 x 3.2 cm and 0.9 x 2.5 x 1.0 cm with surrounding vasogenic edema; no comparison on report to MRI performed 1 week prior - presentation concerning for either syncope or episode of seizure in setting of her brain metastasis; of note had been on dexamethasone up until the past week when medication was stopped, although she had not been having any issues prior to this episode - very likely did experience seizure given description of event, tongue bite lesions on exam, and witnessed post-ictal state PLAN: - neurosurgery consulted on arrival; appreciate assistance - OR on Sunday01/30/25 for right frontal craniotomy for tumor resection likely with gamma tile placement - Decadron 4 mg every 6 hours - neurochecks every 4 hours - hold therapeutic anticoagulation and antiplatelets - rad onc c/s following - seizure ppx keppra 500mg BID - oncology c/s, recs appreciated - discontinue tele monitoring s/p 72 hours as no evidence of arrhythmias - fall + seizure precautions - continue home Bernie and baclofen nightly for pain; per patient she has been told she can take 20 mg of baclofen at night if needed, we will start with 10 mg here and can give additional dose if needed - SSI while on steroids - miralax and senna qd Assessment & Plan (01/25/2025 1:24 PM CDT): - presenting to [facility] for further evaluation in the setting of a syncopal episode versus seizure in the setting of known brain metastasis with hemorrhagic component - CTH at [facility] notable for 2 adjacent masses with hemorrhagic changes in the right frontal lobe measuring 1.4 x 2.3 x 3.2 cm and 0.9 x 2.5 x 1.0 cm with surrounding vasogenic edema; no comparison on report to MRI performed 1 week prior - presentation concerning for either syncope or episode of seizure in setting of her brain metastasis; of note had been on dexamethasone up until the past week when medication was stopped, although she had not been having any issues prior to this episode - very likely did experience seizure given description of event, tongue bite lesions on exam, and witnessed post-ictal state PLAN: - neurosurgery consulted on arrival; appreciate assistance - Decadron 4 mg every 6 hours - neurochecks every 4 hours - hold therapeutic anticoagulation and antiplatelets - seizure ppx keppra 500mg BID - oncology c/s, recs appreciated - will need palliative c/s on Sunday - rad/onc c/s on Sunday - monitor on telemetry - fall + seizure precautions - continue home Bernie and baclofen nightly for pain; per patient she has been told she can take 20 mg of baclofen at night if needed, we will start with 10 mg here and can give additional dose if needed - SSI while on steroids - miralax and senna qd Assessment & Plan (01/24/2025 1:30 PM CDT): - presenting to [facility] for further evaluation in the setting of a syncopal episode versus seizure in the setting of known brain metastasis with hemorrhagic component - CTH at [facility] notable for 2 adjacent masses with hemorrhagic changes in the right frontal lobe measuring 1.4 x 2.3 x 3.2 cm and 0.9 x 2.5 x 1.0 cm with surrounding vasogenic edema; no comparison on report to MRI performed 1 week prior - presentation concerning for either syncope or episode of seizure in setting of her brain metastasis; of note had been on dexamethasone up until the past week when medication was stopped, although she had not been having any issues prior to this episode - very likely did experience seizure given description of event, tongue bite lesions on exam, and witnessed post-ictal state PLAN: - neurosurgery consulted on arrival; appreciate assistance - Decadron 4 mg every 6 hours - neurochecks every 4 hours - hold therapeutic anticoagulation and antiplatelets - pending nsgy recs on keppra ppx - oncology c/s, recs appreciated - will need palliative c/s on Sunday - monitor on telemetry - fall + seizure precautions - continue home Bernie and baclofen nightly for pain; per patient she has been told she can take 20 mg of baclofen at night if needed, we will start with 10 mg here and can give additional dose if needed Assessment & Plan (01/23/2025 10:36 PM CDT): - presenting to [facility] for further evaluation in the setting of a syncopal episode versus seizure in the setting of known brain metastasis with hemorrhagic component - CTH at [facility] notable for 2 adjacent masses with hemorrhagic changes in the right frontal lobe measuring 1.4 x 2.3 x 3.2 cm and 0.9 x 2.5 x 1.0 cm with surrounding vasogenic edema; no comparison on report to MRI performed 1 week prior - presentation concerning for either syncope or episode of seizure in setting of her brain metastasis; of note had been on dexamethasone up until the past week when medication was stopped, although she had not been having any issues prior to this episode PLAN: - neurosurgery consulted on arrival; appreciate assistance - Decadron 4 mg every 6 hours - neurochecks every 4 hours - hold therapeutic anticoagulation and antiplatelets - monitor on telemetry - fall + seizure precautions - continue home Bernie and baclofen nightly for pain; per patient she has been told she can take 20 mg of baclofen at night if needed, we will start with 10 mg here and can give additional dose if needed Primary lung adenocarcinoma 01/23/2025 Assessment & Plan (02/02/2025 3:58 PM CDT): S/p right frontal craniotomy for tumor resection and gammatile placement 7/18 - Keppra 500 BID until f/u w/ NSGY - Decadron wean - 4mg q6h - 4mg q8h 02/04 - 2mg q8h 02/08 - 2mg q6h 02/12 - HOLD therapeutic anticoagulation and antiplatelets until f/u appointment with NSGY - OP appointment with Oncology Assessment & Plan (02/01/2025 1:19 PM CDT): S/p right frontal craniotomy for tumor resection and gammatile placement 7/18 - Keppra 500 BID until f/u - Decadron wean - 4mg q6h - 4mg q8h 02/04 - 2mg q8h 02/08 - 2mg q6h 02/12 - hold therapeutic anticoagulation and antiplatelets - rad onc c/s, following - oncology c/s, OP oncology - PT/OT eval Assessment & Plan (01/31/2025 6:38 PM CDT): S/p right frontal craniotomy for tumor resection and gammatile placement 01/30 - Keppra 500 BID until f/u - Decadron wean - 4mg q6h - 4mg q8h 02/04 - 2mg q8h 02/08 - 2mg q6h 02/12 - hold therapeutic anticoagulation and antiplatelets - rad onc c/s following - oncology c/s, recs appreciated - fall + seizure precautions Assessment & Plan (01/30/2025 10:47 AM CDT): - presenting to [facility] for further evaluation in the setting of a syncopal episode versus seizure in the setting of known brain metastasis with hemorrhagic component - CTH at [facility] notable for 2 adjacent masses with hemorrhagic changes in the right frontal lobe measuring 1.4 x 2.3 x 3.2 cm and 0.9 x 2.5 x 1.0 cm with surrounding vasogenic edema; no comparison on report to MRI performed 1 week prior - presentation concerning for either syncope or episode of seizure in setting of her brain metastasis; of note had been on dexamethasone up until the past week when medication was stopped, although she had not been having any issues prior to this episode - very likely did experience seizure given description of event, tongue bite lesions on exam, and witnessed post-ictal state PLAN: - neurosurgery consulted on arrival; appreciate assistance - OR today for right frontal craniotomy for tumor resection likely with gamma tile placement, will be transferred to ICU post-operatively - Decadron 4 mg every 6 hours - neurochecks every 4 hours - hold therapeutic anticoagulation and antiplatelets - rad onc c/s following - seizure ppx keppra 500mg BID - oncology c/s, recs appreciated - fall + seizure precautions - continue home Bernie and baclofen nightly for pain; per patient she has been told she can take 20 mg of baclofen at night if needed, we will start with 10 mg here and can give additional dose if needed - SSI while on steroids - miralax and senna qd Assessment & Plan (01/29/2025 11:27 AM CDT): - presenting to [facility] for further evaluation in the setting of a syncopal episode versus seizure in the setting of known brain metastasis with hemorrhagic component - CTH at [facility] notable for 2 adjacent masses with hemorrhagic changes in the right frontal lobe measuring 1.4 x 2.3 x 3.2 cm and 0.9 x 2.5 x 1.0 cm with surrounding vasogenic edema; no comparison on report to MRI performed 1 week prior - presentation concerning for either syncope or episode of seizure in setting of her brain metastasis; of note had been on dexamethasone up until the past week when medication was stopped, although she had not been having any issues prior to this episode - very likely did experience seizure given description of event, tongue bite lesions on exam, and witnessed post-ictal state PLAN: - neurosurgery consulted on arrival; appreciate assistance - OR on Sunday01/30/25 for right frontal craniotomy for tumor resection likely with gamma tile placement, will be transferred to ICU post-operatively - Decadron 4 mg every 6 hours - neurochecks every 4 hours - hold therapeutic anticoagulation and antiplatelets - rad onc c/s following - seizure ppx keppra 500mg BID - oncology c/s, recs appreciated - fall + seizure precautions - continue home Bernie and baclofen nightly for pain; per patient she has been told she can take 20 mg of baclofen at night if needed, we will start with 10 mg here and can give additional dose if needed - SSI while on steroids - miralax and senna qd Assessment & Plan (01/28/2025 7:56 AM CDT): - presenting to [facility] for further evaluation in the setting of a syncopal episode versus seizure in the setting of known brain metastasis with hemorrhagic component - CTH at [facility] notable for 2 adjacent masses with hemorrhagic changes in the right frontal lobe measuring 1.4 x 2.3 x 3.2 cm and 0.9 x 2.5 x 1.0 cm with surrounding vasogenic edema; no comparison on report to MRI performed 1 week prior - presentation concerning for either syncope or episode of seizure in setting of her brain metastasis; of note had been on dexamethasone up until the past week when medication was stopped, although she had not been having any issues prior to this episode - very likely did experience seizure given description of event, tongue bite lesions on exam, and witnessed post-ictal state PLAN: - neurosurgery consulted on arrival; appreciate assistance - OR on Sunday01/30/25 for right frontal craniotomy for tumor resection likely with gamma tile placement - Decadron 4 mg every 6 hours - neurochecks every 4 hours - hold therapeutic anticoagulation and antiplatelets - rad onc c/s following - seizure ppx keppra 500mg BID - oncology c/s, recs appreciated - fall + seizure precautions - continue home Bernie and baclofen nightly for pain; per patient she has been told she can take 20 mg of baclofen at night if needed, we will start with 10 mg here and can give additional dose if needed - SSI while on steroids - miralax and senna qd Assessment & Plan (01/27/2025 2:15 PM CDT): - presenting to [facility] for further evaluation in the setting of a syncopal episode versus seizure in the setting of known brain metastasis with hemorrhagic component - CTH at [facility] notable for 2 adjacent masses with hemorrhagic changes in the right frontal lobe measuring 1.4 x 2.3 x 3.2 cm and 0.9 x 2.5 x 1.0 cm with surrounding vasogenic edema; no comparison on report to MRI performed 1 week prior - presentation concerning for either syncope or episode of seizure in setting of her brain metastasis; of note had been on dexamethasone up until the past week when medication was stopped, although she had not been having any issues prior to this episode - very likely did experience seizure given description of event, tongue bite lesions on exam, and witnessed post-ictal state PLAN: - neurosurgery consulted on arrival; appreciate assistance - OR on Sunday01/30/25 for right frontal craniotomy for tumor resection likely with gamma tile placement - Decadron 4 mg every 6 hours - neurochecks every 4 hours - hold therapeutic anticoagulation and antiplatelets - rad onc c/s following - seizure ppx keppra 500mg BID - oncology c/s, recs appreciated - fall + seizure precautions - continue home Bernie and baclofen nightly for pain; per patient she has been told she can take 20 mg of baclofen at night if needed, we will start with 10 mg here and can give additional dose if needed - SSI while on steroids - miralax and senna qd Assessment & Plan (01/26/2025 2:14 PM CDT): - [facility] evaluation in the setting of a syncopal episode versus seizure in the setting of known brain metastasis with hemorrhagic component - CTH at [facility] notable for 2 adjacent masses with hemorrhagic changes in the right frontal lobe measuring 1.4 x 2.3 x 3.2 cm and 0.9 x 2.5 x 1.0 cm with surrounding vasogenic edema; no comparison on report to MRI performed 1 week prior - presentation concerning for either syncope or episode of seizure in setting of her brain metastasis; of note had been on dexamethasone up until the past week when medication was stopped, although she had not been having any issues prior to this episode - very likely did experience seizure given description of event, tongue bite lesions on exam, and witnessed post-ictal state PLAN: - neurosurgery consulted on arrival; appreciate assistance - OR on Sunday01/30/25 for right frontal craniotomy for tumor resection likely with gamma tile placement - Decadron 4 mg every 6 hours - neurochecks every 4 hours - hold therapeutic anticoagulation and antiplatelets - rad onc c/s following - seizure ppx keppra 500mg BID - oncology c/s, recs appreciated - discontinue tele monitoring s/p 72 hours as no evidence of arrhythmias - fall + seizure precautions - continue home Bernie and baclofen nightly for pain; per patient she has been told she can take 20 mg of baclofen at night if needed, we will start with 10 mg here and can give additional dose if needed - SSI while on steroids - miralax and senna qd Assessment & Plan (01/25/2025 1:24 PM CDT): - presenting [facility] evaluation in the setting of a syncopal episode versus seizure in the setting of known brain metastasis with hemorrhagic component - CTH at [facility] notable for 2 adjacent masses with hemorrhagic changes in the right frontal lobe measuring 1.4 x 2.3 x 3.2 cm and 0.9 x 2.5 x 1.0 cm with surrounding vasogenic edema; no comparison on report to MRI performed 1 week prior - presentation concerning for either syncope or episode of seizure in setting of her brain metastasis; of note had been on dexamethasone up until the past week when medication was stopped, although she had not been having any issues prior to this episode - very likely did experience seizure given description of event, tongue bite lesions on exam, and witnessed post-ictal state PLAN: - neurosurgery consulted on arrival; appreciate assistance - Decadron 4 mg every 6 hours - neurochecks every 4 hours - hold therapeutic anticoagulation and antiplatelets - seizure ppx keppra 500mg BID - oncology c/s, recs appreciated - will need palliative c/s on Sunday - rad/onc c/s on Sunday - monitor on telemetry - fall + seizure precautions - continue home Bernie and baclofen nightly for pain; per patient she has been told she can take 20 mg of baclofen at night if needed, we will start with 10 mg here and can give additional dose if needed - SSI while on steroids - miralax and senna qd Assessment & Plan (01/24/2025 1:30 PM CDT): - presenting to [facility] for further evaluation in the setting of a syncopal episode versus seizure in the setting of known brain metastasis with hemorrhagic component - CTH at [facility] notable for 2 adjacent masses with hemorrhagic changes in the right frontal lobe measuring 1.4 x 2.3 x 3.2 cm and 0.9 x 2.5 x 1.0 cm with surrounding vasogenic edema; no comparison on report to MRI performed 1 week prior - presentation concerning for either syncope or episode of seizure in setting of her brain metastasis; of note had been on dexamethasone up until the past week when medication was stopped, although she had not been having any issues prior to this episode - very likely did experience seizure given description of event, tongue bite lesions on exam, and witnessed post-ictal state PLAN: - neurosurgery consulted on arrival; appreciate assistance - Decadron 4 mg every 6 hours - neurochecks every 4 hours - hold therapeutic anticoagulation and antiplatelets - pending nsgy recs on keppra ppx - oncology c/s, recs appreciated - will need palliative c/s on Sunday - monitor on telemetry fall + seizure precautions - continue home Bernie and baclofen nightly for pain; per patient she has been told she can take 20 mg of baclofen at night if needed, we will start with 10 mg here and can give additional dose if needed Assessment & Plan (01/23/2025 10:36 PM CDT): - presenting [facility] for further evaluation in the setting of a syncopal episode versus seizure in the setting of known brain metastasis with hemorrhagic component - CTH at [facility] notable for 2 adjacent masses with hemorrhagic changes in the right frontal lobe measuring 1.4 x 2.3 x 3.2 cm and 0.9 x 2.5 x 1.0 cm with surrounding vasogenic edema; no comparison on report to MRI performed 1 week prior - presentation concerning for either syncope or episode of seizure in setting of her brain metastasis; of note had been on dexamethasone up until the past week when medication was stopped, although she had not been having any issues prior to this episode PLAN: - neurosurgery consulted on arrival; appreciate assistance - Decadron 4 mg every 6 hours - neurochecks every 4 hours - hold therapeutic anticoagulation and antiplatelets - monitor on telemetry - fall + seizure precautions - continue home Bernie and baclofen nightly for pain; per patient she has been told she can take 20 mg of baclofen at night if needed, we will start with 10 mg here and can give additional dose if needed 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 01/23/2025 Assessment & Plan (02/02/2025 3:58 PM CDT): S/p right frontal craniotomy for tumor resection and gammatile placement 718 - Keppra 500 BID until f/u w/ NSGY - Decadron wean - 4mg q6h - 4mg q8h 7/23 - 2mg q8h 7/27 - 2mg q6h 02/12 - HOLD therapeutic anticoagulation and antiplatelets until f/u appointment with NSGY - OP appointment with Oncology Assessment & Plan (02/01/2025 1:19 PM CDT): S/p right frontal craniotomy for tumor resection and gammatile placement 7/18 - Keppra 500 BID until f/u - Decadron wean - 4mg q6h - 4mg q8h 7/23 - 2mg q8h 02/08 - 2mg q6h 02/12 - hold therapeutic anticoagulation and antiplatelets - rad onc c/s, following - oncology c/s, OP oncology - PT/OT eval Assessment & Plan (01/31/2025 6:38 PM CDT): S/p right frontal craniotomy for tumor resection and gammatile placement 01/30 - Keppra 500 BID until f/u - Decadron wean - 4mg q6h - 4mg q8h 02/04 - 2mg q8h 02/08 - 2mg q6h 02/12 - hold therapeutic anticoagulation and antiplatelets - rad onc c/s following - oncology c/s, recs appreciated - fall + seizure precautions Assessment & Plan (01/30/2025 10:47 AM CDT): - presenting to [facility] for further evaluation in the setting of a syncopal episode versus seizure in the setting of known brain metastasis with hemorrhagic component - CTH at [facility] notable for 2 adjacent masses with hemorrhagic changes in the right frontal lobe measuring 1.4 x 2.3 x 3.2 cm and 0.9 x 2.5 x 1.0 cm with surrounding vasogenic edema; no comparison on report to MRI performed 1 week prior - presentation concerning for either syncope or episode of seizure in setting of her brain metastasis; of note had been on dexamethasone up until the past week when medication was stopped, although she had not been having any issues prior to this episode - very likely did experience seizure given description of event, tongue bite lesions on exam, and witnessed post-ictal state PLAN: - neurosurgery consulted on arrival; appreciate assistance - OR today for right frontal craniotomy for tumor resection likely with gamma tile placement, will be transferred to ICU post-operatively - Decadron 4 mg every 6 hours - neurochecks every 4 hours - hold therapeutic anticoagulation and antiplatelets - rad onc c/s following - seizure ppx keppra 500mg BID - oncology c/s, recs appreciated - fall + seizure precautions - continue home Bernie and baclofen nightly for pain; per patient she has been told she can take 20 mg of baclofen at night if needed, we will start with 10 mg here and can give additional dose if needed - SSI while on steroids - miralax and senna qd Assessment & Plan (01/29/2025 11:27 AM CDT): - presenting to [facility] for further evaluation in the setting of a syncopal episode versus seizure in the setting of known brain metastasis with hemorrhagic component - CTH at [facility] notable for 2 adjacent masses with hemorrhagic changes in the right frontal lobe measuring 1.4 x 2.3 x 3.2 cm and 0.9 x 2.5 x 1.0 cm with surrounding vasogenic edema; no comparison on report to MRI performed 1 week prior - presentation concerning for either syncope or episode of seizure in setting of her brain metastasis; of note had been on dexamethasone up until the past week when medication was stopped, although she had not been having any issues prior to this episode - very likely did experience seizure given description of event, tongue bite lesions on exam, and witnessed post-ictal state PLAN: - neurosurgery consulted on arrival; appreciate assistance - OR on Sunday01/30/25 for right frontal craniotomy for tumor resection likely with gamma tile placement, will be transferred to ICU post-operatively - Decadron 4 mg every 6 hours - neurochecks every 4 hours - hold therapeutic anticoagulation and antiplatelets - rad onc c/s following - seizure ppx keppra 500mg BID - oncology c/s, recs appreciated - fall + seizure precautions - continue home Bernie and baclofen nightly for pain; per patient she has been told she can take 20 mg of baclofen at night if needed, we will start with 10 mg here and can give additional dose if needed - SSI while on steroids - miralax and senna qd Assessment & Plan (01/28/2025 7:56 AM CDT): - presenting to [facility] for further evaluation in the setting of a syncopal episode versus seizure in the setting of known brain metastasis with hemorrhagic component - CTH at [facility] notable for 2 adjacent masses with hemorrhagic changes in the right frontal lobe measuring 1.4 x 2.3 x 3.2 cm and 0.9 x 2.5 x 1.0 cm with surrounding vasogenic edema; no comparison on report to MRI performed 1 week prior - presentation concerning for either syncope or episode of seizure in setting of her brain metastasis; of note had been on dexamethasone up until the past week when medication was stopped, although she had not been having any issues prior to this episode - very likely did experience seizure given description of event, tongue bite lesions on exam, and witnessed post-ictal state PLAN: - neurosurgery consulted on arrival; appreciate assistance - OR on Sunday01/30/25 for right frontal craniotomy for tumor resection likely with gamma tile placement - Decadron 4 mg every 6 hours - neurochecks every 4 hours - hold therapeutic anticoagulation and antiplatelets - rad onc c/s following - seizure ppx keppra 500mg BID - oncology c/s, recs appreciated - fall + seizure precautions - continue home Bernie and baclofen nightly for pain; per patient she has been told she can take 20 mg of baclofen at night if needed, we will start with 10 mg here and can give additional dose if needed - SSI while on steroids - miralax and senna qd Assessment & Plan (01/27/2025 2:15 PM CDT): - presenting to [facility] for further evaluation in the setting of a syncopal episode versus seizure in the setting of known brain metastasis with hemorrhagic component - CTH at [facility] notable for 2 adjacent masses with hemorrhagic changes in the right frontal lobe measuring 1.4 x 2.3 x 3.2 cm and 0.9 x 2.5 x 1.0 cm with surrounding vasogenic edema; no comparison on report to MRI performed 1 week prior - presentation concerning for either syncope or episode of seizure in setting of her brain metastasis; of note had been on dexamethasone up until the past week when medication was stopped, although she had not been having any issues prior to this episode - very likely did experience seizure given description of event, tongue bite lesions on exam, and witnessed post-ictal state PLAN: - neurosurgery consulted on arrival; appreciate assistance - OR on Sunday01/30/25 for right frontal craniotomy for tumor resection likely with gamma tile placement - Decadron 4 mg every 6 hours - neurochecks every 4 hours - hold therapeutic anticoagulation and antiplatelets - rad onc c/s following - seizure ppx keppra 500mg BID - oncology c/s, recs appreciated - fall + seizure precautions - continue home Bernie and baclofen nightly for pain; per patient she has been told she can take 20 mg of baclofen at night if needed, we will start with 10 mg here and can give additional dose if needed - SSI while on steroids - miralax and senna qd Assessment & Plan (01/26/2025 2:14 PM CDT): - presenting [facility] for further evaluation in the setting of a syncopal episode versus seizure in the setting of known brain metastasis with hemorrhagic component - CTH at [facility] notable for 2 adjacent masses with hemorrhagic changes in the right frontal lobe measuring 1.4 x 2.3 x 3.2 cm and 0.9 x 2.5 x 1.0 cm with surrounding vasogenic edema; no comparison on report to MRI performed 1 week prior - presentation concerning for either syncope or episode of seizure in setting of her brain metastasis; of note had been on dexamethasone up until the past week when medication was stopped, although she had not been having any issues prior to this episode - very likely did experience seizure given description of event, tongue bite lesions on exam, and witnessed post-ictal state PLAN: - neurosurgery consulted on arrival; appreciate assistance - OR on Sunday01/30/25 for right frontal craniotomy for tumor resection likely with gamma tile placement - Decadron 4 mg every 6 hours - neurochecks every 4 hours - hold therapeutic anticoagulation and antiplatelets - rad onc c/s following - seizure ppx keppra 500mg BID - oncology c/s, recs appreciated - discontinue tele monitoring s/p 72 hours as no evidence of arrhythmias - fall + seizure precautions - continue home Bernie and baclofen nightly for pain; per patient she has been told she can take 20 mg of baclofen at night if needed, we will start with 10 mg here and can give additional dose if needed - SSI while on steroids - miralax and senna qd Assessment & Plan (01/25/2025 1:24 PM CDT): - presenting [facility] for further evaluation in the setting of a syncopal episode versus seizure in the setting of known brain metastasis with hemorrhagic component - CTH at [facility]SH notable for 2 adjacent masses with hemorrhagic changes in the right frontal lobe measuring 1.4 x 2.3 x 3.2 cm and 0.9 x 2.5 x 1.0 cm with surrounding vasogenic edema; no comparison on report to MRI performed 1 week prior - presentation concerning for either syncope or episode of seizure in setting of her brain metastasis; of note had been on dexamethasone up until the past week when medication was stopped, although she had not been having any issues prior to this episode - very likely did experience seizure given description of event, tongue bite lesions on exam, and witnessed post-ictal state PLAN: - neurosurgery consulted on arrival; appreciate assistance - Decadron 4 mg every 6 hours - neurochecks every 4 hours - hold therapeutic anticoagulation and antiplatelets - seizure ppx keppra 500mg BID - oncology c/s, recs appreciated - will need palliative c/s on Sunday - rad/onc c/s on Sunday - monitor on telemetry - fall + seizure precautions - continue home Bernie and baclofen nightly for pain; per patient she has been told she can take 20 mg of baclofen at night if needed, we will start with 10 mg here and can give additional dose if needed - SSI while on steroids - miralax and senna qd Assessment & Plan (01/24/2025 1:30 PM CDT): - presenting to [facility] for further evaluation in the setting of a syncopal episode versus seizure in the setting of known brain metastasis with hemorrhagic component - CTH at OSH notable for 2 adjacent masses with hemorrhagic changes in the right frontal lobe measuring 1.4 x 2.3 x 3.2 cm and 0.9 x 2.5 x 1.0 cm with surrounding vasogenic edema; no comparison on report to MRI performed 1 week prior - presentation concerning for either syncope or episode of seizure in setting of her brain metastasis; of note had been on dexamethasone up until the past week when medication was stopped, although she had not been having any issues prior to this episode - very likely did experience seizure given description of event, tongue bite lesions on exam, and witnessed post-ictal state PLAN: - neurosurgery consulted on arrival; appreciate assistance - Decadron 4 mg every 6 hours - neurochecks every 4 hours - hold therapeutic anticoagulation and antiplatelets - pending nsgy recs on keppra ppx - oncology c/s, recs appreciated - will need palliative c/s on Sunday - monitor on telemetry fall + seizure precautions - continue home Bernie and baclofen nightly for pain; per patient she has been told she can take 20 mg of baclofen at night if needed, we will start with 10 mg here and can give additional dose if needed Assessment & Plan (01/23/2025 10:36 PM CDT): - presenting to [facility] for further evaluation in the setting of a syncopal episode versus seizure in the setting of known brain metastasis with hemorrhagic component - CTH at OSH notable for 2 adjacent masses with hemorrhagic changes in the right frontal lobe measuring 1.4 x 2.3 x 3.2 cm and 0.9 x 2.5 x 1.0 cm with surrounding vasogenic edema; no comparison on report to MRI performed 1 week prior - presentation concerning for either syncope or episode of seizure in setting of her brain metastasis; of note had been on dexamethasone up until the past week when medication was stopped, although she had not been having any issues prior to this episode PLAN: - neurosurgery consulted on arrival; appreciate assistance - Decadron 4 mg every 6 hours - neurochecks every 4 hours - hold therapeutic anticoagulation and antiplatelets - monitor on telemetry - fall + seizure precautions - continue home Bernie and baclofen nightly for pain; per patient she has been told she can take 20 mg of baclofen at night if needed, we will start with 10 mg here and can give additional dose if needed Cancer, metastatic to bone 01/23/2025 Assessment & Plan (02/02/2025 3:58 PM CDT): S/p right frontal craniotomy for tumor resection and gammatile placement 7/18 - Keppra 500 BID until f/u w/ NSGY - Decadron wean - 4mg q6h - 4mg q8h 7/23 - 2mg q8h 7/27 - 2mg q6h 02/12 - HOLD therapeutic anticoagulation and antiplatelets until f/u appointment with NSGY - OP appointment with Oncology Assessment & Plan (02/01/2025 1:19 PM CDT): S/p right frontal craniotomy for tumor resection and gammatile placement 7/18 - Keppra 500 BID until f/u - Decadron wean - 4mg q6h - 4mg q8h 7/23 - 2mg q8h 7/27 - 2mg q6h 731 - hold therapeutic anticoagulation and antiplatelets - rad onc c/s, following - oncology c/s, OP oncology - PT/OT eval Assessment & Plan (01/31/2025 6:38 PM CDT): S/p right frontal craniotomy for tumor resection and gammatile placement 01/30 - Keppra 500 BID until f/u - Decadron wean - 4mg q6h - 4mg q8h 02/04 - 2mg q8h 02/08 - 2mg q6h 02/12 - hold therapeutic anticoagulation and antiplatelets - rad onc c/s following - oncology c/s, recs appreciated - fall + seizure precautions Assessment & Plan (01/30/2025 10:47 AM CDT): - presenting to [facility] for further evaluation in the setting of a syncopal episode versus seizure in the setting of known brain metastasis with hemorrhagic component - CTH at [facility]SH notable for 2 adjacent masses with hemorrhagic changes in the right frontal lobe measuring 1.4 x 2.3 x 3.2 cm and 0.9 x 2.5 x 1.0 cm with surrounding vasogenic edema; no comparison on report to MRI performed 1 week prior - presentation concerning for either syncope or episode of seizure in setting of her brain metastasis; of note had been on dexamethasone up until the past week when medication was stopped, although she had not been having any issues prior to this episode - very likely did experience seizure given description of event, tongue bite lesions on exam, and witnessed post-ictal state PLAN: - neurosurgery consulted on arrival; appreciate assistance - OR today for right frontal craniotomy for tumor resection likely with gamma tile placement, will be transferred to ICU post-operatively - Decadron 4 mg every 6 hours - neurochecks every 4 hours - hold therapeutic anticoagulation and antiplatelets - rad onc c/s following - seizure ppx keppra 500mg BID - oncology c/s, recs appreciated - fall + seizure precautions - continue home Bernie and baclofen nightly for pain; per patient she has been told she can take 20 mg of baclofen at night if needed, we will start with 10 mg here and can give additional dose if needed - SSI while on steroids - miralax and senna qd Assessment & Plan (01/29/2025 11:27 AM CDT): - presenting to [facility] for further evaluation in the setting of a syncopal episode versus seizure in the setting of known brain metastasis with hemorrhagic component - CTH at [facility]SH notable for 2 adjacent masses with hemorrhagic changes in the right frontal lobe measuring 1.4 x 2.3 x 3.2 cm and 0.9 x 2.5 x 1.0 cm with surrounding vasogenic edema; no comparison on report to MRI performed 1 week prior - presentation concerning for either syncope or episode of seizure in setting of her brain metastasis; of note had been on dexamethasone up until the past week when medication was stopped, although she had not been having any issues prior to this episode - very likely did experience seizure given description of event, tongue bite lesions on exam, and witnessed post-ictal state PLAN: - neurosurgery consulted on arrival; appreciate assistance - OR on Sunday01/30/25 for right frontal craniotomy for tumor resection likely with gamma tile placement, will be transferred to ICU post-operatively - Decadron 4 mg every 6 hours - neurochecks every 4 hours - hold therapeutic anticoagulation and antiplatelets - rad onc c/s following - seizure ppx keppra 500mg BID - oncology c/s, recs appreciated - fall + seizure precautions - continue home Bernie and baclofen nightly for pain; per patient she has been told she can take 20 mg of baclofen at night if needed, we will start with 10 mg here and can give additional dose if needed - SSI while on steroids - miralax and senna qd Assessment & Plan (01/28/2025 7:56 AM CDT): - presenting to [facility] for further evaluation in the setting of a syncopal episode versus seizure in the setting of known brain metastasis with hemorrhagic component - CTH at [facility]SH notable for 2 adjacent masses with hemorrhagic changes in the right frontal lobe measuring 1.4 x 2.3 x 3.2 cm and 0.9 x 2.5 x 1.0 cm with surrounding vasogenic edema; no comparison on report to MRI performed 1 week prior - presentation concerning for either syncope or episode of seizure in setting of her brain metastasis; of note had been on dexamethasone up until the past week when medication was stopped, although she had not been having any issues prior to this episode - very likely did experience seizure given description of event, tongue bite lesions on exam, and witnessed post-ictal state PLAN: - neurosurgery consulted on arrival; appreciate assistance - OR on Sunday01/30/25 for right frontal craniotomy for tumor resection likely with gamma tile placement - Decadron 4 mg every 6 hours - neurochecks every 4 hours - hold therapeutic anticoagulation and antiplatelets - rad onc c/s following - seizure ppx keppra 500mg BID - oncology c/s, recs appreciated - fall + seizure precautions - continue home Bernie and baclofen nightly for pain; per patient she has been told she can take 20 mg of baclofen at night if needed, we will start with 10 mg here and can give additional dose if needed - SSI while on steroids - miralax and senna qd Assessment & Plan (01/27/2025 2:15 PM CDT): - presenting to [facility] for further evaluation in the setting of a syncopal episode versus seizure in the setting of known brain metastasis with hemorrhagic component - CTH at [facility]SH notable for 2 adjacent masses with hemorrhagic changes in the right frontal lobe measuring 1.4 x 2.3 x 3.2 cm and 0.9 x 2.5 x 1.0 cm with surrounding vasogenic edema; no comparison on report to MRI performed 1 week prior - presentation concerning for either syncope or episode of seizure in setting of her brain metastasis; of note had been on dexamethasone up until the past week when medication was stopped, although she had not been having any issues prior to this episode - very likely did experience seizure given description of event, tongue bite lesions on exam, and witnessed post-ictal state PLAN: - neurosurgery consulted on arrival; appreciate assistance - OR on Sunday01/30/25 for right frontal craniotomy for tumor resection likely with gamma tile placement - Decadron 4 mg every 6 hours - neurochecks every 4 hours - hold therapeutic anticoagulation and antiplatelets - rad onc c/s following - seizure ppx keppra 500mg BID - oncology c/s, recs appreciated - fall + seizure precautions - continue home Bernie and baclofen nightly for pain; per patient she has been told she can take 20 mg of baclofen at night if needed, we will start with 10 mg here and can give additional dose if needed - SSI while on steroids - miralax and senna qd Assessment & Plan (01/26/2025 2:14 PM CDT): - presenting to [facility] for further evaluation in the setting of a syncopal episode versus seizure in the setting of known brain metastasis with hemorrhagic component - CTH at [facility]SH notable for 2 adjacent masses with hemorrhagic changes in the right frontal lobe measuring 1.4 x 2.3 x 3.2 cm and 0.9 x 2.5 x 1.0 cm with surrounding vasogenic edema; no comparison on report to MRI performed 1 week prior - presentation concerning for either syncope or episode of seizure in setting of her brain metastasis; of note had been on dexamethasone up until the past week when medication was stopped, although she had not been having any issues prior to this episode - very likely did experience seizure given description of event, tongue bite lesions on exam, and witnessed post-ictal state PLAN: - neurosurgery consulted on arrival; appreciate assistance - OR on Sunday01/30/25 for right frontal craniotomy for tumor resection likely with gamma tile placement - Decadron 4 mg every 6 hours - neurochecks every 4 hours - hold therapeutic anticoagulation and antiplatelets - rad onc c/s following - seizure ppx keppra 500mg BID - oncology c/s, recs appreciated - discontinue tele monitoring s/p 72 hours as no evidence of arrhythmias - fall + seizure precautions - continue home Bernie and baclofen nightly for pain; per patient she has been told she can take 20 mg of baclofen at night if needed, we will start with 10 mg here and can give additional dose if needed - SSI while on steroids - miralax and senna qd Assessment & Plan (01/25/2025 1:24 PM CDT): - presenting [facility] for further evaluation in the setting of a syncopal episode versus seizure in the setting of known brain metastasis with hemorrhagic component - CTH at [facility] notable for 2 adjacent masses with hemorrhagic changes in the right frontal lobe measuring 1.4 x 2.3 x 3.2 cm and 0.9 x 2.5 x 1.0 cm with surrounding vasogenic edema; no comparison on report to MRI performed 1 week prior - presentation concerning for either syncope or episode of seizure in setting of her brain metastasis; of note had been on dexamethasone up until the past week when medication was stopped, although she had not been having any issues prior to this episode - very likely did experience seizure given description of event, tongue bite lesions on exam, and witnessed post-ictal state PLAN: - neurosurgery consulted on arrival; appreciate assistance - Decadron 4 mg every 6 hours - neurochecks every 4 hours - hold therapeutic anticoagulation and antiplatelets - seizure ppx keppra 500mg BID - oncology c/s, recs appreciated - will need palliative c/s on Sunday - rad/onc c/s on Sunday - monitor on telemetry - fall + seizure precautions - continue home Bernie and baclofen nightly for pain; per patient she has been told she can take 20 mg of baclofen at night if needed, we will start with 10 mg here and can give additional dose if needed - SSI while on steroids - miralax and senna qd Assessment & Plan (01/24/2025 1:30 PM CDT): - presenting to [facility] for further evaluation in the setting of a syncopal episode versus seizure in the setting of known brain metastasis with hemorrhagic component - CTH at [facility] notable for 2 adjacent masses with hemorrhagic changes in the right frontal lobe measuring 1.4 x 2.3 x 3.2 cm and 0.9 x 2.5 x 1.0 cm with surrounding vasogenic edema; no comparison on report to MRI performed 1 week prior - presentation concerning for either syncope or episode of seizure in setting of her brain metastasis; of note had been on dexamethasone up until the past week when medication was stopped, although she had not been having any issues prior to this episode - very likely did experience seizure given description of event, tongue bite lesions on exam, and witnessed post-ictal state PLAN: - neurosurgery consulted on arrival; appreciate assistance - Decadron 4 mg every 6 hours - neurochecks every 4 hours - hold therapeutic anticoagulation and antiplatelets - pending nsgy recs on keppra ppx - oncology c/s, recs appreciated - will need palliative c/s on Sunday - monitor on telemetry - fall + seizure precautions - continue home Bernie and baclofen nightly for pain; per patient she has been told she can take 20 mg of baclofen at night if needed, we will start with 10 mg here and can give additional dose if needed Assessment & Plan (01/23/2025 10:36 PM CDT): - presenting to [facility] for further evaluation in the setting of a syncopal episode versus seizure in the setting of known brain metastasis with hemorrhagic component - CTH at [facility] notable for 2 adjacent masses with hemorrhagic changes in the right frontal lobe measuring 1.4 x 2.3 x 3.2 cm and 0.9 x 2.5 x 1.0 cm with surrounding vasogenic edema; no comparison on report to MRI performed 1 week prior - presentation concerning for either syncope or episode of seizure in setting of her brain metastasis; of note had been on dexamethasone up until the past week when medication was stopped, although she had not been having any issues prior to this episode PLAN: - neurosurgery consulted on arrival; appreciate assistance - Decadron 4 mg every 6 hours - neurochecks every 4 hours - hold therapeutic anticoagulation and antiplatelets - monitor on telemetry - fall + seizure precautions - continue home Bernie and baclofen nightly for pain; per patient she has been told she can take 20 mg of baclofen at night if needed, we will start with 10 mg here and can give additional dose if needed COPD (chronic obstructive pulmonary disease) 05/2025 Assessment & Plan (02/02/2025 3:58 PM CDT): - Symbicort and Incruse; home Breztri was not on formulary Assessment & Plan (02/01/2025 10:26 AM CDT): - continue Symbicort and Incruse given that her home Breztri is not on formulary Assessment & Plan (01/31/2025 6:03 PM CDT): - continue Symbicort and Incruse given that her home Breztri is not on formulary Assessment & Plan (01/30/2025 7:41 AM CDT): - continue Symbicort and Incruse given that her home Breztri is not on formulary Assessment & Plan (01/29/2025 7:29 AM CDT): - continue Symbicort and Incruse given that her home Breztri is not on formulary Assessment & Plan (01/28/2025 7:56 AM CDT): - continue Symbicort and Incruse given that her home Breztri is not on formulary Assessment & Plan (01/27/2025 8:00 AM CDT): - continue Symbicort and Incruse given that her home Breztri is not on formulary Assessment & Plan (01/26/2025 2:14 PM CDT): - continue Symbicort and Incruse given that her home Breztri is not on formulary Assessment & Plan (01/25/2025 1:24 PM CDT): - start Symbicort and Incruse given that her home Breztri is not on formulary Assessment & Plan (01/24/2025 1:30 PM CDT): - start Symbicort and Incruse given that her home Breztri is not on formulary Assessment & Plan (01/23/2025 10:36 PM CDT): - start Symbicort and Incruse given that her home Breztri is not on formulary Recurrent UTI (urinary tract infection) 01/24/20 25 Assessment & Plan (02/02/2025 3:58 PM CDT): - has history of recurrent pansensitive Klebsiella UTI and follows with ID in the outpatient setting - S/p 7 day course of ceftriaxone (EOT 01/27) Assessment & Plan (02/01/2025 10:26 AM CDT): - has history of recurrent pansensitive Klebsiella UTI and follows with ID in the outpatient setting - S/p 7 day course of ceftriaxone (EOT 01/27) Assessment & Plan (01/31/2025 6:03 PM CDT): - has history of recurrent pansensitive Klebsiella UTI and follows with ID in the outpatient setting - S/p 7 day course of ceftriaxone (01/27) Assessment & Plan (01/30/2025 7:41 AM CDT): - has history of recurrent UTI and follows with ID in the outpatient setting - urinalysis at OSH notable for 2+ LE, 6-10 WBC, 4+ bacteria; concerning for UTI in the setting of increase frequency - per ID notes previous cultures noting pansensitive Klebsiella PLAN: - S/p 7 day course of ceftriaxone (01/27) Assessment & Plan (01/29/2025 7:29 AM CDT): - has history of recurrent UTI and follows with ID in the outpatient setting - urinalysis at OSH notable for 2+ LE, 6-10 WBC, 4+ bacteria; concerning for UTI in the setting of increase frequency - per ID notes previous cultures noting pansensitive Klebsiella PLAN: - S/p 7 day course of ceftriaxone (01/27) Assessment & Plan (01/28/2025 11:26 AM CDT): - has history of recurrent UTI and follows with ID in the outpatient setting - urinalysis at OSH notable for 2+ LE, 6-10 WBC, 4+ bacteria; concerning for UTI in the setting of increase frequency - per ID notes previous cultures noting pansensitive Klebsiella PLAN: - S/p 7 day course of ceftriaxone (01/27) Assessment & Plan (01/27/2025 8:00 AM CDT): - has history of recurrent UTI and follows with ID in the outpatient setting - urinalysis at OSH notable for 2+ LE, 6-10 WBC, 4+ bacteria; concerning for UTI in the setting of increase frequency - per ID notes previous cultures noting pansensitive Klebsiella PLAN: - continue ceftriaxone as started at OSH (7d total-- 01/27) Assessment & Plan (01/26/2025 2:14 PM CDT): - has history of recurrent UTI and follows with ID in the outpatient setting - urinalysis at OSH notable for 2+ LE, 6-10 WBC, 4+ bacteria; concerning for UTI in the setting of increase frequency - per ID notes previous cultures noting pansensitive Klebsiella PLAN: - continue ceftriaxone as started at OSH (7d total-- EOT 01/27) Assessment & Plan (01/25/2025 1:24 PM CDT): - has history of recurrent UTI and follows with ID in the outpatient setting - urinalysis at OSH notable for 2+ LE, 6-10 WBC, 4+ bacteria; concerning for UTI in the setting of increase frequency - per ID notes previous cultures noting pansensitive Klebsiella PLAN: - continue ceftriaxone as started at OSH (7d total) Assessment & Plan (01/24/2025 1:30 PM CDT): - has history of recurrent UTI and follows with ID in the outpatient setting - urinalysis at OSH notable for 2+ LE, 6-10 WBC, 4+ bacteria; concerning for UTI in the setting of increase frequency - per ID notes previous cultures noting pansensitive Klebsiella PLAN: - continue ceftriaxone as started at OSH (7d total) Assessment & Plan (01/23/2025 10:36 PM CDT): - has history of recurrent UTI and follows with ID in the outpatient setting - urinalysis at OSH notable for 2+ LE, 6-10 WBC, 4+ bacteria; concerning for UTI in the setting of increase frequency - per ID notes previous cultures noting pansensitive Klebsiella PLAN: - continue ceftriaxone as started at OSH Primary hypertension 01/23/2025 Assessment & Plan (02/02/2025 3:58 PM CDT): - held home amlodipine 2.5 Assessment & Plan (02/01/2025 10:26 AM CDT): - hold home amlodipine 2.5 at this time Assessment & Plan (01/31/2025 6:03 PM CDT): - hold home amlodipine 2.5 at this time Assessment & Plan (01/30/2025 7:41 AM CDT): - hold home amlodipine 2.5 at this time Assessment & Plan (01/29/2025 7:29 AM CDT): - hold home amlodipine 2.5 at this time Assessment & Plan (01/28/2025 7:56 AM CDT): - hold home amlodipine 2.5 at this time Assessment & Plan (01/27/2025 8:00 AM CDT): - hold home amlodipine 2.5 at this time Assessment & Plan (01/26/2025 8:21 AM CDT): - hold home amlodipine 2.5 at this time Assessment & Plan (01/25/2025 1:24 PM CDT): - hold home amlodipine 2.5 at this time Assessment & Plan (01/24/2025 1:30 PM CDT): - hold home amlodipine 2.5 at this time Assessment & Plan (01/23/2025 10:36 PM CDT): - hold home amlodipine 2.5 at this time Anxiety 01/23/2025 Assessment & Plan (02/02/2025 3:58 PM CDT): - continue home duloxetine 60 mg twice daily - continue home modafinil 100 mg daily; 1-2 tablets daily Assessment & Plan (02/01/2025 10:26 AM CDT): - continue home duloxetine 60 mg twice daily - continue home modafinil 100 mg daily; 1-2 tablets daily Assessment & Plan (01/31/2025 6:03 PM CDT): - continue home duloxetine 60 mg twice daily - continue home modafinil 100 mg daily; 1-2 tablets daily Assessment & Plan (01/30/2025 7:41 AM CDT): - continue home duloxetine 60 mg twice daily - continue home modafinil 100 mg daily; per fill history she can take 1 or 2 tablets of this daily, can consider additional doses if needed Assessment & Plan (01/29/2025 7:29 AM CDT): - continue home duloxetine 60 mg twice daily - continue home modafinil 100 mg daily; per fill history she can take 1 or 2 tablets of this daily, can consider additional doses if needed Assessment & Plan (01/28/2025 7:56 AM CDT): - continue home duloxetine 60 mg twice daily - continue home modafinil 100 mg daily; per fill history she can take 1 or 2 tablets of this daily, can consider additional doses if needed Assessment & Plan (01/27/2025 8:00 AM CDT): - continue home duloxetine 60 mg twice daily - continue home modafinil 100 mg daily; per fill history she can take 1 or 2 tablets of this daily, can consider additional doses if needed Assessment & Plan (01/26/2025 8:21 AM CDT): - continue home duloxetine 60 mg twice daily - continue home modafinil 100 mg daily; per fill history she can take 1 or 2 tablets of this daily, can consider additional doses if needed Assessment & Plan (01/25/2025 1:24 PM CDT): - continue home duloxetine 60 mg twice daily - continue home modafinil 100 mg daily; per fill history she can take 1 or 2 tablets of this daily, can consider additional doses if needed Assessment & Plan (01/24/2025 1:30 PM CDT): - continue home duloxetine 60 mg twice daily - continue home modafinil 100 mg daily; per fill history she can take 1 or 2 tablets of this daily, can consider additional doses if needed Assessment & Plan (01/23/2025 10:36 PM CDT): - continue home duloxetine 60 mg twice daily - continue home modafinil 100 mg daily; per fill history she can take 1 or 2 tablets of this daily, can consider additional doses if needed Depression 01/23/2025 Assessment & Plan (02/02/2025 3:58 PM CDT): - continue home duloxetine 60 mg twice daily - continue home modafinil 100 mg daily; 1-2 tablets daily Assessment & Plan (02/01/2025 10:26 AM CDT): - continue home duloxetine 60 mg twice daily - continue home modafinil 100 mg daily; 1-2 tablets daily Assessment & Plan (01/31/2025 6:03 PM CDT): - continue home duloxetine 60 mg twice daily - continue home modafinil 100 mg daily; 1-2 tablets daily Assessment & Plan (01/30/2025 7:41 AM CDT): - continue home duloxetine 60 mg twice daily - continue home modafinil 100 mg daily; per fill history she can take 1 or 2 tablets of this daily, can consider additional doses if needed Assessment & Plan (01/29/2025 7:29 AM CDT): - continue home duloxetine 60 mg twice daily - continue home modafinil 100 mg daily; per fill history she can take 1 or 2 tablets of this daily, can consider additional doses if needed Assessment & Plan (01/28/2025 7:56 AM CDT): - continue home duloxetine 60 mg twice daily - continue home modafinil 100 mg daily; per fill history she can take 1 or 2 tablets of this daily, can consider additional doses if needed Assessment & Plan (01/27/2025 8:00 AM CDT): - continue home duloxetine 60 mg twice daily - continue home modafinil 100 mg daily; per fill history she can take 1 or 2 tablets of this daily, can consider additional doses if needed Assessment & Plan (01/26/2025 8:21 AM CDT): - continue home duloxetine 60 mg twice daily - continue home modafinil 100 mg daily; per fill history she can take 1 or 2 tablets of this daily, can consider additional doses if needed Assessment & Plan (01/25/2025 1:24 PM CDT): - continue home duloxetine 60 mg twice daily - continue home modafinil 100 mg daily; per fill history she can take 1 or 2 tablets of this daily, can consider additional doses if needed Assessment & Plan (01/24/2025 1:30 PM CDT): - continue home duloxetine 60 mg twice daily - continue home modafinil 100 mg daily; per fill history she can take 1 or 2 tablets of this daily, can consider additional doses if needed Assessment & Plan (01/23/2025 10:36 PM CDT): - continue home duloxetine 60 mg twice daily - continue home modafinil 100 mg daily; per fill history she can take 1 or 2 tablets of this daily, can consider additional doses if needed Multiple sclerosis 01/23/2025 Assessment & Plan (02/02/2025 3:58 PM CDT): - holding home teriflunomide, formulary constraints Assessment & Plan (02/01/2025 10:26 AM CDT): - holding home teriflunomide, formulary constraints Assessment & Plan (01/31/2025 6:03 PM CDT): - holding home teriflunomide, formulary constraints Assessment & Plan (01/30/2025 7:41 AM CDT): - holding home teriflunomide given formulary constraints and in perioperative setting per NSGY Assessment & Plan (01/29/2025 7:29 AM CDT): - holding home teriflunomide given formulary constraints and in perioperative setting per NSGY Assessment & Plan (01/28/2025 7:56 AM CDT): - holding home teriflunomide given formulary constraints and in perioperative setting per NSGY Assessment & Plan (01/27/2025 2:15 PM CDT): - holding home teriflunomide given formulary constraints and in perioperative setting per NSGY Assessment & Plan (01/26/2025 8:21 AM CDT): - holding home teriflunomide given formulary constraints Assessment & Plan (01/25/2025 1:24 PM CDT): - holding home teriflunomide given formulary constraints Assessment & Plan (01/24/2025 1:30 PM CDT): - holding home teriflunomide given formulary constraints Assessment & Plan (01/23/2025 10:36 PM CDT): - holding home teriflunomide given formulary constraints Pulmonary embolism 01/23/2025 Assessment & Plan (02/02/2025 3:58 PM CDT): - history of PE diagnosed a ~ time cancer was diagnosed 2021 - HOLD home apixaban until f/u per neurosurgery recommendations Assessment & Plan (02/01/2025 10:26 AM CDT): - history of PE diagnosed a ~ time cancer was diagnosed 2021 - HOLD home apixaban until f/u per neurosurgery recommendations Assessment & Plan (01/31/2025 6:35 PM CDT): - history of PE diagnosed a ~ time cancer was diagnosed 2021 - HOLD home apixaban until f/u per neurosurgery recommendations Assessment & Plan (01/30/2025 7:41 AM CDT): - history of PE diagnosed around the same time her cancer was diagnosed in 2021 - hold home apixaban per neurosurgery recommendations Assessment & Plan (01/29/2025 7:29 AM CDT): - history of PE diagnosed around the same time her cancer was diagnosed in 2021 - hold home apixaban per neurosurgery recommendations Assessment & Plan (01/28/2025 7:56 AM CDT): - history of PE diagnosed around the same time her cancer was diagnosed in 2021 - hold home apixaban per neurosurgery recommendations Assessment & Plan (01/27/2025 8:00 AM CDT): - history of PE diagnosed around the same time her cancer was diagnosed in 2021 - hold home apixaban per neurosurgery recommendations Assessment & Plan (01/26/2025 8:21 AM CDT): - history of PE diagnosed around the same time her cancer was diagnosed in 2021 - hold home apixaban per neurosurgery recommendations Assessment & Plan (01/25/2025 1:24 PM CDT): - history of PE diagnosed around the same time her cancer was diagnosed in 2021 - hold home apixaban per neurosurgery recommendations Assessment & Plan (01/24/2025 1:30 PM CDT): - history of PE diagnosed around the same time her cancer was diagnosed in 2021 - hold home apixaban per neurosurgery recommendations Assessment & Plan (01/23/2025 10:36 PM CDT): - history of PE diagnosed around the same time her cancer was diagnosed in 2021 - hold home apixaban per neurosurgery recommendations Syncope 01/23/2025 Assessment & Plan (02/02/2025 3:58 PM CDT): S/p right frontal craniotomy for tumor resection and gammatile placement 01/30 - Keppra 500 BID until f/u w/ NSGY - Decadron wean - 4mg q6h - 4mg q8h 02/04 - 2mg q8h 02/08 - 2mg q6h 02/12 - HOLD therapeutic anticoagulation and antiplatelets until f/u appointment with NSGY - OP appointment with Oncology Assessment & Plan (02/01/2025 1:19 PM CDT): S/p right frontal craniotomy for tumor resection and gammatile placement 01/30 - Keppra 500 BID until f/u - Decadron wean - 4mg q6h - 4mg q8h 02/04 - 2mg q8h 02/08 - 2mg q6h 02/12 - hold therapeutic anticoagulation and antiplatelets - rad onc c/s, following - oncology c/s, OP oncology - PT/OT eval Assessment & Plan (01/31/2025 6:38 PM CDT): S/p right frontal craniotomy for tumor resection and gammatile placement 01/30 - Keppra 500 BID until f/u - Decadron wean - 4mg q6h - 4mg q8h 02/04 - 2mg q8h 02/08 - 2mg q6h 02/12 - hold therapeutic anticoagulation and antiplatelets - rad onc c/s following - oncology c/s, recs appreciated - fall + seizure precautions Assessment & Plan (01/30/2025 10:47 AM CDT): - presenting to [facility] for further evaluation in the setting of a syncopal episode versus seizure in the setting of known brain metastasis with hemorrhagic component - CTH at OSH notable for 2 adjacent masses with hemorrhagic changes in the right frontal lobe measuring 1.4 x 2.3 x 3.2 cm and 0.9 x 2.5 x 1.0 cm with surrounding vasogenic edema; no comparison on report to MRI performed 1 week prior - presentation concerning for either syncope or episode of seizure in setting of her brain metastasis; of note had been on dexamethasone up until the past week when medication was stopped, although she had not been having any issues prior to this episode - very likely did experience seizure given description of event, tongue bite lesions on exam, and witnessed post-ictal state PLAN: - neurosurgery consulted on arrival; appreciate assistance - OR today for right frontal craniotomy for tumor resection likely with gamma tile placement, will be transferred to ICU post-operatively - Decadron 4 mg every 6 hours - neurochecks every 4 hours - hold therapeutic anticoagulation and antiplatelets - rad onc c/s following - seizure ppx keppra 500mg BID - oncology c/s, recs appreciated - fall + seizure precautions - continue home Bernie and baclofen nightly for pain; per patient she has been told she can take 20 mg of baclofen at night if needed, we will start with 10 mg here and can give additional dose if needed - SSI while on steroids - miralax and senna qd Assessment & Plan (01/29/2025 11:27 AM CDT): - presenting to [facility] for further evaluation in the setting of a syncopal episode versus seizure in the setting of known brain metastasis with hemorrhagic component - CTH at OSH notable for 2 adjacent masses with hemorrhagic changes in the right frontal lobe measuring 1.4 x 2.3 x 3.2 cm and 0.9 x 2.5 x 1.0 cm with surrounding vasogenic edema; no comparison on report to MRI performed 1 week prior - presentation concerning for either syncope or episode of seizure in setting of her brain metastasis; of note had been on dexamethasone up until the past week when medication was stopped, although she had not been having any issues prior to this episode - very likely did experience seizure given description of event, tongue bite lesions on exam, and witnessed post-ictal state PLAN: - neurosurgery consulted on arrival; appreciate assistance - OR on Sunday01/30/25 for right frontal craniotomy for tumor resection likely with gamma tile placement, will be transferred to ICU post-operatively - Decadron 4 mg every 6 hours - neurochecks every 4 hours - hold therapeutic anticoagulation and antiplatelets - rad onc c/s following - seizure ppx keppra 500mg BID - oncology c/s, recs appreciated - fall + seizure precautions - continue home Bernie and baclofen nightly for pain; per patient she has been told she can take 20 mg of baclofen at night if needed, we will start with 10 mg here and can give additional dose if needed - SSI while on steroids - miralax and senna qd Assessment & Plan (01/28/2025 7:56 AM CDT): - presenting to [facility] for further evaluation in the setting of a syncopal episode versus seizure in the setting of known brain metastasis with hemorrhagic component - CTH at OSH notable for 2 adjacent masses with hemorrhagic changes in the right frontal lobe measuring 1.4 x 2.3 x 3.2 cm and 0.9 x 2.5 x 1.0 cm with surrounding vasogenic edema; no comparison on report to MRI performed 1 week prior - presentation concerning for either syncope or episode of seizure in setting of her brain metastasis; of note had been on dexamethasone up until the past week when medication was stopped, although she had not been having any issues prior to this episode - very likely did experience seizure given description of event, tongue bite lesions on exam, and witnessed post-ictal state PLAN: - neurosurgery consulted on arrival; appreciate assistance - OR on Sunday01/30/25 for right frontal craniotomy for tumor resection likely with gamma tile placement - Decadron 4 mg every 6 hours - neurochecks every 4 hours - hold therapeutic anticoagulation and antiplatelets - rad onc c/s following - seizure ppx keppra 500mg BID - oncology c/s, recs appreciated - fall + seizure precautions - continue home Bernie and baclofen nightly for pain; per patient she has been told she can take 20 mg of baclofen at night if needed, we will start with 10 mg here and can give additional dose if needed - SSI while on steroids - miralax and senna qd Assessment & Plan (01/27/2025 2:15 PM CDT): - presenting to [facility] for further evaluation in the setting of a syncopal episode versus seizure in the setting of known brain metastasis with hemorrhagic component - CTH at OSH notable for 2 adjacent masses with hemorrhagic changes in the right frontal lobe measuring 1.4 x 2.3 x 3.2 cm and 0.9 x 2.5 x 1.0 cm with surrounding vasogenic edema; no comparison on report to MRI performed 1 week prior - presentation concerning for either syncope or episode of seizure in setting of her brain metastasis; of note had been on dexamethasone up until the past week when medication was stopped, although she had not been having any issues prior to this episode - very likely did experience seizure given description of event, tongue bite lesions on exam, and witnessed post-ictal state PLAN: - neurosurgery consulted on arrival; appreciate assistance - OR on Sunday01/30/25 for right frontal craniotomy for tumor resection likely with gamma tile placement - Decadron 4 mg every 6 hours - neurochecks every 4 hours - hold therapeutic anticoagulation and antiplatelets - rad onc c/s following - seizure ppx keppra 500mg BID - oncology c/s, recs appreciated - fall + seizure precautions - continue home Bernie and baclofen nightly for pain; per patient she has been told she can take 20 mg of baclofen at night if needed, we will start with 10 mg here and can give additional dose if needed - SSI while on steroids - miralax and senna qd Assessment & Plan (01/26/2025 2:14 PM CDT): - presenting to [facility] for further evaluation in the setting of a syncopal episode versus seizure in the setting of known brain metastasis with hemorrhagic component - CTH at OSH notable for 2 adjacent masses with hemorrhagic changes in the right frontal lobe measuring 1.4 x 2.3 x 3.2 cm and 0.9 x 2.5 x 1.0 cm with surrounding vasogenic edema; no comparison on report to MRI performed 1 week prior - presentation concerning for either syncope or episode of seizure in setting of her brain metastasis; of note had been on dexamethasone up until the past week when medication was stopped, although she had not been having any issues prior to this episode - very likely did experience seizure given description of event, tongue bite lesions on exam, and witnessed post-ictal state PLAN: - neurosurgery consulted on arrival; appreciate assistance - OR on Sunday01/30/25 for right frontal craniotomy for tumor resection likely with gamma tile placement - Decadron 4 mg every 6 hours - neurochecks every 4 hours - hold therapeutic anticoagulation and antiplatelets - rad onc c/s following - seizure ppx keppra 500mg BID - oncology c/s, recs appreciated - discontinue tele monitoring s/p 72 hours as no evidence of arrhythmias - fall + seizure precautions - continue home Bernie and baclofen nightly for pain; per patient she has been told she can take 20 mg of baclofen at night if needed, we will start with 10 mg here and can give additional dose if needed - SSI while on steroids - miralax and senna qd Assessment & Plan (01/25/2025 1:24 PM CDT): - presenting to [facility] for further evaluation in the setting of a syncopal episode versus seizure in the setting of known brain metastasis with hemorrhagic component - CTH at OSH notable for 2 adjacent masses with hemorrhagic changes in the right frontal lobe measuring 1.4 x 2.3 x 3.2 cm and 0.9 x 2.5 x 1.0 cm with surrounding vasogenic edema; no comparison on report to MRI performed 1 week prior - presentation concerning for either syncope or episode of seizure in setting of her brain metastasis; of note had been on dexamethasone up until the past week when medication was stopped, although she had not been having any issues prior to this episode - very likely did experience seizure given description of event, tongue bite lesions on exam, and witnessed post-ictal state PLAN: - neurosurgery consulted on arrival; appreciate assistance - Decadron 4 mg every 6 hours - neurochecks every 4 hours - hold therapeutic anticoagulation and antiplatelets - seizure ppx keppra 500mg BID - oncology c/s, recs appreciated - will need palliative c/s on Sunday - rad/onc c/s on Sunday - monitor on telemetry - fall + seizure precautions - continue home Bernie and baclofen nightly for pain; per patient she has been told she can take 20 mg of baclofen at night if needed, we will start with 10 mg here and can give additional dose if needed - SSI while on steroids - miralax and senna qd Assessment & Plan (01/24/2025 1:30 PM CDT): - presenting to [facility] for further evaluation in the setting of a syncopal episode versus seizure in the setting of known brain metastasis with hemorrhagic component - CTH at OSH notable for 2 adjacent masses with hemorrhagic changes in the right frontal lobe measuring 1.4 x 2.3 x 3.2 cm and 0.9 x 2.5 x 1.0 cm with surrounding vasogenic edema; no comparison on report to MRI performed 1 week prior - presentation concerning for either syncope or episode of seizure in setting of her brain metastasis; of note had been on dexamethasone up until the past week when medication was stopped, although she had not been having any issues prior to this episode - very likely did experience seizure given description of event, tongue bite lesions on exam, and witnessed post-ictal state PLAN: - neurosurgery consulted on arrival; appreciate assistance - Decadron 4 mg every 6 hours - neurochecks every 4 hours - hold therapeutic anticoagulation and antiplatelets - pending nsgy recs on [facility] ppx - oncology c/s, recs appreciated - will need palliative c/s on Sunday - monitor on telemetry - fall + seizure precautions - continue home Bernie and baclofen nightly for pain; per patient she has been told she can take 20 mg of baclofen at night if needed, we will start with 10 mg here and can give additional dose if needed Assessment & Plan (01/23/2025 10:36 PM CDT): - presenting to [facility] for further evaluation in the setting of a syncopal episode versus seizure in the setting of known brain metastasis with hemorrhagic component - CTH at OSH notable for 2 adjacent masses with hemorrhagic changes in the right frontal lobe measuring 1.4 x 2.3 x 3.2 cm and 0.9 x 2.5 x 1.0 cm with surrounding vasogenic edema; no comparison on report to MRI performed 1 week prior - presentation concerning for either syncope or episode of seizure in setting of her brain metastasis; of note had been on dexamethasone up until the past week when medication was stopped, although she had not been having any issues prior to this episode PLAN: - neurosurgery consulted on arrival; appreciate assistance - Decadron 4 mg every 6 hours - neurochecks every 4 hours - hold therapeutic anticoagulation and antiplatelets - monitor on telemetry - fall + seizure precautions - continue home Bernie and baclofen nightly for pain; per patient she has been told she can take 20 mg of baclofen at night if needed, we will start with 10 mg here and can give additional dose if needed 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 Assessment & Plan (02/02/2025 3:58 PM CDT): - Tylenol 650mg q6h PRN - Bernie 5-325mg 2 tab q4h PRN - Dilaudid 0.2 IV q4h PRN - gabapentin 300mg q8h PRN - baclofen 10mg qhs, can go up to 20mg if needed Assessment & Plan (02/01/2025 10:26 AM CDT): - Tylenol 650mg q6h PRN - Bernie 5-325mg 2 tab q4h PRN - Dilaudid 0.2 IV q4h PRN - gabapentin 300mg q8h PRN - baclofen 10mg qhs, can go up to 20mg if needed Assessment & Plan (01/31/2025 6:35 PM CDT): - Tylenol 650mg q6h PRN - Bernie 5-325mg 2 tab q4h PRN - Dilaudid 0.2 IV q4h PRN - gabapentin 300mg q8h PRN - baclofen 10mg qhs, can go up to 20mg if needed Assessment & Plan (01/30/2025 10:47 AM CDT): - presenting to [facility] for further evaluation in the setting of a syncopal episode versus seizure in the setting of known brain metastasis with hemorrhagic component - CTH at OSH notable for 2 adjacent masses with hemorrhagic changes in the right frontal lobe measuring 1.4 x 2.3 x 3.2 cm and 0.9 x 2.5 x 1.0 cm with surrounding vasogenic edema; no comparison on report to MRI performed 1 week prior - presentation concerning for either syncope or episode of seizure in setting of her brain metastasis; of note had been on dexamethasone up until the past week when medication was stopped, although she had not been having any issues prior to this episode - very likely did experience seizure given description of event, tongue bite lesions on exam, and witnessed post-ictal state PLAN: - neurosurgery consulted on arrival; appreciate assistance - OR today for right frontal craniotomy for tumor resection likely with gamma tile placement, will be transferred to ICU post-operatively - Decadron 4 mg every 6 hours - neurochecks every 4 hours - hold therapeutic anticoagulation and antiplatelets - rad onc c/s following - seizure ppx keppra 500mg BID - oncology c/s, recs appreciated - fall + seizure precautions - continue home Bernie and baclofen nightly for pain; per patient she has been told she can take 20 mg of baclofen at night if needed, we will start with 10 mg here and can give additional dose if needed - SSI while on steroids - miralax and senna qd Assessment & Plan (01/29/2025 11:27 AM CDT): - presenting to [facility] for further evaluation in the setting of a syncopal episode versus seizure in the setting of known brain metastasis with hemorrhagic component - CTH at OSH notable for 2 adjacent masses with hemorrhagic changes in the right frontal lobe measuring 1.4 x 2.3 x 3.2 cm and 0.9 x 2.5 x 1.0 cm with surrounding vasogenic edema; no comparison on report to MRI performed 1 week prior - presentation concerning for either syncope or episode of seizure in setting of her brain metastasis; of note had been on dexamethasone up until the past week when medication was stopped, although she had not been having any issues prior to this episode - very likely did experience seizure given description of event, tongue bite lesions on exam, and witnessed post-ictal state PLAN: - neurosurgery consulted on arrival; appreciate assistance - OR on Sunday01/30/25 for right frontal craniotomy for tumor resection likely with gamma tile placement, will be transferred to ICU post-operatively - Decadron 4 mg every 6 hours - neurochecks every 4 hours - hold therapeutic anticoagulation and antiplatelets - rad onc c/s following - seizure ppx keppra 500mg BID - oncology c/s, recs appreciated - fall + seizure precautions - continue home Bernie and baclofen nightly for pain; per patient she has been told she can take 20 mg of baclofen at night if needed, we will start with 10 mg here and can give additional dose if needed - SSI while on steroids - miralax and senna qd Assessment & Plan (01/28/2025 7:56 AM CDT): - presenting to [facility] for further evaluation in the setting of a syncopal episode versus seizure in the setting of known brain metastasis with hemorrhagic component - CTH at OSH notable for 2 adjacent masses with hemorrhagic changes in the right frontal lobe measuring 1.4 x 2.3 x 3.2 cm and 0.9 x 2.5 x 1.0 cm with surrounding vasogenic edema; no comparison on report to MRI performed 1 week prior - presentation concerning for either syncope or episode of seizure in setting of her brain metastasis; of note had been on dexamethasone up until the past week when medication was stopped, although she had not been having any issues prior to this episode - very likely did experience seizure given description of event, tongue bite lesions on exam, and witnessed post-ictal state PLAN: - neurosurgery consulted on arrival; appreciate assistance - OR on Sunday01/30/25 for right frontal craniotomy for tumor resection likely with gamma tile placement - Decadron 4 mg every 6 hours - neurochecks every 4 hours - hold therapeutic anticoagulation and antiplatelets - rad onc c/s following - seizure ppx keppra 500mg BID - oncology c/s, recs appreciated - fall + seizure precautions - continue home Bernie and baclofen nightly for pain; per patient she has been told she can take 20 mg of baclofen at night if needed, we will start with 10 mg here and can give additional dose if needed - SSI while on steroids - miralax and senna qd Assessment & Plan (01/27/2025 2:15 PM CDT): - [facility] evaluation in the setting of a syncopal episode versus seizure in the setting of known brain metastasis with hemorrhagic component - CTH at OSH notable for 2 adjacent masses with hemorrhagic changes in the right frontal lobe measuring 1.4 x 2.3 x 3.2 cm and 0.9 x 2.5 x 1.0 cm with surrounding vasogenic edema; no comparison on report to MRI performed 1 week prior - presentation concerning for either syncope or episode of seizure in setting of her brain metastasis; of note had been on dexamethasone up until the past week when medication was stopped, although she had not been having any issues prior to this episode - very likely did experience seizure given description of event, tongue bite lesions on exam, and witnessed post-ictal state PLAN: - neurosurgery consulted on arrival; appreciate assistance - OR on Sunday01/30/25 for right frontal craniotomy for tumor resection likely with gamma tile placement - Decadron 4 mg every 6 hours - neurochecks every 4 hours - hold therapeutic anticoagulation and antiplatelets - rad onc c/s following - seizure ppx keppra 500mg BID - oncology c/s, recs appreciated - fall + seizure precautions - continue home Bernie and baclofen nightly for pain; per patient she has been told she can take 20 mg of baclofen at night if needed, we will start with 10 mg here and can give additional dose if needed - SSI while on steroids - miralax and senna qd Assessment & Plan (01/26/2025 2:14 PM CDT): - [facility] in the setting of a syncopal episode versus seizure in the setting of known brain metastasis with hemorrhagic component - CTH at OSH notable for 2 adjacent masses with hemorrhagic changes in the right frontal lobe measuring 1.4 x 2.3 x 3.2 cm and 0.9 x 2.5 x 1.0 cm with surrounding vasogenic edema; no comparison on report to MRI performed 1 week prior - presentation concerning for either syncope or episode of seizure in setting of her brain metastasis; of note had been on dexamethasone up until the past week when medication was stopped, although she had not been having any issues prior to this episode - very likely did experience seizure given description of event, tongue bite lesions on exam, and witnessed post-ictal state PLAN: - neurosurgery consulted on arrival; appreciate assistance - OR on Sunday01/30/25 for right frontal craniotomy for tumor resection likely with gamma tile placement - Decadron 4 mg every 6 hours - neurochecks every 4 hours - hold therapeutic anticoagulation and antiplatelets - rad onc c/s following - seizure ppx keppra 500mg BID - oncology c/s, recs appreciated - discontinue tele monitoring s/p 72 hours as no evidence of arrhythmias - fall + seizure precautions - continue home Bernie and baclofen nightly for pain; per patient she has been told she can take 20 mg of baclofen at night if needed, we will start with 10 mg here and can give additional dose if needed - SSI while on steroids - miralax and senna qd Assessment & Plan (01/25/2025 1:24 PM CDT): - [facility] in the setting of a syncopal episode versus seizure in the setting of known brain metastasis with hemorrhagic component - CTH at OSH notable for 2 adjacent masses with hemorrhagic changes in the right frontal lobe measuring 1.4 x 2.3 x 3.2 cm and 0.9 x 2.5 x 1.0 cm with surrounding vasogenic edema; no comparison on report to MRI performed 1 week prior - presentation concerning for either syncope or episode of seizure in setting of her brain metastasis; of note had been on dexamethasone up until the past week when medication was stopped, although she had not been having any issues prior to this episode - very likely did experience seizure given description of event, tongue bite lesions on exam, and witnessed post-ictal state PLAN: - neurosurgery consulted on arrival; appreciate assistance - Decadron 4 mg every 6 hours - neurochecks every 4 hours - hold therapeutic anticoagulation and antiplatelets - seizure ppx keppra 500mg BID - oncology c/s, recs appreciated - will need palliative c/s on Sunday - rad/onc c/s on Sunday - monitor on telemetry - fall + seizure precautions - continue home Bernie and baclofen nightly for pain; per patient she has been told she can take 20 mg of baclofen at night if needed, we will start with 10 mg here and can give additional dose if needed - SSI while on steroids - miralax and senna qd Assessment & Plan (01/24/2025 1:30 PM CDT): - [facility] in the setting of a syncopal episode versus seizure in the setting of known brain metastasis with hemorrhagic component - CTH at [facility]SH notable for 2 adjacent masses with hemorrhagic changes in the right frontal lobe measuring 1.4 x 2.3 x 3.2 cm and 0.9 x 2.5 x 1.0 cm with surrounding vasogenic edema; no comparison on report to MRI performed 1 week prior - presentation concerning for either syncope or episode of seizure in setting of her brain metastasis; of note had been on dexamethasone up until the past week when medication was stopped, although she had not been having any issues prior to this episode - very likely did experience seizure given description of event, tongue bite lesions on exam, and witnessed post-ictal state PLAN: - neurosurgery consulted on arrival; appreciate assistance - Decadron 4 mg every 6 hours - neurochecks every 4 hours - hold therapeutic anticoagulation and antiplatelets - pending nsgy recs on keppra ppx - oncology c/s, recs appreciated - will need palliative c/s on Sunday - monitor on telemetry fall + seizure precautions - continue home Bernie and baclofen nightly for pain; per patient she has been told she can take 20 mg of baclofen at night if needed, we will start with 10 mg here and can give additional dose if needed Assessment & Plan (01/23/2025 10:36 PM CDT): - [facility] evaluation in the setting of a syncopal episode versus seizure in the setting of known brain metastasis with hemorrhagic component - CTH at OSH notable for 2 adjacent masses with hemorrhagic changes in the right frontal lobe measuring 1.4 x 2.3 x 3.2 cm and 0.9 x 2.5 x 1.0 cm with surrounding vasogenic edema; no comparison on report to MRI performed 1 week prior - presentation concerning for either syncope or episode of seizure in setting of her brain metastasis; of note had been on dexamethasone up until the past week when medication was stopped, although she had not been having any issues prior to this episode PLAN: - neurosurgery consulted on arrival; appreciate assistance - Decadron 4 mg every 6 hours - neurochecks every 4 hours - hold therapeutic anticoagulation and antiplatelets - monitor on telemetry - fall + seizure precautions - continue home Bernie and baclofen nightly for pain; per patient she has been told she can take 20 mg of baclofen at night if needed, we will start with 10 mg here and can give additional dose if needed Encounters Date Type Department Care Team Description 01/30/2025 1:09 PM CDT Anesthesia Event [facility] OP [address] [place] [address] Anthony Fernández MD Poggemeier, Reid, 01/30/2025 10:45 AM CDT - 01/30/2025 2:30 PM CDT Surgery [facility] [address] [place] [address] Jame Mooney MD RIght frontal craniotomy for tumor resection with gammatile placement 01/23/2025 5:29 PM CDT - 02/02/2025 2:24 PM CDT Hospital Encounter [facility] 5N ACUTE [address] [place] [address] Dorinda Abrams MD Bastin, Taylor J, MD Felgenhauer, Joshua, MD Majeed, MD Heather Camacho Hiral Choksi, MD Neuro-Surgery Discharge Disposition: Home or Self Care 01/23/2025 Travel 01/23/2025 Telephone [facility] INTERNAL MED [address] [place] [address] Dorinda Abrams MD Hospital Admission 01/16/2025 11:00 AM CDT - 01/16/2025 11:59 PM CDT Hospital Encounter [facility] MRI [address] [place] [address] Arben Alvarenga MD Discharge Disposition: Home or Self Care from Last 3 Months Social History Tobacco Use Types Packs/Day Years Used Date Smoking Tobacco: Former Cigarettes Alcohol Use Standard Drinks/Week Comments Yes 0 (1 standard drink = 0.6 oz pur e alcohol) Occasionaly AUDIT-C Answer Date Recorded Q1: How often do you have a drink containing alcohol? 4 or more times a week 01/23/2025 Q2: How many drinks containi ng alcohol do you have on a typical day when you are drinking? 3 or 4 Q3: How often do you have si x or more drinks on one occasion? Monthly 01/23/2025 Overall Financial Resource Strain (CARDIA) Answe r Date Recorded How hard is it for you to pa y for the very basics like food, housing, medical care, and heating? Not hard at all 01/23/2025 [facility] Occupat ional [facility] - Occupational Stress Questionnaire Answer Date Recorded Do you feel stress - tense, restless, nervous, or anxious, or unable to sleep at night because your mind is troubled all the time - these days? Not at all 01/23/2025 Hunger Vital Sign Answer Date Recorded Within the past 12 months, y ou worried that your food would run out before you got the money to buy more. Never true 01/24/20 25 Within the past 12 months, t he food you bought just didn't last and you didn't have money to get more. Never true 01/23/2025 PRAPARE - Transportation Answer Date Re corded In the past 12 months, has l ack of transportation kept you from medical appointments or from getting medications? No 01/13 In the past 12 months, has l ack of transportation kept you from meetings, work, or from getting things needed for daily living? No 01/23/2025 Housing Stability Vital Sign Answer Teofilo e Recorded In the last 12 months, was t here a time when you were not able to pay the mortgage or rent on time? No 01/23/2025 In the past 12 months, how m any times have you moved where you were living? 0 01/23/2025 At any time in the past [facility], were you homeless or living in a custodial (including now)? No 01/23/2025 Comments No Sex and Gender Information Value Date Recorded Sex Assigned at Not on file Legal Sex Female 12:31 PM CDT Gender Identity Not on file Sexual Orientation Not on file Last Filed Vital Signs Vital Sign Reading Time Taken Comments Blood Pressure 120/66 02/02/2025 11:10 AM CDT Pulse 87 02/02/2025 11:10 AM CDT Temperature 36.9 C (98.4 F) 02/02/2025 11:10 AM CDT Respiratory Rate 20 02/02/2025 11:10 AM CDT Oxygen Saturation 97% 02/02/2025 11:10 AM CDT Inhaled Oxygen Concentration - - Weight 51.5 kg (113 lb 8 oz) 01/30/2025 5:30 PM CDT Height 152.4 cm (5') 01/26/2025 10:45 PM CDT Body Mass Index 22.17 01/26/2025 10:45 PM CDT Plan of Treatment Upcoming Encounters Date Type Department Care Team (Late st Contact Info) Description 02/12/2025 3:00 PM CDT Office Visit [facility] - Neurosurgery [address] [place] [address], [place] [address] Radha Marroquin, COMPENSATION AND BENEFITS ADMINISTRATOR-WIRE STRETCHER [address] [place] [address] [place] [address] Health Maintenance Due Date Last Done Comments [...] of 3 - 19+ 3-dose series) 1984 PNEUMOCOCCAL VACCINE 50+ (1 of 2 - PCV) 1984 PAP SMEAR 1986 ZOSTER VACCINE (1 of 2) 2015 COVID-19 VACCINE (3 - season) 2024 10/04/2020, 09/14/2020 DEPRESSION SCREENING 07/16/2024 [...] on patient's age to complete this topic Medical Devices Implanted Type Area Insurance Follow Up Representative Device Identifier Shelf Expiration Date Model / Serial / Lot Seal Dural Auto Spr Ext Tip 5ml - Sn/A Implanted:Qty: 1 on 01/30/2025 at [facility] Right: Brain Dexter Craniomaxillofacial 10/13/2026 NUS-109 / N/A / [id number] Seed Gma Tile Thrp Bioresbl Clgn 7 Pk - Sna Implanted:Qty: 7 on 01/30/2025 by Jame Mooney MD at [facility] Right: Brain Compact Particle [employer] 01/31/2025 GT-07 / NA / [id number] Cover Bur Hl Lght Grn 17mm Matrixneuro - Sna Implanted:Qty: 3 on 01/30/2025 by Jame Mooney MD at [facility] Right: Cranial Synthes [employer] 01/31/2025 04.502.0 23 / NA / NA Plate 6 Hl Ult Lopro Chmfr Edg Crnl - Sna Implanted:Qty: 1 on 01/30/2025 by Jame Mooney MD at [facility] Right: Cranial Synthes [employer] 01/31/2025 04.502.0 68 / NA / NA Screw 1.5mm 4mm Crnmxf Slfdrl - Sna Implanted:Qty: 12 on 01/30/2025 by Jame Mooney MD at [facility] Right: Cranial Synthes Maxillofacial 01/31/2025 04.503.1 04.01 / NA / NA Screw 1.55mm 2.55mm 5mm Crnmxf Slf Drl - Sna Implanted:Qty: 7 on 01/30/2025 by Jame Mooney MD at [facility] Right: Cranial Synthes Maxillofacial 01/31/2025 04.503.1 05.01 / NA / NA Procedures Procedure Name Priority Date/Time Associated Diagnosis Comments GLUCOSE - POINT OF CARE Routine 02/02/2025 11:08 AM CDT GLUCOSE - POINT OF CARE Routine 02/02/2025 8:47 AM CDT COMPREHENSIVE METABOLIC PANEL Timed 02/02/2025 4:42 AM CDT MAGNESIUM BLOOD Timed 02/02/2025 4:42 AM CDT CBC W AUTO DIFFERENTIAL Timed 02/02/2025 4:42 AM CDT GLUCOSE - POINT OF CARE Routine 02/01/2025 10:43 PM CDT OT EVAL AND TREAT Routine 02/01/2025 12:13 PM CDT GLUCOSE - POINT OF CARE Routine 02/01/2025 11:15 AM CDT GLUCOSE - POINT OF CARE Routine 02/01/2025 8:09 AM CDT PHOSPHORUS BLOOD AM Draw 02/01/2025 3:44 AM CDT COMPREHENSIVE METABOLIC PANEL Timed 02/01/2025 3:44 AM CDT MAGNESIUM BLOOD Timed 02/01/2025 3:44 AM CDT CBC W AUTO DIFFERENTIAL Timed 02/01/2025 3:44 AM CDT GLUCOSE - POINT OF CARE Routine 01/31/2025 8:22 PM CDT GLUCOSE - POINT OF CARE Routine 01/31/2025 6:44 PM CDT GLUCOSE - POINT OF CARE Routine 01/31/2025 11:42 AM CDT GLUCOSE - POINT OF CARE Routine 01/31/2025 9:04 AM CDT GLUCOSE - POINT OF CARE Routine 01/31/2025 7:55 AM CDT GLUCOSE - POINT OF CARE Routine 01/31/2025 7:[address] HEAD WO CONTRAST Routine 01/31/2025 5 :14 AM CDT Cerebral metastasis (HCC) MRI BRAIN WWO CONTRAST Routine 01/31/2025 4:59 AM CDT Cerebral metastasis (HCC) PHOSPHORUS BLOOD Routine 01/31/2025 1:48 AM CDT COMPREHENSIVE METABOLIC PANEL Timed 01/31/2025 1:48 AM CDT MAGNESIUM BLOOD Timed 01/31/2025 1:48 AM CDT CBC W AUTO DIFFERENTIAL Timed 01/31/2025 1:48 AM CDT GLUCOSE - POINT OF CARE Routine 01/30/2025 6:21 PM CDT PATHOLOGY TISSUE Routine 01/30/2025 2:41 PM CDT Brain tumor (HCC) ENDOTRACHEAL TUBE NOTE Routine 01/30/2025 1:38 PM CDT [place] OPEN SKULL INFRATENT EXPLORE 01/30/2025 12:47 PM CDT Brain tumor (HCC) Special Needs [employer], [employer], [place]LL, GAMMATILE MONITORING: EEG, MMEP, MEP-- [facility] 01/29 GLUCOSE - POINT OF CARE Routine 01/30/2025 7:55 AM CDT RENAL FUNCTION PANEL AM Draw 01/30/2025 3:40 AM CDT MAGNESIUM BLOOD Routine 01/30/2025 3:40 AM CDT CBC W AUTO DIFFERENTIAL AM Draw 01/30/2025 3:40 AM CDT GLUCOSE - POINT OF CARE Routine 01/30/2025 12:52 AM CDT GLUCOSE - POINT OF CARE Routine 01/29/2025 5:00 PM CDT GLUCOSE - POINT OF CARE Routine 01/29/2025 12:02 PM CDT GLUCOSE - POINT OF CARE Routine 01/29/2025 8:07 AM CDT BASIC METABOLIC PANEL (CALCIUM TOTAL) AM Draw 01/29/2025 3:[address] HEAD WO CONTRAST Routine 01/28/2025 5 :25 PM CDT Cerebral metastasis (HCC) GLUCOSE - POINT OF CARE Routine 01/28/2025 3:37 PM CDT GLUCOSE - POINT OF CARE Routine 01/28/2025 11:45 AM CDT GLUCOSE - POINT OF CARE Routine 01/28/2025 8:18 AM CDT BLOOD TYPE VERIFICATION Routine 01/28/2025 6:39 AM CDT TYPE + SCREEN PANEL Routine 01/28/2025 3 :10 AM CDT RENAL FUNCTION PANEL AM Draw 01/28/2025 3:10 AM CDT MAGNESIUM BLOOD Routine 01/28/2025 3:10 AM CDT CBC W AUTO DIFFERENTIAL AM Draw 01/28/2025 3:10 AM CDT GLUCOSE - POINT OF CARE Routine 01/27/2025 9:56 PM CDT GLUCOSE - POINT OF CARE Routine 01/27/2025 4:18 PM CDT GLUCOSE - POINT OF CARE Routine 01/27/2025 12:32 PM CDT GLUCOSE - POINT OF CARE Routine 01/26/2025 10:38 PM CDT EKG 12-LEAD Routine 01/26/2025 8:07 PM CDT Preoperative cardiovascular examination GLUCOSE - POINT OF CARE Routine 01/26/2025 4:43 PM CDT GLUCOSE - POINT OF CARE Routine 01/26/2025 12:14 PM CDT GLUCOSE - POINT OF CARE Routine 01/26/2025 7:38 AM CDT RENAL FUNCTION PANEL AM Draw 01/26/2025 4:40 AM CDT MAGNESIUM BLOOD Routine 01/26/2025 4:40 AM CDT CBC W AUTO DIFFERENTIAL AM Draw 01/26/2025 4:40 AM CDT GLUCOSE - POINT OF CARE Routine 01/25/2025 8:20 PM CDT GLUCOSE - POINT OF CARE Routine 01/25/2025 4:12 PM CDT GLUCOSE - POINT OF CARE Routine 01/25/2025 12:21 PM CDT PHOSPHORUS BLOOD STAT 01/23/2025 8:35 PM CDT MAGNESIUM BLOOD Routine 01/23/2025 8:35 PM CDT PT-INR STAT 01/23/2025 8:35 PM CDT COMPREHENSIVE METABOLIC PANEL STAT 01/23/2025 8:35 PM CDT CBC W AUTO DIFFERENTIAL STAT 01/23/2025 8:35 PM CDT MRI BRAIN WWO CONTRAST Routine 01/16/2025 12:11 PM CDT Metastasis to brain (HCC) from Last 3 Months Results * (ABNORMAL) GLUCOSE - POINT OF CARE (02/02/2025 11:08 AM CDT) Only the most recent of30 resultswithin the time period is included. Glucose WB/POC 131(H) 70 - 99 mg/dL 02/02/2025 11:18 AM CDT [facility] Specimen Type Arterial/C apillary 02/02/2025 11:18 AM CDT [facility] Blood BLOOD SPECIMEN / Unknown 02/02/2025 11:08 AM CDT 02/02/2025 11:18 AM CDT us Nichol Romero MD LAB - POINT OF CARE ORDERABLES Final Result [address] [address], [facility] [phone] * (ABNORMAL) CBC W AUTO DIFFERENTIAL (02/02/2025 4:42 AM CDT) Only the most recent of7 resultswithin the time period is included. WBC 9.3 4.0 - 10.7 x10E9/L 02/02/2025 5:41 AM [facility] RBC Count 3.55(L) 3.90 - 5.20 x10E12/L 02/02/2025 5:41 AM [facility] Hemoglobin 10.8(L) 11.9 - 15.8 g/dL 02/02/2025 5:41 AM [facility] Hematocrit 32.9(L) 34.8 - 46.1 % 02/02/2025 5:41 AM [facility] MCV 92.7 80.0 - 98.0 fL 02/02/2025 5:41 AM [facility] MCH 30.4 26.7 - 33.6 pg 02/02/2025 5:41 AM [facility] MCHC 32.8 31.7 - 36.3 g/dL 02/02/2025 5:41 AM [facility] RDW-CV 14.3 11.3 - 14.8 % 02/02/2025 5:41 AM [facility] Platelet Count 456(H) 150 - 420 x10E9/L 02/02/2025 5:41 AM [facility] MPV 9.2 7.8 - 11.4 fL 02/02/2025 5:41 AM [facility] Neutrophil % 85.8(H) 41.0 - 74.0 % 02/02/2025 5:41 AM [facility] Lymphocyte % 7.8(L) 17.0 - 47.0 % 02/02/2025 5:41 AM [facility] Monocyte % 5.2 3.0 - 11.0 % 02/02/2025 5:41 AM [facility] Eosinophil % 0.0 0.0 - 7.0 % 02/02/2025 5:41 AM [facility] Basophil % 0.1 0.0 - 1.6 % 02/02/2025 5:41 AM [facility] Immature Granulocytes % 1.1(H) 0.0 - 1.0 % 02/02/2025 5:41 AM [facility] Neutrophil Absolute 7.97(H) 1.60 - 7.50 x10E9/L 02/02/2025 5:41 AM [facility] Lymphocyte Absolute 0.72(L) 1.00 - 4.40 x10E9/L 02/02/2025 5:41 AM [facility] Monocyte Absolute 0.48 0.15 - 1.00 x10E9/L 02/02/2025 5:41 AM [facility] Eosinophil Absolute 0.00 0.00 - 0.60 x10E9/L 02/02/2025 5:41 AM [facility] Basophil Absolute 0.01 0.00 - 0.13 x10E9/L 02/02/2025 5:41 AM [facility] Blood BLOOD SPECIMEN / Unknown Lab Venipuncture / Unknown 02/02/2025 4:42 AM CDT 02/02/2025 5:34 AM CDT us Rory Donis MD LAB - HEMATOLOGY ORDERABLES Final Result [address] [address] [phone] * (ABNORMAL) COMPREHENSIVE METABOLIC PANEL (02/02/2025 4:42 AM CDT) Only the most recent of4 resultswithin the time period is included. BUN 37(H) 7 - 26 mg/dL 02/02/2025 6:04 AM [facility] Creatinine 0.64 0.56 - 0.96 mg/dL 02/02/2025 6:04 AM [facility] Sodium 137 136 - 145 mmol/L 02/02/2025 6:04 AM [facility] Potassium 4.0 3.5 - 4.5 mmol/L 02/02/2025 6:04 AM [facility] Chloride 105 98 - 107 mmol/L 02/02/2025 6:04 AM [facility] CO2 24 22 - 29 mmol/L 02/02/2025 6:04 AM [facility] Glucose 103(H) 70 - 99 mg/dL 02/02/2025 6:04 AM [facility] Calcium 8.7 8.4 - 10.2 mg/dL 02/02/2025 6:04 AM [facility] Protein Total 5.8(L) 6.0 - 8.3 g/dL 02/02/2025 6:04 AM [facility] Albumin 3.1(L) 3.4 - 5.0 g/dL 02/02/2025 6:04 AM [facility] Bilirubin Total 0.1(L) 0.2 - 1.2 mg/dL 02/02/2025 6:04 AM [facility] Alkaline Phosphatase 46 40 - 150 U/L 02/02/2025 6:04 AM [facility] ALT 17 5 - 55 U/L 02/02/2025 6:04 AM [facility] AST 17 5 - 34 U/L 02/02/2025 6:04 AM [facility] Anion Gap 8 6 - 16 02/02/2025 6:04 AM [facility] BUN/Creatinine Ratio >50(H) 7 - 02/02/2025 6:04 AM [facility] Osmolality Calculated 293 275 - 295 mOsm/kg 02/02/2025 6:04 AM [facility] Albumin/Globulin Ratio 1.1 1.1 - 2.3 02/02/2025 6:04 AM [facility] eGFR by CKD-EPI >90 >=90 mL/min/1.7 3 m2 02/02/2025 6:04 AM [facility] Comment:Estimated Glomerular Filtration Rate (eGFR) calculated using the CKD-EPI Creatinine Equation (2020), per the National Kidney Foundation and [place] [employer]ph[employer] recommendations. Blood BLOOD SPECIMEN / Unknown Lab Venipuncture / Unknown 02/02/2025 4:42 AM CDT 02/02/2025 5:35 AM CDT us Rory Donis MD LAB - CHEMISTRY ORDERABLES F inal Result [facility] [address] [place] [address], [facility] [phone] * MAGNESIUM BLOOD (02/02/2025 4:42 AM CDT) Only the most recent of7 resultswithin the time period is included. Magnesium 2.1 1.6 - 2.6 mg/dL 02/02/2025 6:04 AM CDT [facility] Blood BLOOD SPECIMEN / Unknown Lab Venipuncture / Unknown 02/02/2025 4:42 AM CDT 02/02/2025 5:35 AM CDT Rory Donis MD LAB - CHEMISTRY ORDERABLES F inal Result Performing Organization Address City/[facility]/ZIP Co de Phone Number [address] [address], [facility] [phone] * PHOSPHORUS BLOOD (02/01/2025 3:44 AM CDT) Only the most recent of3 resultswithin the time period is included. Phosphorus 3.7 2.9 - 5.1 mg/dL 02/01/2025 4:39 AM CDT [facility] Blood BLOOD SPECIMEN / Unknown Lab Venipuncture / Unknown 02/01/2025 3:44 AM CDT 02/01/2025 4:05 AM CDT Derek Drake MD LAB - CHEMISTRY ORDERABLES Final Result Performing Organization Address City/[facility] Co de Phone Number [address] [address], [place] [phone] * CT HEAD STEREOTACTIC WO CONTRAST (01/31/2025 5:14 AM CDT) Only the most recent of2 resultswithin the time period is included. Anatomical Region Laterality Modality Head Computed Tomogra phy 01/31/2025 6:45 AM CDT Impressions 01/31/2025 9:06 AM CDT IMPRESSION: 1.Interval postoperative changes of right frontal craniotomy for tumor resection and placement of multiple gamma tiles, with expected postsurgical changes as detailed above. 2.Evaluation for residual tumor is suboptimal due to artifacts from gamma tiles and postoperative blood products. 3.Redemonstration of extensive vasogenic edema and mild local mass effect with effacement of the overlaying sulci and adjacent structures in the right frontal lobe. Mild local mass effect on the right lateral ventricle and minimal, approximately 2 mm of [id number] midline shift, grossly unchanged from prior. The report was drafted by Matilde Poe MD (vice president [employer]) 01/31/2025 7:03 AM. I, Lisa Heller MD have personally reviewed and interpreted this examination/study. > Interpreting Provider: Lisa Heller MD on 01/31/2025 9:06 AM Narrative 01/31/2025 9:06 AM CDT PROCEDURE: CT HEAD WO CONTRAST, DATE/TIME OF EXAM: 01/31/2025 5:14 AM, LOCATION [facility] INDICATION: C79.31: Cerebral metastasis (HCC) EXAMINATION: Computed tomography (CT) of the head without contrast ADDITIONAL CLINICAL INFORMATION: Ordering Provider Reason For Exam: f/u gamma tile placement TECHNIQUE: CT of the head was performed without contrast according to stereotactic protocol. CT dose reduction technique was used, including Automated Exposure Control. COMPARISON: CT head without contrast from 01/28/2025. FINDINGS: Interval postoperative changes of right frontal craniotomy for tumor resection with Gamma Tiles placement. Small amount of subdural blood products in the right frontal lobe convexity extending to the right aspect of interhemispheric falx measuring up to 5.7 mm (series 8 image 154). Small amount of blood products at the surgical bed in the right frontal lobe (series 8 image 145 and 148). Moderate amount of scattered pneumocephalus in the right frontal lobe and at the surgical bed, consistent with postoperative changes. Expected postoperative changes within the subcutaneous soft tissues of right frontoparietal scalp and vertex including surgical staple line, subcutaneous emphysema, and soft tissue swelling. Evaluation for residual tumor is suboptimal due to artifacts from Gamma Tiles and postoperative blood products. Redemonstration of extensive vasogenic edema and mild local mass effect with effacement of the overlaying sulci and adjacent structures in the right frontal lobe. Mild local mass effect on the right lateral ventricle and minimal, approximately 2 mm of guyxi-cy-ckxz midline shift, grossly unchanged from prior. Otherwise, no interval acute findings apart from the above-mentioned postsurgical changes. There is mild cerebral volume loss with associated ex vacuo ventricular dilatation. The basilar cisterns are patent. The muro-white matter differentiation otherwise appears normal. Periventricular white matter hypoattenuation is indicative of chronic small vessel ischemic disease. There is vascular calcification of the carotid siphons. No acute calvarial fracture is identified. The orbits appear normal. There is mild paranasal sinus disease. The mastoid air cells are grossly clear. Expected postsurgical changes in the scalp. Procedure Note Lisa Heller MD - 01/31/2025 PROCEDURE: CT HEAD WO CONTRAST, DATE/TIME OF EXAM: 01/31/2025 5:14 AM, LOCATION [facility] INDICATION: C79.31: Cerebral metastasis (HCC) EXAMINATION: Computed tomography (CT) of the head without contrast ADDITIONAL CLINICAL INFORMATION: Ordering Provider Reason For Exam: f/u gamma tile placement TECHNIQUE: CT of the head was performed without contrast according to stereotactic protocol. CT dose reduction technique was used, including Automated Exposure Control. COMPARISON: CT head without contrast from 01/28/2025. FINDINGS: Interval postoperative changes of right frontal craniotomy for tumor resection with Gamma Tiles placement. Small amount of subdural blood products in the right frontal lobe convexity extending to the rightaspect of interhemispheric falx measuring up to 5.7 mm (series 8 image 154). Small amount of blood products at the surgical bed in the right frontal lobe (series 8 image 145 and 148). Moderate amount of scattered pneumocephalus in the right frontal lobe and at the surgical bed, consistent with postoperative changes. Expected postoperative changes within the subcutaneous soft tissues of right frontoparietal scalp and vertex including surgical staple line, subcutaneous emphysema, and soft tissue swelling. Evaluation for residual tumor is suboptimal due to artifacts from Gamma Tiles and postoperative blood products. Redemonstration of extensive vasogenic edema and mild local mass effect with effacement of the overlaying sulci and adjacent structures in the right frontal lobe. Mild local mass effect on the right lateralventricle and minimal, approximately 2 mm of uxlea-rr-vznc midline shift, grossly unchanged from prior. Otherwise, no interval acute findings apart from the above-mentioned postsurgical changes. There is mild cerebral volume loss with associatedex vacuo ventricular dilatation. The basilar cisterns are patent. The muro-white matter differentiation otherwise appears normal.Periventricular white matter hypoattenuation is indicative of chronic small vesselischemic disease. There is vascular calcification of the carotid siphons. Noacute calvarial fracture is identified. The orbits appear normal. There ismild paranasal sinus disease. The mastoid air cells are grossly clear.Expected postsurgical changes in the scalp. IMPRESSION: 1.Interval postoperative changes of right frontal craniotomy for tumor resection and placement of multiple gamma tiles, with expectedpostsurgical changes as detailed above. 2.Evaluation for residual tumor is suboptimal due to artifacts fromgamma tiles and postoperative blood products. 3.Redemonstration of extensive vasogenic edema and mild local masseffect with effacement of the overlaying sulci and adjacent structures in the right frontal lobe. Mild local mass effect on the right lateralventricle and minimal, approximately 2 mm of taxwl-gj-bvtu midline shift, grossly unchanged from prior. The report was drafted by Matilde Poe MD (vice president residential solar sales) 01/31/2025 7:03 AM. ILisa MD have personally reviewed and interpretedthis examination/study. > Interpreting Provider: Lisa Heller MD on 01/31/2025 9:06 AM Rory Donis MD CT ORDERABLES Final Result * MRI Brain Wwo Contrast (01/31/2025 4:59 AM CDT) Only the most recent of2 resultswithin the time period is included. Anatomical Region Laterality Modality Head Magnetic Resonan ce 02/01/2025 4:29 PM CDT Impressions 02/02/2025 2:18 PM CDT IMPRESSION: Compared to the prior MRI of the brain from 01/16/[address] of the head from : 1.Redemonstration of postoperative findings of right frontal craniotomy for tumor resection with Gamma Tiles placement, with expected postsurgical changes as outlined. 2.No masslike enhancement to suggest residual disease however, continued attention on follow-up is recommended. 3.No other significant change since prior. 4.No midline shift. > Interpreting Provider: Lisa Heller MD on 02/02/2025 2:18 PM Narrative 02/02/2025 2:18 PM CDT PROCEDURE: MRI BRAIN WWO CONTRAST, DATE/TIME OF EXAM: 01/31/2025 4:59 AM, LOCATION [facility] INDICATION: C79.31: Cerebral metastasis (HCC) ADDITIONAL CLINICAL INFORMATION: Ordering Provider Reason For Exam: Follow up tumor resection Technologist Note: Does the patient have a pacemaker or defibrillator?->No Does the patient have metal implants or stents?->No Additional: None. EXAMINATION: Magnetic resonance imaging (MRI) of the brain without and with contrast CONTRAST: GADOBUTROL 1 MMOL/ML IV SSM SO:5 mL TECHNIQUE: MRI of the brain was performed prior to and following the uneventful administration of 5 mL intravenous GADAVIST contrast according to standard protocol. COMPARISON: CT of the head from 01/31/2025 and MRI of the brain from 01/16/2025. FINDINGS: Redemonstration of postoperative findings of right frontal craniotomy for tumor resection with Gamma Tiles placement. Redemonstration of evolving postsurgical changes with susceptibility artifacts along the craniectomy site, compatible with postsurgical change. Expected postoperative changes within the subcutaneous soft tissues of right frontoparietal scalp are again noted. Underlying resection cavity containing Gamma Tiles, blood products, fluid, supernatant pneumocephalus, and susceptibility artifacts, compatible with expected postsurgical change. The Gamma tiles appear in appropriate position. No masslike enhancement in the resection bed to suggest residual tumor. However, continued attention on follow-up is recommended on follow-up scans. No other acute change is identified compared to the prior. Otherwise, no evidence of acute intracranial hemorrhage [...] stable. Procedure Note Lisa Heller MD - 02/02/2025 PROCEDURE: MRI BRAIN WWO CONTRAST, DATE/TIME OF EXAM: 01/31/2025 4:59AM, LOCATION [facility] INDICATION: C79.31: Cerebral metastasis (HCC) ADDITIONAL CLINICAL INFORMATION: Ordering Provider Reason For Exam: Follow up tumor resection Technologist Note: Does the patient have a pacemaker ordefibrillator?->No Does the patient have metal implants or stents?->No Additional: None. EXAMINATION: Magnetic resonance imaging (MRI) of the brain without andwith contrast CONTRAST: GADOBUTROL 1 MMOL/ML IV SSM SO:5 mL TECHNIQUE: MRI of the brain was performed prior to and following the uneventful administration of 5 mL intravenous GADAVIST contrastaccording to standard protocol. COMPARISON: CT of the head from 01/31/2025 and MRI of the brain from 01/16/2025. FINDINGS: Redemonstration of postoperative findings of right frontal craniotomyfor tumor resection with Gamma Tiles placement. Redemonstration of evolving postsurgical changes with susceptibility artifacts along the craniectomy site, compatible with postsurgical change. Expected postoperativechanges within the subcutaneous soft tissues of right frontoparietal scalp are again noted. Underlying resection cavity containing Gamma Tiles, blood products,fluid, supernatant pneumocephalus, and susceptibility artifacts, compatiblewith expected postsurgical change. The Gamma tiles appear in appropriate position. No masslike enhancement in the resection bed to suggestresidual tumor. However, continued attention on follow-up is recommended on follow-up scans. No other acute change is identified compared to theprior. Otherwise, no evidence of acute intracranial hemorrhage [...] visualized cervical spine appear grossly stable. IMPRESSION: Compared to the prior MRI of the brain from 01/16/[address] of the head from : 1.Redemonstration of postoperative findings of right frontal craniotomyfor tumor resection with Gamma Tiles placement, with expected postsurgical changes as outlined. 2.No masslike enhancement to suggest residual disease however, continued attention on follow-up is recommended. 3.No other significant change since prior. 4.No midline shift. > Interpreting Provider: Lisa Heller MD on 02/02/2025 2:18 PM us Rory Donis MD MR ORDERABLES Final Result * PATHOLOGY TISSUE (01/30/2025 2:41 PM CDT) Case Report Surgical Pathology Report Case: [id number] Authorizing Provider: Jame Mooney MD Collected: 01/30/2025 02:41 PM Ordering Location: [facility] Received: 02/02/2025 04:50 AM Pathologist: Guido Rosas MD Specimens: A) - Brain, Right brain tumor B) - Brain, Right Brain Tumor 7:22 PM CDT [facility] Final Diagnosis Brain, right brain tumor, biopsy and resection (A, B): - Metastatic carcinoma, poorly differentiated. - Extensive acute hemorrhage and gliosis. - See comment. Comment: Based on the histopathological and immunohistochemical profile of this tumor, and the patient's previous diagnosis of lung adenocarcinoma, a poorly differentiated lung adenocarcinoma is favored. 7:22 PM CDT [facility] at 1922 CDT Microscopic Description and Comment The frozen section diagnosis is confirmed. Microscopic examination shows extensive gliosis and fresh hemorrhage with foci of a poorly differentiated carcinoma. The tumor cells are positive for CK7, TTF-1 and pancytokeratin. The tumor cells are negative for p40 and p63 immunostain. Ki-67 immunohistochemical stain shows a proliferating index of approximately 60%. 5 7:22 PM [facility] Clinical History 02/04/20 2 5 7:22 PM [facility] Intraoperative Consultation A) Right brain tumor are multiple fragments of dark-muro soft tissue measuring in aggregate 0.9 x 0.9 x 0.5 cm. Frozen entirely as FSA1. Intraoperative diagnosis: FSA1 Right Brain Tumor: - Gliosis with focal hemorrhage by Guido Rosas MD B) Right brain tumor is an irregular fragment of brain tissue measuring 5 x 3 x 1.5 cm. Solar Energy Consultant And Designer sections are submitted for frozen section as FSB1-B2. Intraoperative diagnosis: FSB1/2 Right Brain Tumor: - Metastatic Carcinoma by Guido Rosas MD 5 7:22 PM [facility] Gross Description The requisition and specimen(s) are identified with the patient's name Mary Howe. Received in formalin from intraoperative consultation, specimen A, consists of a frozen section remnant of FSA1 that is consistent with the intraoperative note and is submitted in cassette A1. Received in formalin from intraoperative consultation, specimen B, consists of frozen section remnants of FSB1-B2 that are respectively submitted in cassettes B1-B2. Following formalin fixation, further sectioning shows a fay-white cut surface with diffuse yellow discoloration. Additional sales representative canvas products sections are submitted in cassettes B1-B5./ANTHONY 5 7:22 PM [facility] Pathologist Location at [facility] 5 7:22 PM [facility] Disclaimer The performance characteristics of all immunohistochemical and indirect immunofluorescence stains (if any) cited in this report were determined by the Histopathology Laboratory of [facility]. Some of these tests were developed by our own laboratory and have not been cleared or approved by the US Food and Drug Administration. The FDA does not require this test to go through premarket FDA review. These tests are used for clinical purposes. They should not be regarded as investigational or for research. This laboratory is certified under the Clinical Laboratory Improvement Amendments (CLIA) as qualified to perform high complexity clinical laboratory testing. This case has been personally reviewed and interpreted by the attending (teaching) pathologist. 5 7:22 PM [facility] Embedded Images 7:22 PM CDT [facility] Resection with Tumor ENTIRE BRAIN / Unknown 01/30/2025 2:41 PM CDT 02/02/2025 4:50 AM CDT Comment:Pre-op diagnosis: brain tumor Resection with Tumor ENTIRE BRAIN / Unknown 01/30/2025 3:16 PM CDT 02/02/2025 4:50 AM CDT Comment:Pre-op diagnosis: brain tumor Jame Mooney MD LAB - PATHOLOGY/CYTOLOGY ORD ERABLES Final Result [facility] [address] [id number], [facility] [phone] * ETT LINE PERFORMABLE (01/30/2025 1:38 PM CDT) Narrative Kalyani Finn MD - 01/30/2025 1:38 PM CDT Kalyani Finn MD 01/30/2025 1:42 PM Endotracheal Tube Placement: Patient Location: OR. Intubation Event Date/Time: 01/30/2025 1:28 PM Procedure: intubation (04483) Procedure Section: Sedation: under general anesthesia. Indications for Airway Management: anesthesia Induction: standard IV Patient Position: sniffing Mask Ventilation: easy. Blade Type: Video Blade Size: 3 Laryngoscopy View: grade 2 (partial cords) Intubation Adjuncts: stylet Tube: endotracheal tube Placement: oral Tube type: cuff - inflated Tube Size (MM): 7 Depth of Insertion (CM): 20 Measured From: teeth Cuff Inflated With: air Number of Attempts: 1. Placement Verified By: direct visualization, bilateral breath sounds, chest auscultation and CO2 monitor Tube secured with: adhesive tape. Dentition unchanged? Yes Difficult Airway? No. Procedure Start Time: 01/30/2025 1:28 PM. Staff Section Anesthesia Provider: Anthony Fernández MD Provider #1: Kalyani Finn MD, Performed the procedure. Anthony Fernández MD GENERAL ANESTHESIA ORDERABLES E dited Result - Final * (ABNORMAL) RENAL FUNCTION PANEL (01/30/2025 3:40 AM CDT) Only the most recent of3 resultswithin the time period is included. BUN 29(H) 7 - 26 mg/dL 01/30/2025 4:56 AM [facility] Creatinine 0.70 0.56 - 0.96 mg/dL 01/30/2025 4:56 AM [facility] Sodium 136 136 - 145 mmol/L 01/30/2025 4:56 AM [facility] Potassium 4.4 3.5 - 4.5 mmol/L 01/30/2025 4:56 AM [facility] Chloride 107 98 - 107 mmol/L 01/30/2025 4:56 AM [facility] CO2 24 22 - 29 mmol/L 01/30/2025 4:56 AM [facility] Glucose 102(H) 70 - 99 mg/dL 01/30/2025 4:56 AM [facility] Albumin 3.3(L) 3.4 - 5.0 g/dL 01/30/2025 4:56 AM [facility] Calcium 8.5 8.4 - 10.2 mg/dL 01/30/2025 4:56 AM [facility] Phosphorus 3.4 2.9 - 5.1 mg/dL 01/30/2025 4:56 AM [facility] Anion Gap 5(L) 6 - 16 01/30/2025 4:56 AM [facility] BUN/Creatinine Ratio 41(H) 7 - 23 01/30/2025 4:56 AM [facility] Osmolality Calculated 288 275 - 295 mOsm/kg 01/30/2025 4:56 AM [facility] eGFR by CKD-EPI >90 >=90 mL/min/1.7 3 m2 01/30/2025 4:56 AM [facility] Comment:Estimated Glomerular Filtration Rate (eGFR) calculated using the CKD-EPI Creatinine Equation (2020), per the National Kidney Foundation and [place] Society of Nephrology recommendations. Blood BLOOD SPECIMEN / Unknown Lab Venipuncture / Unknown 01/30/2025 3:40 AM CDT 01/30/2025 4:25 AM T us Derek Drake MD LAB - CHEMISTRY ORDERABLES Final Result [facility] [address] [place] [address], [facility] [phone] * (ABNORMAL) BASIC METABOLIC PANEL (CALCIUM TOTAL) (01/29/2025 3:41 AM CDT) BUN 25 7 - 26 mg/dL 01/29/2025 4:38 AM [facility] Creatinine 0.73 0.56 - 0.96 mg/dL 01/29/2025 4:38 AM [facility] Sodium 136 136 - 145 mmol/L 01/29/2025 4:38 AM [facility] Potassium 4.5 3.5 - 4.5 mmol/L 01/29/2025 4:38 AM [facility] Chloride 108(H) 98 - 107 mmol/L 01/29/2025 4:38 AM [facility] CO2 25 22 - 29 mmol/L 01/29/2025 4:38 AM [facility] Glucose 111(H) 70 - 99 mg/dL 01/29/2025 4:38 AM [facility] Calcium 9.0 8.4 - 10.2 mg/dL 01/29/2025 4:38 AM [facility] Anion Gap 3(L) 6 - 16 01/29/2025 4:38 AM [facility] BUN/Creatinine Ratio 34(H) 7 - 23 01/29/2025 4:38 AM [facility] Osmolality Calculated 287 275 - 295 mOsm/kg 01/29/2025 4:38 AM [facility] eGFR by CKD-EPI >90 >=90 mL/min/1.7 3 m2 01/29/2025 4:38 AM [facility] Comment:Estimated Glomerular Filtration Rate (eGFR) calculated using the CKD-EPI Creatinine Equation (2020), per the National Kidney Foundation and [place] Society of Nephrology recommendations. Blood BLOOD SPECIMEN / Unknown Lab Venipuncture / Unknown 01/29/2025 3:41 AM CDT 01/29/2025 4:00 AM CDT Rory Donis MD LAB - CHEMISTRY ORDERABLES F inal Result [facility] [address] [place] [address], [place] [phone] * BLOOD TYPE VERIFICATION (01/28/2025 6:39 AM CDT) ABO Rh A POS 01/28/2025 7:5 4 AM CDT [facility] Blood Bank BLOOD SPECIMEN / Unknown Lab Venipuncture / Unknown 01/28/2025 6:39 AM CDT 01/28/2025 6:58 AM CDT Rory Donis MD LAB - BLOOD BANK ORDERABLES Final Result Performing Organization Address [facility]/ZIP Co de Phone Number [facility] [address] [place] [address], [place] [phone] * TYPE + SCREEN PANEL (01/28/2025 3:10 AM CDT) Antibody Screen NEG 4:18 AM CDT [facility] ABO Rh A POS 01/28/2025 4:18 AM CDT [facility] Blood Bank BLOOD SPECIMEN / Unknown Lab Venipuncture / Unknown 01/28/2025 3:10 AM CDT 01/28/2025 3:31 AM CDT Derek Drake MD LAB - BLOOD BANK ORDERABLE S Final Result Performing Organization Address City/[facility]/ZIP Co de Phone Number [facility] [address] [place] [address], [place] [phone] * EKG 12-Lead (01/26/2025 8:07 PM CDT) Ventricular Rate 65 BPM [facility] Atrial Rate 65 BPM [facility] P-R Interval 166 ms [facility] QRS Duration ms 72 ms [facility] Q-T Interval ms 394 ms [facility] QTC Calculation (Bezet) 409 ms [facility] Calculated P [place] 55 degrees [facility] Calculated R [place] 50 degrees [facility] Calculated T [place] 43 degrees [facility] Interpretation EKG NORMAL SINUS RHYTHM SEPTAL INFARCT , AGE UNDETERMINED ABNORMAL ECG NO PREVIOUS ECGS AVAILABLE Confirmed by CHRISTOFER EPRRY, FEDE ([id number]) on 01/31/2025 7:36:20 PM [facility] 01/26/2025 8:07 PM CDT 01/31/2025 7:36 PM CDT Derek Drake MD ECG ORDERABLES Edited Res ult - Final [facility] * PT-INR (01/23/2025 8:35 PM CDT) PT 12.8 12.1 - 14.8 Seconds 01/23/2025 9:27 PM CDT [facility] INR 1.0 See Comment 01/23/2025 9:27 PM CDT [facility] Comment:The suggested therap eutic range for standard coumadin (warfarin) therapy is an INR of 2.0-3.0. For high-risk patients (Mechanical Mitral Valve Prosthesis, etc.), the suggested prophylactic therapeutic range is an INR of 2.5-3.5. Blood BLOOD SPECIMEN / Unknown Lab Venipuncture / Unknown 01/23/2025 8:35 PM CDT 01/23/2025 8:48 PM CDT Radha Corona MD LAB - COAGULATION ORDERABLES Final Result [facility] [address] [place] [address], [place] [phone] from Last 3 Months Insurance [employer] Advance Directives * Full Code (Latest Code Status on File) Date Activated Date Inactivated Comments 01/23/2025 6:26 PM 02/02/2025 3:24 PM Care Teams Solar Installer Technician Relationship Specialty Start Date End Date Unknown, Provider PCP - General 01/15/25
--- OUTSIDE RECORDS SUMMARY | 2025-02-04 20:42 | XMS_ITS | Encounter Summary ---
Author Organization [facility] Healthcare Address [address] [place] [address] Care Team Providers Care Balance Wheel Motion Inspector Name Role Phone Vicki Bearden NP Unavailable + [phone] Pamela Cavanaugh NP Primary Care Provider [phone] Fazal Mcneal DO Unavailable [phone] Naya Valdez MD Unavailable [phone] Sarah Rich MD Unavailable [phone] Arben Alvarenga MD Unavailable [phone] Lloyd Anderson MD Unavailable Encounter Details Date Type Department Care Team (Late st Contact Info) Description 12/18/2024 Documentation [facility] Pain Mgmt [address] [place] [id number] Marcela García, FLOYD Social History Tobacco Use Types Packs/Day Years Used Date Smoking Tobacco: Former Cigarettes 0.6 30 1 08/14/1988 - 06/14/2019 Vaping Smokeless Tobacco: Never Alcohol Use Standard Drinks/Week Comments Yes 0 (1 standard drink = 0.6 oz pur e alcohol) [facility] Utilities Answer Date Recorded In the [...] often do you attend chur ch or sikhism services? More than 4 times per year 08/20/2023 Do you belong to any clubs o r organizations such as bahai groups, unions, fraternal or athletic groups, or [...] place to sleep or slept in a senior care (including now)? No 08/20/2023 Personal Safety Answer Date Recorded Have you ever been in or are you currently in a harmful physical or emotional relationship or is someone making you feel afraid or unsafe? 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 file Not on file Not on file documented as of this encounter Plan of Treatment Not on file documented as of this encounter Visit Diagnoses Not on filedocumented in this encounter Care Teams Balance Wheel Motion Inspector Relationship Specialty Start Date End Date Pamela Cavanaugh NP [address] [facility] [address] [place] [address] PCP - General Internal Medicine 11/21/22 Vicki Bearden NP Nurse Practitioner Urology 11/15/20 Fazal Mcneal DO [address] [place] [id number] Referring Physician Medical Oncology 11/27/22 Naya Valdez MD [address] [place] [address] Radiation Oncology 11/27/22 Sarah Rich MD [address] [place] [address] Consulting Physician Pulmonary Disease 11/27/22 Arben Alvarenga MD [address] [address] Radiation Oncology 12/07/23 Lloyd Anderson MD [address] [address] Consulting Physician Pain Management 12/26/24 documented as of this encounter
--- OUTSIDE RECORDS SUMMARY | 2025-02-04 20:42 | XMS_ITS | Encounter Summary ---
Author Organization [facility] Address [address] [place] [address] Phone Care Team Providers Care Grit Removal Operator Name Role Phone Provider, Unknown Primary Care Provider Unavaila Sarah Mcdowell MD Unavailable + [phone] Pamela Cavanaugh APRN, LPN MEDICAL ASSISTANT Unavailable + [phone] Michael Horner MD Unavailable [phone] Fazal Mcneal DO Unavailable [phone] Encounter Details Date Type Department Care Team (Late st Contact Info) Description 12/09/2024 Telephone [facility] [address] [place] [address] Fazal Mcneal, DO [address] [place] [address] Social History Tobacco Use Types Packs/Day Years Used Date Smoking Tobacco: Former Cigarettes Smokeless Tobacco: Never Alcohol Use Standard Drinks/Week Comments Yes 4 (1 standard drink = 0.6 oz pur e alcohol) Comments Unknown Sex and Gender Information Value Date Recorded Sex Assigned at Not on file Legal Sex Female 10:36 AM CAR EXAMINER Gender Identity Not on file Sexual Orientation Not on file documented as of this encounter Functional Status * Question Answer Date of Assessment Author Little interest or pleasure in doing things Not at all 12/12/2024 9:10 AM CDT Radha Garcia, RN GYN Feeling down, depressed, or hopeless Not at [...] CDT Office Visit [facility] [address] [address] Fazal Mcneal, [address] [place] [address] 03/27/2025 9:00 AM CDT Lab [facility] [address] [address] Lab, [facility] 03/27/2025 9:30 AM CDT Ancillary Procedure [facility] [address] [address] 03/27/2025 9:45 AM CDT Ancillary Procedure [facility] [address] [address] documented as of this encounter Visit Diagnoses Not on filedocumented in this encounter Care Teams Grit Removal Operator Relationship Specialty Start Date End Date Provider, Unknown UNKNOWN PCP - General 06/30/22 Sarah Rich MD UNKNOWN Pulmonary Disease 10/31/22 Pamela Cavanaugh, REJOINER, LPN MEDICAL ASSISTANT UNKNOWN Internal Medicine 10/31/22 Michael Horner MD [address] [facility] [address] [place] [address] Neurology 10/31/22 Fazal Mcneal DO [address] [place] [address] Consulting Physician Oncology 10/31/22 documented as of this encounter
--- OUTSIDE RECORDS SUMMARY | 2025-02-04 20:42 | XMS_ITS | Encounter Summary ---
Author Organization [facility] Healthcare Address [address] [place] [address] Care Team Providers Care Ballistics Laboratory Gunsmith Name Role Phone Vicki Bearden NP Unavailable + [phone] Pamela Cavanaugh NP Primary Care Provider [phone] Fazal Mcneal DO Unavailable [phone] Naya Valdez MD Unavailable [phone] Sarah Rich MD Unavailable + [phone] Arben Alvarenga MD Unavailable [phone] Lloyd Anderson MD Unavailable Encounter Details Date Type Department Care Team (Late st Contact Info) Description 12/18/2024 Documentation [facility] Pain [facility]mt [address] [place] [address] Marcela García, FLOYD Social History Tobacco Use Types Packs/Day Years Used Date Smoking Tobacco: Former Cigarettes 0.6 30 1 08/14/1988 - 06/14/2019 Vaping Smokeless Tobacco: Never Alcohol Use Standard Drinks/Week Comments Yes 0 (1 standard drink = 0.6 oz pur e alcohol) [facility] Utilities Answer Date Recorded In the past [...] often do you attend chur ch or muslim services? More than 4 times per year 08/20/2023 Do you belong to any clubs o r organizations such as mu-ism groups, unions, fraternal or athletic groups, or [...] place to sleep or slept in a alf (including now)? No 08/20/2023 Personal Safety Answer Date Recorded Have you ever been in or are you currently in a harmful physical or emotional relationship or is someone making you feel afraid or unsafe? 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 Not on file Not on file documented as of this encounter Plan of Treatment Not on file documented as of this encounter Visit Diagnoses Diagnosis Closed compression fracture of L1 vertebra, initial encounter (HCC)- Primary Closed wedge compression fracture of T12 vertebra, initial encounter (HCC) documented in this encounter Care Teams Ballistics Laboratory Gunsmith Relationship Specialty Start Date End Date Pamela Cavanaugh NP [address] [place] [id number] PCP - General Internal Medicine 11/21/22 Vicki Bearden NP Nurse Practitioner Urology 11/15/20 Fazal Mcneal DO [address] [place] [address] Referring Physician Medical Oncology 11/27/22 Naya Valdez MD [address] [place] [address] Radiation Oncology 11/27/22 Sarah Rich MD [address] [address] Consulting Physician Pulmonary Disease 11/27/22 Arben Alvarenga MD [address] [address] Radiation Oncology 12/07/23 Lloyd Anderson MD [address] [address] Consulting Physician Pain Management 12/26/24 documented as of this encounter
--- OUTSIDE RECORDS SUMMARY | 2025-02-04 20:42 | XMS_ITS | Encounter Summary ---
Author Organization [facility] Healthcare Address [address] [place] [address] Care Team Providers Care Light Rail Operator Name Role Phone Vicki Bearden NP Unavailable + [phone] Pamela Cavanaugh NP Primary Care Provider [phone] Fazal Mcneal DO Unavailable [phone] Naya Valdez MD Unavailable [phone] Sarah Rich MD Unavailable + [phone] Arben Alvarenga MD Unavailable [phone] Lloyd Anderson MD Unavailable Encounter Details Date Type Department Care Team (Late st Contact Info) Description 12/18/2024 Documentation [facility] Pain Mg[facility] [address] [place] [address] Marcela García, FLOYD Social History Tobacco Use Types Packs/Day Years Used Date Smoking Tobacco: Former Cigarettes 0.6 30 1 08/14/1988 - 06/14/2019 Vaping Smokeless Tobacco: Never Alcohol Use Standard Drinks/Week Comments Yes 0 (1 standard drink = 0.6 oz pur e alcohol) [facility] Utilities Answer Date Recorded In the [...] often do you attend chur ch or restorationist services? More than 4 times per year 08/20/2023 Do you belong to any clubs o r organizations such as restorationist groups, unions, fraternal or athletic groups, or [...] to sleep or slept in a senior living (including now)? No 08/20/2023 Personal Safety Answer Date Recorded Have you ever been in or are you currently in a harmful physical or emotional relationship or is someone making you feel afraid or unsafe? 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 Not on file Not on file documented as of this encounter Plan of Treatment Not on file documented as of this encounter Results * (ABNORMAL) CBC without differential (12/23/2024 3:40 PM CDT) WBC 5.50 3.80 - 9.90 K/cumm Comment:Testing performed by : [address] [address] Hgb 12.4 11.9 - 15.5 g/dL TETE Comment:Testing performed by : [address] [address] Hct 38.6 35.6 - 45.5 % TETE Comment:Testing performed by : [address] [address] Plt 480(H) 150 - 400 K/cumm TETE Comment:Testing performed by : [address] [address] MPV 8.6(L) 9.1 - 12.3 fL TETE Comment:Testing performed by : [address] [address] RBC 4.05 3.90 - 5.20 M/cumm TETE Comment:Testing performed by : [address] [address] MCV 95.3 81.3 - 96.4 fL TETE Comment:Testing performed by : [address] [address] MCH 30.6 27.1 - 33.3 pg TETE RODRÍGUEZ Comment:Testing performed by : [address] [address] MCHC 32.1(L) 32.3 - 35.7 g/dL TETE Comment:Testing performed by : [address] [address] RDW CV 14.6 11.1 - 14.9 % TETE Comment:Testing performed by : [address] [address] RDW SD 50.9(H) 35.7 - 48.1 fL TETE RODRÍGUEZ Comment:Testing performed by : [address] [address] NRBC abs 0.00 0.00 - 0.01 K/cumm TETE Comment:Testing performed by : [address] [address] Blood 12/23/2024 3:40 PM CDT 12/23/2024 3:46 PM CDT us Lloyd Anderson MD LAB BLOOD ORDERABLES Final Resul t ETTE [address] [facility] Department of Laboratories [place], [place] [id number] * Protime-INR (12/23/2024 3:40 PM CDT) PT 13.6 12.0 - 14.6 sec Comment:Testing performed by : [address] [address] INR 1.1 0.9 - 1.2 TETE Comment: Ref Range High Interpretive data Oral anticoagulant therapeutic ranges: Venous thromboembolism prophylaxis or treatment: 2.0-3.0 CARDIOLOGY Standard range: 2.0-3.0 High-intensity range: 2.5-3.5 Refer to indication-specific guidelines for appropriate target ranges for prosthetic heart valve replacement. Current interpretive data was last revised on 2019. Testing performed by: [address] [address] Blood 12/23/2024 3:40 PM CDT 12/23/2024 3:46 PM CDT Lloyd Anderson MD LAB BLOOD ORDERABLES Final Resul t Performing Organization Address [facility] Co de Phone Number TETE [address] [address] * aPTT (12/23/2024 3:40 PM CDT) aPTT 33 22 - 37 sec Comment: Interpretive data aPTT test has not been evaluated for monitoring heparin therapy. The anti-Xa is the preferred test. Current interpretive data was last revised on 2019. Testing performed by: [address] [address] Blood 12/23/2024 3:40 PM CDT 12/23/2024 3:46 PM CDT Lloyd Anderson MD LAB BLOOD ORDERABLES Final Resul t Performing Organization Address [facility] de Phone Number [address] [address] documented in this encounter Visit Diagnoses Diagnosis Compression fracture of body of thoracic vertebra (HCC)- Primary Compression fracture of L1 vertebra, initial encounter (HCC) Pre-op testing Unspecified pre-operative examination documented in this encounter Care Teams Light Rail Operator Relationship Specialty Start Date End Date Pamela Cavanaugh NP [address] [facility] [address] [place] [address] PCP - General Internal Medicine 11/21/22 Vicki Bearden NP Nurse Practitioner Urology 11/15/20 Fazal Mcneal DO [address] [place] [address] Referring Physician Medical Oncology 11/27/22 Naya Valdez MD [address] [place] [address] Radiation Oncology 11/27/22 Sarah Rich MD [facility] [address] Consulting Physician Pulmonary Disease 11/27/22 Arben Alvarenga MD [address] [address] Radiation Oncology 12/07/23 Lloyd Anderson MD [facility] [address] [address] Consulting Physician Pain Management 12/26/24 documented as of this encounter
--- OUTSIDE RECORDS SUMMARY | 2025-02-04 20:42 | XMS_ITS | Encounter Summary ---
Author Organization [facility] Facility Care Team Providers Care Mat Packer Name Role Phone Justin Esposito DO Primary Care Provider [phone] Pamela Cavanaugh JOB SETTER HONING Primary Care Provider [phone] Vicki Bearden JOB SETTER HONING Unavailable + [phone] Pamela Cavanaugh JOB SETTER HONING Primary Care Provider [phone] Fazal Mcneal DO Unavailable [phone] Naya Valdez MD Unavailable [phone] Sarah Rich MD Unavailable + [phone] Arben Alvarenga MD Unavailable [phone] Lloyd Anderson MD Unavailable Encounter Details Date Type Department Care Team (Latest Contact Info) Description 04/04/2018 Orders Only [facility]INCON[facility] ProviderMarilia MD [address] [place] [address] Social History Tobacco Use Types Packs/Day Years Used Date Smoking Tobacco: Former Smokeless Tobacco: Never Alcohol Use Standard Drinks/Week Comments Yes 0 (1 standard drink = 0.6 oz pur e alcohol) Comments Unknown Sex and Gender Information Value Date Recorded Sex Assigned at Not on file Legal Sex Female 10:02 AM EDGE FINISHER Gender Identity Female 10/11/2020 12:34 PM CDT Sexual Orientation Not on file documented as of this encounter Plan of Treatment Not on file documented as of this encounter Procedures Procedure Name Priority Date/Time Associated Diagnosis Comments SCAN - LABS 05/28/2018 12:00 AM EDGE FINISHER documented in this encounter Results * SCAN - LABS (05/28/2018 12:00 AM EDGE FINISHER) Narrative 05/28/2018 12:00 AM EDGE FINISHER Ordered by an unspecified provider. us Historical Provider Final Res ult documented in this encounter Visit Diagnoses Not on filedocumented in this encounter Additional Health Concerns Infection Onset Date Last Indicated Resolved Time COVID: Suspected 08/09/2023 08/09/2023 08/09/2023 10:20 AM EDGE FINISHER COVID: Suspected 08/17/2023 08/17/2023 08/17/2023 1:59 PM EDGE FINISHER documented as of this encounter Care Teams Mat Packer Relationship Specialty Start Date End Date Justin Esposito DO [address] [place] [address] PCP - General 10/13/16 09/21/20 Pamela Cavanaugh, DAVID [address] [place] [address] PCP - General Internal Medicine 09/22/20 11/20/22 Pamela Cavanaugh, JOB SETTER HONING [address] [facility] [address] [place] [address] PCP - General Internal Medicine 11/21/22 Vicki Bearden NP [address] [place], [place] [address] Nurse Practitioner Urology 11/15/20 Fazal Mcneal DO [address] [place] [address] Referring Physician Medical Oncology 11/27/22 Naya Valdez MD [address] [place] [address] Radiation Oncology 11/27/22 Sarah Rich MD [address] [place] [id number] Consulting Physician Pulmonary Disease 11/27/22 Arben Alvarenga MD [address] [place] [address] Radiation Oncology 12/07/23 Lloyd Anderson MD [address] [address] Consulting Physician Pain Management 12/26/24 documented as of this encounter
--- OUTSIDE RECORDS SUMMARY | 2025-02-04 20:42 | XMS_ITS | Encounter Summary ---
Author Organization [facility] Healthcare Address [address] [place] [address] Care Team Providers Care Aircraft Air Conditioning Mechanic Name Role Phone Vicki Bearden NP Unavailable + [phone] Pamela Cavanaugh NP Primary Care Provider [phone] Fazal Mcneal DO Unavailable [phone] Naya Valdez MD Unavailable [phone] Sarah Rich MD Unavailable + [phone] Arben Alvarenga MD Unavailable [phone] Lloyd Anderson MD Unavailable Encounter Details Date Type Department Care Team (Late st Contact Info) Description 10/20/2024 Documentation [facility] Pain Mgmt [address] [place] [address] Belen Emerson, RN Social History Tobacco Use Types Packs/Day Years Used Date Smoking Tobacco: Former Cigarettes 0.6 30 1 08/14/1988 - 06/14/2019 Vaping Smokeless Tobacco: Never Alcohol Use Standard Drinks/Week Comments Yes 0 (1 standard drink = 0.6 oz pur e alcohol) [facility] Utilities Answer Date Recorded In the [...] often do you attend chur ch or taoism services? More than 4 times per year 08/20/2023 Do you belong to any clubs o r organizations such as denominational groups, unions, fraternal or athletic groups, or [...] No 08/20/2023 Housing Stability Vital Sign Answer Teoflio e Recorded In the last 12 months, [...] place to sleep or slept in a fpc (including now)? No 08/20/2023 Personal Safety Answer Date Recorded Have you ever been in or are you currently in a harmful physical or emotional relationship or is someone making you feel afraid or unsafe? 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 Not on file Not on file documented as of this encounter Plan of Treatment Not on file documented as of this encounter Visit Diagnoses Not on filedocumented in this encounter Care Teams Aircraft Air Conditioning Mechanic Relationship Specialty Start Date End Date Pamela Cavanaugh NP [address] [facility] [address] [place] [address] PCP - General Internal Medicine 11/21/22 Vicki Bearden NP Nurse Practitioner Urology 11/15/20 Fazal Mcneal DO [address] [place] [address] Referring Physician Medical Oncology 11/27/22 Naya Valdez MD [address] [place] [address] Radiation Oncology 11/27/22 Sarah Rich MD [address] [place] [address] Consulting Physician Pulmonary Disease 11/27/22 Arben Alvarenga MD [address] [address] Radiation Oncology 12/07/23 Lloyd Anderson MD [facility] [address] [address] Consulting Physician Pain Management 12/26/24 documented as of this encounter
--- OUTSIDE RECORDS SUMMARY | 2025-02-04 20:42 | XMS_ITS | Clinical Summary ---
Author Organization [facility] Address [address], [address] [place] [address] Phone Care Team Providers Care Product/Industry Consultant Name Role Phone Provider, Unknown Primary Care Provider Unavaila Sarah Mcdowell MD Unavailable Pamela Cavanaugh APRN, LENS MATCHER Unavailable [phone] Michael Horner MD Unavailable [phone] Fazal Mcneal DO Unavailable [phone] Allergies Active Allergy Reactions Criticality Noted Date Comments Codeine Rash Medium 04/04/2019 Tetanus Immune Globulin Rash Low 06/23/2019 Medications DULoxetine (CYMBALTA) [address] Baltazar 07/26/19 23 Active baclofen (LIORESAL) 10 MG [...] Active azelastine (ASTELIN) 0.1 % Solution 1 [place] by Nasal route. 02/06/20 24 Active modafinil [...] severe pain. 30 Tablet 01/16/20 25 Active HYDROcodone-acet aminophen (NORCO) 5-325 MG [...] Rebif 22 mcg 01/2011-03/2011, elevated LFTs Copaxone 4824-8251 stopped due to out of pocket costs [...] Description 01/14/2025 Refill [facility] [address] [address] Fazal Mcneal, DO Medication Refill; canopy call/ med refill 01/07/2025 Refill [facility] [address] [address] Fazal Mcneal, DO 01/02/2025 9:45 AM CDT Office Visit [facility] [address] [address] Elena Dempsey, AIRLINE CAPTAIN, LENS MATCHER Malignant neoplasm of left lung, unspecified part of lung (HCC) (Primary Dx); 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); 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; 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); Metastasis to brain (HCC); MS (multiple sclerosis) (HCC) 12/31/2024 8:30 AM CDT Ancillary Procedure [facility] [address] [address] Malignant neoplasm of left lung, unspecified part of lung (HCC) 12/31/2024 8:15 AM CDT Lab [facility] [address] [address] Lab, [facility] Malignant neoplasm of left lung, unspecified part of lung (HCC); 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) 12/31/2024 Travel 12/29/2024 Refill [facility] [address] [address] Fazal Mcneal, DO Medication Refill 12/19/2024 Refill [facility] [address] [address] Fazal Mcneal, DO Medication Refill 12/12/2024 9:00 AM CDT Office Visit [facility] [address] [address] Fazal Mcneal, DO Malignant neoplasm of left lung, unspecified part of lung (HCC) (Primary Dx) 12/12/2024 Travel 12/11/2024 Refill [facility] [address] [phone] Fazal Mcneal, DO Medication Refill 12/09/2024 Telephone [facility] [address] [phone] Fazal Mcneal, DO 12/09/2024 Telephone [facility] [address] [phone] Fazal Mcneal, DO 12/04/2024 Refill [facility] [address] [phone] Fazal Mcneal, DO Medication Refill 12/01/2024 Refill [facility] [address] [phone] Fazal Mcneal, DO Medication Refill 11/25/2024 Telephone [facility] [address] [phone] Fazal Mcneal, DO Canopy Call / UTI 11/21/2024 Refill [facility] [address] [phone] Fazal Mcneal, DO Medication Refill; canopy call/ refill medication 11/13/2024 Refill [facility] [address] [phone] Fazal Mcneal, DO Medication Refill from Last 3 Months Immunizations Immunization Administration Dates Next Due Influenza Vaccine, MDCK,quad rivalent, pres free 04/20/2022 Influenza Vaccine, Quadrivalent, PF 05/12/2021,0 04/13/2020,05/21/2019 Influenza,Split Virus,Trivalent,Injectable,PF 05/02/2024 Pneumococcal conjugate PCV20 , polysaccharide [id number] conjugate, adjuvant, PF 04/20/2022 Sars-cov-2 (Covid-19) Vaccine, [...] on file Legal Sex Female 10:36 AM COMPENSATION AGENT Gender Identity Not on file Sexual Orientation [...] Office Visit [facility] [address] [address] Fazal Mcneal, [address] [place] [address] 03/27/2025 9:00 AM CDT Lab [facility] [address] [address] Lab, [facility] 03/27/2025 9:30 AM CDT Ancillary Procedure [facility] [address] [address] 03/27/2025 9:45 AM CDT Ancillary Procedure [facility] [address] [address] Health Maintenance Due Date Last Done Comments [...] W CONTRAST 12/31/2024 HPI: 59-year-old female with ohd-hwoxh-ggec lung carcinoma with bone metastasis and brain [...] W CONTRAST 12/31/2024 HPI: 59-year-old female with pdg-levzb-gyll lung carcinoma with bone metastasisand brain metastasis. [...] ARGUETA MD Date of Signature: 12/31/2024 09:10:35 Belen Pham APRN, MICHELLE IMG CT ORDERABLES Fin al Result * LACTATE DEHYDROGENASE (LD) (12/31/2024 8:24 AM CDT) LDH 172 140 - 271 U/L [facility] Blood 12/31/2024 8:24 AM CDT Narrative [facility] - 12/31/2024 9:46 AM CDT Release to patient->Immediate Belen Pham APRN, CNP CHEMISTRY ORDERABLES Final Result [facility] [address] [place] [address], [place] [phone] * (ABNORMAL) CMP (COMPREHENSIVE METABOLIC PANEL) (12/31/2024 8:24 AM CDT) Glucose 93 70 - 105 mg/dL [facility] Blood Urea Nitrogen 18 7 - 25 mg/dL [facility] Creatinine 0.7 0.6 - 1.2 mg/dL [facility] Sodium 139 136 - 145 mEq/L [facility] Potassium 4.0 3.5 - 5.1 mEq/L [facility] Chloride 100 98 - 107 mEq/L [facility] Bicarbonate 33(H) 21 - 31 mEq/L [facility] Total Bilirubin 0.4 0.3 - 1.0 mg/dL [facility] Alk. Phosphatase 90 34 - 104 U/L [facility] Aspartate Aminotransferase 21 13 - 39 U/L [facility] Alanine Aminotransferase 16 7 - 52 U/L [facility] Total Protein 6.7 6.4 - 8.9 g/dL [facility] Albumin 4.5 3.5 - 5.7 g/dL [facility] Calcium 10.0 8.6 - 10.3 mg/dL [facility] Anion Gap 10.0 7.0 - 15.0 mEq/L [facility] Globulin 2.2 2.0 - 3.5 g/dL [facility] EGFR 99 >60 ml/min/1. 73m2 [facility] Comment: This eGFR is calculated using 2020 CKD-EPI Creatinine equation without race modifier based on the NKF-ASN task force recommendations Equation: xBLA=129*min(SCr/k,1)a*max(SCr/k,1)-1.200*0.9938Age*1.012 (if female), where SCr is serum creatinine, k is 0.7 for females and 0.9 for males, and a is -0.241 for females and -0.302 for males Blood 12/31/2024 8:24 AM CDT Narrative [facility] - 12/31/2024 9:46 AM CDT Release to patient->Immediate IS THE PATIENT REQUIRED TO BE FASTING FOR 8 HOURS?->No Belen Pham APRN, LENS MATCHER CHEMISTRY ORDERABLES Final Result [facility] [place] [address], from Last 3 Months Insurance [facility] Care Teams Product/Industry Consultant Relationship Specialty Start Date End Date Provider, Unknown UNKNOWN PCP - General 06/30/22 Sarah Rich MD UNKNOWN Pulmonary Disease 10/31/22 Pamela Cavanaugh, AIRLINE CAPTAIN, LENS MATCHER UNKNOWN Internal Medicine 10/31/22 Michael Horner MD [address] [address] Neurology 10/31/22 Fazal Mcneal DO [address] [place] [phone] Consulting Physician Oncology 10/31/22
--- OUTSIDE RECORDS SUMMARY | 2025-02-04 20:42 | XMS_ITS | Encounter Summary ---
Author Organization [facility] Healthcare Address [address] [place] [address] Care Team Providers Care Bath Steward/Stewardess Name Role Phone Vicki Bearden NP Unavailable + [phone] Pamela Cavanaugh NP Primary Care Provider [phone] Fazal Mcneal DO Unavailable [phone] Naya Valdez MD Unavailable [phone] Sarah Rich MD Unavailable + [phone] Arben Alvarenga MD Unavailable [phone] Lloyd Anderson MD Unavailable Encounter Details Date Type Department Care Team (Late st Contact Info) Description 12/30/2024 Results Follow-Up [facility] Family Medicine [address] [place] [address] Pamela Cavanaugh NP [address] [place] [address] Urinalysis reflex to microscopic and culture Urine, clean voided, REFLEXIVE URINE CULTURE, Urine culture Social History Tobacco Use Types Packs/Day Years Used Date Smoking Tobacco: Former Cigarettes 0.6 30 1 08/14/1988 - 06/14/2019 Vaping Smokeless Tobacco: Never Alcohol Use Standard Drinks/Week Comments Yes 0 (1 standard drink = 0.6 oz pur e alcohol) [facility] Utilities Answer Date Recorded In the [...] often do you attend chur ch or mosque services? 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 Not on file Not on file documented as of this encounter Plan of Treatment Not on file documented as of this encounter Visit Diagnoses Not on filedocumented in this encounter Care Teams Bath Steward/Stewardess Relationship Specialty Start Date End Date Pamela Cavanaugh NP [address] [place] [address] PCP - General Internal Medicine 11/21/22 Vicki Bearden NP Nurse Practitioner Urology 11/15/20 Fazal Mcneal DO [address] [place] [address] Referring Physician Medical Oncology 11/27/22 Naya Valdez MD [address] [place] [address] Radiation Oncology 11/27/22 Sarah Rich MD [address] [place] [address] Consulting Physician Pulmonary Disease 11/27/22 Arben Alvarenga MD [address] [place] [address] Radiation Oncology 12/07/23 Lloyd Anderson MD [facility] [address] Consulting Physician Pain Management 12/26/24 documented as of this encounter
[2025-02-05] VITALS (21 sets, daily range): BP systolic 110–157; BP diastolic 73–98; PULSE 54–86; RESP 9–18; O2SAT 90–100
--- OUTSIDE RECORDS SUMMARY | 2025-02-05 05:00 | XMS_ITS | Encounter Summary ---
Author Organization [facility] Address [address] [address] Phone Care Team Providers Care Scientific Process Operator Name Role Phone Provider, Unknown Primary Care Provider Unavaila Sarah Mcdowell MD Unavailable [phone] Pamela Cavanaugh APRN, FRIED CAKE MAKER Unavailable + [phone] Michael Horner MD Unavailable Fazal Mcneal DO Unavailable [phone] Reason for Visit * Reason Comments Medication Refill Encounter Details Date Type Department Care Team (Late st Contact Info) Description 06/09/2023 Refill [facility] [address] [place] [address] Belen Pham, RUBBER CUTTER, FRIED CAKE MAKER [address] [place] [address] Medication Refill Social History Tobacco Use Types Packs/Day Years Used Date Smoking Tobacco: Some Days Cigarettes Smokeless Tobacco: Never Alcohol Use Standard Drinks/Week Comments Yes 4 (1 standard drink = 0.6 oz pur e alcohol) Comments Unknown Sex and Gender Information Value Date Recorded Sex Assigned at Not on file Legal Sex Female 10:36 AM SHEEP SORTER Gender Identity Not on file Sexual Orientation Not on file documented as of this encounter Miscellaneous Notes * Telephone Encounter - Dana Quintana RN - 06/11/2023 7:56 AM CST Refill request from pharmacy. Please fill if appropriate. P SORTER documented in this encounter Plan of Treatment Upcoming Encounters Date Type Department Care Team (Late st Contact Info) Description 03/27/2025 9:00 AM CDT Office Visit [facility] [address] [address] Fazal Mcneal DO [address] [place] [phone] 03/27/2025 9:00 AM CDT Lab [facility] [address] [address] Lab, [facility] 03/27/2025 9:30 AM CDT Ancillary Procedure [facility] [address] [address] 03/27/2025 9:45 AM CDT Ancillary Procedure [facility] [address] [address] documented as of this encounter Visit Diagnoses Not on filedocumented in this encounter Care Teams Scientific Process Operator Relationship Specialty Start Date End Date Provider, Unknown UNKNOWN PCP - General 06/30/22 Sarah Rich MD UNKNOWN Pulmonary Disease 10/31/22 Pamela Cavanaugh, RUBBER CUTTER, FRIED CAKE MAKER UNKNOWN Internal Medicine 10/31/22 Michael Horner MD [address] [facility] [address] [place] [address] Neurology 10/31/22 Fazal Mcneal DO [address] [place] [phone] Consulting Physician Oncology 10/31/22 documented as of this encounter
--- OUTSIDE RECORDS SUMMARY | 2025-02-05 05:00 | XMS_ITS | Encounter Summary ---
Author Organization [facility] Address [facility] [place] [address] Care Team Providers Care Pt Skilled Name Role Phone Pamela Cavanaugh [facility] Primary Care Provider [phone] Arben Alvarenga MD Unavailable Encounter Details Date Type Department Care Team (Late Contact Info) Description 12/05/2022 Therapy Plan [facility] [address] [place] [address] Michael Horner MD [address] [address] Social History Tobacco Use Types Packs/Day Years [...] Info) Description 04/02/2025 1:00 PM CDT Appointment [facility] Radiation Oncology [address] [place] [address] Arben Alvarenga MD [address] [place] [address] [address] [place] [address] documented as of this encounter Visit Diagnoses Diagnosis MS (multiple sclerosis) ([facility])- Primary Multiple sclerosis MS (multiple sclerosis) ([facility]) Multiple sclerosis documented in this encounter Care Teams Pt Skilled Relationship Specialty Start Date End Date Pamela Cavanaugh [facility] PCP - General 11/02/22 Arben Alvarenga MD [address] [place] [address] Consulting Physician RADIATION ONCOLOGY 09/27/23 documented as of this encounter
--- OUTSIDE RECORDS SUMMARY | 2025-02-05 05:01 | XMS_ITS | Encounter Summary ---
Author Organization [facility] Healthcare Address [address] [place] [address] Care Team Providers Care Manager Employee Relations Name Role Phone Vicki Bearden NP Unavailable + [phone] Pamela Cavanaugh NP Primary Care Provider [phone] Fazal Mcneal DO Unavailable [phone] Naya Valdez MD Unavailable [phone] Sarah Rich MD Unavailable [phone] Arben Alvarenga MD Unavailable [phone] Lloyd Anderson MD Unavailable Encounter Details Date Type Department Care Team (Late st Contact Info) Description 12/18/2024 Documentation [facility] Pain [facility]mt [address] [place] [address] Marcela García, FLOYD Social History Tobacco Use Types Packs/Day Years Used Date Smoking Tobacco: Former Cigarettes 0.6 30 1 08/14/1988 - 06/14/2019 Vaping Smokeless Tobacco: Never Alcohol Use Standard Drinks/Week Comments Yes 0 (1 standard drink = 0.6 oz pur e alcohol) [facility] Utilities Answer Date Recorded In the [...] often do you attend chur ch or worship services? More than 4 times per year 08/20/2023 Do you belong to any clubs o r organizations such as mormon groups, unions, fraternal or athletic groups, or [...] place to sleep or slept in a retirement (including now)? No 08/20/2023 Personal Safety Answer Date Recorded Have you ever been in or are you currently in a harmful physical or emotional relationship or is someone making you feel afraid or unsafe? 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 Not on file Not on file documented as of this encounter Plan of Treatment Not on file documented as of this encounter Visit Diagnoses Not on filedocumented in this encounter Care Teams Manager Employee Relations Relationship Specialty Start Date End Date Pamela Cavanaugh NP [address] [facility] [address] [place] [address] PCP - General Internal Medicine 11/21/22 Vicki Bearden NP Nurse Practitioner Urology 11/15/20 Fazal Mcneal DO [address] [place] [phone] Referring Physician Medical Oncology 11/27/22 Naya Valdez MD [address] [place] [address] Radiation Oncology 11/27/22 Sarah Rich MD [address] [place] [address] Consulting Physician Pulmonary Disease 11/27/22 Arben Alvarenga MD [address] [address] Radiation Oncology 12/07/23 Lloyd Anderson MD [address] [address] Consulting Physician Pain Management 12/26/24 documented as of this encounter
--- OUTSIDE RECORDS SUMMARY | 2025-02-05 05:01 | XMS_ITS | Encounter Summary ---
Author Organization [facility] Healthcare Address [address] [place] [address] Care Team Providers Care Guide Excursion Name Role Phone Vicki Bearden NP Unavailable [phone] Pamela Cavanaugh NP Primary Care Provider [phone] Fazal Mcneal DO Unavailable [phone] Naya Valdez MD Unavailable [phone] Sarah Rich MD Unavailable [phone] Arben Alvarenga MD Unavailable [phone] Lloyd Anderson MD Unavailable Encounter Details Date Type Department Care Team (Late st Contact Info) Description 12/18/2024 Documentation [facility] [address] [place] [address] Marcela García, FLOYD Social History Tobacco Use Types Packs/Day Years Used Date Smoking Tobacco: Former Cigarettes 0.6 30 1 08/14/1988 - 06/14/2019 Vaping Smokeless Tobacco: Never Alcohol Use Standard Drinks/Week Comments Yes 0 (1 standard drink = 0.6 oz pur e alcohol) [facility] Utilities Answer Date Recorded In the past [...] often do you attend chur ch or jewish services? 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 Not on file Not on file documented as of this encounter Plan of Treatment Not on file documented as of this encounter Visit Diagnoses Diagnosis Closed compression fracture of L1 vertebra, initial encounter (HCC)- Primary Closed wedge compression fracture of T12 vertebra, initial encounter (HCC) documented in this encounter Care Teams Guide Excursion Relationship Specialty Start Date End Date Pamela Cavanaugh NP [address] [place] [id number] PCP - General Internal Medicine 11/21/22 Vicki Bearden NP Nurse Practitioner Urology 11/15/20 Fazal Mcneal DO [address] [place] [address] Referring Physician Medical Oncology 11/27/22 Naya Valdez MD [address] [place] [address] Radiation Oncology 11/27/22 Sarah Rich MD [address] [address] Consulting Physician Pulmonary Disease 11/27/22 Arben Alvarenga MD [address] [address] Radiation Oncology 12/07/23 Lloyd Anderson MD [address] [address] Consulting Physician Pain Management 12/26/24 documented as of this encounter
--- OUTSIDE RECORDS SUMMARY | 2025-02-05 05:01 | XMS_ITS | Encounter Summary ---
Author Organization [facility] Healthcare Address [address] [place] [address] Care Team Providers Care Occupational Therapist Assistants Name Role Phone Vicki Bearden NP Unavailable [phone] Pamela Cavanaugh NP Primary Care Provider [phone] Fazal Mcneal DO Unavailable [phone] Naya Valdez MD Unavailable [phone] Sarah Rich MD Unavailable + [phone] Arben Alvarenga MD Unavailable [phone] Lloyd Anderson MD Unavailable Encounter Details Date Type Department Care Team (Late st Contact Info) Description 12/18/2024 Documentation [facility] Pain Mgmt [address] [place] [id number] Marcela García, FLOYD Social History Tobacco Use Types Packs/Day Years Used Date Smoking Tobacco: Former Cigarettes 0.6 30 1 08/14/1988 - 06/14/2019 Vaping Smokeless Tobacco: Never Alcohol Use Standard Drinks/Week Comments Yes 0 (1 standard drink = 0.6 oz pur e alcohol) [facility] Utilities Answer Date Recorded In [...] often do you attend chur ch or alevism services? More than 4 times per year 08/20/2023 Do you belong to any clubs o r organizations such as catholic groups, unions, fraternal or athletic groups, or [...] place to sleep or slept in a jail (including now)? No 08/20/2023 Personal Safety Answer Date Recorded Have you ever been in or are you currently in a harmful physical or emotional relationship or is someone making you feel afraid or unsafe? 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 file Not on file documented as of this encounter Plan of Treatment Not on file documented as of this encounter Results * (ABNORMAL) CBC without differential (12/23/2024 3:40 PM CDT) WBC 5.50 3.80 - 9.90 K/cumm Comment:Testing performed by : [address] [address] Hgb 12.4 11.9 - 15.5 g/dL TETE Comment:Testing performed by : [address] [address] Hct 38.6 35.6 - 45.5 % TETE Comment:Testing performed by : [address] [address] Plt 480(H) 150 - 400 K/cumm TETE Comment:Testing performed by : [address] [address] MPV 8.6(L) 9.1 - 12.3 fL TETE Comment:Testing performed by : [address] [address] RBC 4.05 3.90 - 5.20 M/cumm TETE Comment:Testing performed by : [address] [address] MCV 95.3 81.3 - 96.4 fL TETE Comment:Testing performed by : [address] [address] MCH 30.6 27.1 - 33.3 pg TETE RODRÍGUEZ Comment:Testing performed by : [address] [address] MCHC 32.1(L) 32.3 - 35.7 g/dL TETE Comment:Testing performed by : [address] [address] RDW CV 14.6 11.1 - 14.9 % TETE Comment:Testing performed by : [address] [address] RDW SD 50.9(H) 35.7 - 48.1 fL TETE RODRÍGUEZ Comment:Testing performed by : [address] [address] NRBC abs 0.00 0.00 - 0.01 K/cumm TETE Comment:Testing performed by : [address] [address] Blood 12/23/2024 3:40 PM CDT 12/23/2024 3:46 PM CDT us Lloyd Anderson MD LAB BLOOD ORDERABLES Final Resul t TETE [address] [facility] Department of Laboratories [place], [place] [id number] * Protime-INR (12/23/2024 3:40 PM CDT) PT 13.6 12.0 - 14.6 sec Comment:Testing performed by : [address] [address] INR 1.1 0.9 - 1.2 TETE Comment: Ref Range High Interpretive data Oral anticoagulant therapeutic ranges: Venous thromboembolism prophylaxis or treatment: 2.0-3.0 CARDIOLOGY Standard range: 2.0-3.0 High-intensity range: 2.5-3.5 Refer to indication-specific guidelines for appropriate target ranges for prosthetic heart valve replacement. Current interpretive data was last revised on 2019. Testing performed by: [address] [address] Blood 12/23/2024 3:40 PM CDT 12/23/2024 3:46 PM CDT Lloyd Anderson MD LAB BLOOD ORDERABLES Final Resul t Performing Organization Address [facility] Co de Phone Number TETE [address] [address] * aPTT (12/23/2024 3:40 PM CDT) aPTT 33 22 - 37 sec Comment: Interpretive data aPTT test has not been evaluated for monitoring heparin therapy. The anti-Xa is the preferred test. Current interpretive data was last revised on 2019. Testing performed by: [address] [address] Blood 12/23/2024 3:40 PM CDT 12/23/2024 3:46 PM CDT Lloyd Anderson MD LAB BLOOD ORDERABLES Final Resul t Performing Organization Address [facility] de Phone Number [address] [address] documented in this encounter Visit Diagnoses Diagnosis Compression fracture of body of thoracic vertebra (HCC)- Primary Compression fracture of L1 vertebra, initial encounter (HCC) Pre-op testing Unspecified pre-operative examination documented in this encounter Care Teams Occupational Therapist Assistants Relationship Specialty Start Date End Date Pamela Cavanaugh NP [address] [facility] [address] [place] [address] PCP - General Internal Medicine 11/21/22 Vicki Bearden NP Nurse Practitioner Urology 11/15/20 Fazal Mcneal DO [address] [place] [phone] Referring Physician Medical Oncology 11/27/22 Naya Valdez MD [address] [place] [address] Radiation Oncology 11/27/22 Sarah Rich MD [facility] [address] Consulting Physician Pulmonary Disease 11/27/22 Arben Alvarenga MD [address] [address] Radiation Oncology 12/07/23 Lloyd Anderson MD [facility] [address] [address] Consulting Physician Pain Management 12/26/24 documented as of this encounter
--- OUTSIDE RECORDS SUMMARY | 2025-02-05 05:01 | XMS_ITS | Encounter Summary ---
Author Organization [facility] Facility Care Team Providers Care Certified Medical Asst Name Role Phone Justin Esposito DO Primary Care Provider [phone] Pamela Cavanaugh EMANATIONS ANALYSIS TECHNICIAN Primary Care Provider [phone] Vicki Bearden EMANATIONS ANALYSIS TECHNICIAN Unavailable + [phone] Pamela Cavnaaugh EMANATIONS ANALYSIS TECHNICIAN Primary Care Provider [phone] Fazal Mcneal DO Unavailable [phone] Naya Valdez MD Unavailable [phone] Sarah Rich MD Unavailable + [phone] Arben Alvarenga MD Unavailable [phone] Lloyd Anderson MD Unavailable Encounter Details Date Type Department Care Team (Latest Contact Info) Description 04/04/2018 Orders Only [facility] CLINCONV ProviderMarilia MD [address] [place] [id number] Social History Tobacco Use Types Packs/Day Years Used Date Smoking Tobacco: Former Smokeless Tobacco: Never Alcohol Use Standard Drinks/Week Comments Yes 0 (1 standard drink = 0.6 oz pur e alcohol) Comments Unknown Sex and Gender Information Value Date Recorded Sex Assigned at Not on file Legal Sex Female 10:02 AM [employer] Gender Identity Female 10/11/2020 12:34 PM CDT Sexual Orientation Not on file documented as of this encounter Plan of Treatment Not on file documented as of this encounter Procedures Procedure Name Priority Date/Time Associated Diagnosis Comments SCAN - LABS 05/28/2018 12:00 AM [employer] documented in this encounter Results * SCAN - LABS (05/28/2018 12:00 AM [employer]) Narrative 05/28/2018 12:00 AM [employer] Ordered by an unspecified provider. us Historical Provider Final Res ult documented in this encounter Visit Diagnoses Not on filedocumented in this encounter Additional Health Concerns Infection Onset Date Last Indicated Resolved Time COVID: Suspected 08/09/2023 08/09/2023 08/09/2023 10:20 AM [employer] COVID: Suspected 08/17/2023 08/17/2023 08/17/2023 1:59 PM [employer] documented as of this encounter Care Teams Certified Medical Asst Relationship Specialty Start Date End Date Justin Esposito DO [address] [place] [address] PCP - General 10/13/16 09/21/20 Pamela Cavanaugh, DAVID [address] [place] [address] PCP - General Internal Medicine 09/22/20 11/20/22 Pamela Cavanaugh, EMANATIONS ANALYSIS TECHNICIAN [address] [facility] [address] [place] [address] PCP - General Internal Medicine 11/21/22 Vicki Bearden NP [address] [place], [place] [address] Nurse Practitioner Urology 11/15/20 Fazal Mcneal DO [address] [place] [phone] Referring Physician Medical Oncology 11/27/22 Naya Valdez MD [address] [place] [id number] Radiation Oncology 11/27/22 Sarah Rich MD [address] [place] [id number] Consulting Physician Pulmonary Disease 11/27/22 Arben Alvarenga MD [address] [place] [address] Radiation Oncology 12/07/23 Lloyd Anderson MD [address] [address] Consulting Physician Pain Management 12/26/24 documented as of this encounter
--- OUTSIDE RECORDS SUMMARY | 2025-02-05 05:01 | XMS_ITS | Referral Summary ---
Author Organization [facility] B Address [address] [place] [address] Care Team Providers Care Outside Repairer Special Name Role Phone Vicki Bearden Indy SUBSURFACE AUGMENTEE OPERATOR Unavailable [phone] Pamela Howe NP Primary Care Provider [phone] Fazal Mcneal DO Unavailable [phone] Naya Valdez MD Unavailable [phone] Sarah Rich MD Unavailable [phone] Arben Alvarenga MD Unavailable [phone] Lloyd Anderson MD Unavailable Encounters Date Type Department Care Team Description 01/22/2025 Orders Only [facility] Information Management [address] [place] [address] Pamela Howe NP 01/13/2025 7:52 AM CDT - 01/13/2025 11:59 PM CDT Hospital Encounter [facility] Pain Mgmt [address] [phone] Lloyd Anderson MD Facet arthropathy, lumbar (Primary Dx); Pain of lumbar facet joint; Bulge of lumbar disc without myelopathy Discharge Disposition: Discharge to home or self care 01/08/2025 3:45 PM CDT Office Visit [facility] Infectious Disease [address] [facility] [address] [place] [address] Spencer Oneill MD Dysuria (Primary Dx); Multiple sclerosis (HCC) 01/07/2025 Orders Only [facility] [address] [facility] [address] [place] [address] Pamela Howe NP 12/30/2024 Results Follow-Up [facility] Medicine [address] [facility] [address] [place] [address] Pamela Howe NP Urinalysis reflex to microscopic and culture Urine, clean voided, REFLEXIVE URINE CULTURE, Urine culture 12/26/2024 8:46 AM CDT - 12/26/2024 11:59 PM CDT Hospital Encounter [facility] Pain Mgmt [address] [address] Lloyd Anderson MD Compression fracture of T12 vertebra, initial encounter (HCC) (Primary Dx); Compression fracture of L1 vertebra, initial encounter (HCC); Age-related osteoporosis with current pathological fracture, initial encounter; Intractable back pain Discharge Disposition: Discharge to home or self care 12/23/2024 3:35 PM CDT Lab [facility] [address] [place] [address] Compression fracture of body of thoracic vertebra (HCC); Compression fracture of L1 vertebra, initial encounter ([facility]); Pre-op testing 12/19/2024 8:00 AM CDT Office Visit [facility] Obstetrics and Gynecology [address] [place] [place] [address] Outpatient Health 7th Floor [address] [place] [address] Adeline Bennett NP Recurrent UTI (Primary Dx); Pelvic floor dysfunction in female; Vaginal atrophy 12/18/2024 Documentation [facility] Pain Mgmt [address] [address] Marcela García RN 12/18/2024 Documentation [facility] Pain Mg[facility] [address] [address] Marcela García, FLOYD 12/18/2024 Orders Only [facility] Pain Mgmt [address] [address] Marcela García, FLOYD Compression fracture of T12 vertebra, initial encounter (HCC) (Primary Dx); Compression fracture of L1 vertebra, initial encounter (HCC) 12/18/2024 Orders Only [facility] Pain Mgmt [address] [address] Mary Hoffman RN 12/18/2024 Orders Only [facility] Pain Mgmt [address] [address] Mary Hoffman RN 12/18/2024 Documentation [facility] Pain Mgmt [address] [address] Marcela García, FLOYD 12/16/2024 Orders Only [address] [place] [address] Pamela Howe NP Frequent UTI (Primary Dx) 12/15/2024 9:00 AM CDT Office Visit [facility] [address] [address] Michael Horner MD Multiple sclerosis (HCC) (Primary Dx); Paraparesis (HCC); Neurogenic bladder; Metastasis to brain (HCC); Wedge compression fracture of T11-T12 vertebra, initial encounter for closed fracture (HCC); Wedge compression fracture of first lumbar vertebra, initial encounter for closed fracture (HCC); Mild recurrent major depression 12/12/2024 Orders Only [address] [place] [phone] Pamela Howe NP Hypertension, essential 12/05/[address] [place] [address] Pamela Howe NP 12/03/2024 11:19 AM CDT - 12/03/2024 11:59 PM CDT Hospital Encounter [facility] Pain Mgmt [address] [place] [address] [address] [place] [address] Lloyd Anderson MD Age-related osteoporosis with current pathological fracture, initial encounter (Primary Dx); T12 compression fracture, initial encounter (HCC); Wedge compression fracture of first lumbar vertebra, initial encounter for closed fracture (HCC); Intractable back pain Discharge Disposition: Discharge to home or self care 12/01/2024 9:05 AM CDT - 12/01/2024 11:59 PM CDT Hospital Encounter [facility] Diag Imaging [address] [place] [address] Closed wedge compression fracture of T12 vertebra, initial encounter (HCC); Closed wedge compression fracture of T11 vertebra, initial encounter (HCC); Closed wedge compression fracture of L1 vertebra, initial encounter (HCC) Discharge Disposition: Discharge to home or self care 12/01/2024 9:15 AM CDT Office Visit [facility] [address] [place] [address] [address] [place] [phone] Israel Chou PA Wedge compression fracture of T11-T12 vertebra, initial encounter for closed fracture (HCC) (Primary Dx); Wedge compression fracture of first lumbar vertebra, initial encounter for closed fracture (HCC) 11/26/2024 Telephone [facility] Pulmonology [address] [facility] [address] [place] [address] Spencer Oneill MD 11/21/2024 Telephone [facility] Obstetrics and Gynecology [address] [facility] Outpatient Health 7th Floor [address] [place] [address] Argenis Jacobson RN UTI 11/20/2024 9:45 AM CDT Office Visit [facility] Pulmonary [place] [address] [place] [address] [address] [place] [address] Sarah Rich MD Single subsegmental pulmonary embolism without acute cor pulmonale (HCC) (Primary Dx); Mixed simple and mucopurulent chronic bronchitis (HCC); 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); Smoking greater than 20 pack years 11/19/2024 Orders Only [facility] [address] [facility] [address] [place] [address] Pamela Howe NP 11/13/2024 3:15 PM CDT Office Visit [facility] Infectious Disease [address] [facility] [address] [place] [address] Spencer Oneill MD Urinary tract infection without hematuria, site unspecified (Primary Dx); Metastasis to brain (HCC) 11/11/2024 Telephone [facility] Obstetrics and Gynecology [address] [facility] Health 7th Floor [address] [place] [address] Dee Bergeron RN 11/11/2024 Telephone [facility] Pulmonology [address] [facility] [address] [place] [address] Spencer Oneill MD from Last 3 Months Allergies Active [...] 2 (two) times a day 10.7 g 11 11/21/19 25 Active albuterol HFA (PROVENTIL HFA,VENTOLIN HFA,PROAIR HFA) 90 mcg/actuation inhalerIndication s:Mixed simple and mucopurulent chronic bronchitis (HCC) Inhale 2 puffs every 4 (four) hours as needed for wheezing or shortness of breath 8.5 g 11 11/21/19 25 Active acyclovir (ZOVIRAX) 800 mg [...] 12/07/2023 Assessment & Plan (06/05/2024 9:18 AM INFANTRY INDIRECT FIRE CREWMEMBER): 3 right frontal brain metastases Treated with [...] 10/11/2022 Assessment & Plan (06/05/2024 9:08 AM INFANTRY INDIRECT FIRE CREWMEMBER): Diagnosed with poorly differentiated adenocarcinoma consistent with [...] 11/19/2021 Assessment & Plan (06/05/2024 9:12 AM INFANTRY INDIRECT FIRE CREWMEMBER): Exercise encouraged Fall prevention discussed Baclofen 10 [...] seizures. Assessment & Plan (05/23/2022 9:50 AM INFANTRY INDIRECT FIRE CREWMEMBER): Exercise encouraged: Yoga video Fall prevention discussed [...] 07/10/2017 Assessment & Plan (06/05/2024 9:12 AM INFANTRY INDIRECT FIRE CREWMEMBER): Straight cath 3-4 times a day Follow-up [...] Garcia Assessment & Plan (05/23/2022 9:51 AM INFANTRY INDIRECT FIRE CREWMEMBER): Straight cath TID or QID Follow-up with [...] Garcia Assessment & Plan (08/15/2019 9:08 AM INFANTRY INDIRECT FIRE CREWMEMBER): Straight cath TID or QID Urology follow-up. Current urologist now out of network so will refer to Dr. Kendrick Garcia. Assessment & Plan (02/07/2019 9:03 AM CDT): Straight cath TID or QID Assessment & Plan (08/01/2018 9:23 AM INFANTRY INDIRECT FIRE CREWMEMBER): Straight cath TID or QID Assessment & Plan (01/22/2018 9:30 AM CDT): Straight cath and monitor UTI's. Recommended to call us if urologist needed Assessment & Plan (07/10/2017 5:38 PM INFANTRY INDIRECT FIRE CREWMEMBER): Straight cath TID or QID Mild recurrent major depression 07/10/2017 Assessment & Plan (06/05/2024 9:13 AM INFANTRY INDIRECT FIRE CREWMEMBER): Duloxetine 60 mg twice a day Assessment & Plan (12/07/2023 7:32 AM CDT): Cymbalta 60 mg twice a day Assessment & Plan (03/28/2023 7:47 AM CDT): Cymbalta 60 mg twice a day Assessment & Plan (12/04/2022 8:39 AM CDT): Cymbalta 60 mg twice a day Assessment & Plan (05/23/2022 9:53 AM INFANTRY INDIRECT FIRE CREWMEMBER): Cymbalta 60 mg twice a day Assessment & Plan (11/19/2021 9:14 AM CDT): Cymbalta 60 mg twice a day Assessment & Plan (10/13/2020 7:03 AM CDT): Cymbalta 60 mg daily Assessment & Plan (02/17/2020 9:08 AM CDT): Increase Cymbalta 60 mg twice a day. Moderate depression on sertraline 100 mg daily Assessment & Plan (08/15/2019 9:08 AM INFANTRY INDIRECT FIRE CREWMEMBER): Sertraline 100 mg daily not controlling depression. Will start Cymbalta 30 mg at night for 1 week, then 60 mg at night. Risks discussed including nausea and drowsiness. Decrease sertraline to 50 mg at night for 1 week, then discontinue. Assessment & Plan (02/07/2019 9:03 AM CDT): Sertraline 100 mg daily Assessment & Plan (08/01/2018 9:23 AM INFANTRY INDIRECT FIRE CREWMEMBER): Sertraline 100 mg daily Assessment & Plan (01/22/2018 9:30 AM CDT): Sertraline 100mg HS Assessment & Plan (07/10/2017 5:39 PM INFANTRY INDIRECT FIRE CREWMEMBER): Sertraline 50 mg daily Pain in shoulder 04/17/2016 Multiple sclerosis 11/29/2013 Overview (01/27/2021): MULTIPLE SCLEROSIS DMT history Rebif 22 mcg 01/2011-03/2011, elevated LFTs Copaxone 2707-0571 stopped due to out of pocket costs Gilenya 03/03/2014- Assessment & Plan (06/05/2024 9:11 AM INFANTRY INDIRECT FIRE CREWMEMBER): Since diagnosed with poorly differentiated adenocarcinoma of [...] off Gilenya reviewed. She will enroll in [employer] website so teriflunomide can be prescribed [...] January. Assessment & Plan (05/23/2022 9:56 AM INFANTRY INDIRECT FIRE CREWMEMBER): Gilenya. Risks discussed including cryptococcal meningitis and [...] daily Assessment & Plan (08/15/2019 9:06 AM INFANTRY INDIRECT FIRE CREWMEMBER): Viji. Risks discussed including bronchitis/pneumonia, cryptococcal meningitis [...] 2020 Assessment & Plan (08/01/2018 9:22 AM INFANTRY INDIRECT FIRE CREWMEMBER): Viji. Risks discussed including bronchitis/pneumonia, cryptococcal meningitis [...] needed. Assessment & Plan (07/10/2017 5:42 PM INFANTRY INDIRECT FIRE CREWMEMBER): Gilenya. Risks discussed including bronchitis/pneumonia, cryptococcal meningitis [...] 12/15/2024 Assessment & Plan (06/05/2024 9:13 AM INFANTRY INDIRECT FIRE CREWMEMBER): 04/09/20 hemoglobin 12.2, MCV 101.3 12/01/20 B12 [...] 20.2 Assessment & Plan (05/23/2022 9:54 AM INFANTRY INDIRECT FIRE CREWMEMBER): 04/09/20 hemoglobin 12.2, MCV 101.3 12/01/20 B12 [...] Rebif 22 mcg 01/2011-03/2011, elevated LFTs Copaxone 7440-2226 stopped due to out of pocket costs [...] drink = 0.6 oz pur e alcohol) [employer] Answer Date Recorded In the past 12 months has [employer], [employer], or water [employer] threatened to shut off services in your home? No 08/20/2023 Social Connection and Isolat ion Panel [NHANES] Answer Date Recorded In a typical week, how many times do you talk on the phone with family, friends, or neighbors? Three times a week 08/20/2023 How often do you get togethe r with friends or relatives? Once a week 08/20/2023 How often do you attend [facility] or hoahaoism services? More than 4 times per year 08/20/2023 Do you belong to any clubs o r organizations such as mosque groups, unions, fraternal or athletic groups, or [...] place to sleep or slept in a intermediate (including now)? No 08/20/2023 Personal Safety Answer Date Recorded Have you ever been in or are you currently in a harmful physical or emotional relationship or is someone making you feel afraid or unsafe? 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 Not on file Not [...] on file Medical Devices Implanted Type [employer] Admissions Representative Device Identifier Shelf Expiration Date Model / Serial / Lot Screw Screw Right: Toes Description:Rt foot 2nd toe [employer]am[employer] Od13 Ga L10 Mm Balloon Tray [employer] [id number] - [id number] - [id number] Implanted:Qty: 1 on 12/26/2024 by Lloyd Anderson MD at [facility] [employer] 03/15/2025 [id number] / [id number] / Description:Vertaplex HV hig h viscosity radiopaque [...] fracture of L1 vertebra, initial encounter (HCC) SCREENING MAMMOGRAM Schedule Routine, Read Routine (OP Routine) 03/23/2021 HEPATITIS C ANTIBODY Routine 12/02/2020 7:15 AM CDT Encounter for hepatitis C screening test for low risk patient COLONOSCOPY Routine 04/11/2019 from Last 3 Months or Most Recently Relevant to Health Maintenance Results * SCAN - RADIOLOGY/IMAGING (01/22/2025) Anatomical Region Laterality Modality Other us Pamela Howe NP Final Result * Imaging Fluoro Vertebroplasty (VTP) Thoracic ([address]) (12/26/2024 11:45 AM CDT) Narrative JACOB_DAT_SYLVIE_MHE - 12/26/2024 1:35 PM CDT The images from this study are not interpreted by Radiology. Please refer to the physician's procedure / OR operative note. us Lloyd Anderson MD IMG PAIN MGMT PROCEDURES Final R esult RAD_DAT_MHB_MHE * aPTT (12/23/2024 3:40 PM CDT) aPTT 33 22 - 37 sec Comment: Interpretive data aPTT test has not been evaluated for monitoring heparin therapy. The anti-Xa is the preferred test. Current interpretive data was last revised on 2019. Testing performed by: [address] [address] Blood 12/23/2024 3:40 PM CDT 12/23/2024 3:46 PM CDT Lloyd Anderson MD LAB BLOOD ORDERABLES Final Resul t Performing Organization Address [facility] de Phone Number [address] [address] * Protime-INR (12/23/2024 3:40 PM CDT) Pathologist [facility] PT 13.6 12.0 - 14.6 sec Comment:Testing performed by : [address] [address] INR 1.1 0.9 - 1.2 [facility] Comment: Ref Range High Interpretive data Oral anticoagulant therapeutic ranges: Venous thromboembolism prophylaxis or treatment: 2.0-3.0 CARDIOLOGY Standard range: 2.0-3.0 High-intensity range: 2.5-3.5 Refer to indication-specific guidelines for appropriate target ranges for prosthetic heart valve replacement. Current interpretive data was last revised on 2019. Testing performed by: [address] [address] Blood 12/23/2024 3:40 PM CDT 12/23/2024 3:46 PM CDT Lloyd Anderson MD LAB BLOOD ORDERABLES Final Resul t Performing Organization Address [facility] Co de Phone Number [place] [address] [facility] [email or web address] [place], [place] [phone] * (ABNORMAL) CBC without differential (12/23/2024 3:40 PM CDT) Pathologist [facility] WBC 5.50 3.80 - 9.90 K/cumm Comment:Testing performed by : [address], [address] Hgb 12.4 11.9 - 15.5 g/dL TETE Comment:Testing performed by : [address], [address] Hct 38.6 35.6 - 45.5 % TETE Comment:Testing performed by : [address] [address] Plt 480(H) 150 - 400 K/cumm TETE Comment:Testing performed by : [address], [address] MPV 8.6(L) 9.1 - 12.3 fL TETE Comment:Testing performed by : [address], [address] RBC 4.05 3.90 - 5.20 M/cumm TETE Comment:Testing performed by : [address], [address] MCV 95.3 81.3 - 96.4 fL TETE Comment:Testing performed by : [address], [address] MCH 30.6 27.1 - 33.3 pg TETE Comment:Testing performed by : [address], [address] MCHC 32.1(L) 32.3 - 35.7 g/dL TETE Comment:Testing performed by : [address], [address] RDW CV 14.6 11.1 - 14.9 % TETE Comment:Testing performed by : [address], [address] RDW SD 50.9(H) 35.7 - 48.1 fL TETE Comment:Testing performed by : [address], [address] NRBC abs 0.00 0.00 - 0.01 K/cumm TETE Comment:Testing performed by : [address], [address] Blood 12/23/2024 3:40 PM CDT 12/23/2024 3:46 PM CDT Lloyd Anderson MD LAB BLOOD ORDERABLES Final Resul t TETE [address] [facility] [place] [address] * REFLEXIVE URINE CULTURE (12/18/2024 7:34 AM CDT) Urine culture [facility] Comment:CULTURE INDICATED - RESULTS TO FOLLOW 12/18/2024 7:34 AM CDT 12/18/2024 7:35 AM CDT Pamela Howe NP LAB MICROBIOLOGY - GENERAL OR DERABLES Final Result [facility] [address] [place] [address] * (ABNORMAL) Urinalysis reflex to microscopic and [...] SEEN NONE SEEN /HPF [facility] Micth Hyaline cast NONE SEEN NONE SEEN /LPF [facility]ostics[facility] Miguel Meyer Note Lavish SkateJose Miguel Meyer Comment: This urine was analyzed for the presence of WBC, RBC, bacteria, casts, and other formed elements. Only those elements seen were reported. Urine, clean voided 12/18/2024 7:34 AM CDT 12/18/2024 7:35 AM CDT Pamela Howe SUBSURFACE AUGMENTEE OPERATOR LAB MICROBIOLOGY - GENERAL OR DERABLES Final Result Performing Organization Address [facility] de Phone Number [facility] [address] [place] [address] * Urine culture (12/18/2024 7:34 AM CDT) [facility] Comment: CULTURE, URINE, ROUTINE Micro Number: [id number] Test Status: Final Specimen Source: Urine Specimen Quality: Adequate Result: No Growth 12/18/2024 7:34 AM CDT 12/18/2024 7:35 AM CDT Pamela Howe SUBSURFACE AUGMENTEE OPERATOR LAB MICROBIOLOGY - GENERAL OR DERABLES Final Result Performing Organization Address [facility] de Phone Number [facility] [address] [place] [address] * XR Spine Thoracic/Lumbar 2 View (12/01/2024 [...] by Nam Michele M.D. T: Report ID: [id number] [place] Location: [id number] Procedure Note Nam Michele MD - 12/03/2024 EXAM DESCRIPTION: XR SPINE THORACOLUMBAR JUNCTION 2 OR MORE VIEWS REASON FOR STUDY: WEDGE COMPRESSION FRACTURE T-11-T12 VERTEBRA WEDGE COMPRESSION FRACTURE FINDINGS: Two views thoracolumbar spine submitted with ufbjbqfvoh32/01/2025. Redemonstrated are moderate T12 and L1 compression deformities.Associated kyphosis is present. No new fractures identified. Long segment dextroscoliosis of the thoracolumbar junction is noted. There ismultilevel thoracic degenerative disc disease. IMPRESSION: Unchanged moderate T12 and L1 compression deformities with associated kyphosis. THIS IS AN ELECTRONICALLY VERIFIED FINAL REPORT 12/03/2024 3:47 PM - Electronically signed by Nam Michele M.D. T: Report ID: [id number] [place] Location: [place] [address] Enrico Barragan MD IMG XR PROCEDURES Final Result * Screening Mammogram (03/23/2021) Anatomical Region Laterality Modality Breast N/A Mammography Historical Provider IMMata MAMMO PROCEDURES Mariah l Result * Hepatitis [...] a test for HCV RNA (test code 10184) is suggested. For additional information please refer to http://education.[employer] Mir/faq/VYA27z0 (This link is being provided for informational/ educational purposes only.) Blood specimen (specimen) 12/02/2020 7:15 AM CDT 12/02/2020 7:16 AM CDT Narrative [facility] - 12/03/2020 12:18 PM CDT FASTING:YES FASTING: YES Pamela Howe SUBSURFACE AUGMENTEE OPERATOR LAB MICROBIOLOGY - GENERAL OR DERABLES Final Result [facility] [address] [place] [address] * Colonoscopy (04/11/2019) Anatomical Region Laterality Modality Other Impressions 04/11/2019 Repeat 5 years Historical Provider MD ENDOSCOPY PROCEDURES Mariah l Result from Last 3 Months or Most Recently Relevant to Health Maintenance [place] For more information, please contact: [phone] * Full Code (Latest Code Status on File) Date Activated Date Inactivated Comments 08/17/2023 5:22 PM 08/21/2023 5:09 PM * Full Code Date Activated Date Inactivated Comments 10/20/2022 10:50 AM 10/21/2022 5:00 AM Care Teams Outside Repairer Special Relationship Specialty [place] [address] [place] [address] [address] [place] [address] PCP - General Internal Medicine 11/21/22 Vicki Bearden NP Nurse Practitioner Urology 11/15/20 Fazal Mcneal, [address] [place] [id number] Referring Physician Medical Oncology 11/27/22 Naya Valdez MD [address] [place] [address] Radiation Oncology 11/27/22 Sarah Rich MD [address] [place] [address] Consulting Physician Pulmonary Disease 11/27/22 Arben Alvarenga MD [address] [address] Radiation Oncology 12/07/23 Lloyd Anderson MD [address] [address] Consulting Physician Pain Management 12/26/24
--- OUTSIDE RECORDS SUMMARY | 2025-02-05 05:01 | XMS_ITS | Encounter Summary ---
Author Organization [facility] Healthcare Address [address] [place] [address] Care Team Providers Care Public Health Analyst Name Role Phone Pamela Cavanaugh NP Primary Care Provider [phone] Vicki Bearden NP Unavailable [phone] Pamela Cavanaugh NP Primary Care Provider [phone] Fazal Mcneal DO Unavailable [phone] Naya Valdez MD Unavailable [phone] Sarah Rich MD Unavailable [phone] Arben Alvarenga MD Unavailable [phone] Lloyd Anderson MD Unavailable Encounter Details Date Type Department Care Team (Late st Contact Info) Description 10/23/2022 Telephone [facility] [address] [place] [address] Rula Ramos, FLOYD Social History [...] on file Legal Sex Female 10:02 AM COW WASHER Gender Identity Female 10/11/2020 12:34 PM CDT Sexual Orientation Not on file 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 Not on file Not on file documented as of this encounter Plan of Treatment Not on file documented as of this encounter Visit Diagnoses Not on filedocumented in this encounter Additional Health Concerns Infection Onset Date Last Indicated Resolved Time COVID: Suspected 08/09/2023 08/09/2023 08/09/2023 10:20 AM COW WASHER COVID: Suspected 08/17/2023 08/17/2023 08/17/2023 1:59 PM COW WASHER documented as of this encounter Care Teams Public Health Analyst Relationship Specialty Start Date End Date Pamela Cavanaugh NP PCP - General Internal Medicine 09/22/20 11/20/22 [place] [address] [place] [id number] PCP - General Internal Medicine 11/21/22 Vicki Bearden NP Nurse Practitioner Urology 11/15/20 Fazal Mcneal DO [address] [place] [phone] Referring Physician Medical Oncology 11/27/22 Naya Valdez MD [address] [place] [address] Radiation Oncology 11/27/22 Sarah Rich MD [address] [place] [address] [id number] Consulting Physician Pulmonary Disease 11/27/22 Arben Alvarenga MD [address] [place] [address] [id number] Radiation Oncology 12/07/23 [place] [address] [place] [id number] Consulting Physician Pain Management 12/26/24 documented as of this encounter
--- OUTSIDE RECORDS SUMMARY | 2025-02-05 05:01 | XMS_ITS ---
Author Organization [facility] Building [address] Address [address] [place] [address] Care Team Providers Care Clinical Lab Assistant Name Role Phone Vicki Bearden [employer]KER Unavailable Pamela Cavanaugh NP Primary Care Provider Fazal Mcneal DO Unavailable [phone] Naya Valdez MD Unavailable [phone] Sarah Rich MD Unavailable Arben Alvarenga MD Unavailable [phone] Lloyd Anderson MD Unavailable Active Problems Problem [...] 12/07/2023 Assessment & Plan (06/05/2024 9:18 AM CLINICAL TECH): 3 right frontal brain metastases Treated with [...] 10/11/2022 Assessment & Plan (06/05/2024 9:08 AM CLINICAL TECH): Diagnosed with poorly differentiated adenocarcinoma consistent with [...] 11/19/2021 Assessment & Plan (06/05/2024 9:12 AM CLINICAL TECH): Exercise encouraged Fall prevention discussed Baclofen 10 [...] seizures. Assessment & Plan (05/23/2022 9:50 AM CLINICAL TECH): Exercise encouraged: Yoga video Fall prevention discussed [...] 07/10/2017 Assessment & Plan (06/05/2024 9:12 AM CLINICAL TECH): Straight cath 3-4 times a day Follow-up [...] Garcia Assessment & Plan (05/23/2022 9:51 AM CLINICAL TECH): Straight cath TID or QID Follow-up with [...] Garcia Assessment & Plan (08/15/2019 9:08 AM CLINICAL TECH): Straight cath TID or QID Urology follow-up. Current urologist now out of network so will refer to Dr. Kendrick Garcia. Assessment & Plan (02/07/2019 9:03 AM CDT): Straight cath TID or QID Assessment & Plan (08/01/2018 9:23 AM CLINICAL TECH): Straight cath TID or QID Assessment & Plan (01/22/2018 9:30 AM CDT): Straight cath and monitor UTI's. Recommended to call us if urologist needed Assessment & Plan (07/10/2017 5:38 PM CLINICAL TECH): Straight cath TID or QID Mild recurrent major depression 07/10/2017 Assessment & Plan (06/05/2024 9:13 AM CLINICAL TECH): Duloxetine 60 mg twice a day Assessment & Plan (12/07/2023 7:32 AM CDT): Cymbalta 60 mg twice a day Assessment & Plan (03/28/2023 7:47 AM CDT): Cymbalta 60 mg twice a day Assessment & Plan (12/04/2022 8:39 AM CDT): Cymbalta 60 mg twice a day Assessment & Plan (05/23/2022 9:53 AM CLINICAL TECH): Cymbalta 60 mg twice a day Assessment & Plan (11/19/2021 9:14 AM CDT): Cymbalta 60 mg twice a day Assessment & Plan (10/13/2020 7:03 AM CDT): Cymbalta 60 mg daily Assessment & Plan (02/17/2020 9:08 AM CDT): Increase Cymbalta 60 mg twice a day. Moderate depression on sertraline 100 mg daily Assessment & Plan (08/15/2019 9:08 AM CLINICAL TECH): Sertraline 100 mg daily not controlling depression. Will start Cymbalta 30 mg at night for 1 week, then 60 mg at night. Risks discussed including nausea and drowsiness. Decrease sertraline to 50 mg at night for 1 week, then discontinue. Assessment & Plan (02/07/2019 9:03 AM CDT): Sertraline 100 mg daily Assessment & Plan (08/01/2018 9:23 AM CLINICAL TECH): Sertraline 100 mg daily Assessment & Plan (01/22/2018 9:30 AM CDT): Sertraline 100mg HS Assessment & Plan (07/10/2017 5:39 PM CLINICAL TECH): Sertraline 50 mg daily Pain in shoulder 04/17/2016 Multiple sclerosis 11/29/2013 Overview (01/27/2021): MULTIPLE SCLEROSIS DMT history Rebif 22 mcg 01/2011-03/2011, elevated LFTs Copaxone [id number] stopped due to out of pocket costs Gilenya 03/03/2014- Assessment & Plan (06/05/2024 9:11 AM CLINICAL TECH): Since diagnosed with poorly differentiated adenocarcinoma of [...] off Gilenya reviewed. She will enroll in [facility] website so teriflunomide can [...] January. Assessment & Plan (05/23/2022 9:56 AM CLINICAL TECH): Gilenya. Risks discussed including cryptococcal meningitis and [...] daily Assessment & Plan (08/15/2019 9:06 AM CLINICAL TECH): Gilpuneetya. Risks discussed including bronchitis/pneumonia, cryptococcal meningitis [...] 2020 Assessment & Plan (08/01/2018 9:22 AM CLINICAL TECH): Gilpuneetya. Risks discussed including bronchitis/pneumonia, cryptococcal meningitis [...] needed. Assessment & Plan (07/10/2017 5:42 PM CLINICAL TECH): Viji. Risks discussed including bronchitis/pneumonia, cryptococcal meningitis [...] 12/15/2024 Assessment & Plan (06/05/2024 9:13 AM CLINICAL TECH): 04/09/20 hemoglobin 12.2, MCV 101.3 12/01/20 B12 [...] 20.2 Assessment & Plan (05/23/2022 9:54 AM CLINICAL TECH): 04/09/20 hemoglobin 12.2, MCV 101.3 12/01/20 B12 [...] Rebif 22 mcg 01/2011-03/2011, elevated LFTs Copaxone [id number] stopped due to out of pocket costs [...]
--- OUTSIDE RECORDS SUMMARY | 2025-02-05 05:01 | XMS_ITS | Clinical Summary ---
Author Organization [facility] Building B Address [address] [place] [address] Care Team Providers Care Production Mechanic Tin Cans Name Role Phone Vicki Bearden NP Unavailable + [phone] Pamela Howe NP Primary Care Provider [phone] Fazal Mcneal DO Unavailable [phone] Naya Valdez MD Unavailable [phone] Sarah Rich MD Unavailable [phone] Arben Alvarenga MD Unavailable [phone] Lloyd Anderson MD Unavailable Allergies Active Allergy [...] 12/07/2023 Assessment & Plan (06/05/2024 9:18 AM THERAPY AIDE): 3 right frontal brain metastases Treated with [...] 10/11/2022 Assessment & Plan (06/05/2024 9:08 AM THERAPY AIDE): Diagnosed with poorly differentiated adenocarcinoma consistent with [...] 11/19/2021 Assessment & Plan (06/05/2024 9:12 AM THERAPY AIDE): Exercise encouraged Fall prevention discussed Baclofen 10 [...] seizures. Assessment & Plan (05/23/2022 9:50 AM THERAPY AIDE): Exercise encouraged: Yoga video Fall prevention discussed [...] 07/10/2017 Assessment & Plan (06/05/2024 9:12 AM THERAPY AIDE): Straight cath 3-4 times a day Follow-up [...] Garcia Assessment & Plan (05/23/2022 9:51 AM THERAPY AIDE): Straight cath TID or QID Follow-up with [...] Garcia Assessment & Plan (08/15/2019 9:08 AM THERAPY AIDE): Straight cath TID or QID Urology follow-up. Current urologist now out of network so will refer to Dr. Kendrick Garcia. Assessment & Plan (02/07/2019 9:03 AM CDT): Straight cath TID or QID Assessment & Plan (08/01/2018 9:23 AM THERAPY AIDE): Straight cath TID or QID Assessment & Plan (01/22/2018 9:30 AM CDT): Straight cath and monitor UTI's. Recommended to call us if urologist needed Assessment & Plan (07/10/2017 5:38 PM THERAPY AIDE): Straight cath TID or QID Mild recurrent major depression 07/10/2017 Assessment & Plan (06/05/2024 9:13 AM THERAPY AIDE): Duloxetine 60 mg twice a day Assessment & Plan (12/07/2023 7:32 AM CDT): Cymbalta 60 mg twice a day Assessment & Plan (03/28/2023 7:47 AM CDT): Cymbalta 60 mg twice a day Assessment & Plan (12/04/2022 8:39 AM CDT): Cymbalta 60 mg twice a day Assessment & Plan (05/23/2022 9:53 AM THERAPY AIDE): Cymbalta 60 mg twice a day Assessment & Plan (11/19/2021 9:14 AM CDT): Cymbalta 60 mg twice a day Assessment & Plan (10/13/2020 7:03 AM CDT): Cymbalta 60 mg daily Assessment & Plan (02/17/2020 9:08 AM CDT): Increase Cymbalta 60 mg twice a day. Moderate depression on sertraline 100 mg daily Assessment & Plan (08/15/2019 9:08 AM THERAPY AIDE): Sertraline 100 mg daily not controlling depression. Will start Cymbalta 30 mg at night for 1 week, then 60 mg at night. Risks discussed including nausea and drowsiness. Decrease sertraline to 50 mg at night for 1 week, then discontinue. Assessment & Plan (02/07/2019 9:03 AM CDT): Sertraline 100 mg daily Assessment & Plan (08/01/2018 9:23 AM THERAPY AIDE): Sertraline 100 mg daily Assessment & Plan (01/22/2018 9:30 AM CDT): Sertraline 100mg HS Assessment & Plan (07/10/2017 5:39 PM THERAPY AIDE): Sertraline 50 mg daily Pain in shoulder 04/17/2016 Multiple sclerosis 11/29/2013 Overview (01/27/2021): MULTIPLE SCLEROSIS DMT history Rebif 22 mcg 01/2011-03/2011, elevated LFTs Copaxone [id number] stopped due to out of pocket costs Viji 03/03/2014- Assessment & Plan (06/05/2024 9:11 AM THERAPY AIDE): Since diagnosed with poorly differentiated adenocarcinoma of [...] off Gilenya reviewed. She will enroll in [employer] website so teriflunomide can be prescribed [...] January. Assessment & Plan (05/23/2022 9:56 AM THERAPY AIDE): Gilenya. Risks discussed including cryptococcal meningitis and [...] daily Assessment & Plan (08/15/2019 9:06 AM THERAPY AIDE): Viji. Risks discussed including bronchitis/pneumonia, cryptococcal meningitis [...] 2020 Assessment & Plan (08/01/2018 9:22 AM THERAPY AIDE): Viji. Risks discussed including bronchitis/pneumonia, cryptococcal meningitis [...] needed. Assessment & Plan (07/10/2017 5:42 PM THERAPY AIDE): Viji. Risks discussed including bronchitis/pneumonia, cryptococcal meningitis [...] 12/15/2024 Assessment & Plan (06/05/2024 9:13 AM THERAPY AIDE): 04/09/20 hemoglobin 12.2, MCV 101.3 12/01/20 B12 [...] 20.2 Assessment & Plan (05/23/2022 9:54 AM THERAPY AIDE): 04/09/20 hemoglobin 12.2, MCV 101.3 12/01/20 B12 [...] Rebif 22 mcg 01/2011-03/2011, elevated LFTs Copaxone [id number] stopped due to out of pocket costs [...] Description 01/22/2025 Orders Only [facility] [address] [place] [address] Pamela Howe NP 01/13/2025 7:52 AM CDT - 01/13/2025 11:59 PM CDT Hospital Encounter [facility] [address] [address] [place] [address] Lloyd Anderson MD Facet arthropathy, lumbar (Primary Dx); Pain of lumbar facet joint; Bulge of lumbar disc without myelopathy Discharge Disposition: Discharge to home or self care 01/08/2025 3:45 PM CDT Office Visit [facility] [address] [facility] [address] [place] [address] Spencer Oneill MD Dysuria (Primary Dx); Multiple sclerosis (HCC) 01/07/2025 Orders Only [facility] [address] [place] [address] Pamela Howe NP 12/30/2024 Results Follow-Up [facility] [address] [place] [address] [address] [place] [address] Pamela Howe NP Urinalysis reflex to microscopic and culture Urine, clean voided, REFLEXIVE URINE CULTURE, Urine culture 12/26/2024 8:46 AM CDT - 12/26/2024 11:59 PM CDT Hospital Encounter [facility] [address] [facility] [facility] [address] [place] [address] Lloyd Anderson MD Compression fracture of T12 vertebra, initial encounter (HCC) (Primary Dx); Compression fracture of L1 vertebra, initial encounter (HCC); Age-related osteoporosis with current pathological fracture, initial encounter; Intractable back pain Discharge Disposition: Discharge to home or self care 12/23/2024 3:35 PM CDT Lab [facility] [address] [place] [address] Compression fracture of body of thoracic vertebra (HCC); Compression fracture of L1 vertebra, initial encounter (HCC); Pre-op testing 12/19/2024 8:00 AM CDT Office Visit [facility] [address] [facility] 7th [address] [place] [address] Adeline Bennett NP Recurrent UTI (Primary Dx); Pelvic floor dysfunction in female; Vaginal atrophy 12/18/2024 Documentation [facility] [address] [address] Marcela García, FLOYD 12/18/2024 Documentation [facility] [address] [address] Marcela García RN 12/18/2024 Orders Only [facility] [address] [address] Marcela García RN Compression fracture of T12 vertebra, initial encounter (HCC) (Primary Dx); Compression fracture of L1 vertebra, initial encounter (HCC) 12/18/2024 Orders Only [facility] [address] [address] Mary Hoffman RN 12/18/2024 Orders Only [facility] [address] [address] Mary Hoffman RN 12/18/2024 Documentation [facility] [address] [address] Marcela García RN 12/16/2024 Orders Only [facility] [address] [place] [address] Pamela Howe NP Frequent UTI (Primary Dx) 12/15/2024 9:00 AM CDT Office Visit [facility] [address] [place] [address] Michael Horner MD Multiple sclerosis (HCC) (Primary Dx); Paraparesis (HCC); Neurogenic bladder; Metastasis to brain (HCC); Wedge compression fracture of T11-T12 vertebra, initial encounter for closed fracture (HCC); Wedge compression fracture of first lumbar vertebra, initial encounter for closed fracture (HCC); Mild recurrent major depression 12/12/2024 Orders Only [facility] [address] [place] [address] Pamela Howe NP Hypertension, essential 12/05/2024 Telephone [facility] [address] [place] [address] Pamela Howe NP 12/03/2024 11:19 AM CDT - 12/03/2024 11:59 PM CDT Hospital Encounter [facility] [address] [place] [address] Lloyd Anderson MD Age-related osteoporosis with current pathological fracture, initial encounter (Primary Dx); T12 compression fracture, initial encounter (HCC); Wedge compression fracture of first lumbar vertebra, initial encounter for closed fracture (HCC); Intractable back pain Discharge Disposition: Discharge to home or self care 12/01/2024 9:15 AM CDT Office Visit [facility] [address] [place] [address] [address], [address] [place] [address] Israel Chou PA Wedge compression fracture of T11-T12 vertebra, initial encounter for closed fracture (HCC) (Primary Dx); Wedge compression fracture of first lumbar vertebra, initial encounter for closed fracture (HCC) 12/01/2024 9:05 AM CDT - 12/01/2024 11:59 PM CDT Hospital Encounter [facility] [address] [place] [address] Closed wedge compression fracture of T12 vertebra, initial encounter (HCC); Closed wedge compression fracture of T11 vertebra, initial encounter (HCC); Closed wedge compression fracture of L1 vertebra, initial encounter (HCC) Discharge Disposition: Discharge to home or self care 11/26/2024 Telephone [facility] [address] [facility] [address] [place] [address] Spencer Oneill MD 11/21/2024 Telephone [facility] [address] [facility] 7[address] [place] [address] Argenis Jacobson RN UTI 11/20/2024 9:45 AM CDT Office Visit [facility] [place] [address] [facility] [address] [place] [address] Sarah Rich MD Single subsegmental pulmonary embolism without acute cor pulmonale (HCC) (Primary Dx); Mixed simple and mucopurulent chronic bronchitis (HCC); 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); Smoking greater than 20 pack years 11/19/2024 Orders Only [facility] [address] [place] [address] Pamela Howe NP 11/13/2024 3:15 PM CDT Office Visit [facility] [address] [facility] [address] [place] [address] Spencer Oneill MD Urinary tract infection without hematuria, site unspecified (Primary Dx); Metastasis to brain (HCC) 11/11/2024 Telephone [facility] [facility] 7[address] [place] [address] Dee Bergeron, RN 11/11/2024 Telephone [facility] [address] [address] [place] [address] Spencer Oneill MD from Last 3 Months Immunizations Immunization Administration Dates Next Due COVID-19 MRNA (MODERNA) .5 M L (50 MCG) VACCINE (12 YEARS AND UP) 05/15/2023 Influenza, Quadrivalent, Laura l Culture-based MDCK, Preservative Free, Antibiotic Free, Intramuscular 05/07/2023,04/20/2022 Influenza, Quadrivalent, Spl it, Preservative Free, Intramuscular 05/12/2021,04/13/2020,05/21/2019 Influenza, Trivalent, Cell C ulture-based MDCK, Preservative Free, Antibiotic Free, Intramuscular 04/20/2022 Influenza, Unspecified 05/02/2024 [employer] SARS-CoV-2 Monovalent Vaccination (12+ Yrs) PURPLE 10/04/2020,09/14/2020 [...] Depression 2018 Abnormal Pap smear of cervix 1994 Breast mass 1992 Family History Medical History [...] drink = 0.6 oz pur e alcohol) [facility] Utilities Answer Date Recorded In the past 12 months has th e [employer], gas, oil, or water EvalYou threatened to shut off services in your home? No 08/20/2023 Social Connection and Isolat ion Panel [NHANES] Answer Date Recorded In a typical week, how many times do you talk on the phone with family, friends, or neighbors? Three times a week 08/20/2023 How often do you get togethe r with friends or relatives? Once a week 08/20/2023 How often do you attend [facility] or [facility] services? More than 4 times per year 08/20/2023 Do you belong to any clubs o r organizations such as christianity groups, unions, fraternal or athletic groups, or [...] place to sleep or slept in a chcf (including now)? No 08/20/2023 Personal Safety Answer Date Recorded Have you ever been in or are you currently in a harmful physical or emotional relationship or is someone making you feel afraid or unsafe? 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 Not on file Not [...] Completed 04/20/2022 Medical Devices Implanted Type Area Residential Plumber Device Identifier Shelf Expiration Date Model / Serial / Lot Screw Screw Right: Toes Description:Rt foot 2nd toe Medicine in Practice [employer] Od13 Ga L10 Mm Balloon Tray Bone [employer]ement [id number] - [id number] - [id number] Implanted:Qty: 1 on 12/26/2024 by Lloyd Anderson MD at [facility] [employer] 03/15/2025 [id number] / [id number] / Description:Vertaplex HV hig h viscosity radiopaque [...] Region Laterality Modality Other us Pamela Howe CLIENT SERVICES VICE PRESIDENT Final Result * Imaging Fluoro Vertebroplasty (VTP) Thoracic (44961) (12/26/2024 11:45 AM CDT) Narrative GENEVIEVE_MARCOSB_MHE - 12/26/2024 1:35 PM CDT The images [...] last revised on 2019. Testing performed by: [address] [address] Blood 12/23/2024 3:40 PM CDT 12/23/2024 3:46 PM CDT Lloyd Anderson MD LAB BLOOD ORDERABLES Final Resul t Performing Organization Address City/[facility]/ZIP Co de Phone Number [facility] [address] [facility] Department [place] [address] * Protime-INR (12/23/2024 3:40 PM CDT) PT 13.6 12.0 - 14.6 sec Comment:Testing performed by : [address] [address] INR 1.1 0.9 - 1.2 TETE Comment: Ref Range High Interpretive data Oral anticoagulant therapeutic ranges: Venous thromboembolism prophylaxis or treatment: 2.0-3.0 CARDIOLOGY Standard range: 2.0-3.0 High-intensity range: 2.5-3.5 Refer to indication-specific guidelines for appropriate target ranges for prosthetic heart valve replacement. Current interpretive data was last revised on 2019. Testing performed by: [address] [address] Blood 12/23/2024 3:40 PM CDT 12/23/2024 3:46 PM CDT us Lloyd Anderson MD LAB BLOOD ORDERABLES Final Resul t [facility] [address] [facility] Department [place] [address] * (ABNORMAL) CBC without differential (12/23/2024 3:40 PM CDT) WBC 5.50 3.80 - 9.90 K/cumm Comment:Testing performed by : [address] [address] Hgb 12.4 11.9 - 15.5 g/dL TETE Comment:Testing performed by : [address] [address] Hct 38.6 35.6 - 45.5 % TETE Comment:Testing performed by : [address] [address] Plt 480(H) 150 - 400 K/cumm TETE Comment:Testing performed by : [address] [address] MPV 8.6(L) 9.1 - 12.3 fL TETE Comment:Testing performed by : [address] [address] RBC 4.05 3.90 - 5.20 M/cumm TTEE Comment:Testing performed by : [address] [address] MCV 95.3 81.3 - 96.4 fL TETE Comment:Testing performed by : [address] [address] MCH 30.6 27.1 - 33.3 pg TETE Comment:Testing performed by : [address] [address] MCHC 32.1(L) 32.3 - 35.7 g/dL TETE Comment:Testing performed by : [address] [address] RDW CV 14.6 11.1 - 14.9 % TETE Comment:Testing performed by : [address] [address] RDW SD 50.9(H) 35.7 - 48.1 fL TETE Comment:Testing performed by : [address] [address] NRBC abs 0.00 0.00 - 0.01 K/cumm TETE Comment:Testing performed by : [address] [address] Blood 12/23/2024 3:40 PM CDT 12/23/2024 3:46 PM CDT Lloyd Anderson MD LAB BLOOD ORDERABLES Final Resul t [facility] [address] [facility] Department [place] [address] * REFLEXIVE URINE CULTURE (12/18/2024 7:34 AM CDT) Urine culture [facility] Comment:CULTURE INDICATED - RESULTS TO FOLLOW 12/18/2024 7:34 AM CDT 12/18/2024 7:35 AM CDT Pamela Howe NP LAB MICROBIOLOGY - GENERAL OR DERABLES Final Result [facility] [address] [place] [address] * (ABNORMAL) Urinalysis reflex to microscopic and culture Urine, clean voided (12/18/2024 7:34 AM CDT) Color, ur YELLOW YELLOW [facility] Appearance, ur CLEAR CLEAR [facility] Specific gravity 1.017 1.001 - 1.035 [facility] pH, ur 6.5 5.0 - 8.0 [facility] Glucose, ur NEGATIVE NEGATIVE [facility] Bilirubin, ur NEGATIVE NEGATIVE [facility] Ketones, ur NEGATIVE NEGATIVE [facility] Blood, ur NEGATIVE NEGATIVE [facility] Protein, ur, quant NEGATIVE NEGATIVE [facility] Nitrites, ur NEGATIVE NEGATIVE [facility] Leukocyte esterase, ur 1+(A) NEGATIVE [facility] [...] SEEN NONE SEEN /LPF [facility] Note [facility] Comment: This urine was analyzed for the presence of WBC, RBC, bacteria, casts, and other formed elements. Only those elements seen were reported. Urine, clean voided 12/18/2024 7:34 AM CDT 12/18/2024 7:35 AM CDT Pamela Howe NP LAB MICROBIOLOGY - GENERAL OR DERABLES Final Result Performing Organization Address [facility]/ZIP Co de Phone Number [facility] [place] [address] [place] [address] * Urine culture (12/18/2024 7:34 AM CDT) Urine culture [facility] Comment: CULTURE, URINE, ROUTINE Micro Number: [id number] Test Status: Final Specimen Source: Urine Specimen Quality: Adequate Result: No Growth 12/18/2024 7:34 AM CDT 12/18/2024 7:35 AM CDT Pamela Howe NP LAB MICROBIOLOGY - GENERAL OR DERABLES Final Result Performing Organization Address City/[facility]/ZIP Co de Phone Number [facility] [employer] [place] [address] [place] [address] * XR Spine Thoracic/Lumbar 2 View (12/01/2024 [...] by Nam Michele M.D. T: Report ID: [id number] Reading Location: [id number] Procedure Note Nam Michele MD - 12/03/2024 EXAM DESCRIPTION: XR SPINE THORACOLUMBAR JUNCTION 2 OR MORE VIEWS REASON FOR STUDY: WEDGE COMPRESSION FRACTURE T-11-T12 VERTEBRA WEDGE COMPRESSION FRACTURE FINDINGS: Two views thoracolumbar spine submitted with dwtxdyyeyv35/01/2025. Redemonstrated are moderate T12 and L1 compression deformities.Associated kyphosis is present. No new fractures identified. Long segment dextroscoliosis of the thoracolumbar junction is noted. There ismultilevel thoracic degenerative disc disease. IMPRESSION: Unchanged moderate T12 and L1 compression deformities with associated kyphosis. THIS IS AN ELECTRONICALLY VERIFIED FINAL REPORT 12/03/2024 3:47 PM - Electronically signed by Nam Michele M.D. T: Report ID: [id number] Reading Location: [id number] Enrico Barragan MD IMG XR PROCEDURES Final Result * Screening Mammogram (03/23/2021) Anatomical Region Laterality Modality Breast N/A Mammography us Historical Provider IMG MAMMO PROCEDURES Mariah l [...] a test for HCV RNA (test code 01581) is suggested. For additional information please refer to http://education.eCoast/faq/SBE76l8 (This link is being provided for informational/ educational purposes only.) Blood specimen (specimen) 12/02/2020 7:15 AM CDT 12/02/2020 7:16 AM CDT Narrative [facility] - 12/03/2020 12:18 PM CDT FASTING:YES FASTING: YES Pamela Howe NP LAB MICROBIOLOGY - GENERAL OR DERABLES Final Result Performing Organization Address City/State/[facility] Co de Phone Number JOSE DANIEL [facility] [address] [place] [address] * Colonoscopy (04/11/2019) Anatomical Region Laterality Modality Other Impressions 04/11/2019 Repeat 5 years Historical Provider ENDOSCOPY PROCEDURES Mariah l Result from Last 3 Months or Most Recently Relevant to Health Maintenance [place] For more information, please contact: [phone] * Full Code (Latest Code Status on File) Date Activated Date Inactivated Comments 08/17/2023 5:22 PM 08/21/2023 5:09 PM * Full Code Date Activated Date Inactivated Comments 10/20/2022 10:50 AM 10/21/2022 5:00 AM Care Teams Production Mechanic Tin Cans Relationship Specialty Start Date End Date Pamela Howe NP [address] [place] [address] PCP - General Internal Medicine 11/21/22 Vicki Bearden NP Nurse Practitioner Urology 11/15/20 Fazal Mcneal DO [address] [place] [address] Referring Physician Medical Oncology 11/27/22 Naya Valdez MD [address] [place] [address] Radiation Oncology 11/27/22 Sarah Rich MD [address] [place] [id number] Consulting Physician Pulmonary Disease 11/27/22 Arben Alvarenga MD [address] [place] [id number] Radiation Oncology 12/07/23 Lloyd Anderson MD [address] [address] Consulting Physician Pain Management 12/26/24
--- OUTSIDE RECORDS SUMMARY | 2025-02-05 05:01 | XMS_ITS | Encounter Summary ---
Author Organization [facility] Healthcare Address [address] [place] [address] Care Team Providers Care Database Manager Name Role Phone Vicki Bearden NP Unavailable [phone] Pamela Cavanaugh NP Primary Care Provider [phone] Fazal Mcneal DO Unavailable [phone] Naya Valdez MD Unavailable [phone] Sarah Rich MD Unavailable [phone] Arben Alvarenga MD Unavailable [phone] Lloyd Anderson MD Unavailable Encounter Details Date Type Department Care Team (Late st Contact Info) Description 12/30/2024 Results Follow-Up [facility] Family Medicine [address] [place] [address] Pamela Cavanaugh NP [address] [place] [address] Urinalysis reflex to microscopic and culture Urine, clean voided, REFLEXIVE URINE CULTURE, Urine culture Social History Tobacco Use Types Packs/Day Years Used Date Smoking Tobacco: Former Cigarettes 0.6 30 1 08/14/1988 - 06/14/2019 Vaping Smokeless Tobacco: Never Alcohol Use Standard Drinks/Week Comments Yes 0 (1 standard drink = 0.6 oz pur e alcohol) [facility] Utilities Answer Date Recorded In the past [...] often do you attend chur ch or congregation services? More than 4 times per year 08/20/2023 Do you belong to any clubs o r organizations such as adventism groups, unions, fraternal or athletic groups, or [...] place to sleep or slept in a mcc (including now)? No 08/20/2023 Personal Safety Answer Date Recorded Have you ever been in or are you currently in a harmful physical or emotional relationship or is someone making you feel afraid or unsafe? 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 Not on file Not on file documented as of this encounter Plan of Treatment Not on file documented as of this encounter Visit Diagnoses Not on filedocumented in this encounter Care Teams Database Manager Relationship Specialty Start Date End Date Pamela Cavanaugh NP [address] [place] [address] PCP - General Internal Medicine 11/21/22 Vicki Bearden NP Nurse Practitioner Urology 11/15/20 Fazal Mcneal DO [address] [place] [address] Referring Physician Medical Oncology 11/27/22 Naya Valdez MD [address] [place] [address] Radiation Oncology 11/27/22 Sarah Rich MD [address] [place] [address] Consulting Physician Pulmonary Disease 11/27/22 Arben Alvarenga MD [address] [place] [address] Radiation Oncology 12/07/23 Lloyd Anderson MD [facility] [address] [address] Consulting Physician Pain Management 12/26/24 documented as of this encounter
--- OUTSIDE RECORDS SUMMARY | 2025-02-05 05:01 | XMS_ITS | Clinical Summary ---
Author Organization [facility] Address [address], [address] [place] [address] Phone Care Team Providers Care Compliance Tester Name Role Phone Provider, Unknown Primary Care Provider Unavaila Sarah Mcdowell MD Unavailable [phone] Pamela Cavanaugh APRN, EXECUTIVE MARKETING ASSISTANT Unavailable [phone] Michael Horner MD Unavailable [phone] Fazal Mcneal DO Unavailable [phone] Allergies Active Allergy Reactions Criticality Noted [...] Active azelastine (ASTELIN) 0.1 % Solution 1 [place] by Nasal route. 02/06/20 24 Active modafinil [...] Rebif 22 mcg 01/2011-03/2011, elevated LFTs Copaxone 5263-2119 stopped due to out of pocket costs [...] Description 01/14/2025 Refill [facility] [address] [address] Fazal Mcneal, DO Medication Refill; canopy call/ med refill 01/07/2025 Refill [facility] [address] [address] Fazal Mcneal, DO 01/02/2025 9:45 AM CDT Office Visit [facility] [address] [address] Elena Dempsey, YARD PERSON, EXECUTIVE MARKETING ASSISTANT Malignant neoplasm of left lung, unspecified part of lung (HCC) (Primary Dx); 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); 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; 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); Metastasis to brain (HCC); MS (multiple sclerosis) (HCC) 12/31/2024 8:30 AM CDT Ancillary Procedure [facility] [address] [address] Malignant neoplasm of left lung, unspecified part of lung (HCC) 12/31/2024 8:15 AM CDT Lab [facility] [address] [address] Lab, [facility] Malignant neoplasm of left lung, unspecified part of lung (HCC); 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) 12/31/2024 Travel 12/29/2024 Refill [facility] [address] [address] Fazal Mcneal, DO Medication Refill 12/19/2024 Refill [facility] [address] [address] Fazal Mcneal, DO Medication Refill 12/12/2024 9:00 AM CDT Office Visit [facility] [address] [address] Fazal Mcneal, DO Malignant neoplasm of left lung, unspecified part of lung (HCC) (Primary Dx) 12/12/2024 Travel 12/11/2024 Refill [facility] [address] [phone] Fazal Mcneal, DO Medication Refill 12/09/2024 Telephone [facility] [address] [phone] Fazal Mcneal, DO 12/09/2024 Telephone [facility] [address] [phone] Fazal Mcneal, DO 12/04/2024 Refill [facility] [address] [phone] Fazal Mcneal, DO Medication Refill 12/01/2024 Refill [facility] [address] [phone] Fazal Mcneal, DO Medication Refill 11/25/2024 Telephone [facility] [address] [phone] Fazal Mcneal, DO Canopy Call / UTI 11/21/2024 Refill [facility] [address] [phone] Fazal Mcneal, DO Medication Refill; canopy call/ refill medication 11/13/2024 Refill [facility] [address] [phone] Fazal Mcneal, DO Medication Refill from Last 3 Months Immunizations Immunization Administration Dates Next Due Influenza Vaccine, MDCK,quad rivalent, pres free 04/20/2022 Influenza Vaccine, Quadrivalent, PF 05/12/2021,0 04/13/2020,05/21/2019 Influenza,Split Virus,Trivalent,Injectable,PF 05/02/2024 Pneumococcal conjugate PCV20 , polysaccharide [id number] conjugate, adjuvant, PF 04/20/2022 Sars-cov-2 (Covid-19) Vaccine, [...] on file 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 Gender Identity Not on file Sexual [...] CDT Office Visit [facility] [address] [address] Fazal Mcneal, [address] [place] [phone] 03/27/2025 9:00 AM CDT Lab [facility] [address] [address] Lab, [facility] 03/27/2025 9:30 AM CDT Ancillary Procedure [facility] [address] [address] 03/27/2025 9:45 AM CDT Ancillary Procedure [facility] [address] [address] Health Maintenance Due Date Last [...] W CONTRAST 12/31/2024 HPI: 59-year-old female with flo-etqly-lywf lung carcinoma with bone metastasis and brain [...] W CONTRAST 12/31/2024 HPI: 59-year-old female with efi-tymcy-czzn lung carcinoma with bone metastasisand brain metastasis. [...] CDT) LDH 172 140 - 271 U/L [facility] Blood 12/31/2024 8:[address] [facility] - 12/31/2024 9:46 AM CDT Release to patient->Immediate Belen Pham APRN, CNP CHEMISTRY ORDERABLES Final Result [facility] [address] [place] [address], [place] [phone] * (ABNORMAL) CMP (COMPREHENSIVE METABOLIC PANEL) (12/31/2024 8:24 AM CDT) Glucose 93 70 - 105 mg/dL [facility] Blood Urea Nitrogen 18 7 - 25 mg/dL [facility] Creatinine 0.7 0.6 - 1.2 mg/dL [facility] Sodium 139 136 - 145 mEq/L [facility] Potassium 4.0 3.5 - 5.1 mEq/L [facility] Chloride 100 98 - 107 mEq/L [facility] Bicarbonate 33(H) 21 - 31 mEq/L [facility] Total Bilirubin 0.4 0.3 - 1.0 mg/dL [facility] Alk. Phosphatase 90 34 - 104 U/L [facility] Aspartate Aminotransferase 21 13 - 39 U/L [facility] Alanine Aminotransferase 16 7 - 52 U/L [facility] Total Protein 6.7 6.4 - 8.9 g/dL [facility] Albumin 4.5 3.5 - 5.7 g/dL [facility] Calcium 10.0 8.6 - 10.3 mg/dL [facility] Anion Gap 10.0 7.0 - 15.0 mEq/L [facility] Globulin 2.2 2.0 - 3.5 g/dL [facility] EGFR 99 >60 ml/min/1. 73m2 [facility] Comment: This eGFR is calculated using 2020 CKD-EPI Creatinine equation without race modifier based on the NKF-ASN task force recommendations Equation: cSQU=921*min(SCr/k,1)a*max(SCr/k,1)-1.200*0.9938Age*1.012 (if female), where SCr is serum creatinine, k is 0.7 for females and 0.9 for males, and a is -0.241 for females and -0.302 for males Blood 12/31/2024 8:24 AM CDT Narrative [facility] - 12/31/2024 9:46 AM CDT Release to patient->Immediate IS THE PATIENT REQUIRED TO BE FASTING FOR 8 HOURS?->No Belen Pham APRN, EXECUTIVE MARKETING ASSISTANT CHEMISTRY ORDERABLES Final Result [facility] [employer] TE[employer] [facility] [place] [address], from Last 3 Months Insurance [facility] Care Teams Compliance Tester Relationship Specialty Start Date End Date Provider, Unknown UNKNOWN PCP - General 06/30/22 Sarah Rich MD UNKNOWN Pulmonary Disease 10/31/22 Pamela Cavanaugh, YARD PERSON, EXECUTIVE MARKETING ASSISTANT UNKNOWN Internal Medicine 10/31/22 Michael Horner MD [address] [address] Neurology 10/31/22 Fazal Mcneal DO [address] [place] [phone] Consulting Physician Oncology 10/31/22
--- OUTSIDE RECORDS SUMMARY | 2025-02-05 05:01 | XMS_ITS | Clinical Summary ---
Author Organization 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,non-owned Affiliates and Associated Physician Practices is amultiple site organization consisting of ambulatory clinics and hospital sitesin [place], [place], [place] and [place]. This disclosure is being madepursuant to the Care Everywhere program and may not contain all information available regarding this patient. Last updated 18.[facility] Allergies Active Allergy Reactions Criticality Noted Date [...] Active azelastine (Astelin) 0.1 % nasal spray [place] 1 (one) spray into each nostril once [...] mouth 2 times daily Active HYDROcodone-ac etaminophen ([place]) 5-325 MG tablet Take 1 (one) tablet [...] fall + seizure precautions - continue home [place] and baclofen nightly for pain; per patient [...] fall + seizure precautions - continue home [place] and baclofen nightly for pain; per patient [...] fall + seizure precautions - continue home [place] and baclofen nightly for pain; per patient [...] fall + seizure precautions - continue home [place] and baclofen nightly for pain; per patient [...] fall + seizure precautions - continue home [place] and baclofen nightly for pain; per patient [...] fall + seizure precautions - continue home [place] and baclofen nightly for pain; per patient [...] fall + seizure precautions - continue home [place] and baclofen nightly for pain; per patient [...] fall + seizure precautions - continue home [place] and baclofen nightly for pain; per patient [...] fall + seizure precautions - continue home [place] and baclofen nightly for pain; per patient [...] fall + seizure precautions - continue home [place] and baclofen nightly for pain; per patient [...] fall + seizure precautions - continue home [place] and baclofen nightly for pain; per patient [...] fall + seizure precautions - continue home [place] and baclofen nightly for pain; per patient [...] fall + seizure precautions - continue home [place] and baclofen nightly for pain; per patient [...] fall + seizure precautions - continue home [place] and baclofen nightly for pain; per patient [...] fall + seizure precautions - continue home [place] and baclofen nightly for pain; per patient [...] fall + seizure precautions - continue home [place] and baclofen nightly for pain; per patient [...] fall + seizure precautions - continue home [place] and baclofen nightly for pain; per patient [...] fall + seizure precautions - continue home [place] and baclofen nightly for pain; per patient [...] fall + seizure precautions - continue home [place] and baclofen nightly for pain; per patient [...] fall + seizure precautions - continue home [place] and baclofen nightly for pain; per patient [...] fall + seizure precautions - continue home [place] and baclofen nightly for pain; per patient [...] fall + seizure precautions - continue home [place] and baclofen nightly for pain; per patient [...] fall + seizure precautions - continue home [place] and baclofen nightly for pain; per patient [...] fall + seizure precautions - continue home [place] and baclofen nightly for pain; per patient [...] fall + seizure precautions - continue home [place] and baclofen nightly for pain; per patient [...] fall + seizure precautions - continue home [place] and baclofen nightly for pain; per patient [...] fall + seizure precautions - continue home [place] and baclofen nightly for pain; per patient [...] fall + seizure precautions - continue home [place] and baclofen nightly for pain; per patient [...] fall + seizure precautions - continue home [place] and baclofen nightly for pain; per patient [...] fall + seizure precautions - continue home [place] and baclofen nightly for pain; per patient [...] fall + seizure precautions - continue home [place] and baclofen nightly for pain; per patient [...] fall + seizure precautions - continue home [place] and baclofen nightly for pain; per patient [...] fall + seizure precautions - continue home [place] and baclofen nightly for pain; per patient [...] fall + seizure precautions - continue home [place] and baclofen nightly for pain; per patient [...] fall + seizure precautions - continue home [place] and baclofen nightly for pain; per patient [...] fall + seizure precautions - continue home [place] and baclofen nightly for pain; per patient [...] fall + seizure precautions - continue home [place] and baclofen nightly for pain; per patient [...] fall + seizure precautions - continue home [place] and baclofen nightly for pain; per patient [...] fall + seizure precautions - continue home [place] and baclofen nightly for pain; per patient [...] fall + seizure precautions - continue home [place] and baclofen nightly for pain; per patient [...] fall + seizure precautions - continue home [place] and baclofen nightly for pain; per patient [...] fall + seizure precautions - continue home [place] and baclofen nightly for pain; per patient [...] fall + seizure precautions - continue home [place] and baclofen nightly for pain; per patient [...] fall + seizure precautions - continue home [place] and baclofen nightly for pain; per patient [...] fall + seizure precautions - continue home [place] and baclofen nightly for pain; per patient [...] and antiplatelets - [facility], recs appreciated - will need palliative c/s on Sunday - monitor on telemetry - fall + seizure precautions - continue home [place] and baclofen nightly for pain; per patient [...] fall + seizure precautions - continue home [place] and baclofen nightly for pain; per patient she has been told she can take 20 mg of baclofen at night if needed, we will start with 10 mg here and can give additional dose if needed 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 Assessment & Plan (02/02/2025 3:58 PM CDT): - Tylenol 650mg q6h PRN - [place] 5-325mg 2 tab q4h PRN - Dilaudid 0.2 IV q4h PRN - gabapentin 300mg q8h PRN - baclofen 10mg qhs, can go up to 20mg if needed Assessment & Plan (02/01/2025 10:26 AM CDT): - Tylenol 650mg q6h PRN - [place] 5-325mg 2 tab q4h PRN - Dilaudid 0.2 IV q4h PRN - gabapentin 300mg q8h PRN - baclofen 10mg qhs, can go up to 20mg if needed Assessment & Plan (01/31/2025 6:35 PM CDT): - Tylenol 650mg q6h PRN - [place] 5-325mg 2 tab q4h PRN - Dilaudid [...] fall + seizure precautions - continue home [place] and baclofen nightly for pain; per patient [...] fall + seizure precautions - continue home [place] and baclofen nightly for pain; per patient [...] fall + seizure precautions - continue home [place] and baclofen nightly for pain; per patient [...] fall + seizure precautions - continue home [place] and baclofen nightly for pain; per patient [...] fall + seizure precautions - continue home [place] and baclofen nightly for pain; per patient [...] fall + seizure precautions - continue home [place] and baclofen nightly for pain; per patient [...] fall + seizure precautions - continue home [place] and baclofen nightly for pain; per patient [...] fall + seizure precautions - continue home [place] and baclofen nightly for pain; per patient she has been told she can take 20 mg of baclofen at night if needed, we will start with 10 mg here and can give additional dose if needed Encounters Date Type Department Care Team Description 01/30/2025 1:09 PM CDT Anesthesia Event [facility] [address] [place] [address] Anthony Fernández MD [place], Reid, 01/30/2025 10:45 AM CDT - 01/30/2025 2:30 PM CDT Surgery [facility] [address] [place] [address] Jame Mooney MD RIght frontal craniotomy for tumor resection with gammatile placement 01/23/2025 5:29 PM CDT - 02/02/2025 2:24 PM CDT Hospital Encounter [facility] 5N ACUTE [address] [place] [address] Dorinda Abrams MD Bastin, Taylor J, MD Felgenhauer, Joshua, MD Majeed, MD Heather Camacho Hiral Choksi, MD Neuro-Surgery Discharge Disposition: Home or Self Care 01/23/2025 Travel 01/23/2025 Telephone [facility] PHYS INTERNAL MED [address] [place] [address] Dorinda Abrams MD Hospital Admission 01/16/2025 11:00 AM CDT - 01/16/2025 11:59 PM CDT Hospital Encounter [facility] MRI [address] [place] [address] Arben Alvarenga MD Discharge Disposition: Home or [...] and heating? Not hard at all 01/23/2025 [facility] [place] of Occupat ional Health - Occupational Stress [...] any time in the past 12 m [facility], were you homeless or living in [...] Office Visit [facility] - Neurosurgery [address] [place] [address], [place] [address] Radha Marroquin, NOC TECHNICIAN-EXPERIMENTAL PLASTICS FABRICATOR [address] [place] [address] [place] [address] Health Maintenance Due Date Last Done Comments [...] this topic Medical Devices Implanted Type Area Attending Ambulatory Care Device Identifier Shelf Expiration Date Model / Serial / Lot Seal Dural Auto Spr Ext Tip 5ml - Sn/A Implanted:Qty: 1 on 01/30/2025 at [facility] Right: Brain [employer] Craniomaxillofacial 10/13/2026 NUS-109 / N/A / [id number] Seed Gma Tile Thrp Bioresbl Clgn 7 Pk - Sna Implanted:Qty: 7 on 01/30/2025 by Jame Mooney MD at [facility] Right: Brain [employer] 01/31/2025 GT-07 / NA / [id number] Cover Bur Hl Lght Grn 17mm Matrixneuro - Sna Implanted:Qty: 3 on 01/30/2025 by Jame Mooney MD at [facility] Right: Cranial Synthes [employer] 01/31/2025 04.502.0 23 / NA / NA Plate 6 Hl Ult Lopro Chmfr Edg Crnl - Sna Implanted:Qty: 1 on 01/30/2025 by Jame Mooney MD at [facility] Right: Cranial Synthes [employer] 01/31/2025 04.502.0 68 / NA / NA Screw 1.5mm 4mm Crnmxf Slfdrl - Sna Implanted:Qty: 12 on 01/30/2025 by Jame Mooney MD at [facility] Right: Cranial Synthes Maxillofacial 01/31/2025 04.503.1 04.01 / NA / NA Screw 1.55mm 2.55mm 5mm Crnmxf Slf Drl - Sna Implanted:Qty: 7 on 01/30/2025 by Jame Mooney MD at [facility] Right: Cranial Synthes Maxillofacial 01/31/2025 04.503.1 05.01 [...] TUBE NOTE Routine 01/30/2025 1:38 PM CDT AK OPEN SKULL INFRATENT EXPLORE 01/30/2025 12:47 PM CDT Brain tumor (HCC) Special Needs [employer], [employer], MITCHELL, GAMMATILE MONITORING: EEG, MMEP, MEP-- [facility] 01/29 GLUCOSE - POINT OF CARE Routine [...] - 99 mg/dL 02/02/2025 11:18 AM CDT [facility] Specimen Type Arterial/C apillary 02/02/2025 11:18 AM CDT [facility] Blood BLOOD SPECIMEN / Unknown 02/02/2025 11:08 AM CDT 02/02/2025 11:18 AM CDT us Nichol Romero MD LAB - POINT OF CARE ORDERABLES Final Result [address] [address], [facility] [phone] * (ABNORMAL) CBC W AUTO DIFFERENTIAL (02/02/2025 4:42 AM CDT) Only the most recent of7 resultswithin the time period is included. WBC 9.3 4.0 - 10.7 x10E9/L 02/02/2025 5:41 AM [facility] RBC Count 3.55(L) 3.90 - 5.20 x10E12/L 02/02/2025 5:41 AM [facility] Hemoglobin 10.8(L) 11.9 - 15.8 g/dL 02/02/2025 5:41 AM [facility] Hematocrit 32.9(L) 34.8 - 46.1 % 02/02/2025 5:41 AM [facility] MCV 92.7 80.0 - 98.0 fL 02/02/2025 5:41 AM [facility] MCH 30.4 26.7 - 33.6 pg 02/02/2025 5:41 AM [facility] MCHC 32.8 31.7 - 36.3 g/dL 02/02/2025 5:41 AM [facility] RDW-CV 14.3 11.3 - 14.8 % 02/02/2025 5:41 AM [facility] Platelet Count 456(H) 150 - 420 x10E9/L 02/02/2025 5:41 AM [facility] MPV 9.2 7.8 - 11.4 fL 02/02/2025 5:41 AM [facility] Neutrophil % 85.8(H) 41.0 - 74.0 % 02/02/2025 5:41 AM [facility] Lymphocyte % 7.8(L) 17.0 - 47.0 % 02/02/2025 5:41 AM [facility] Monocyte % 5.2 3.0 - 11.0 % 02/02/2025 5:41 AM [facility] Eosinophil % 0.0 0.0 - 7.0 % 02/02/2025 5:41 AM [facility] Basophil % 0.1 0.0 - 1.6 % 02/02/2025 5:41 AM [facility] Immature Granulocytes % 1.1(H) 0.0 - 1.0 % 02/02/2025 5:41 AM [facility] Neutrophil Absolute 7.97(H) 1.60 - 7.50 x10E9/L 02/02/2025 5:41 AM [facility] Lymphocyte Absolute 0.72(L) 1.00 - 4.40 x10E9/L 02/02/2025 5:41 AM [facility] Monocyte Absolute 0.48 0.15 - 1.00 x10E9/L 02/02/2025 5:41 AM [facility] Eosinophil Absolute 0.00 0.00 - 0.60 x10E9/L 02/02/2025 5:41 AM [facility] Basophil Absolute 0.01 0.00 - 0.13 x10E9/L 02/02/2025 5:41 AM [facility] Blood BLOOD SPECIMEN / Unknown Lab Venipuncture / Unknown 02/02/2025 4:42 AM CDT 02/02/2025 5:34 AM CDT us Rory Donis MD LAB - HEMATOLOGY ORDERABLES Final Result [address] [address] [phone] * (ABNORMAL) COMPREHENSIVE METABOLIC PANEL (02/02/2025 4:42 AM CDT) Only the most recent of4 resultswithin the time period is included. BUN 37(H) 7 - 26 mg/dL 02/02/2025 6:04 AM [facility] Creatinine 0.64 0.56 - 0.96 mg/dL 02/02/2025 6:04 AM [facility] Sodium 137 136 - 145 mmol/L 02/02/2025 6:04 AM [facility] Potassium 4.0 3.5 - 4.5 mmol/L 02/02/2025 6:04 AM [facility] Chloride 105 98 - 107 mmol/L 02/02/2025 6:04 AM [facility] CO2 24 22 - 29 mmol/L 02/02/2025 6:04 AM [facility] Glucose 103(H) 70 - 99 mg/dL 02/02/2025 6:04 AM [facility] Calcium 8.7 8.4 - 10.2 mg/dL 02/02/2025 6:04 AM [facility] Protein Total 5.8(L) 6.0 - 8.3 g/dL 02/02/2025 6:04 AM [facility] Albumin 3.1(L) 3.4 - 5.0 g/dL 02/02/2025 6:04 AM [facility] Bilirubin Total 0.1(L) 0.2 - 1.2 mg/dL 02/02/2025 6:04 AM [facility] Alkaline Phosphatase 46 40 - 150 U/L 02/02/2025 6:04 AM [facility] ALT 17 5 - 55 U/L 02/02/2025 6:04 AM [facility] AST 17 5 - 34 U/L 02/02/2025 6:04 AM [facility] Anion Gap 8 6 - 16 02/02/2025 6:04 AM [facility] BUN/Creatinine Ratio >50(H) 7 - 02/02/2025 6:04 AM [facility] Osmolality Calculated 293 275 - 295 mOsm/kg 02/02/2025 6:04 AM [facility] Albumin/Globulin Ratio 1.1 1.1 - 2.3 02/02/2025 6:04 AM [facility] eGFR by CKD-EPI >90 >=90 mL/min/1.7 3 m2 02/02/2025 6:04 AM [facility] Comment:Estimated Glomerular Filtration Rate (eGFR) calculated using the CKD-EPI Creatinine Equation (2020), per the National Kidney Foundation and [place] Society of Nephrology recommendations. Blood BLOOD SPECIMEN / Unknown Lab Venipuncture / Unknown 02/02/2025 4:42 AM CDT 02/02/2025 5:35 AM CDT us Rory Donis MD LAB - CHEMISTRY ORDERABLES F inal Result [facility] [address] [place] [address], [facility] [phone] * MAGNESIUM BLOOD (02/02/2025 4:42 AM CDT) Only the most recent of7 resultswithin the time period is included. Magnesium 2.1 1.6 - 2.6 mg/dL 02/02/2025 6:04 AM CDT [facility] Blood BLOOD SPECIMEN / Unknown Lab Venipuncture / Unknown 02/02/2025 4:42 AM CDT 02/02/2025 5:35 AM CDT Rory Donis MD LAB - CHEMISTRY ORDERABLES F inal Result Performing Organization Address City/[facility]/ZIP Co de Phone Number [address] [address], [facility] [phone] * PHOSPHORUS BLOOD (02/01/2025 3:44 AM CDT) Only the most recent of3 resultswithin the time period is included. Phosphorus 3.7 2.9 - 5.1 mg/dL 02/01/2025 4:39 AM CDT [facility] Blood BLOOD SPECIMEN / Unknown Lab Venipuncture / Unknown 02/01/2025 3:44 AM CDT 02/01/2025 4:05 AM CDT Derek Drake MD LAB - CHEMISTRY ORDERABLES Final Result Performing Organization Address City/[facility] Co de Phone Number [address] [address], [place] [phone] * CT HEAD STEREOTACTIC WO CONTRAST (01/31/2025 [...] ventricle and minimal, approximately 2 mm of qrtbe-nb-fjpn midline shift, grossly unchanged from prior. The report was drafted by Matilde Poe MD (vice president medical affairs) 01/31/2025 7:03 AM. I, Lisa Heller MD have personally reviewed and interpreted this examination/study. > Interpreting Provider: Lisa Heller MD on 01/31/2025 9:06 AM Narrative 01/31/2025 9:06 AM CDT PROCEDURE: CT HEAD WO CONTRAST, DATE/TIME OF EXAM: 01/31/2025 5:14 AM, LOCATION [facility] INDICATION: C79.31: Cerebral metastasis (HCC) EXAMINATION: Computed [...] ventricle and minimal, approximately 2 mm of hukaz-de-dnyo midline shift, grossly unchanged from prior. Otherwise, [...] DATE/TIME OF EXAM: 01/31/2025 5:14 AM, LOCATION [facility] INDICATION: C79.31: Cerebral metastasis (HCC) EXAMINATION: Computed [...] lateralventricle and minimal, approximately 2 mm of qyniy-my-zrmc midline shift, grossly unchanged from prior. Otherwise, [...] lateralventricle and minimal, approximately 2 mm of dmqok-go-atiq midline shift, grossly unchanged from prior. The report was drafted by Matilde Poe MD (vice president medical affairs) 01/31/2025 7:03 AM. ILisa MD have personally [...] DATE/TIME OF EXAM: 01/31/2025 4:59 AM, LOCATION [facility] INDICATION: C79.31: Cerebral metastasis (HCC) ADDITIONAL CLINICAL [...] CONTRAST, DATE/TIME OF EXAM: 01/31/2025 4:59AM, LOCATION [facility] INDICATION: C79.31: Cerebral metastasis (HCC) ADDITIONAL CLINICAL [...] CDT) Case Report Surgical Pathology Report Case: [id number] Authorizing Provider: Jame Mooney MD Collected: 01/30/2025 02:41 PM Ordering Location: [facility] Received: 02/02/2025 04:50 AM Pathologist: Guido Rosas MD Specimens: A) - Brain, Right brain tumor B) - Brain, Right Brain Tumor 7:22 PM CDT [facility] Final Diagnosis Brain, right brain tumor, biopsy and resection (A, B): - Metastatic carcinoma, poorly differentiated. - Extensive acute hemorrhage and gliosis. - See comment. Comment: Based on the histopathological and immunohistochemical profile of this tumor, and the patient's previous diagnosis of lung adenocarcinoma, a poorly differentiated lung adenocarcinoma is favored. 7:22 PM CDT [facility] at 1922 CDT Microscopic Description and Comment The frozen section diagnosis is confirmed. Microscopic examination shows extensive gliosis and fresh hemorrhage with foci of a poorly differentiated carcinoma. The tumor cells are positive for CK7, TTF-1 and pancytokeratin. The tumor cells are negative for p40 and p63 immunostain. Ki-67 immunohistochemical stain shows a proliferating index of approximately 60%. 5 7:22 PM [facility] Clinical History 02/04/20 2 5 7:22 PM [facility] Intraoperative Consultation A) Right brain tumor are multiple fragments of dark-muro soft tissue measuring in aggregate 0.9 x 0.9 x 0.5 cm. Frozen entirely as FSA1. Intraoperative diagnosis: FSA1 Right Brain Tumor: - Gliosis with focal hemorrhage by Guido Rosas MD B) Right brain tumor is an irregular fragment of brain tissue measuring 5 x 3 x 1.5 cm. Puppet Maker sections are submitted for frozen section as FSB1-B2. Intraoperative diagnosis: FSB1/2 Right Brain Tumor: - Metastatic Carcinoma by Guido Rosas MD 5 7:22 PM [facility] Gross Description The requisition and [...] with diffuse yellow discoloration. Additional sales representative sections are submitted in cassettes B1-B5./ANTHONY 5 7:22 PM [facility] Pathologist Location at [facility] 5 7:22 PM [facility] Disclaimer The performance characteristics of all immunohistochemical and indirect immunofluorescence stains (if any) cited in this report were determined by the Histopathology Laboratory of [facility]. Some of these tests were developed [...] the attending (teaching) pathologist. 5 7:22 PM [facility] Embedded Images 7:22 PM CDT [facility] Resection with Tumor ENTIRE BRAIN / Unknown 01/30/2025 2:41 PM CDT 02/02/2025 4:50 AM CDT Comment:Pre-op diagnosis: brain tumor Resection with Tumor ENTIRE BRAIN / Unknown 01/30/2025 3:16 PM CDT 02/02/2025 4:50 AM CDT Comment:Pre-op diagnosis: brain tumor Jame Mooney MD LAB - PATHOLOGY/CYTOLOGY ORD ERABLES Final Result [facility] [address] [id number], [facility] [phone] * ETT LINE PERFORMABLE (01/30/2025 1:38 PM CDT) Narrative Kalyani Finn MD - 01/30/2025 1:38 PM CDT Kalyani Finn MD 01/30/2025 1:42 PM Endotracheal Tube Placement: Patient Location: OR. Intubation Event Date/Time: 01/30/2025 1:28 PM Procedure: intubation ([id number]) Procedure Section: Sedation: under general anesthesia. Indications [...] 7 - 26 mg/dL 01/30/2025 4:56 AM [facility] Creatinine 0.70 0.56 - 0.96 mg/dL 01/30/2025 4:56 AM [facility] Sodium 136 136 - 145 mmol/L 01/30/2025 4:56 AM [facility] Potassium 4.4 3.5 - 4.5 mmol/L 01/30/2025 4:56 AM [facility] Chloride 107 98 - 107 mmol/L 01/30/2025 4:56 AM [facility] CO2 24 22 - 29 mmol/L 01/30/2025 4:56 AM [facility] Glucose 102(H) 70 - 99 mg/dL 01/30/2025 4:56 AM [facility] Albumin 3.3(L) 3.4 - 5.0 g/dL 01/30/2025 4:56 AM [facility] Calcium 8.5 8.4 - 10.2 mg/dL 01/30/2025 4:56 AM [facility] Phosphorus 3.4 2.9 - 5.1 mg/dL 01/30/2025 4:56 AM [facility] Anion Gap 5(L) 6 - 16 01/30/2025 4:56 AM [facility] BUN/Creatinine Ratio 41(H) 7 - 23 01/30/2025 4:56 AM [facility] Osmolality Calculated 288 275 - 295 mOsm/kg 01/30/2025 4:56 AM [facility] eGFR by CKD-EPI >90 >=90 mL/min/1.7 3 m2 01/30/2025 4:56 AM [facility] Comment:Estimated Glomerular Filtration Rate (eGFR) calculated using the CKD-EPI Creatinine Equation (2020), per the National Kidney Foundation and [place] [employer] Nephrology recommendations. Blood BLOOD SPECIMEN / Unknown Lab Venipuncture / Unknown 01/30/2025 3:40 AM CDT 01/30/2025 4:25 AM T us Derek Drake MD LAB - CHEMISTRY ORDERABLES Final Result [facility] [address] [place] [address], [facility] [phone] * (ABNORMAL) BASIC METABOLIC PANEL (CALCIUM TOTAL) (01/29/2025 3:41 AM CDT) BUN 25 7 - 26 mg/dL 01/29/2025 4:38 AM [facility] Creatinine 0.73 0.56 - 0.96 mg/dL 01/29/2025 4:38 AM [facility] Sodium 136 136 - 145 mmol/L 01/29/2025 4:38 AM [facility] Potassium 4.5 3.5 - 4.5 mmol/L 01/29/2025 4:38 AM [facility] Chloride 108(H) 98 - 107 mmol/L 01/29/2025 4:38 AM [facility] CO2 25 22 - 29 mmol/L 01/29/2025 4:38 AM [facility] Glucose 111(H) 70 - 99 mg/dL 01/29/2025 4:38 AM [facility] Calcium 9.0 8.4 - 10.2 mg/dL 01/29/2025 4:38 AM [facility] Anion Gap 3(L) 6 - 16 01/29/2025 4:38 AM [facility] BUN/Creatinine Ratio 34(H) 7 - 23 01/29/2025 4:38 AM [facility] Osmolality Calculated 287 275 - 295 mOsm/kg 01/29/2025 4:38 AM [facility] eGFR by CKD-EPI >90 >=90 mL/min/1.7 3 m2 01/29/2025 4:38 AM [facility] Comment:Estimated Glomerular Filtration Rate (eGFR) calculated using the CKD-EPI Creatinine Equation (2020), per the National Kidney Foundation and [place] [employer] of Nephrology recommendations. Blood BLOOD SPECIMEN / Unknown Lab Venipuncture / Unknown 01/29/2025 3:41 AM CDT 01/29/2025 4:00 AM CDT Rory Donis MD LAB - CHEMISTRY ORDERABLES F inal Result [facility] [address] [place] [address], [place] [phone] * BLOOD TYPE VERIFICATION (01/28/2025 6:39 AM CDT) ABO Rh A POS 01/28/2025 7:5 4 AM CDT [facility] Blood Bank BLOOD SPECIMEN / Unknown Lab Venipuncture / Unknown 01/28/2025 6:39 AM CDT 01/28/2025 6:58 AM CDT Rory Donis MD LAB - BLOOD BANK ORDERABLES Final Result Performing Organization Address [facility]/ZIP Co de Phone Number [facility] [address] [place] [address], [place] [phone] * TYPE + SCREEN PANEL (01/28/2025 3:10 AM CDT) Antibody Screen NEG 4:18 AM CDT [facility] ABO Rh A POS 01/28/2025 4:18 AM CDT [facility] Blood Bank BLOOD SPECIMEN / Unknown Lab Venipuncture / Unknown 01/28/2025 3:10 AM CDT 01/28/2025 3:31 AM CDT Derek Drake MD LAB - BLOOD BANK ORDERABLE S Final Result Performing Organization Address City/[facility]/ZIP Co de Phone Number [facility] [address] [place] [address], [place] [phone] * EKG 12-Lead (01/26/2025 8:07 PM CDT) Ventricular Rate 65 BPM [facility] Atrial Rate 65 BPM [facility] P-R Interval 166 ms [facility] QRS Duration ms 72 ms [facility] Q-T Interval ms 394 ms [facility] QTC Calculation (Bezet) 409 ms [facility] Calculated P [place] 55 degrees [facility] Calculated R [place] 50 degrees [facility] Calculated T [place] 43 degrees [facility] Interpretation EKG NORMAL SINUS RHYTHM SEPTAL INFARCT , AGE UNDETERMINED ABNORMAL ECG NO PREVIOUS ECGS AVAILABLE Confirmed by CHRISTOFER PERRY, FEDE ([id number]) on 01/31/2025 7:36:20 PM [facility] 01/26/2025 8:07 PM CDT 01/31/2025 7:36 PM CDT Derek Drake MD ECG ORDERABLES Edited Res ult - Final [facility] * PT-INR (01/23/2025 8:35 PM CDT) PT 12.8 12.1 - 14.8 Seconds 01/23/2025 9:27 PM CDT [facility] INR 1.0 See Comment 01/23/2025 9:27 PM CDT [facility] Comment:The suggested therap eutic range for standard coumadin (warfarin) therapy is an INR of 2.0-3.0. For high-risk patients (Mechanical Mitral Valve Prosthesis, etc.), the suggested prophylactic therapeutic range is an INR of 2.5-3.5. Blood BLOOD SPECIMEN / Unknown Lab Venipuncture / Unknown 01/23/2025 8:35 PM CDT 01/23/2025 8:48 PM CDT Radha Corona MD LAB - COAGULATION ORDERABLES Final Result [facility] [address] [place] [address], [place] [phone] from Last 3 Months Insurance [facility] Address: [facility] [id number] [place] [address] Advance Directives * Full Code (Latest Code Status on File) Date Activated Date Inactivated Comments 01/23/2025 6:26 PM 02/02/2025 3:24 PM Care Teams Plastics Fabricator Or Welder Relationship Specialty Start Date End Date Unknown, Provider PCP - General 01/15/25
--- OUTSIDE RECORDS SUMMARY | 2025-02-05 05:01 | XMS_ITS | Encounter Summary ---
Author Organization [facility] Healthcare Address [address] [place] [address] Care Team Providers Care Tangled Yarn Worker Name Role Phone Vicki Bearden NP Unavailable + [phone] Pamela Cavanaugh NP Primary Care Provider [phone] Fazal Mcneal DO Unavailable [phone] Naya Valdez MD Unavailable [phone] Sarah Rich MD Unavailable + [phone] Arben Alvarenga MD Unavailable [phone] Lloyd Anderson MD Unavailable Encounter Details Date Type Department Care Team (Late st Contact Info) Description 10/20/2024 Documentation [facility] Pain [facility] [address] [place] [id number] Belen Emerson, RN Social History Tobacco Use Types Packs/Day Years Used Date Smoking Tobacco: Former Cigarettes 0.6 30 1 08/14/1988 - 06/14/2019 Vaping Smokeless Tobacco: Never Alcohol Use Standard Drinks/Week Comments Yes 0 (1 standard drink = 0.6 oz pur e alcohol) [facility] Utilities Answer Date Recorded In the [...] any clubs o r organizations such as zoroastrian groups, unions, fraternal or athletic groups, or [...] on file 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 Gender Identity Female 10/11/2020 12:34 PM CDT Sexual Orientation Not on file 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 Not on file Not on file documented as of this encounter Plan of Treatment Not on file documented as of this encounter Visit Diagnoses Not on filedocumented in this encounter Care Teams Tangled Yarn Worker Relationship Specialty Start Date End Date Pamela Cavanaugh NP [address] [facility] [address] [place] [address] PCP - General Internal Medicine 11/21/22 Vicki Bearden NP Nurse Practitioner Urology 11/15/20 Fazal Mcneal DO [address] [place] [phone] Referring Physician Medical Oncology 11/27/22 Naya Valdez MD [address] [place] [address] Radiation Oncology 11/27/22 Sarah Rich MD [address] [place] [address] Consulting Physician Pulmonary Disease 11/27/22 Arben Alvarenga MD [address] [address] Radiation Oncology 12/07/23 Lloyd Anderson MD [facility] [address] [address] Consulting Physician Pain Management 12/26/24 documented as of this encounter
--- OUTSIDE RECORDS SUMMARY | 2025-02-05 05:01 | XMS_ITS | Encounter Summary ---
Author Organization [facility] Address [address] [place] [address] Phone Care Team Providers Care Toppiece Cutter Name Role Phone Provider, Unknown Primary Care Provider Unavaila Sarah Mcdowell MD Unavailable + [phone] Pamela Cavanaugh APRN, RECORD CHANGER ASSEMBLER Unavailable + [phone] Michael Horner MD Unavailable [phone] Fazal Mcneal DO Unavailable [phone] Encounter Details Date Type Department Care Team (Late st Contact Info) Description 12/09/2024 Telephone [facility] [address] [place] [address] Fazal Mcneal, DO [address] [place] [address] Social History Tobacco Use Types Packs/Day Years Used Date Smoking Tobacco: Former Cigarettes Smokeless Tobacco: Never Alcohol Use Standard Drinks/Week Comments Yes 4 (1 standard drink = 0.6 oz pur e alcohol) Comments Unknown Sex and Gender Information Value Date Recorded Sex Assigned at Not on file Legal Sex Female 10:36 AM CREDIT REPORT CHECKER Gender Identity Not on file Sexual Orientation Not on file documented as of this encounter Functional Status * Question Answer Date of Assessment Author Little interest or pleasure in doing things Not at all 12/12/2024 9:10 AM CDT Radha Garcia, DISPENSING OPERATOR Feeling down, depressed, or hopeless Not at [...] CDT Office Visit [facility] [address] [address] Fazal Mcneal, [address] [place] [phone] 03/27/2025 9:00 AM CDT Lab [facility] [address] [address] Lab, [facility] 03/27/2025 9:30 AM CDT Ancillary Procedure [facility] [address] [address] 03/27/2025 9:45 AM CDT Ancillary Procedure [facility] [address] [address] documented as of this encounter Visit Diagnoses Not on filedocumented in this encounter Care Teams Toppiece Cutter Relationship Specialty Start Date End Date Provider, Unknown UNKNOWN PCP - General 06/30/22 Sarah Rich MD UNKNOWN Pulmonary Disease 10/31/22 Pamela Cavanaugh, CLINICAL RN LIAISON, RECORD CHANGER ASSEMBLER UNKNOWN Internal Medicine 10/31/22 Michael Horner MD [address] [facility] [address] [place] [address] Neurology 10/31/22 Fazal Mcneal DO [address] [place] [address] Consulting Physician Oncology 10/31/22 documented as of this encounter
--- OUTSIDE RECORDS SUMMARY | 2025-02-05 05:01 | XMS_ITS | Encounter Summary ---
Author Organization [facility] Address [address] [place] [address] Phone Care Team Providers Care Hemodialysis Patient Care Specialist Name Role Phone Provider, Unknown Primary Care Provider Unavaila Sarah Mcdowell MD Unavailable + [phone] Pamela Cavanaugh APRN, REAL ESTATE FINANCIAL ANALYST Unavailable + [phone] Michael Horner MD Unavailable [phone] Fazal Mcneal DO Unavailable [phone] Encounter Details Date Type Department Care Team (Late st Contact Info) Description 09/25/2023 Telephone [facility] [address] [place] [address] Fazal Mcneal, DO [address] [place] [address] Social History Tobacco Use Types Packs/Day Years Used Date Smoking Tobacco: Former Cigarettes Smokeless Tobacco: Never Alcohol Use Standard Drinks/Week Comments Yes 4 (1 standard drink = 0.6 oz pur e alcohol) Comments Unknown Sex and Gender Information Value Date Recorded Sex Assigned at Not on file 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 Sex 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:36 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 Gender Identity Not on file Sexual Orientation Not on file documented as of this encounter Functional Status * Question Answer Date of Assessment Author Little interest or pleasure in doing things Not at all 09/25/2023 9:24 AM CDT Saima Mooney , POULTRY FEED SUPERVISOR Feeling down, depressed, or hopeless Not at [...] AM CDT Office Visit [facility] [address] [phone] Fazal Mcneal, [address] [place] [phone] 03/27/2025 9:00 AM CDT Lab [facility] [address] [phone] Lab, [facility] 03/27/2025 9:30 AM CDT Ancillary Procedure [facility] [address] [phone] 03/27/2025 9:45 AM CDT Ancillary Procedure [facility] [address] [phone] documented as of this encounter Visit Diagnoses Not on filedocumented in this encounter Care Teams Hemodialysis Patient Care Specialist Relationship Specialty Start Date End Date Provider, Unknown UNKNOWN PCP - General 06/30/22 Sarah Rich MD UNKNOWN Pulmonary Disease 10/31/22 Pamela Cavanaugh, FISH AND WILDLIFE SCIENTIFIC AID, REAL ESTATE FINANCIAL ANALYST UNKNOWN Internal Medicine 10/31/22 Michael Horner MD [address] [facility] [address] [place] [address] Neurology 10/31/22 Fazal Mcneal DO [address] [place] [phone] Consulting Physician Oncology 10/31/22 documented as of this encounter
--- OUTSIDE RECORDS SUMMARY | 2025-02-05 05:01 | XMS_ITS | Clinical Summary ---
Author Organization [facility] Address [facility] [place] [address] Care Team Providers Care Food Mixer Repairer Name Role Phone Pamela Cavanaugh [facility] Primary Care Provider [phone] Arben Alvarenga MD Unavailable Allergies Active Allergy [...] Noted Date Diagnosed Date MS (multiple sclerosis) ([facility] 2022 Encounters Date Type Department Care Team Description 01/26/2025 Telephone [facility] Radiation Oncology [address] [place] [address] [place] [address] Arben Alvarenga MD Cancer (/) 01/09/2025 Orders Only [facility] Radiation Oncology [address] [place] [address] [place] [address] Arben Alvarenga MD 01/09/2025 Telephone [facility] Radiation Oncology [address] [place] [address] [place] [address] Arben Alvarenga MD Medication 01/01/2025 9:15 AM CDT - 01/01/2025 11:59 PM CDT Hospital Encounter [facility] Radiation Oncology [address] [place] [address] [place] [address] Arben Alvarenga MD Consult Discharge Disposition: Home or Self Care (Routine Discharge) 01/01/2025 Travel 12/29/2024 7:49 AM CDT - 12/29/2024 11:59 PM CDT Hospital Encounter [address] [address] Arben Alvarenga MD Discharge Disposition: Home or Self Care (Routine Discharge) 12/29/2024 Travel 12/03/2024 2:45 PM CDT - 12/03/2024 5:16 PM CDT Emergency [facility] Emergency Room [address] [place] [address] Michelle Rodriguez MD Urinary Symptoms Discharge Disposition: [...] 1:00 PM CDT Appointment [facility] Radiation Oncology [address] [place] [address] [place] [address] Arben Alvarenga MD [address] [place] [address] [place] [address] Health Maintenance Due Date Last Done [...] 9:3 9 AM CDT Metastasis to brain ([facility] URINE BACTERIA CULTURE STAT 12/03/2024 3:12 PM [...] 8:11 AM Narrative 01/02/2025 8:22 AM CDT [facility] [address] [place]. [place] [id number] EXAMINATION:Brain MRI with and without contrast 12/29/2024 [...] Procedure Note Aristides Velez MD - 01/02/2025 [facility] [address] [place] [address] EXAMINATION:Brain MRI with and without contrast 12/29/2024 [...] URINE STRAIGHT CATH 12/03/2024 3:12 PM CDT [facility] SPECIAL REQUESTS NO SPECIAL REQUEST 12/03/2024 3:12 PM CDT [facility] CULTURE RESULT >100,000 COL/ML KLEBSIELLA PNEUMONIAE (A) 12/05/2024 7:45 AM CDT [facility] URINE SPECIMEN OBTAINED BY SINGLE [...] MICROBIOLOGY - GENERAL ORDERABL ES Final Result [facility] [address] [place] [address], [place] [phone] [facility] [address] [place] [address], [place] [phone] * (ABNORMAL) URINALYSIS, AUTO, COMPLETE (12/03/2024 3:12 PM CDT) COLOR (U) YELLOW 12/03/2024 3:30 PM CDT [facility] TRANSPARENCY HAZY 12/03/2024 3:30 PM CDT [facility] SPECIFIC GRAVITY (U) 1.020 1.000 - 1.030 12/03/2024 3:30 PM CDT [facility] U PH 6.0 5.0 - 9.0 12/03/2024 3:30 PM CDT [facility] LEUKOCYTES (U) 1+(A) NEGATIVE 12/03/2024 3:30 PM CDT [facility] NITRITES NEGATIVE NEGATIVE 12/03/2024 3:30 PM CDT [facility] PROTEIN RANDOM (U) NEGATIVE NEGATIVE 12/03/2024 3:30 PM CDT [facility] GLUCOSE (U) NEGATIVE NEGATIVE 12/03/2024 3:30 PM CDT [facility] KETONES MG/DL (U) TRACE(A) NEGATIVE 12/03/2024 3:30 PM CDT [facility] BILIRUBIN (U) NEGATIVE NEGATIVE 12/03/2024 3:30 PM CDT [facility] BLOOD (U) NEGATIVE NEGATIVE 12/03/2024 3:30 PM CDT [facility] WBC/HPF 5-10 0 - 5 /HPF 12/03/2024 3:30 PM CDT [facility] RBC/HPF NONE SEEN 0 - 5 /HPF 12/03/2024 3:30 PM CDT [facility] EPI/HPF FEW /HPF 12/03/2024 3:30 PM CDT [facility] BACTERIA (U) MODERATE /HPF 12/03/2024 3:30 PM CDT [facility] URINE, STRAIGHT CATH 12/03/2024 3:12 PM CDT us Michelle Rodriguez MD URINE ORDERABLES Final Result [facility] [address] [place] [address], from Last 3 Months Insurance [facility] Care Teams Food Mixer Repairer Relationship Specialty Start Date End Date Pamela Cavanaugh FNP- PCP - General 11/02/22 Arben Alvarenga MD [address] [place] [address] Consulting Physician RADIATION ONCOLOGY 09/27/23
--- NOTE | 2025-02-05 05:24 | ED_ITS ---
HPI - Female Genitourinary General Chief complaint: Urogenital-Female Stated complaint: hard time catheterizing myself, bloated Time Seen by Provider: 02/05/25 04:48 Source: patient Limitations: no limitations History of Present Illness HPI Narrative: Patient presents concerned that at times she is having difficulty performing straight catheterization, feeling bloated. Patient has a history of multiple sclerosis and is able to void on her but will sometimes straight catheterization to ensure she has completely emptied. Her urologists were Dr Garcia and Dr Bravo but she sometimes had difficulty getting in to be seen so also gets UAs performed through [facility]. Her neurologist is Dr Michael Horner through [facility]. She has previously been on Aubagio for MS. Had dealt with a chronic UTI one year that required 19 antibiotics. Follows with Infectious Disease physician Dr Jorgensen. Her last bowel movement was today. She had been constipated before but after taking laxatives. Denies any dysuria or hematuria. Denies any bloody stools. No nausea or vomiting home no fevers or chills. She was experiencing some pain with defecating and has been using preparation H wipes. She was just discharged from the hospital , initially here and then transferred to [facility] where she had 1 or 2 brain tumors removed. Related Data Home Medications ?Medication ?Instructions ?Recorded ?Confirmed ?Last Taken ?Type azelastine 137 mcg (0.1 %) nasal 1 spray intranasal DAILY PRN 11/08/20 06/16/22 Unknown History spray Congestion baclofen 10 mg tablet 10 mg PO HS 11/08/20 06/16/22 06/14/22 21:00 History cholecalciferol (vitamin D3) 100 100 mcg PO DAILY 11/08/20 06/16/22 06/15/22 09:00 History mcg (4,000 unit) tablet fingolimod 0.5 mg capsule ([employer]) 0.5 mg PO DAILY 11/08/20 06/16/22 06/15/22 09:00 History duloxetine 60 mg capsule,delayed 60 mg PO BID 04/28/22 06/16/22 06/15/22 09:00 History release Allergies Allergy/AdvReac Type Severity Reaction Status Date / Time Tetanus Vaccines and Toxoid Allergy Intermediate Rash Verified 01/22/25 20:50 codeine Allergy Mild Rash Verified 01/22/25 20:50 PMFSH Past Medical History Medical History Immunosuppressed status Nicotine dependence Chronic obstructive pulmonary disease Anxiety Hypertension Multiple sclerosis Surgical History Surgical History History of hammertoe correction (04/2022) History of tonsillectomy History of benign breast biopsy History of appendectomy Family History Family History Other Hypertension Social History Social History Social History: Surrogate medical decision maker: Ramu Cavanaugh, spouse. Code status: Full code. Years smoked: 42 Smoking status: Former smoker Tobacco type: cigarettes and e-cigarettes/vaping Smoking end date: 10/14/21 Additional smoking assessment comments: Vapes since quit smoking in October 2021. Alcohol intake: current Drinks per week: 1 Substance use: current Substance use type: marijuana Other substance usage details: Uses for MS Last use: 06/04/22 Lack of Transportation: No Lack of Food: Never True Current Housing: I Have Housing Concerned About Future Housing: No Difficulty Paying Gas/Electric Bills: No Difficulty Paying for Meds: No Currently Unemployed: No Education: High School Diploma/GED Difficulty w/ Childcare or Family Care: No Living arrangements: with family Spiritual care concerns: No Exam 2 Narrative: GENERAL: Well-appearing, well-nourished, and in no acute distress. HEAD: Normocephalic, atraumatic. EYES: Non injected, non icteric ENT: Nares clear, no rhinorrhea or epistaxis. Gross auditory acuity intact. NECK: Supple. No meningismus. CHEST: Speaking in full sentences. No respiratory distress. HEART: Regular rate and rhythm. . ABDOMEN: Soft, nondistended. No rigidity or guarding. Not peritoneal EXTREMITIES: Normal range of motion. No lower extremity edema. SKIN: Warm, dry, no rash. NEURO: No focal deficits. Alert and oriented. Answering questions. Following commands. Normal speech without aphasia or dysarthria. PSYCH: Congruent mood and affect. Course Vital Signs Vital signs: Vital Signs Temperature 97.4 F L 02/04/25 20:40 Pulse Rate 73 02/04/25 20:40 Respiratory Rate 16 02/04/25 20:40 Blood Pressure 154/93 H 02/04/25 20:40 Pulse Oximetry 97 02/04/25 20:40 Temperature 97.4 F L 02/04/25 20:40 Pulse Rate 86 02/05/25 07:29 Respiratory Rate 18 02/05/25 07:29 Blood Pressure 154/83 H 02/05/25 07:29 Pulse Oximetry 95 02/05/25 07:29 MDM - Female Genitourinary MDM Narrative Medical decision making narrative: Patient with multiple sclerosis reports having a hard time performing self catheterization and feeling more bloated. Patient is able to void on her own but self cath at times. In the emergency department she is afebrile with vital signs that show hypertension. RN notes that she did urinate and had a PVR of 165. She has a normocytic anemia and thrombocytosis, both previously seen/chronic and stable. Azotemia but with normal renal function. Chronic mild hyponatremia. CT with bladder wall thickening however urine does not appear infected. Incidental finding on CT noted in discharge instructions. Ultimately however, no clear etiology for patient's symptoms. Low suspicion for emergent surgical issue. Encouraged patient to follow up with her care team including urology to discuss further. She is still able to void so do not believe a Butler catheter is indicated, especially as it may increase her risk of infection and she already has higher than normal risk given history and comorbidities. Differential Diagnosis Differential diagnosis: Likely urinary tract infection and other (urinary retention; constipation; progressing MS) Lab Data Attestation: I reviewed the patient's lab results. 02/05/25 06:13 02/05/25 06:13 Labs: Lab Results 02/05/25 02/05/25 Range/Units 05:27 06:13 WBC 8.2 (4.5-10.0) K/mm3 RBC 3.78 L (4.2-5.4) M/mm3 Hgb 11.7 L (12.0-15.0) g/dL Hct 36.2 L (37.0-47.0) % MCV 95.8 (80-100) fl MCH 31.0 (26-34) pg MCHC 32.3 (32-36) g/dl RDW 14.2 (11.5-14.5) % Plt Count 500 H (150-375) k/mm3 MPV 8.7 (7.4-10.4) fl Immature Gran % (Auto) 2.0 H (0-0.5) % Neut % (Auto) 74.7 H (45.5-73.1) % Lymph % (Auto) 14.3 L (18.3-44.2) % [place] % (Auto) 8.8 H (2.6-8.5) % Eos % (Auto) 0.0 (0-4.4) % Baso % (Auto) 0.2 (0.2-1.2) % Lymph # (Auto) 1.17 (0.9-3.2) K/mm3 [place] # (Auto) 0.7 H (0.1-0.6) K/mm3 Eos # (Auto) 0.0 (0-0.3) K/mm3 Baso # (Auto) 0.0 (0.0-0.1) K/mm3 Abs Immat Gran (auto) 0.16 H (0.00-0.031) K/mm3 Absolute Neuts (auto) 6.1 (1.3-6.7) K/mm3 Absolute Nucleated RBC 0.000 (0.0-0.012) K/mm3 Nucleated RBC % 0.0 (0.0-0.2) % Sodium 131 L (137-145) mmol/L Potassium 4.5 (3.4-5.0) mmol/L Chloride 99 (98-107) mmol/L Carbon Dioxide 29 (22-30) mmol/L Anion Gap 3 L (4-12) mmol/L BUN 32 H (7-17) mg/dL Creatinine 0.68 L (0.7-1.0) mg/dL Estim Creat Clear Calc 60 ml/min Estimated GFR > 60 (59 - ) Glucose 83 (65-110) mg/dL Calcium 9.7 (8.4-10.2) mg/dL Total Bilirubin 0.2 (0.2-1.3) mg/dL AST 34 (14-36) U/L ALT 36 H (6-35) U/L Alkaline Phosphatase 49 (38-126) U/L Total Protein 6.6 (6.3-8.2) g/dL Albumin 3.9 (3.5-5.1) g/dL Urine Color Yellow (Yellow) Urine Appearance Clear (Clear) Urine pH 7.5 (5.0-9.0) Ur Specific [place] 1.015 (1.001-1.035) Urine Protein Negative (Negative) mg/dL Urine Glucose (UA) Negative (Negative) mg/dL Urine Ketones Negative (Negative) mg/dL Ur Blood (Man) Negative (Negative) Urine Nitrate Negative (Negative) Urine Bilirubin Negative (Negative) Urine Urobilinogen 0.2 (<2.0) mg/dL Add Ur Microanalysis Reviewed Leukocyte Esterase Rfl Trace H (Negative) MICHAEL/UL Urine RBC 0-2 (0-2) /hpf Urine WBC 0-5 (0-3) /hpf Ur Squamous Epith Cells None seen (Few) /hpf Urine Bacteria None seen /hpf Urine Casts 0-2 Imaging Data Radiologist's impression: Impressions Abdomen/Pelvis CT 02/05/25 07:25 IMPRESSION: 1. Mild diffuse bladder wall thickening, suspicious for cystitis. Clinically correlate. 2: Heterogeneously enhancing 3.5 cm right adrenal mass. Statistically this most likely represents an adenoma, although imaging is indeterminate. Recommend correlation with MRI abdomen without and with contrast. Discharge Plan Discharge Clinical Impression: Normocytic anemia, Thrombocytosis, Azotemia, Chronic hyponatremia, History of urinary self-catheterization, Adrenal mass, right Patient Disposition: Home Condition: Stable Instructions: Antibiotic Form, Hyponatremia (ED), Anemia (ED) Additional Instructions: The reason for your difficulty performing self catheterization is unclear. You do not appear to have a urinary tract infection (!) and no other findings on CT that explain the cause. Recommend following up with your care team including urology if symptoms persist. On your CT, the following was incidentally found: Heterogeneously enhancing 3.5 cm right adrenal mass. Statistically this most likely represents an adenoma, although imaging is indeterminate. Recommend correlation with MRI abdomen without and with contrast. Your primary care physician can help arrange this. Continue taking your medications as prescribed. Return to the emergency department any new or worsening symptoms Patient Language: Iranian Prescriptions: No Action baclofen 10 mg tablet 10 mg PO HS azelastine 137 mcg (0.1 %) aerosol,spray 1 spray INTRANASAL DAILY PRN (Reason: Congestion) Patient Comments: Patient uses PRN fingolimod [Gilenya] 0.5 mg Capsule 0.5 mg PO DAILY cholecalciferol (vitamin D3) 100 mcg (4,000 unit) Tablet 100 mcg PO DAILY prednisone 20 mg Tablet 40 mg PO DAILY@0800 Qty: 3 0RF oseltamivir [Tamiflu] 75 mg Capsule 75 mg PO Q12HR Qty: 1 0RF cefdinir 300 mg Capsule 300 mg PO Q12HR Qty: 4 0RF doxycycline hyclate 100 mg Tablet 100 mg PO Q12HR Qty: 4 0RF Eliquis 5 mg Tablet 5 mg PO Q12HR Qty: 60 0RF Rx Instructions: take 10 mg b.i.d. for 6 days then 5 mg b.i.d. to continue after that guaifenesin [Mucus Relief ER] 600 mg Tablet Extended Release 12hr 600 mg PO Q12HR Qty: 30 0RF duloxetine 60 mg capsule,delayed release(DR/EC) 60 mg PO BID Follow-up/Referrals: Kendrick Garcia MD [Physician] - (patient's urologist) Afshan,DAVID Santiago [Primary Care Provider] - Uriah Bravo MD [Physician] - (patient's urologist) Stand Alone Forms: Work/School Release IP Time of Disposition: 07:40
[2025-02-05 06:03] LABS: Add Urine Microscopic? YES; Appearance Urine Clear (Clear); Glucose Urine UA Negative (Negative); Leukocyte Esterase Ur Trace LEU/UL (Negative); Need Manual Microscopic Reviewed; Nitrate Urine Negative (Negative); Non Pathogenic Casts 0-2; Specific Grav Ur 1.015 (1.001-1.035)
[2025-02-05 06:30] LABS: Hematocrit 36.2 % (37.0-47.0); Hemoglobin 11.7 g/dL (12.0-15.0); Immature Granulocyte Percent A 2.0 % (0-0.5); Lymphocytes Absolute Auto 1.17 K/mm3 (0.9-3.2); Mean Corpuscular HGB Conc 32.3 g/dl (32-36); Mean Corpuscular Hemoglobin 31.0 pg (26-34); Mean Corpuscular Volume 95.8 fl (80-100); Nucleated Red Blood Cells Absolute Auto 0.000 K/mm3 (0.0-0.012); Nucleated Red Blood Cells Perc 0.0 % (0.0-0.2); Platelet Count Result 500 k/mm3 (150-375); Red Blood Count 3.78 M/mm3 (4.2-5.4); White Blood Count 8.2 K/mm3 (4.5-10.0)
[2025-02-05 06:55] LABS: Alanine Aminotransferase 36 U/L (6-35); Albumin Level 3.9 g/dL (3.5-5.1); Alkaline Phosphatase 49 U/L (38-126); Anion Gap 3 mmol/L (4-12); Aspartate Amino Transferase 34 U/L (14-36); Bilirubin,Total 0.2 mg/dL (0.2-1.3); Blood Urea Nitrogen 32 mg/dL (7-17); Calcium 9.7 mg/dL (8.4-10.2); Carbon Dioxide 29 mmol/L (22-30); Chloride 99 mmol/L (98-107); Estimated CRCL calculation 60 ml/min; Estimated Glomerular Filt Rate > 60; Glucose 83 mg/dL (65-110); Potassium 4.5 mmol/L (3.4-5.0); Sodium 131 mmol/L (137-145); Total Protein 6.6 g/dL (6.3-8.2)
== END 2025-02-05 07:57 | disposition home or self-care (01) ==
PROVIDERS: Emergency Provider Student in an Organized Health Care Education/Training Program; PCP Nurse Practitioner Family
DX: E27.9 Disorder of adrenal gland, unspecified (principal); R79.89 Other specified abnormal findings of blood chemistry; D64.9 Anemia, unspecified; D75.839 Thrombocytosis, unspecified; E87.1 Hypo-osmolality and hyponatremia; G35 Multiple sclerosis; J44.9 Chronic obstructive pulmonary disease, unspecified; I10 Essential (primary) hypertension; F41.9 Anxiety disorder, unspecified; F17.290 Nicotine dependence, other tobacco product, uncomplicated; R93.41 Abnormal radiologic findings on diagnostic imaging of renal pelvis, ureter, or bladder
CPT/HCPCS: 36415; 51702; 74177; 80053; 81001; 85025; 99284; Q9967